=== PATIENT | female | born 1980 | race Caucasian/White ===

== ENCOUNTER → 2022-07-12 01:27 | Outpatient (CLI) | payer MEDICAID, SELFPAY ==
--- NOTE | 2022-07-12 11:04 | DI.RAD_ITS ---
Exam(s) XR SHOULDER LT COMPLETE 2+V EXAM: XR SHOULDER LT COMPLETE 2+V CLINICAL HISTORY: [place] AUTH# [id number] LT SHOULDER PAIN. TECHNIQUE: 2D digital imaging was performed of the left shoulder. Five images were obtained. AP, G rashey, Y-view and axillary views were obtained. COMPARISON: No exams were available for comparison FINDINGS: BONES: No acute fracture is present. No bony destructive lesion is seen. JOINTS: No dislocation present. SOFT TISSUE: Normal. IMPRESSION: Unremarkable radiographs of the left shoulder. DATA REPOSITORY: RADIATION DOSE DELIVERED:
--- NOTE | 2022-07-12 11:04 | DI.RAD_ITS ---
Exam(s) XR CERVICAL SPINE COMP 4-5V EXAM: XR CERVICAL SPINE COMP 4-5V CLINICAL HISTORY: [place] AUTH# [id number] LT-SIDED NECK PAIN, M54.2. TECHNIQUE: 2D digital imaging was performed. Six images were obtained. AP, odontoid, lateral and derrick ateral oblique images were obtained. COMPARISON: No exams were available for comparison FINDINGS: The odontoid is intact. The lateral masses are well aligned. There is normal alignment of the cervi josue spine. The vertebral bodies, disc spaces and posterior elements are well maintained. No acute f racture or subluxation is present. No significant neural foraminal stenosis is present. The cervical thoracic junction is well maintained. The prevertebral soft tissues are unremarkable. Lung apices a re clear. IMPRESSION: Unremarkable radiographs of the cervical spine. DATA REPOSITORY: RADIATION DOSE DELIVERED:
== END ==
PROVIDERS: Visit Provider Physician Assistant Medical
DX: M25.512 Pain in left shoulder (principal)
CPT/HCPCS: 72050; 73030

== ENCOUNTER → 2023-10-25 15:02 | Outpatient (CLI) | payer MEDICAID, SELFPAY ==
--- NOTE | 2023-10-25 | DI.US_ITS ---
Exam(s) US LOWER EXTREMITY VENOUS LT EXAM: US LOWER EXTREMITY VENOUS LT CLINICAL HISTORY: PAIN LEFT LEG M79.605 TECHNIQUE: Grayscale, color, and doppler imaging of the deep venous system of the left lower extremi ty was performed. COMPARISON: No exams were available for comparison FINDINGS: There is no evidence of intraluminal thrombus and there is normal compression and augmentation demons trated within the common femoral vein, femoral vein, and popliteal vein. In the ipsilateral calf the interrogated veins also exhibit normal compression/ augmentation properti es. The ipsilateral saphenofemoral junction is patent. IMPRESSION: 1. No evidence of DVT in the left lower extremity. DATA REPOSITORY:
== END ==
PROVIDERS: PCP Nurse Practitioner Family; Visit Provider Nurse Practitioner Family
DX: M25.562 Pain in left knee (principal)
CPT/HCPCS: 93971

== ENCOUNTER 2023-12-27 23:53 | Emergency (ER) | payer MEDICAID, SELFPAY ==
[2023-12-27 23:56] VITALS: BP 106/56; PULSE 82; RESP 18; TEMP 36.8; O2SAT 100
[2023-12-28] VITALS (149 sets, daily range): BP systolic 105–122; BP diastolic 53–71; PULSE 58–72; RESP 7–37; TEMP 36.8; O2SAT 98–100
--- NOTE | 2023-12-28 00:11 | W.ED.GENAD ---
Discharge Plan Disposition Patient Disposition: Home Condition: Improving Discharge Details Chief Complaint: [facility] [employer] [facility]RAF[facility] Clinical Impression: Miscarriage Primary Care Provider: Unknown,Unknown ED Provider: Dain Patel Home Meds and New Rx's Prescriptions: No Action PNV #[id number] acid-dha 35 mg iron-5 mg iron-1 mg capsule 1 cap PO DAILY quetiapine [Seroquel] 25 mg tablet 25 mg PO PRN Patient Comments: takes 1/4 tab Discharge Instructions Instructions: Miscarriage (ED) Additional Instructions: Please follow-up closely with [facility]AIL DRAFTER. Please return to the emergency department for any worsening symptoms HPI General Date/Time Provider Initiated Documentation: 12/27/23 23:59. HPI Narrative: 43-year-old female G2, P1 at approximately 11 weeks gestation per patient, presents with lower abdominal cramping passing of blood clots and tissue this evening, associate with nausea. Patient was seen in clinic within the last couple of days had ultrasound with estimated gestational age of 7 weeks without evidence of heart tone, consistent with demise, with planned expectant management. Related Data Home Medications Medication Instructions Recorded Confirmed vitamin #56-iron 35 mg 1 cap PO DAILY 12/19/23 12/28/23 and 5 mg-folic acid 1 mg-dha capsule quetiapine 25 mg tablet (Seroquel) 25 mg PO PRN 12/19/23 12/28/23 Allergies Allergy/AdvReac Type Severity Reaction Status Date / Time No Known Allergies Allergy Verified 12/28/23 00:02 General Stated Complaint: L[employer] OUT AND [employer]AIL DRAFTER SOBEIDA: 3 Review of Systems Narrative: Review of Systems Constitutional: negative Eyes: negative ENT: negative Cardiovascular: negative Respiratory: negative Gastrointestinal: negative : Pelvic cramping, vaginal bleeding Musculoskeletal: negative Skin: negative Neurologic: negative Psych: negative Exam Narrative Exam Narrative: Physical Examination General: alert, awake, cooperative, appears uncomfortable HEENT: normocephalic, atraumatic; PERRL, EOM intact, conjunctiva normal; no nasal discharge; moist mucous membranes, oral and pharyngeal mucosa normal, tolerating secretions Neck: supple, trachea midline; full ROM Chest: normal to inspection Respiratory: normal respiratory effort, speaking in full sentences, clear to auscultation, no wheezing, rales or rhonchi Cardiac: regular rate, regular rhythm, S1S2 intact, no murmurs rubs or gallops GI: abdomen soft, non-tender, non-distended; no palpable mass or hepatosplenomegaly Skin: no lesions, rashes or trauma appreciated Neuro: AAOx3, normal speech, moving all extremities Psych: Appropriate mood and affect Course Vital Signs Vital signs: Vital Signs Temperature 36.8 C 12/27/23 23:56 Pulse 82 12/27/23 23:56 Respiratory Rate 18 12/27/23 23:56 Blood Pressure 106/56 L 12/27/23 23:56 Pulse Oximetry 100 12/27/23 23:56 Temperature 36.8 C 12/27/23 23:56 Pulse 82 12/27/23 23:56 Respiratory Rate 18 12/27/23 23:56 Respiratory Effort Normal 12/28/23 00:00 Blood Pressure 106/56 L 12/27/23 23:56 Pulse Oximetry 100 12/27/23 23:56 Pain Level 10 12/28/23 00:00 Medical Decision Making 43-year-old female at approximately 1 weeks gestation per patient, presents with pelvic cramping passing of clot and tissue, recent pelvic ultrasound showing estimated age of 7 weeks with no heart tones consistent with demise, likely incomplete , patient medically stable nonperitoneal however appears uncomfortable, nauseous without active vomiting, will administer fluids antiemetics analgesia, will obtain basic labs coag panel type and screen and beta-hCG. Setting up for pelvic exam to assess amount of bleeding. If patient remains hemodynamically stable and with relief from medications and unremarkable labs will consider discharge home with close [employer] [facility]RAF[facility] follow-up 00: 48 patient feeling much better after fluids and medication. Pelvic exam revealing dark blood in vaginal vault with some tissue. Patient remains hemodynamically stable. Will await lab results, reassessment for likely discharge home 4:44 patient resting comfortably bleeding has slowed 4:55 likely complete patient remains hemodynamically stable and comfortable. Patient to follow-up closely with L[employer] [facility] [employer]AIL DRAFTER Quality:SDOH Health Related Social Needs: No Data to Display PFSH All Active Problems (Updated 12/28/23 @ 04:56 by Dain Patel MD) Miscarriage (Acute) SAB (spontaneous ) (Acute) 12/19/23. 9w EGA with 6w0d EGA by CRL. Pt will repeat u/s in one week and have D&C if non-viable on repeat u/s. BPPV (benign paroxysmal positional vertigo) (Acute) Globus sensation (Acute) Medical History (Updated 12/28/23 @ 04:56 by Dain Patel MD) Nasal drainage Social History (Updated 04/26/23 @ 12:37 by Karla Orozco) Smoking/Tobacco Use Status: Never Smoking risk assessment performed?: Yes Alcohol Intake: never Do you feel safe at home: Yes
[2023-12-28 00:25] LABS: Abs Immature Grans 0.06 10^3/uL (0.0-0.06); Absolute Eosinophil Count 0.02 10^3/uL (0.0-0.7); Absolute Monocyte Count 0.82 10^3/uL (0.1-0.8); Absolute Neutrophil Count 14.54 10^3/uL (1.2-6.7); Basophils % 0.2; Eosinophils % 0.1; HCT 34.3 % (36.0-46.0); HGB 12.1 g/dL (11.2-15.7); Immature Grans % 0.4; Lymphocytes % 7.4; MCH 31.4 pg (27.0-33.0); MCHC 35.3 % (32.0-36.0); MCV 89 fL (80-95); MPV 10.6 fL (8.0-11.0); Monocytes % 4.9; Platelet Count 261 10^3/uL (130-400); RBC 3.85 10^6/uL (3.93-5.22); RDW 11.8 % (11.7-14.6); RDW-SD 37.6 fL; WBC 16.71 10^3/uL (4.4-10.8)
[2023-12-28 00:27] LABS: Absolute Basophil Count 0.03 10^3/uL (0.0-0.2); Absolute Lymphocyte Count 1.24 10^3/uL (1.2-3.4)
[2023-12-28] MEDS: ACETAMINOPHEN 1,000 MG/100 ML BTL 400 MG IVPB (00:29)
[2023-12-28] MEDS: Normal Saline 1,000 ML 1000 ML IV (00:29)
[2023-12-28] MEDS: Ondansetron 4 MG/2 ML VIAL IVP (00:29)
[2023-12-28 00:40] LABS: INR 1.1 (0.9-1.1); PTT Activated 25.9 sec (23.6-32.8); Prothrombin Time 10.8 sec (9.1-11.1)
[2023-12-28 01:03] LABS: ALT 20 U/L (14-59); AST 14 U/L (15-37); Alkaline Phosphatase 43 U/L (46-116); Anion Gap 15.4 mmol/L (3-11); BUN 9 mg/dL (7-18); Bilirubin, Total 0.2 mg/dL (0.2-1.0); CO2 21.6 mmol/L (21.0-32.0); CREATININE 0.8 mg/dL (0.55-1.02); Calcium 8.9 mg/dL (8.5-10.1); Chloride 100 mmol/L (98-107); Estimated GFR 93.12 (mL/min/1.73m2); Glucose 160 mg/dL (74-106); HCG Quant, Pregnancy 6864 mIU/mL (1-3); Potassium 3.2 mmol/L (3.5-5.1); Sodium 137 mmol/L (136-145); Total Protein 7.5 g/dL (6.4-8.2)
[2023-12-28] MEDS: Ketorolac 15 MG/ML VIAL IVP (03:18)
== END 2023-12-28 05:17 | disposition home or self-care (01) ==
PROVIDERS: Emergency Provider Emergency Medicine
DX: O03.9 Complete or unspecified spontaneous abortion without complication (principal); Z3A.11 11 weeks gestation of pregnancy
CPT/HCPCS: 80053; 86850; 86900; 86901; 96361; 96374; 96375; 99284; 84702; 85025; 85610; 85730; J0131; J1885; J2405

== ENCOUNTER 2024-01-03 14:36 | Outpatient (CLI) | payer MEDICAID, SELFPAY ==
[2024-01-03 14:23] LABS: Abs Immature Grans 0.02 10^3/uL (0.0-0.06); Absolute Basophil Count 0.04 10^3/uL (0.0-0.2); Absolute Eosinophil Count 0.05 10^3/uL (0.0-0.7); Absolute Lymphocyte Count 1.97 10^3/uL (1.2-3.4); Absolute Monocyte Count 0.63 10^3/uL (0.1-0.8); Absolute Neutrophil Count 5.64 10^3/uL (1.2-6.7); Basophils % 0.5; Eosinophils % 0.6; HCT 33.8 % (36.0-46.0); HGB 11.9 g/dL (11.2-15.7); Immature Grans % 0.2; Lymphocytes % 23.6; MCH 32.4 pg (27.0-33.0); MCHC 35.2 % (32.0-36.0); MCV 92 fL (80-95); MPV 10.7 fL (8.0-11.0); Monocytes % 7.5; Neutrophils % 67.6; Platelet Count 281 10^3/uL (130-400); RBC 3.67 10^6/uL (3.93-5.22); RDW-SD 40.8 fL; WBC 8.35 10^3/uL (4.4-10.8)
[2024-01-03 14:36] LABS: HCG Quant, Pregnancy 312 mIU/mL (1-3)
== END 2024-01-03 14:37 | disposition home or self-care (01) ==
LOC: LBO 14:36
PROVIDERS: Visit Provider Obstetrics & Gynecology
DX: O03.9 Complete or unspecified spontaneous abortion without complication (principal)
CPT/HCPCS: 36415; 84702; 85025

== ENCOUNTER 2024-01-13 02:06 | Outpatient (CLI) | payer MEDICAID, SELFPAY ==
[2024-01-13 16:29] LABS: HCG Quant, Pregnancy 22 mIU/mL (1-3)
== END 2024-01-13 02:07 | disposition home or self-care (01) ==
LOC: LBO 02:06
PROVIDERS: Visit Provider Obstetrics & Gynecology
DX: O03.9 Complete or unspecified spontaneous abortion without complication (principal)
CPT/HCPCS: 36415; 84702

== ENCOUNTER 2024-08-03 13:51 | Outpatient (REF) | payer MEDICAID, SELFPAY ==
--- OUTSIDE RECORDS SUMMARY | 2024-08-03 13:55 | XMS_ITS | Continuity of Care Document ---
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 It does not include entries that were removed or entered in error. Problem Status Onset Date Problem Type Date of Resolution Comments Source Caesarean delivery - delivered Active 11/25/19 22 Condition Jun 17, 2022 Entered By: CAMERON GRIMALDO Comment: healthy male [facility] elective with complications Active Condition [facility] visit for: services physical separation Inactive Condition [facility] Need For Vaccination Hepatitis B Inactive Condition [facility] Test Active Condition [facility] routine gynecological exam with cervical pap smear Active Condition [facility] foot pain (soft tissue) Inactive Condition -LEFT [facility] exposure to herpes simplex Active Condition [facility] skin: rash [as Sx] Active Condition R/O HSV; PT DESIRES TO RECEIVE CULTURE RESULTS PRIOR TO STARTING ACYCLOVIR [facility] Abdominal pain Active Condition Nov 252022 Entered By: UMESH MCDONOUGH Comment: RUQ [facility] 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 [facility] Back pain Active Condition [facility] Bipolar disorder Active Condition [facility] Borderline personality disorder Active Condition [facility] Cannabis Abuse (ICD-9-CM 305.20) Active Condition [facility] Contraception, counseling NEC (ICD-9-CM V25.09) Active Condition [facility] Depression * (ICD-9-CM 311./300.4) Active Condition [facility] Disorder of lumbar disc (SNOMED CT 671975809) Active Condition [facility] Episodic opioid dependence Active Condition [facility] Herpes simplex viral infection (SNOMED CT 24800450) Active Condition [facility] History of alcohol abuse Active Condition [facility] Hypotension Active Condition Nov 14, 2008 Entered By: NERIS MANZANARES Comment: asymptomatic [facility] Insomnia * (ICD-9-CM 780.52) Active Condition [facility] Low Back Pain * (ICD-9-CM 724.2) Active Condition [facility] Major depressive disorder (SNOMED CT 631530160) Active Condition [facility] Opioid abuse (ICD-9-CM 305.50) [facility] Other and unspecified alcohol dependence, unspecified drinking behavior (ICD-9-C Active Condition [facility] Pulsatile tinnitus Active Condition [facility] Sciatica Active Condition [facility] Sprains and strains of sacroiliac region (ICD-9-CM 846.9) Active [facility] Tendinitis * (ICD-9-CM 726.90) Active Condition [facility] Alcohol abuse Inactive Condition 07/14/2020 [place] [facility] Alcohol dependence Inactive Condition 07/14/2020 [facility] Routine Gynecological examination (ICD-9-CM V72.31) Inactive Condition 06/14/2013 [facility] Diagnosis: ICD-10-CM F31.9 Bipolar disorder, unspecified Active Diagnosis [facility] Diagnosis: ICD-10-CM F10.94 Alcohol use, unspecified with alcohol-induced mood disorder Active Diagnosis [facility] Diagnosis: ICD-10-CM R10.11 Right upper quadrant pain [facility] Diagnosis: ICD-10-CM R53.82 Chronic fatigue, unspecified Active Diagnosis [facility] Diagnosis: ICD-10-CM R10.9 Unspecified abdominal pain Active Diagnosis [facility] Diagnosis: ICD-10-CM Z71.89 Other specified counseling Active Diagnosis [facility] Diagnosis: ICD-10-CM N95.1 Menopausal and female climacteric states Active [facility] Diagnosis: ICD-10-CM Z34.91 Encntr for suprvsn of normal preg, unsp, first trimester Active Diagnosis [facility] Diagnosis: ICD-10-CM Z33.1 state, incidental Active [facility] Diagnosis: ICD-10-CM N94.12 Deep dyspareunia [facility] Diagnosis: ICD-10-CM Z11.51 Encounter for screening for human papillomavirus (HPV) Active Diagnosis [facility] Diagnosis: ICD-10-CM M54.2 Cervicalgia Active Diagnosis [facility] Diagnosis: ICD-10-CM H93.19 Tinnitus, unspecified ear Active Diagnosis [facility] Diagnosis: ICD-10-CM H93.A1 Pulsatile tinnitus, right ear Active Diagnosis [facility] Diagnosis: ICD-10-CM R55 Syncope and collapse Active Diagnosis [facility] Medications Combined list of outpatient medications from Department of Defense and Veterans Affairs facilities.Medications provided include 1) outpatient medications from the last 15 months, and 2) patient-reported medications. Medication Details Route Status Patient Instructions Prescription Expires Prescription Number Last Dispense Date Ordering Provider Order Date Order Qty Source ESTRADIOL 0.1MG/DAY (EQV-VIVELL E-DOT) PATCH APPLY 1 PATCH TOPICALL Y TWICE WEEKLY PERIMENO PAUSE TOPICA Maricruz DISCONT INUED BY ASAEL R 09/27/2024 [id number] GERMAN WALDRONA F 2023 24 [facility] FISH OIL 1000MG (500MG DHA/EPA) CAP,ORAL TAKE 1 CAPSULE BY MOUTH EVERY DAY ORAL ACTIVE BECCA WILSON 2016 [facility] FLUTICASONE PROPIONATE 50MCG/SPRAY SOLN,NASAL, 16GM INSTILL 2 SPRAYS INTO EACH NOSTRIL TWICE A DAY FOR NASAL IRRITATI ON/INFLA MMATION - SPRAY FLONASE AFTER SALINE NASAL SPRAY NASAL 06/07/2024 [id number] FERN ELLIOTT 2022 2 [facility] METRONIDAZO LE 0.75% GEL,VAG 1 APPLICAT ORFUL VAGINALL Y AT BEDTIME VAGINA L ACTIVE ANA LAURA KENNEDY F 2014 [facility] MOISTURIZER ,VAGINAL GEL APPLICATOR (EQV-REPLEN S) INSERT ONE APPLICAT ION INTRAVAG INALLY EVERY THREE DAYS FOR DRYNESS MAY USE MORE FREQUENT LY NEEDED, DAILY USE IS SAFE VAGINA L 08/02/2024 [id number] 3 KARL FRANCIS 2022 24 [facility] MULTIVITAMI NS CAP/TAB TAKE ONE CAP/TAB BY MOUTH EVERY DAY ORAL ACTIVE KAYYANTONELLABECCA 2016 [facility] MULTIVITAMI NS W/MINERALS, CAP/TAB TAKE ONE BY MOUTH EVERY DAY ORAL ACTIVE KRISHNA BRISCOE 2019 [facility] NORETHINDRO NE ACETATE 5MG TAB TAKE ONE TABLET BY MOUTH DAILY FOR PERIMENO PAUSE TAKE FOR 3 WEEKS EACH MONTH ORAL DISCONT INUED BY PROVIDE R 09/12/2024 [id number] 3 GERMAN WALDRON KUMAR F 2022 63 [facility] PROBIOTIC CAP,ORAL TAKE BY MOUTH EVERY DAY ORAL ACTIVE KAYYANTONELLABECCA 2016 [facility] TRI-SPRINTE C TAB,28 TAKE ONE TABLET BY MOUTH ORAL ACTIVE HORACIO DALTON 2015 [facility] Allergies, Adverse Reactions, Alerts Combined list of allergies from Department of Defense and Veterans Affairs facilities. It does not include entries that were removed or entered in error. Substance Category Reaction Severity Reaction type Status Date Reported Comments Source PREGABALIN Propensity to adverse reactions to drug (finding) Fatigue active 6 [facility] Immunizations Combined list of available immunizations from the Department of Defense and Veterans Affairs facilities. Immunization Series Date Given Administered By Site Reaction Lot Number CVX Code Drug Chronic Care Nurse Status Comments Source hepatitis A and hepatitis B vaccine 3 2006 Unknown, Provider [id number] 8BB 104 [employer] (SKB) complet ed hepatitis A and hepatitis B vaccine [facility] HEP A-HEP B 1 2006 104 complet ed [facility] TD(ADULT) UNSPECIFIED FORMULATION 2006 139 complet ed [facility] Results Combined list of recent chemistry, hematology and other laboratory results from Department of Defense and Veterans Affairs, ranging from 15 months to all on record, depending upon the facility. Order Name Results Value Reference Range Date Interpretation Specimen Comments Source CBC PROFILE LEUKOCYTES [#/VOLUME] IN BLOOD BY AUTOMATED COUNT 7.2 10*3/uL 4.5 - 11.0 04/10 Specimen Type: BLOOD No comment entered. Ordering Provider: JENIFFER MCDONOUGH Report Released Date/Time: Apr 03, 2024 01:10 PM Reporting Lab: [facility] [address] [facility] [address] Performing Lab: [facility] [address] [facility] [address] [facility] CBC PROFILE ERYTHROCYTE S [#/VOLUME] IN BLOOD BY AUTOMATED COUNT 4.30 10*6/uL 3.93 - 5.16 04/10 Specimen Type: BLOOD No comment entered. Ordering Provider: JENIFFER MCDONOUGH Report Released Date/Time: Apr 03, 2024 01:10 PM Reporting Lab: [facility] [address] [facility] [address] Performing Lab: [facility] [address] [facility] [address] [facility] CBC PROFILE HEMOGLOBIN [MASS/VOLUM E] IN BLOOD 13.7 g/dL 12 - 15.2 04/10 Specimen Type: BLOOD No comment entered. Ordering Provider: JENIFFER MCDONOUGH Report Released Date/Time: Apr 03, 2024 01:10 PM Reporting Lab: [facility] [address] [facility] [address] Performing Lab: [facility] [address] [facility] [address] [facility] CBC PROFILE HEMATOCRIT [VOLUME FRACTION] OF BLOOD BY AUTOMATED COUNT 39.2 36.6 - 45.6 04/10 Specimen Type: BLOOD No comment entered. Ordering Provider: JENIFFER MCDONOUGH Report Released Date/Time: Apr 03, 2024 01:10 PM Reporting Lab: [facility] [address] [facility] [address] Performing Lab: [facility] [address] [facility] [address] [facility] CBC PROFILE MCV [ENTITIC VOLUME] BY AUTOMATED COUNT 91.2 fL 82 - 99 04/10 Specimen Type: BLOOD No comment entered. Ordering Provider: JENIFFER MCDONOUGH Report Released Date/Time: Apr 03, 2024 01:10 PM Reporting Lab: [facility] [address] [facility] [address] Performing Lab: [facility] [address] [facility] [address] [facility] CBC PROFILE MCH [ENTITIC MASS] BY AUTOMATED COUNT 31.9 pg 26.2 - 32.6 04/10 Specimen Type: BLOOD No comment entered. Ordering Provider: JENIFFER MCDONOUGH Report Released Date/Time: Apr 03, 2024 01:10 PM Reporting Lab: [facility] [address] [facility] [address] Performing Lab: [facility] [address] [facility] [address] [facility] CBC PROFILE MCHC [MASS/VOLUM E] BY AUTOMATED COUNT 34.9 g/dL 30.8 - 35.1 04/10 Specimen Type: BLOOD No comment entered. Ordering Provider: JENIFFER MCDONOUGH Report Released Date/Time: Apr 03, 2024 01:10 PM Reporting Lab: [facility] [address] [facility] [address] Performing Lab: [facility] [address] [facility] [address] [facility] CBC PROFILE PLATELETS [#/VOLUME] IN BLOOD BY AUTOMATED COUNT 257 10*3/uL 140 - 360 04/10 Specimen Type: BLOOD No comment entered. Ordering Provider: JENIFFER MCDONOUGH Report Released Date/Time: Apr 03, 2024 01:10 PM Reporting Lab: [facility] [address] [facility] [address] Performing Lab: [facility] [address] [facility] [address] [facility] CBC PROFILE PLATELET MEAN VOLUME [ENTITIC VOLUME] IN BLOOD BY AUTOMATED COUNT 10.5 fL 9.2 - 12.4 04/10 Specimen Type: BLOOD No comment entered. Ordering Provider: JENIFFER MCDONOUGH Report Released Date/Time: Apr 03, 2024 01:10 PM Reporting Lab: [facility] [address] [facility] [address] Performing Lab: [facility] [address] [facility] [address] [facility] CBC PROFILE ERYTHROCYTE DISTRIBUTIO N WIDTH [RATIO] BY AUTOMATED COUNT 12.0 12.0 - 16.0 04/10 Specimen Type: BLOOD No comment entered. Ordering Provider: JENIFFER MCDONOUGH Report Released Date/Time: Apr 03, 2024 01:10 PM Reporting Lab: [facility] [address] [facility] [address] Performing Lab: [facility] [address] [facility] [address] [facility] CBC PROFILE LYMPHOCYTES /100 LEUKOCYTES IN BLOOD BY AUTOMATED COUNT 24.3 14.0 - 42.3 04/10 Specimen Type: BLOOD No comment entered. Ordering Provider: JENIFFER MCDONOUGH Report Released Date/Time: Apr 03, 2024 01:10 PM Reporting Lab: [facility] [address] [facility] [address] Performing Lab: [facility] [address] [facility] [address] [facility] CBC PROFILE MONOCYTES/1 00 LEUKOCYTES IN BLOOD BY AUTOMATED COUNT 8.3 5.1 - 13.7 04/10 Specimen Type: BLOOD No comment entered. Ordering Provider: JENIFFER MCDONOUGH Report Released Date/Time: Apr 03, 2024 01:10 PM Reporting Lab: [facility] [address] [facility] [address] Performing Lab: [facility] [address] [facility] [address] [facility] CBC PROFILE GRANULOCYTE S/100 LEUKOCYTES IN BLOOD BY AUTOMATED COUNT 65.8 43.7 - 75.8 04/10 Specimen Type: BLOOD No comment entered. Ordering Provider: JENIFFER MCDONOUGH Report Released Date/Time: Apr 03, 2024 01:10 PM Reporting Lab: [facility] [address] [facility] [address] Performing Lab: [facility] [address] [facility] [address] [facility] CBC PROFILE EOSINOPHILS /100 LEUKOCYTES IN BLOOD BY AUTOMATED COUNT 0.7 0.4 - 6.8 04/10 Specimen Type: BLOOD No comment entered. Ordering Provider: JENIFFER MCDONOUGH Report Released Date/Time: Apr 03, 2024 01:10 PM Reporting Lab: [facility] [address] [facility] [address] Performing Lab: [facility] [address] [facility] [address] [facility] CBC PROFILE BASOPHILS/1 00 LEUKOCYTES IN BLOOD BY AUTOMATED COUNT 0.6 0.1 - 2.0 04/10 Specimen Type: BLOOD No comment entered. Ordering Provider: JENIFFER MCDONOUGH Report Released Date/Time: Apr 03, 2024 01:10 PM Reporting Lab: [facility] [address] [facility] [address] Performing Lab: [facility] [address] [facility] [address] [facility] CBC PROFILE IMMATURE GRANULOCYTE S/100 LEUKOCYTES IN BLOOD BY AUTOMATED COUNT 0.3 0.0 - 0.7 04/10 Specimen Type: BLOOD No comment entered. Ordering Provider: JENIFFER MCDONOUGH Report Released Date/Time: Apr 03, 2024 01:10 PM Reporting Lab: [facility] [address] [facility] [address] Performing Lab: [facility] [address] [facility] [address] [facility] CBC PROFILE NUCLEATED ERYTHROCYTE S/100 LEUKOCYTES [RATIO] IN BLOOD BY AUTOMATED COUNT 0.0 /100{WBC s} 0.0 - 0.0 04/10 Specimen Type: BLOOD No comment entered. Ordering Provider: JENIFFER MCDONOUGH Report Released Date/Time: Apr 03, 2024 01:10 PM Reporting Lab: [facility] [address] [facility] [address] Performing Lab: [facility] [address] [facility] [address] [facility] CBC PROFILE IMMATURE GRANULOCYTE S [#/VOLUME] IN BLOOD 0.0 10*3/uL 0 - 0.06 04/10 Specimen Type: BLOOD No comment entered. Ordering Provider: JENIFFER MCDONOUGH Report Released Date/Time: Apr 03, 2024 01:10 PM Reporting Lab: [facility] [address] [place] [facility] [place] [place] [address] Performing Lab: [facility] [address] [place] [facility] [place] [address] [facility] CBC PROFILE BASOPHILS [#/VOLUME] IN BLOOD BY AUTOMATED COUNT 0.0 10*3/uL 0.01 - 0.13 04/10 L Specimen Type: BLOOD No comment entered. Ordering Provider: JENIFFER MCDONOUGH Report Released Date/Time: Apr 03, 2024 01:10 PM Reporting Lab: [facility] [address] [facility] [address] Performing Lab: [facility] [address] [facility] [address] [facility] CBC PROFILE EOSINOPHILS [#/VOLUME] IN BLOOD BY AUTOMATED COUNT 0.1 10*3/uL 0.03 - 0.44 04/10 Specimen Type: BLOOD No comment entered. Ordering Provider: JENIFFER MCDONOUGH Report Released Date/Time: Apr 03, 2024 01:10 PM Reporting Lab: [facility] [address] [place] [facility] [place] [address] Performing Lab: [facility] [address] [facility] [address] [facility] CBC PROFILE LYMPHOCYTES [#/VOLUME] IN BLOOD BY AUTOMATED COUNT 1.7 10*3/uL 1.0 - 3.2 04/10 Specimen Type: BLOOD No comment entered. Ordering Provider: JENIFFER MCDONOUGH Report Released Date/Time: Apr 03, 2024 01:10 PM Reporting Lab: [facility] [address] [facility] [address] Performing Lab: [facility] [address] [place] [facility] [place] [address] [facility] CBC PROFILE MONOCYTES [#/VOLUME] IN BLOOD BY AUTOMATED COUNT 0.6 10*3/uL 0.3 - 1.1 04/10 Specimen Type: BLOOD No comment entered. Ordering Provider: JENIFFER MCDONOUGH Report Released Date/Time: Apr 03, 2024 01:10 PM Reporting Lab: [facility] [address] [facility] [address] Performing Lab: [facility] [address] [facility] [address] [facility] CBC PROFILE NEUTROPHILS [#/VOLUME] IN BLOOD BY AUTOMATED COUNT 4.7 10*3/uL 2.2 - 7.6 04/10 Specimen Type: BLOOD No comment entered. Ordering Provider: JENIFFER MCDONOUGH Report Released Date/Time: Apr 03, 2024 01:10 PM Reporting Lab: [facility] [address] [facility] [address] Performing Lab: [facility] [address] [facility] [address] [facility] CBC PROFILE NUCLEATED ERYTHROCYTE S [#/VOLUME] IN BLOOD BY AUTOMATED COUNT 0.00 10*3/uL 0 - 0 04/10 Specimen Type: BLOOD No comment entered. Ordering Provider: JENIFFER MCDONOUGH Report Released Date/Time: Apr 03, 2024 01:10 PM Reporting Lab: [facility] [address] [facility] [address] Performing Lab: [facility] [address] [facility] [address] [facility] CRP(INFLA MMATORY) C REACTIVE PROTEIN [MASS/VOLUM E] IN SERUM OR PLASMA 0.5 mg/L 0.0 - 5.0 04/10 Specimen Type: PLASMA Comment: Added by [id number] on Apr 10, 2024@11:40, Tests performed on [employer] SN:[id number] (405) Ordering Provider: JENIFFER MCDONOUGH Report Released Date/Time: Apr 03, 2024 01:10 PM Reporting Lab: [facility] [address] [facility] [address] Performing Lab: [facility] [address] [facility] [address] [facility] GLYCOHEMO GLOBIN (A1C ONLY) HEMOGLOBIN A1C/HEMOGLO BIN.TOTAL IN BLOOD BY HPLC 5.3 4.0 - 5.6 04/10 Specimen Type: BLOOD Comment: , Tests performed on [employer] SN:[id number] (405) Values obtained from A1C measurement s can vary. For typical A1C assays, a reported value of 7.0 could actually be between 6.72 and 7.28 if measured by a reference method. A reported value of 9.0 could actually be between 8.73 and 9.27. Ref: http://www. ngsp.org/[place] Pdata.asp Ordering Provider: JENIFFER MCDONOUGH Report Released Date/Time: Apr 03, 2024 01:10 PM Reporting Lab: [facility] [address] [place] [facility] [place] [address] Performing Lab: [facility] [address] [place] [facility] [place] [address] [facility] IRON+TIBC (P) IRON [MASS/VOLUM E] IN SERUM OR PLASMA 139 ug/dL 40 - 160 04/10 Specimen Type: PLASMA Comment: Added by [id number] on Apr 10, 2024@11:40, Tests performed on [employer] SN:[id number] (405) Ordering Provider: JENIFFER MCDONOUGH Report Released Date/Time: Apr 03, 2024 01:10 PM Reporting Lab: [facility] [address] [place] [facility] [place] [place] [address] Performing Lab: [facility] [address] [place] [facility] [place] [place] [address] [facility] IRON+TIBC (P) IRON BINDING CAPACITY [MASS/VOLUM E] IN SERUM OR PLASMA 320 ug/dL 04/10 Specimen Type: PLASMA Comment: Added by [id number] on Apr 10, 2024@11:40, Tests performed on [employer] Mckenna SN:[id number] (405) Ordering Provider: JENIFFER MCDONOUGH Report Released Date/Time: Apr 03, 2024 01:10 PM Reporting Lab: [facility] [address] [place] [facility] [place] [address] Performing Lab: [facility] [address] [facility] [address] [facility] IRON+TIBC (P) IRON SATURATION [MASS FRACTION] IN SERUM OR PLASMA 43 15 04/10 Specimen Type: PLASMA Comment: Added by [id number] on Apr 10, 2024@11:40, Tests performed on [employer] SN:[id number] (405) Ordering Provider: JENIFFER MCDONOUGH Report Released Date/Time: Apr 03, 2024 01:10 PM Reporting Lab: [facility] [address] [facility] [address] Performing Lab: [facility] [address] [facility] [address] [facility] IRON+TIBC (P) IRON BINDING CAPACITY.UN SATURATED [MASS/VOLUM E] IN SERUM OR PLASMA 181 ug/dL 126 - 382 04/10 Specimen Type: PLASMA Comment: Added by [id number] on Apr 10, 2024@11:40, Tests performed on [employer] SN:[id number] (405) Ordering Provider: JENIFFER MCDONOUGH Report Released Date/Time: Apr 03, 2024 01:10 PM Reporting Lab: [facility] [address] [facility] [address] Performing Lab: [facility] [address] [facility] [address] [facility] LIPOPROTE IN CHOLESTER OL FRACT. PANEL CHOLESTEROL [MASS/VOLUM E] IN SERUM OR PLASMA 250 mg/dL 0 - 200 04/10 H Specimen Type: PLASMA Comment: Added by [id number] on Apr 10, 2024@11:40, Tests performed on [employer] SN:[id number] (405) Ordering Provider: JENIFFER MCDONOUGH Report Released Date/Time: Apr 03, 2024 01:10 PM Reporting Lab: [facility] [address] [facility] [address] Performing Lab: [facility] [address] [facility] [address] [facility] LIPOPROTE IN CHOLESTER OL FRACT. PANEL TRIGLYCERID E [MASS/VOLUM E] IN SERUM OR PLASMA 108 mg/dL 0 - 150 04/10 Specimen Type: PLASMA Comment: Added by [id number] on Apr 10, 2024@11:40, Tests performed on [employer] SN:[id number] (405) Ordering Provider: JENIFFER MCDONOUGH Report Released Date/Time: Apr 03, 2024 01:10 PM Reporting Lab: [facility] [address] [facility] [address] Performing Lab: [facility] [address] [facility] [address] [facility] LIPOPROTE IN CHOLESTER OL FRACT. PANEL CHOLESTEROL IN HDL [MASS/VOLUM E] IN SERUM OR PLASMA 66 mg/dL 40 04/10 Specimen Type: PLASMA Comment: Added by [id number] on Apr 10, 2024@11:40, Tests performed on [employer] SN:[id number] (405) Ordering Provider: JENIFFER MCDONOUGH Report Released Date/Time: Apr 03, 2024 01:10 PM Reporting Lab: [facility] [address] [facility] [address] Performing Lab: [facility] [address] [facility] [address] [facility] LIPOPROTE IN CHOLESTER OL FRACT. PANEL CHOLESTEROL IN LDL [MASS/VOLUM E] IN SERUM OR PLASMA BY CALCULATION 162 mg/dL 04/10 Specimen Type: PLASMA Comment: Added by [id number] on Apr 10, 2024@11:40, Tests performed on [employer] SN:[id number] (405) Ordering Provider: JENIFFER MCDONOUGH Report Released Date/Time: Apr 03, 2024 01:10 PM Reporting Lab: [facility] [address] [facility] [address] Performing Lab: [facility] [address] [facility] [address] [facility] LIVER PROFILE PROTEIN [MASS/VOLUM E] IN SERUM OR PLASMA 7.3 g/dL 6.0 - 8.5 04/10 Specimen Type: PLASMA Comment: Added by [id number] on Apr 10, 2024@11:40, Tests performed on [facility] [employer] [facility] SN:[id number] (405) Ordering Provider: JENIFFER MCDONOUGH Report Released Date/Time: Apr 03, 2024 01:10 PM Reporting Lab: [facility] [address] [facility] [address] Performing Lab: [facility] [address] [facility] [address] [facility] LIVER PROFILE ALBUMIN [MASS/VOLUM E] IN SERUM OR PLASMA 3.9 g/dL 3.2 - 5.0 04/10 Specimen Type: PLASMA Comment: Added by [id number] on Apr 10, 2024@11:40, Tests performed on [facility] SN:[id number] (405) Ordering Provider: JENIFFER MCDONOUGH Report Released Date/Time: Apr 03, 2024 01:10 PM Reporting Lab: [facility] [address] [facility] [address] Performing Lab: [facility] [address] [facility] [address] [facility] LIVER PROFILE BILIRUBIN.T OTAL [MASS/VOLUM E] IN SERUM OR PLASMA 0.4 mg/dL 0.2 - 1.2 04/10 Specimen Type: PLASMA Comment: Added by [id number] on Apr 10, 2024@11:40, Tests performed on [facility] SN:[id number] (405) Ordering Provider: JENIFFER MCDONOUGH Report Released Date/Time: Apr 03, 2024 01:10 PM Reporting Lab: [facility] [address] [facility] [address] Performing Lab: [facility] [address] [facility] [address] [facility] PROFILE ALKALINE PHOSPHATASE [ENZYMATIC ACTIVITY/VO LUME] IN SERUM OR PLASMA 37 U/L 40 - 150 04/10 L Specimen Type: PLASMA Comment: Added by [id number] on Apr 10, 2024@11:40, Tests performed on [employer] [facility] SN:[id number] (405) Ordering Provider: JENIFFER MCDONOUGH Report Released Date/Time: Apr 03, 2024 01:10 PM Reporting Lab: [facility] [address] [place] [facility] [place] [place] [address] Performing Lab: [facility] [address] [facility] [address] [facility] LIVER PROFILE ALANINE AMINOTRANSF ERASE [ENZYMATIC ACTIVITY/VO LUME] IN SERUM OR PLASMA 11 U/L 7 - 52 04/10 Specimen Type: PLASMA Comment: Added by [id number] on Apr 10, 2024@11:40, Tests performed on [facility] SN:[id number] (405) Ordering Provider: JENIFFER MCDONOUGH Report Released Date/Time: Apr 03, 2024 01:10 PM Reporting Lab: [facility] [address] [facility] [address] Performing Lab: [facility] [address] [facility] [address] [facility] LIVER PROFILE ASPARTATE AMINOTRANSF ERASE [ENZYMATIC ACTIVITY/VO LUME] IN SERUM OR PLASMA 14 U/L 5 - 34 04/10 Specimen Type: PLASMA Comment: Added by [id number] on Apr 10, 2024@11:40, Tests performed on [employer] Mckenna SN:[id number] (405) Ordering Provider: JENIFFER MCDONOUGH Report Released Date/Time: Apr 03, 2024 01:10 PM Reporting Lab: [facility] [address] [facility] [address] Performing Lab: [facility] [address] [facility] [address] [facility] LIVER PROFILE FIB-4 SCORE 0.72 <2.67 - 2.67 04/10 Specimen Type: PLASMA Comment: Added by [id number] on Apr 10, 2024@11:40, Tests performed on [employer] [facility] SN:[id number] (405) Ordering Provider: JENIFFER MCDONOUGH Report Released Date/Time: Apr 03, 2024 01:10 PM Reporting Lab: [facility] [address] [facility] [address] Performing Lab: [facility] [address] [facility] [address] [facility] P4 GLU,BUN,C REAT,LYTE S,CA UREA NITROGEN [MASS/VOLUM E] IN SERUM OR PLASMA 12 mg/dL 7 - 25 04/10 Specimen Type: PLASMA Comment: Added by [id number] on Apr 10, 2024@11:40, Tests performed on [facility] SN:[id number] (405) Ordering Provider: JENIFFER MCDONOUGH Report Released Date/Time: Apr 03, 2024 01:10 PM Reporting Lab: [facility] [address] [facility] [address] Performing Lab: [facility] [address] [facility] [address] [facility] P4 GLU,BUN,C REAT,LYTE S,CA SODIUM [MOLES/VOLU ME] IN SERUM OR PLASMA 136 mmol/L 135 - 145 04/10 Specimen Type: PLASMA Comment: Added by [id number] on Apr 10, 2024@11:40, Tests performed on [employer] [facility] SN:[id number] (405) Ordering Provider: JENIFFER MCDONOUGH Report Released Date/Time: Apr 03, 2024 01:10 PM Reporting Lab: [facility] [address] [facility] [address] Performing Lab: [facility] [address] [facility] [address] [facility] P4 GLU,BUN,C REAT,LYTE S,CA POTASSIUM [MOLES/VOLU ME] IN SERUM OR PLASMA 3.7 mmol/L 3.5 - 5.0 04/10 Specimen Type: PLASMA Comment: Added by [id number] on Apr 10, 2024@11:40, Tests performed on [employer] [facility] SN:[id number] (405) Ordering Provider: JENIFFER MCDONOUGH Report Released Date/Time: Apr 03, 2024 01:10 PM Reporting Lab: [facility] [address] [facility] [address] Performing Lab: [facility] [address] [facility] [address] [facility] P4 GLU,BUN,C REAT,LYTE S,CA CHLORIDE [MOLES/VOLU ME] IN SERUM OR PLASMA 104 mmol/L 100 - 110 04/10 Specimen Type: PLASMA Comment: Added by [id number] on Apr 10, 2024@11:40, Tests performed on [facility] SN:[id number] (405) Ordering Provider: JENIFFER MCDONOUGH Report Released Date/Time: Apr 03, 2024 01:10 PM Reporting Lab: [facility] [address] [facility] [address] Performing Lab: [facility] [address] [facility] [address] [facility] P4 GLU,BUN,C REAT,LYTE S,CA CARBON DIOXIDE, TOTAL [MOLES/VOLU ME] IN SERUM OR PLASMA 25 mmol/L 20 - 30 04/10 Specimen Type: PLASMA Comment: Added by [id number] on Apr 10, 2024@11:40, Tests performed on [employer] SN:[id number] (405) Ordering Provider: JENIFFER MCDONOUGH Report Released Date/Time: Apr 03, 2024 01:10 PM Reporting Lab: [facility] [address] [facility] [address] Performing Lab[facility] [address] [facility] [address] [facility] P4 GLU,BUN,C REAT,LYTE S,CA ANION GAP IN SERUM OR PLASMA 7 4 - 16 04/10 Specimen Type: PLASMA Comment: Added by [id number] on Apr 10, 2024@11:40, Tests performed on [employer] SN:[id number] (405) Ordering Provider: JENIFFER MCDONOUGH Report Released Date/Time: Apr 03, 2024 01:10 PM Reporting Lab: [facility] [address] [facility] [address] Performing Lab: [facility] [address] [facility] [address] [facility] P4 GLU,BUN,C REAT,LYTE S,CA GLUCOSE [MASS/VOLUM E] IN SERUM OR PLASMA 63 mg/dL 65 - 100 04/10 L Specimen Type: PLASMA Comment: Added by [id number] on Apr 10, 2024@11:40, Tests performed on [employer] SN:[id number] (405) Ordering Provider: JENIFFER MCDONOUGH Report Released Date/Time: Apr 03, 2024 01:10 PM Reporting Lab: [facility] [address] [facility] [address] Performing Lab: [facility] [address] [facility] [address] [facility] P4 GLU,BUN,C REAT,LYTE S,CA CREATININE [MASS/VOLUM E] IN SERUM OR PLASMA 0.93 mg/dL 0.50 - 1.50 04/10 Specimen Type: PLASMA Comment: Added by [id number] on Apr 10, 2024@11:40, Tests performed on [facility] [facility] SN:[id number] (405) Ordering Provider: JENIFFER MCDONOUGH Report Released Date/Time: Apr 03, 2024 01:10 PM Reporting Lab: [facility] [address] [facility] [address] Performing Lab: [facility] [address] [facility] [address] [facility] P4 GLU,BUN,C REAT,LYTE S,CA CALCIUM [MASS/VOLUM E] IN SERUM OR PLASMA 9.3 mg/dL 8.5 - 10.5 04/10 Specimen Type: PLASMA Comment: Added by [id number] on Apr 10, 2024@11:40, Tests performed on [facility] SN:[id number] (405) Ordering Provider: JENIFFER MCDONOUGH Report Released Date/Time: Apr 03, 2024 01:10 PM Reporting Lab: [facility] [address] [facility] [address] Performing Lab: [facility] [address] [facility] [address] [facility] P4 GLU,BUN,C REAT,LYTE S,CA GLOMERULAR FILTRATION RATE/1.73 SQ M.PREDICTED [VOLUME RATE/AREA] IN SERUM, PLASMA OR BLOOD BY CREATININE- BASED FORMULA (CKD-EPI 2020) 78 04/10 Specimen Type: PLASMA Comment: Added by [id number] on Apr 10, 2024@11:40, Tests performed on [facility] SN:[id number] (405) Ordering Provider: JENIFFER MCDONOUGH Report Released Date/Time: Apr 03, 2024 01:10 PM Reporting Lab: [facility] [address] [facility] [address] Performing Lab: [facility] [address] [facility] [address] [facility] HEP B CORE,TOTA L(W) HEPATITIS B VIRUS CORE AB [PRESENCE] IN SERUM OR PLASMA BY IMMUNOASSAY Non Reactive 04/10 Specimen Type: SERUM Comment: A 'Reactive' result indicates HBsAb results >/= 12.0 mIU/mL and immunity to HBV infection. Hep A IgG: A 'Reactive' result indicates previous exposure to Hepatitis A virus through infection or vaccination . This test detects both IgG and IgM antibodies. A Reactive result (Positive prior to 07/09/13) may indicate either current or previous hepatitis B infection. Antibodies to Hepatitis B Core may be the only marker of recent hepatitis B infection during the window period when Hepatitis B surface antigen has disappeared and Hepatitis B surface antibodies are not yet detectable. Ordering Provider: JENIFFER MCDONOUGH Report Released Date/Time: Apr 10, 2024 11:09 AM Reporting Lab: [facility] [address] [facility] [address] Performing Lab: [facility] [address] [facility] [address] [facility] HEP B SURF AB(W) HEPATITIS B VIRUS SURFACE AB [PRESENCE] IN SERUM BY IMMUNOASSAY REACTIVE 04/10 Specimen Type: SERUM Comment: A 'Reactive' result indicates HBsAb results >/= 12.0 mIU/mL and immunity to HBV infection. Hep A IgG: A 'Reactive' result indicates previous exposure to Hepatitis A virus through infection or vaccination . This test detects both IgG and IgM antibodies. A Reactive result (Positive prior to 07/09/13) may indicate either current or previous hepatitis B infection. Antibodies to Hepatitis B Core may be the only marker of recent hepatitis B infection during the window period when Hepatitis B surface antigen has disappeared and Hepatitis B surface antibodies are not yet detectable. Ordering Provider: JENIFFER MCDONOUGH Report Released Date/Time: Apr 10, 2024 11:09 AM Reporting Lab: [facility] [address] [facility] [address] Performing Lab: [facility] [address] [facility] [address] [facility] HEPATITIS A IgG(W) HEPATITIS A VIRUS IGG AB [PRESENCE] IN SERUM REACTIVE 04/10 Specimen Type: SERUM Comment: A 'Reactive' result indicates HBsAb results >/= 12.0 mIU/mL and immunity to HBV infection. Hep A IgG: A 'Reactive' result indicates previous exposure to Hepatitis A virus through infection or vaccination . This test detects both IgG and IgM antibodies. A Reactive result (Positive prior to 07/09/13) may indicate either current or previous hepatitis B infection. Antibodies to Hepatitis B Core may be the only marker of recent hepatitis B infection during the window period when Hepatitis B surface antigen has disappeared and Hepatitis B surface antibodies are not yet detectable. Ordering Provider: JENIFFER MCDONOUGH Report Released Date/Time: Apr 10, 2024 11:33 AM Reporting Lab: [facility] [address] [facility] [address] Performing Lab: [facility] [address] [facility] [address] [facility] Vital Signs Combined list of inpatient and outpatient Vital Signs from Department of Defense and Veterans Affairs, ranging from 12 months to all on record, depending upon the facility. Vital Sign Value Date Comments Source SYSTOLIC BLOOD PRESSURE 101 06/25/2024 10:03:09 [facility] DIASTOLIC BLOOD PRESSURE 69 06/25/2024 10:03:09 [facility] PULSE OXIMETRY 100 06/25/2024 10:03:09 [facility] WEIGHT 124.9 06/25/2024 10:03:09 [facility] BMI 21kg/m2 06/25/2024 10:03:09 [facility] PAIN 3 06/25/2024 10:03:09 [facility] TEMPERATURE 98.3 06/25/2024 10:03:09 [facility] PULSE 63 06/25/2024 10:03:09 [facility] RESPIRATION 16 06/25/2024 10:03:09 [facility] SYSTOLIC BLOOD PRESSURE 96 06/19/2024 12:58:37 [facility] DIASTOLIC BLOOD PRESSURE 60 06/19/2024 12:58:37 [facility] PULSE OXIMETRY 98 06/19/2024 12:58:37 [facility] WEIGHT 124.8 06/19/2024 12:58:37 [facility] BMI 21kg/m2 06/19/2024 12:58:37 [facility] PAIN 6 06/19/2024 12:58:37 [facility] TEMPERATURE 98.7 06/19/2024 12:58:37 [facility] PULSE 66 06/19/2024 12:58:37 [facility] RESPIRATION 16 06/19/2024 12:58:37 [facility] SYSTOLIC BLOOD PRESSURE 91 04/10/2024 10:43:36 [facility] DIASTOLIC BLOOD PRESSURE 55 04/10/2024 10:43:36 [facility] PULSE OXIMETRY 98 04/10/2024 10:43:36 [facility] WEIGHT 130.3 04/10/2024 10:43:36 [facility] BMI 22kg/m2 04/10/2024 10:43:36 [facility] PAIN 6 04/10/2024 10:43:36 [facility] TEMPERATURE 98.7 04/10/2024 10:43:36 [facility] PULSE 62 04/10/2024 10:43:36 [facility] RESPIRATION 18 04/10/2024 10:43:36 [facility] SYSTOLIC BLOOD PRESSURE 98 11/11/2023 14:07:52 [facility] DIASTOLIC BLOOD PRESSURE 68 11/11/2023 [facility]:07[facility] PUL[facility]ET[facility] 98 11/11/2023 14:07:52 [facility] WE[facility] 138.2 11/11/2023 14:07:52 [facility] BMI 23kg/m2 11/11/2023 14:07:52 [facility] PAIN 0 11/11/2023 14:07:52 [facility] HEIGHT 65 11/11/2023 14:07:52 [facility] TEMPERATURE 97.3 11/11/2023 14:07:52 [facility] PULSE 62 11/11/2023 14:07:52 [facility] SYSTOLIC BLOOD PRESSURE 108 09/12/2023 09:51:01 [facility] DIASTOLIC BLOOD PRESSURE 57 09/12/2023 09:51:01 [facility] PULSE OXIMETRY 100% 09/12/2023 09:51:01 [facility] PAIN 0 09/12/2023 09:51:01 [facility] TEMPERATURE 98.2 09/12/2023 09:51:01 [facility] PULSE 64 09/12/2023 09:51:01 [facility] RESPIRATION 18 09/12/2023 09:51:01 [facility] Encounters Combined list of: 1) Encounters from Department of Veterans Affairs facilities [facility] 2) Encounters from the Department of Defense facilities going back up to 280 months. Location Location Details Encounter Type Encounter Number Reason For Visit Attending Provider ADM Date DC Date Status Disposition Source [facility]) OUTPATIENT [id number] rash on back MARA MORALES 06/21 Released w/o Limitations [facility]) [facility]) OUTPATIENT [id number] lab results LILY PENG 12/10 Released w/o Limitations [facility]) [facility]) OUTPATIENT [id number] left foot pain GINO GRANADOS 02/25 Released with Work/Duty Limitations [facility]) [facility]([employer]) OUTPATIENT [id number] ANNUAL EXAM LENKA SNEED 07/15 Released w/o Limitations [facility](S [employer]) [facility]) OUTPATIENT [id number] plan b HARRIET BRIGHT 11/10 Released w/o Limitations [facility]) [facility] Immunizat ion) OUTPATIENT [id number] HEPA HEPB LUDIVINA GROVER 11/17 Released w/o Limitations [facility] Immuniz ation) [facility](NI, Phys Exam) OUTPATIENT [id number] SEP BUDDY FRAZIER 11/21 Released w/o Limitations [facility](N I, Phys Exam) [facility] [place] OUTPATIENT [id number] TRUNG Vásquez 12/13 Released w/o Limitations [facility]( [facility] [place] [facility] Outpatient Encounter [id number] 02/15 [facility] 3D RENDER W/INTRP POSTPROCES [id number] 5. Diagnos is: ICD-10- CM R55 Syncope and collaps e
Ally ALY 02/22 [facility] Outpatient Encounter [id number] Diagnos is: ICD-10- CM H93.19 Tinnitu s, unspeci fied ear<br/ > KIMBER MCDONOUGH 02/23 [facility] [place]MPANOMET RY [id number] Diagnos is: ICD-10- CM H93.A1 Pulsati le tinnitu s, right ear<br/ > FREDI CANO D 03/01 [facility] OFFICE O/P NEW MOD 45-59 MIN [id number] Diagnos is: ICD-10- CM H93.19 Tinnitu s, unspeci fied ear<br/ > ALAN ALCARAZ 03/01 [facility] Outpatient Encounter [id number] 03/15 [facility] Outpatient Encounter [id number] 04/04 [facility] Outpatient Encounter [id number] 04/05 [facility] Outpatient Encounter [id number] Diagnos is: ICD-10- CM F31.9 Bipolar disorde r, unspeci fied
CEASAR,KIMBER LUIS L 04/06 [facility] Outpatient Encounter [id number] Diagnos is: ICD-10- CM H93.19 Tinnitu s, unspeci fied ear<br/ > ALAN ALCARAZ A 05/10 [facility] Outpatient Encounter [id number] 05/16 [facility] Outpatient Encounter [id number] 06/01 [facility] Outpatient Encounter [id number] Diagnos is: ICD-10- CM H93.19 Tinnitu s, unspeci fied ear<br/ > CEASAR,KIMBER LUIS L 06/03 [facility] OFFICE O/P EST HI 40-54 MIN [id number] Diagnos is: ICD-10- CM M54.2 Cervica lgia
Ravi ELLIOTTD R 06/07 [facility] Outpatient Encounter [id number] 06/30 [facility] Outpatient Encounter [id number]/[id number] [facility] Outpatient Encounter [id number] Diagnos is: ICD-10- CM R10.9 Unspeci fied abdomin al pain
CEASAR,KIMBER LUIS L 06/30 [facility] Outpatient Encounter [id number] [facility] Outpatient Encounter [id number] 07/06 [facility] [id number] 07/12 [place] [facility] Out[facility] Encounter [id number] 07/12 [facility] Out[facility] Encounter [id number] 07/19 [facility] [place] Out[facility] Encounter [id number] DOMINIK HUMBERTO 08/02 [place] [facility] [place] OFF/OP CNSLTJ NEW/EST MOD 40 [id number] Diagnos is: ICD-10- CM Z11.51 Encount er for screeni ng for human papillo mavirus (HPV)<b r/> TITODAVID GIOVANI A 08/02 [place] [facility] Outpatient Encounter [id number] 08/08 [facility] Outpatient Encounter [id number] KIARRAPATRICIA HEAVENNereida FREITASJOSELIN 08/09 [facility] Outpatient Encounter [id number] KIARRAPATRICIA HEAVEN BRENDA 08/10 [facility] Outpatient Encounter [id number] 09/07 [facility] [place] OFFICE O/P NEW HI 60-74 MIN [id number] Diagnos is: ICD-10- CM N94.12 Deep dyspare unia
BHUMIKA WALDRON F 09/12 [facility] Outpatient Encounter [id number] 09/19 [place] Outpatient Encounter [id number] 10/12 [facility] Outpatient Encounter [id number] 11/09 [facility] OFFICE O/P EST MOD 30 MIN [id number] Diagnos is: ICD-10- CM F31.9 Bipolar disorde r, unspeci fied
CEASAR,KIMBER LUIS L 11/11 [facility] Outpatient Encounter [id number] 11/15 [facility] Outpatient Encounter [id number] FABIANO HORNER 11/21 [facility] Outpatient Encounter [id number] 11/21 [facility] Outpatient Encounter [id number] 11/22 [facility] Outpatient Encounter [id number] 11/22 [facility] Outpatient Encounter [id number] 11/23 [facility] HC PRO PHONE CALL 21-30 MIN [id number] Diagnos is: ICD-10- CM Z33.1 Pregnan t state, inciden mario<br/ > CHANTE ESCAMILLA 11/24 [facility] OFFICE O/P EST LOW 20 MIN [id number] Diagnos is: ICD-10- CM Z34.91 Encntr for suprvsn of normal preg, unsp, first trimest er
SACHS,LYDI A P 12/04 [facility] Outpatient Encounter [id number] 12/11 [facility] Outpatient Encounter [id number] 12/14 [facility] Outpatient Encounter [id number] 12/18 [facility] Outpatient Encounter [id number] 12/26 [facility] Outpatient Encounter [id number] 01/10 [facility] Outpatient Encounter [id number] Diagnos is: ICD-10- CM N95.1 [place] and female climact samaria states< br/> BHUMIKA WALDRON ANALI F 01/15 [facility] Outpatient Encounter [id number] 01/18 [facility] Outpatient Encounter [id number] 02/02 [facility] Outpatient Encounter [id number] 03/16 [facility] Outpatient Encounter [id number] 03/23 [facility] HC PRO PHONE CALL 5-10 MIN [id number] Diagnos is: ICD-10- CM 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
CEASAR,KIMBER LUIS L 04/10 [facility] Outpatient Encounter [id number] 04/13 [facility] Outpatient Encounter [id number] 04/23 [facility] Outpatient Encounter [id number] 04/26 [facility] Outpatient Encounter [id number] 04/30 [facility] Outpatient Encounter [id number] Diagnos is: ICD-10- CM R10.9 Unspeci fied abdomin al pain
CEASAR,KIMBER LUIS L 05/09 [facility] Outpatient Encounter [id number] Diagnos is: ICD-10- CM R53.82 Chronic fatigue , unspeci fied
BHUMIKA WALDRON F 05/14 [facility] Outpatient Encounter [id number] 05/22 [facility] Outpatient Encounter [id number] 05/23 [facility] Outpatient Encounter [id number] 06/01 [facility] Outpatient Encounter [id number] 06/12 [facility] Outpatient Encounter [id number] 06/13 [facility] OFFICE O/P NEW LOW 30 MIN [id number] Diagnos is: ICD-10- CM R10.11 Right upper quadran t pain
FERN CORMIER 06/19 [facility] Outpatient Encounter [id number] 06/25 [facility] [place] [id number] Diagnos is: ICD-10- CM F10.94 Alcohol use, unspeci fied with alcohol -induce d mood disorde r
MICHELLEJODIETARUN Olivier A 06/25 [facility] Outpatient Encounter [id number] 07/06 [facility] Outpatient Encounter [id number] 07/10 [facility] Outpatient Encounter [id number] 07/16 [facility] Outpatient Encounter [id number] 07/17 [facility] Outpatient Encounter [id number] Diagnos is: ICD-10- CM F31.9 Bipolar disorde r, unspeci fied
CEASAR,KIMBER LUIS L 07/18 [facility] Outpatient Encounter [id number] 07/24 [facility] Outpatient Encounter [id number] 07/25 [facility] Outpatient Encounter [id number] 07/30 [facility] Procedures Combined list of: 1) Procedures from Department of Veterans Affairs facilities going back up to thelast 18 months, not all [place] non-surgical procedures are included; 2) All procedures from the Department of Defense facilities. Procedure Procedure Type Code Date Perfomer Comments Rajeev peters HEPATITIS A AND HEPATITIS B VACCINE (HEPA-HEPB), ADULT DOSAGE, FOR INTRAMUSCULAR USE 11/17/2006 [facility] SCREENING PAPANICOLAOU SMEAR; OBTAINING, PREPARING AND CONVEYANCE OF CERVICAL OR VAGINAL SMEAR TO LABORATORY 07/15/2006 [facility] PSYCHIATRIC DIAGNOSTIC INTERVIEW EXAMINATION 02/24/2005 [facility] INFECTIOUS AGENT DETECT BY DNA/RNA; CHLAMYDIA T, AMP PROBE 01/19/2005 [facility] TYPHOID VACCINE, CAPSULAR POLYSACCHARIDE (VICPS), FOR INTRAMUSCULAR USE 01/28/2004 [facility] SCREENING TEST OF VISUAL ACUITY, QUANTITATIVE, BILATERAL 03/07/2003 [facility] INFECTIOUS AGENT DETECT BY DNA/RNA; NEISSERIA G, AMP PROBE 12/07/2002 [facility] AUDIOMETRIC TESTING OF GROUPS 12/05/2002 [facility] ULTRASOUND, TRANSVAGINAL 12/13/2014 [facility] Ultrasound Trans-Vaginal Ultrasound Trans-Vaginal 80650 12/13/2014 TRUNG BAH [facility] Ultrasound Obstetric Limited Evaluation Ultrasound Obstetric Limited Evaluation 07781 12/13/2014 TRUNG BAH [facility] Hepatitis A And Hepatitis B (Intramuscular Use) Adult Dosage Hepatitis A And Hepatitis B (Intramuscular Use) Adult Dosage 08795 11/17/2006 LUDIVINA GROVER [facility] Immunization Administration By Injection, One Vaccine Immunization Administration By Injection, One Vaccine 59360 11/17/2006 LUDIVINA GROVER [facility] Screening papanicolaou smear; obtaining, preparing and conveyance of cervical or vaginal smear to laboratory 07/15/2006 LENKA SNEED [facility] Social History Combined list of available smoking, tobacco, and other social history from Department of Defense and Veterans Affairs facilities. Social History Type Response Date Comment Rajeev peters Tobacco smoking status [facility]IS [facility]-TOBACCO NEVER USED 11/25/2023 [facility] History of tobacco use [facility] TOBACCO SMOKES DOES NOT 11/25/2023 [facility] History of tobacco use [facility]-TOBACCO NEVER USED 08/02/2023 [facility] History of tobacco use [facility]-TOBACCO NEVER USED 06/17/2022 [facility] History of tobacco use [facility]-TOBACCO NEVER USED 07/15/2021 [facility] History of tobacco use [facility]-TOBACCO NEVER USED 08/20/2019 [facility] History of tobacco use [facility]-TOBACCO NEVER USED 10/11/2018 [facility] History of tobacco use LIFETIME NON-TOBACCO USER 05/09/2017 [facility] History of tobacco use LIFETIME NON-TOBACCO USER 12/12/2014 [facility] History of tobacco use LIFETIME NON-TOBACCO USER 02/27/2013 [facility] History of tobacco use TOBACCO USE/SMOKING SCREEN 11/08/2011 [facility] History of tobacco use TOBACCO USE/SMOKING SCREEN 11/25/2009 [facility] History of tobacco use TOBACCO USE/SMOKING SCREEN 10/23/2008 [facility] History of tobacco use LIFETIME NON-TOBACCO USER 02/15/2008 [facility] This section is an empty social history section. [facility] Plan of Care List of future care activities from Department of Veterans Affairs facilities. Additional future care activities may be listed in the Assessment and Plan section. Date/Time Care Activity Care Activity Detail Facili ty 08/13/2024 AMBULATORY - NONE AMBULATORY - NONE [facility]UR[facility] 06/20/2024 Consult Order GENERAL SURGERY OUTPATIENT Cons Search Engine [employer] Strategist's Choice [facility] 07/21/2024 Consult Order COMM[facility]ITY CARE-P HYSICAL THERAPY Cons Search Engine Marketing Strategist's Choice [facility]
--- OUTSIDE RECORDS SUMMARY | 2024-08-03 13:55 | XMS_ITS | Clinical Summary ---
Author Organization [facility] Address [address] [place] [address] Care Team Providers Care Office Automation Technician Name Role Phone Unavailable Primary Care Provider Unavailabl e Social History Tobacco Use Types Packs/Day Years Used Date Smoking Tobacco: Never Assessed Sex and Gender Information Value Date Recorded Sex Assigned at Not on file Gender Identity Not on file Sexual Orientation Not on file Plan of Treatment Health Maintenance Due Date Last Done Comments Hepatitis C Screen 1980 Hepatitis B Vaccine (1 of 3 - 19+ 3-dose series) 12/18 COVID-19 Vaccine ( season) 2024 Lala Wells Personal/Family Self 1980 ([place]) [address] [place] [id number] Lala Wells Personal/Family Self 1980 ([place]) [address] [place] [id number]
--- OUTSIDE RECORDS SUMMARY | 2024-08-03 13:55 | XMS_ITS | Continuity of Care Document ---
Author Organization [facility] Address [address] [place] [address] Encounter [facility] NBR [id number] Date(s): 04/12/24 - 04/12/24 [facility] [address] [place] [address]- [place]
--- OUTSIDE RECORDS SUMMARY | 2024-08-03 13:55 | XMS_ITS | Continuity of Care Document ---
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 Phone OUSMANE AZUL APRN Primary Care Physician [phone] Encounter [facility] NBR [id number] Date(s): 05/23/24 - 05/23/24 [facility] [address] [place], [place] [address] Encounter Diagnosis Lumbar radiculopathy(Discharge Diagnosis) - 05/23/24 Paresthesias(Discharge Diagnosis) - 05/23/24 Low back pain(Discharge Diagnosis) - 05/23/24 Discharge Disposition: Home or Self Care Attending Physician: ROSY Burgos Referring Physician: UMESH MCDONOUGH APRN Allergies, Adverse Reactions, Alerts No Known Allergies Assessment and Plan Extracted from: Title:Office Visit Note Author:LAURENT Burgos Date:05/23/24 1.??Lumbar radiculopathy??M5 4.16 Ordered: MRI Spine Lumbar w/o Contrast, 05/23/24, Routine, Reason: Lumbar radiculopathy left lower extremity, paresthesias, low back pain, No, No, To be completed at [facility] open [facility], Transport Mode: Ambulatory, Lumbar radiculopathy Paresthesias Low back pain ?? 2.??Paresthesias??R20.2 Ordered: MRI Spine Lumbar w/o Contrast, 05/23/24, Routine, Reason: Lumbar radiculopathy left lower extremity, paresthesias, low back pain, No, No, To be completed at [facility] open [facility], Transport Mode: Ambulatory, Lumbar radiculopathy Paresthesias Low back pain ?? 3.??Low back pain??M54.50 Ordered: MRI Spine Lumbar w/o Contrast, 05/23/24, Routine, Reason: Lumbar radiculopathy left lower extremity, paresthesias, low back pain, No, No, To be completed at [facility] open MRI, Transport Mode: Ambulatory, Lumbar radiculopathy Paresthesias Low back pain ?? The patient has been struggling with many years of low back pain primarily in the right low back and hip area but??over the last couple of years since she had an epidural while she was in labor she has been struggling with pain at the location of the epidural needle insertion site??as well as what sounds to be radicular pain and paresthesias affecting the left lower extremity. ??These seem to follow the S1 distribution.?? Fortunately, she is not experiencing a significant weakness on her examination today.?? She has not had any lumbar spine imaging in quite some time. ??Given that she has not improved despite trial of medications and multiple modalities of??of??therapy??I am recommending we obtain MRI of the lumbar spine without contrast. ??The patient states that she has severe claustrophobia but she has done some research and believes that [facility] has an open MRI that??will be a bit easier for her.?? I did explain that we could also set her up for an MRI under sedation but this would have to be at a larger medical institution like [facility] or [facility]. ??We also discussed this may be possible at the [facility]. ??She would like to try an open MRI at [facility] first.?? The patient also states that she will be seeing a specialist at [facility]??very soon regarding abnormal liver function.?? I did explain to the patient that the MRI will show us any potential structural problems causing nerve root impingement or contributing to her pain but if this does not explain her problem she would likely benefit from referral for nerve conduction study/EMG. Plan: MRI lumbar spine without contrast. ?? Future Appointments Future Scheduled Tests Radiology* MRI Spine Lumbar w/o Contrast 05/23/24 * [facility] Mammo Screening Bilateral 05/29/24 Problem List Condition Confirmation Course Effective Dates Status H ealth Status Informant Abdominal pain Confirmed Active Back pain Confirmed Active Bipolar disorder Confirmed Active Episodic opioid dependence Confirmed Active History of alcohol abuse Confirmed Active Low back pain Confirmed Active Lumbar radiculopathy Confirmed Active Paresthesias Confirmed Active Personality disorder Confirmed Active Pulsatile tinnitus Confirmed Active Vital Signs Most recent to oldest [Reference Range]: 1 Temperature Temporal Artery [36-38 Deg C ] 35.6 Deg C *LOW* (05/23/24 9:20 AM) Peripheral Pulse Rate [60-100 bpm] 55 bp m *LOW* (05/23/24 9:20 AM) Blood Pressure [90-140/60-90 mmHg] 98/50 mmHg (05/23/24 9:20 AM) Mean Arterial Pressure, Cuff [65-140 mmH g] 66 mmHg (05/23/24 9:20 AM) Weight 57.42 kg (05/23/24 9:20 AM) Weight Measured (lbs) 126.589 lb (05/23/24 9:20 AM) Weight Dosing 57.420 kg (05/23/24 9:20 AM) Bryant Body Weight Calculated 57 kg (05/23/24 9:20 AM) Height 165.10 cm (05/23/24 9:20 AM) Height/Length Measured (inches) 65 inch (05/23/24 9:20 AM) BSA Measured 1.62 m2 (05/23/24 9:20 AM) Body Mass Index 21.07 kg/m2 (05/23/24 9:20 AM) Social History Social History Type Response Tobacco Never tobacco user T obacco Use:. Sex Sex Representation Female (finding) Physician Outpatient Note * ROSY Burgos: PERFORM Event Display: Office Clinic Note Physician Authored Date: [id number] CORETTA PATEL :1980 Age:43 years Sex:Female Visit Date:05/23/2024 Primary Care Physician: OUSMANE AZUL APRN Chief Complaint pain at old site of epidural that I had for labor back in 12/15 Additional Information pt also reports that the site is painful if she sits on any hard chair. At times feel a burning sensation in left leg with some occasional tingling in left calf History of Present Illness The patient presents accompanied by her young son for evaluation of her low back pain?? The patientexplains that for many years she has been struggling with right low back and hip pain that is thought to??be due to history of herniated disks. ??She does see her chiropractor regularly??for adjustments and this does help though it does not seem to be lasting as??long as in the past.?? This pain isbothersome??today.?? She also explains that she had an epidural when she was in labor with her son in 2021 and that she has struggled with consistent pain at the site of the epidural in the upper lowback region??since then.??She states that initially was quite painful if this area of her back touched anything??and this does still bother??but she is also??since developed worsening left leg pain and paresthesias.?? She states that the pain affects the posterior leg particularly the calf and she also has constant tingling and numbness in the calf. ??She explains that she frequently has crampingof the left lower extremity as well. ??She states at 1 point she actually saw her PCP because she was concerned she may have a blood clot but she had an ultrasound that ruled out a DVT.?? She explains that recently she had about a month where this pain was severe and significantly limiting. ??Whilethe pain is not as extreme at this point it is certainly still present and limiting her.?? In addition to leaning up against??something which does cause increased pain in the back she also finds thatbending will worsen her symptoms.?? She has taken Aleve and ibuprofen though this has not provided much relief. ??She does apply ice and heat as needed with minimal effect.?? As stated above she doessee a chiropractor regularly though the adjustments do not seem to be lasting as long as typical.??She states that she has seen multiple other providers to determine forms of body work as well but again no significant??improvement in her symptoms. ?? Review of Systems Relevant ROS discussed in HPI Physical Exam Vitals & Measurements T:??35.6?C ??(Temporal Artery)?? HR:??55??(Peripheral)?? BP:??98/50?? SpO2:??98%?? HT:??165.10??cm?? WT:??57.42??kg?? BMI:??21.07?? BSA:??1.62?? GENERAL:?General Appearance:?pleasant, age appropriate in no apparent distress.?? MUSCULOSKELETAL:?Musculoskeletal:??No lumbar spine,??lumbar paraspinal muscle,??bilateral SI joint or bilateral greater trochanteric bursa tenderness.?? NEUROLOGICAL:?Neurological:?? Negative straight leg bilaterally??from a seated position. ?Motor:?Strength 5/5 with bilateral hip flexion, knee flexion and extension, ankle dorsiflexion and plantar flexion.?Reflexes:??1+ bilateral knee and ankle jerks. ? Tone: normal? Gait:?normal.? Assessment/Plan 1.??Lumbar radiculopathy??M54.16 Ordered: MRI Spine Lumbar w/o Contrast, 05/23/24, Routine, Reason: Lumbar radiculopathy left lower extremity, paresthesias, low back pain, No, No, To be completed at [facility] open MRI, Transport Mode: Ambulatory, Lumbar radiculopathy Paresthesias Low back pain ?? 2.??Paresthesias??R20.2 Ordered: MRI Spine Lumbar w/o Contrast, 05/23/24, Routine, Reason: Lumbar radiculopathy left lower extremity, paresthesias, low back pain, No, No, To be completed at [facility] open MRI, Transport Mode: Ambulatory, Lumbar radiculopathy Paresthesias Low back pain ?? 3.??Low back pain??M54.50 Ordered: MRI Spine Lumbar w/o Contrast, 05/23/24, Routine, Reason: Lumbar radiculopathy left lower extremity, paresthesias, low back pain, No, No, To be completed at [facility] open MRI, Transport Mode: Ambulatory, Lumbar radiculopathy Paresthesias Low back pain ?? The patient has been struggling with many years of low back pain primarily in the right low back and hip area but??over the last couple of years since she had an epidural while she was in labor she has been struggling with pain at the location of the epidural needle insertion site??as well as what sounds to be radicular pain and paresthesias affecting the left lower extremity. ??These seem to follow the S1 distribution.?? Fortunately, she is not experiencing a significant weakness on her examination today.?? She has not had any lumbar spine imaging in quite some time. ??Given that she has notimproved despite trial of medications and multiple modalities of??of??therapy??I am recommending we obtain MRI of the lumbar spine without contrast. ??The patient states that she has severe claustrophobia but she has done some research and believes that [facility] has an open MRI that??will be a bit easier for her.?? I did explain that we could also set her up for an MRI under sedation but this would have to be at a larger medical institution like [facility] or [facility]. ??We also discussed this may be possible at the [facility] as [facility]. ??She would like to try an open MRI at [facility] first.?? The patient also states that she will be seeing a [facility]very soon regarding abnormal liver function.?? I did explain to the patient that the MRI will show us any potential structural problems causing nerve root impingement or contributing to her pain but if this does not explain her problem she would likely benefit from referral for nerve conductionstudy/EMG. Plan: MRI lumbar spine without contrast. Future Orders MRI Spine Lumbar w/o Contrast, 05/23/24, Routine, Reason: Lumbar radiculopathy left lower extremity, paresthesias, low back pain, No, No, To be completed at [facility] open MRI, Transport Mode: Ambulatory, Lumbar radiculopathy Paresthesias Low back pain Problem List/Past Medical History Ongoing Abdominal pain Back pain Bipolar disorder Episodic opioid dependence History of alcohol abuse Low back pain Lumbar radiculopathy Paresthesias Personality disorder Pulsatile tinnitus Historical No qualifying data Medications No active medications Allergies No Known Allergies Social History Electronic Cigarette/Vaping Electronic Cigarette Use: Never. Tobacco Never tobacco user Tobacco Use:. Electronically Signed on 05/23/2024 11:16 EDT Vijaya Carr APRN-VALENTÍN Patient Care team information Care Team Personnel Name: OUSMANE AZUL APRN Position: No Access Member Role: Primary Care Physician Address: [address] [place] [address] Insurance Providers Guarantor name: CORETTA E [facility] Health Plan Information #: 1 Payer: [place] Member Number: [id number] Policy Number: Health Plan Information #: 2 Payer: [place] [employer] Member Number: NA Policy Number: [employer] Health Plan Information #: 3 Payer: [place] Member Number: [id number] Policy Number: NA
--- OUTSIDE RECORDS SUMMARY | 2024-08-03 13:55 | XMS_ITS | Referral Summary ---
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
--- OUTSIDE RECORDS SUMMARY | 2024-08-03 13:55 | XMS_ITS | Continuity of Care Document ---
Author Organization [facility] Address [address] [place] [id number] Encounter [facility] NBR [id number] Date(s): 08/24/22 - 08/24/[address] [address]- [place] Discharge Disposition: Home or Self Care Attending Physician: Prashanth Livingston MD, FACOG Admitting Physician: Prashanth Livingston MD, FACOG Results Radiology Reports * Exam Date Time Procedure Performing Provider Status 08/24/22 11:42 AM [facility] Mammo Screening Bilateral Shilpa Hall; Auth (Verified) Notes: ([facility] Mammo Screening Bilateral) Reason For Exam: screening [facility] Mammo Screening Bilateral EXAM DESCRIPTION: [facility] Mammo Screening Bilateral 08/24/2022 INDICATION: SCREENING COMPARISON: 11/12/2020 BREAST DENSITY: The breasts are extremely dense which lowers the sensitivity of mammography. FINDINGS: MLO and CC views were performed with digital breast tomosynthesis. Images were reviewed using computer aided detection. No asymmetry, architectural distortion or suspicious grouping of calcifications to suggest malignancy in either breast. ASSESSMENT: No mammographic evidence of malignancy. Negative. BI-RADS category 1. RECOMMENDATION: Screening mammography in 1 year JOB #: [id number] Final Signed by: Santy Jacob MD Signed (Electronic Signature): 08/24/2022 12:00 pm MG Breast - bilateral Screening * Santy Jacob MD: VERIFY, VERIFY Event Display: Report EXAM DESCRIPTION: MG Mammo Screening Bilateral 08/24/2022 INDICATION: SCREENING COMPARISON: 11/12/2020 BREAST DENSITY: The breasts are extremely dense which lowers the sensitivity of mammography. FINDINGS: MLO and CC views were performed with digital breast tomosynthesis. Images were reviewed using computer aided detection. No asymmetry, architectural distortion or suspicious grouping of calcifications to suggest malignancy in either breast. ASSESSMENT: No mammographic evidence of malignancy. Negative. BI-RADS category 1. RECOMMENDATION: Screening mammography in 1 year JOB #: [id number] Final Signed by: Santy Jacob MD Signed (Electronic Signature): 08/24/2022 12:00 pm
--- OUTSIDE RECORDS SUMMARY | 2024-08-03 13:55 | XMS_ITS | Encounter Summary ---
Author Name [facility] [place] [facility] [place] Address [address] [place] [address] Care Team Providers Care Pulp Refiner Operator Name Role Phone UMESH MCDONOUGH Primary Care Provider Unavailabl e Selected Encounter This section includes the information on record at [place] for the Encounter. Date/Time Encounter Type Encounter Description Reason Pro vider Source Aug 08, 2023 08:47 AM Outpatient Encounter ADMIN PAT ACTIVTIES (MASNONCT) IHE Encounter Template Text not used by [place] Plan of Treatment: Future Appointments (+ 6 months) and Future Tests (+/- 45 days) The Plan of Treatment section includes future care activities for the patient from all [place] treatmentfacilities. This section includes future appointments and future orders which are active, pending or scheduled. Future Appointments This section includes appointments that were scheduled to occur 6 months from the date of the Encounter, up to a maximum of 20 appointments. The data comes from all [place] treatment facilities. Appointment Date/Time Appointment Type Appointme nt Facility Name Sep 12, 2023 09:30 AM AMBULATORY - SURGERY HETAL ABURTO [facility] Nov 11, 2023 02:00 PM AMBULATORY - NONE [facility] Nov 25, 2023 11:30 AM AMBULATORY - NONE [facility] Dec 05, 2023 12:30 PM AMBULATORY - NONE HETAL COLLINS ROSANNA [facility] Dec 12, 2023 12:30 PM AMBULATORY - SURGERY HETAL ABURTO [facility] 2023 10:00 AM AMBULATORY - NONE [facility] Jan 16, 2024 11:30 AM AMBULATORY - SURGERY [facility] Active, Pending, and Scheduled Orders This section includes a listing of several types of active, pending, and scheduled orders, including clinic medications orders, diagnostic test orders, procedure orders and consult orders; where the start date of the order is 45 days before the date of the Encounter or 45 days after the date of theEncounter. The data comes from all [place] treatment facilities. Test Date/Time Test Type Test Details Facility Name Jun 30, 2023 04:18 PM Laboratory - Chemistry Order GLYCOHEMOGLOBIN (A1C ONLY) BLOOD(LAV-EDTA) [facility] Aug 02, 2023 03:09 PM Laboratory - Chemistry Order LABEL SURG/CYTO PAP VAG/CER VAGINAL-CERVICAL CYTOLOGIC MATERIAL [facility] Aug 03, 2023 12:00 AM Laboratory - Chemistry Order URINALYSIS W/REFLEX TO CULTURE CLEAN CATCH URINE [facility] Aug 03, 2023 12:00 AM Laboratory - Chemistry Order ESR(NEW) BLOOD(LAV-EDTA) [facility] Aug 03, 2023 12:00 AM Laboratory - Chemistry Order CRP(INFLAMMATORY) LT GREEN(LI HEP) PLASMA [facility] Aug 03, 2023 12:00 AM Laboratory - Chemistry Order FLORINA SCREEN/TITER (B) BLOOD(GOLD) SERUM [facility] Aug 03, 2023 12:00 AM Laboratory - Chemistry Order RHEUMATOID FACTOR (B) BLOOD(GOLD) SERUM [facility] Aug 03, 2023 12:00 AM Laboratory - Chemistry Order SJOGREN'S ANTIBODY(SS-A,SS-B)PANEL(Q ) BLOOD(RED TOP) SERUM [facility] Aug 03, 2023 12:00 AM Laboratory - Chemistry Order VITAMIN B-12 BLOOD(GOLD) SERUM [facility] Lab Results: +/- 30 days of the encounter This section includes the Chemistry and Hematology Lab Results on record with [facility] for the patient. Radiology Reports and Pathology Reports are provided separately, in subsequent sections. Lab Results This section contains the Chemistry/Hematology Results that were resulted 30 days before or 30 daysafter the date of the Encounter. Date/Time Source Result Type Result - Unit Interpretation Reference Range Comment Aug 02, 2023 03:10 PM [facility] CHLAMYDIA/NEISSERIA PANEL BY PCR (W) Specimen Type: GENITAL SYSTEM No comment entered. Ordering Provider: JOY FRANCIS Report Released Date/Time: Aug 02, 2023 03:09 PM Reporting [facility] [address] [address] Performing Lab: [facility] [address] [facility] [address] CHLAMYDIA TRACHOMATIS PCR (w) NEG Neg NEISSERIA GONORRHOEAE BY PCR(w) NEG Neg Aug 02, 2023 03:10 PM [facility] VAGINOSIS PANEL Specimen Type: VAGINA No comment entered. Ordering Provider: JOY FRANCIS Report Released Date/Time: Aug 02, 2023 03:09 PM Reporting Lab: [facility] [address] [address] Performing Lab: [facility] [address] [address] TRICHOMONAS PROBE NEG GARDNERELLA PROBE NEG ELMER PROBE NEG Jul 25, 2023 09:21 AM [facility] LIVER PROFILE Specimen Type: PLASMA Comment: Tests performed on Giggle (405) SN:[id number] Ordering Provider: ZEKE MCDONOUGH Report Released Date/Time: Jun 30, 2023 04:18 PM Reporting [facility] [address] [address] Performing Lab: [facility] [address] [address] PROTEIN, TOTAL 7.2 g/dL 6.0-8.5 ALBUMIN 4.1 g/dL 3.2-5.0 BILIRUBIN, TOTAL 0.6 mg/dL 0.2-1.2 ALKALINE PHOSPHATASE 36 U/L L 40-150 ALT(SGPT) 18 U/L 7-52 AST(SGOT) 16 U/L 5-34 FIB-4 SCORE 0.61 {index} <2.67 Jul 25, 2023 09:21 AM [facility] LIPOPROTEIN CHOLESTEROL FRACT. PANEL Specimen Type: PLASMA Comment: Tests performed on Batista Zervant (405) SN:[id number] Ordering Provider: ZEKE MCDONOUGH Report Released Date/Time: Jun 30, 2023 04:18 PM Reporting Lab: [facility] [address] [address] Performing Lab: [facility] [address] [facility] [address] CHOLESTEROL 238 mg/dL H 0-199 TRIGLYCERIDE 48 mg/dL 0-149 HDL CHOLESTEROL 76 mg/dL >40 LDL CHOLESTEROL (CALC) 152 mg/dL H 0-129 Jul 25, 2023 09:21 AM [facility] P4 GLU,BUN,CREAT,LYTES,CA Specimen Type: PLASMA Comment: Tests performed on Batista Zervant (405) SN:[id number] Ordering Provider: ZEKE MCDONOUGH Report Released Date/Time: Jun 30, 2023 04:18 PM Reporting Lab: [facility] [address] [address] Performing Lab: [facility] [address] [facility] UREA NITROGEN 14 mg/dL 7-25 SODIUM 135 mmol/L 135-145 POTASSIUM 4.1 mmol/L 3.5-5.0 CHLORIDE 103 mmol/L 100-110 CARBON DIOXIDE 25 mmol/L 20-30 ANION GAP 7 mmol/L 4-16 GLUCOSE 103 mg/dL H 65-100 CREATININE 0.82 mg/dL 0.5-1.5 CALCIUM 9.2 mg/dL 8.5-10.5 eGFR(CKD-EPI 2020) >90.0 mL/min >60 Jul 25, 2023 09:21 AM [facility] THYROID TESTING CASCADE Specimen Type: SERUM Comment: Tests performed on Batista Zervant (405) SN:[id number] Ordering Provider: ZEKE MCDONOUGH Report Released Date/Time: Jun 30, 2023 04:18 PM Reporting Lab: [facility] [address] [address] Performing Lab: [facility] [address] [facility] [address] T4,FREE 1.1 ng/dL 0.6-1.6 TSH 0.81 u[IU]/mL 0.35-5.00 Jul 25, 2023 09:21 AM [facility] VIT D 25-OH(WRJ) Specimen Type: SERUM Comment: Tests performed on Giggle (405) SN:[id number] Ordering Provider: ZEKE MCDONOUGH Report Released Date/Time: Jun 30, 2023 04:18 PM Reporting Lab: [facility] [address] [address] Performing Lab: [facility] [address] [address] VIT D 25-OH([facility]) 37.1 ng/mL 20-50 Jul 25, 2023 09:21 AM [facility] CBC PROFILE Specimen Type: BLOOD No comment entered. Ordering Provider: ZEKE MCDONOUGH Report Released Date/Time: Jun 30, 2023 04:18 PM Reporting Lab: [facility] [address] [place] [id number] Performing Lab: [facility] [address] [address] WBC 7.5 10*3/uL 4.5-11.0 RBC 4.23 10*6/uL 3.93-5.16 HGB 13.3 g/dL 12-15.2 HEMATOCRIT 39.6 36.6-45.6 MCV 93.6 fL 82-99 MCH 31.4 pg 26.2-32.6 MCHC 33.6 g/dL 30.8-35.1 PLT 267 10*3/uL 140-360 MPV 11.2 fL 9.2-12.4 RDW 12.4 12.0-16.0 LYMPH % 26.0 14.0-42.3 MONO % 8.2 5.1-13.7 NEUT % 64.1 43.7-75.8 EOS % 0.9 0.4-6.8 BASO % 0.7 0.1-2.0 IG % 0.1 0.0-0.7 NUCLEATED RED CELLS 0.0 /100{WBCs} 0.0-0.0 ABSOLUTE IG 0.0 10*3/uL 0-0.06 ABSOLUTE BASOPHILS 0.1 10*3/uL 0.01-0.13 ABSOLUTE EOS. 0.1 10*3/uL 0.03-0.44 ABSOLUTE LYMPHOCYTES 1.9 10*3/uL 1.0-3.2 ABSOLUTE MONOCYTES 0.6 10*3/uL 0.3-1.1 ABSOLUTE GRANULOCYTES 4.8 10*3/uL 2.2-7.6 ABSOLUTE NRBC 0.00 10*3/uL 0-0 Jul 25, 2023 09:20 AM [facility] N[facility]HEAST ALLERGY PANEL #2(Q) Specimen Type: SERUM Comment: See full report in [facility] Image display viewer/tab#L AB-Reference Ordering Provider: DINORA ELLIOTT Report Released Date/Time: Jul 19, 2023 01:57 PM Reporting Lab: [facility] [address] [facility] [address] Performing Lab: [facility] [address] [address] [place] [facility] ALLERGY PANEL #2(Q) comment Social History: Smoking Status (Most current) and Tobacco Use (All prior to encounter date) This section includes the most current, and the historical, smoking and tobacco- related health factors from the [place] facility where the Encounter took place. Current Smoking Status This section includes the most current smoking, or tobacco-related health factor, from the [place] facility where the Encounter took place. Date/Time Current Smoking Status Comment Wendy beckhamy Aug 02, 2023 02:30 PM [facility] NEVER USED [facility] Tobacco Use History This section includes a history of the smoking, or tobacco-related health factors, that were collected on or before the date of the Encounter. The data comes from the [place] facility where the Encounter took place. Date/Time Smoking Status/Tobacco Use Comment F acility Aug 20, 2019 11:05 AM [facility] NEVER USED [facility] Pathology Reports: +/- 30 days of the encounter Pathology Reports For cases when an order for pathology services may have been completed prior to the date of the Encounter, the report list includes the Pathology Reports that were completed up to 30 days before dateof the Encounter. For cases when an order for pathology services may have been completed after the date of the Encounter, the report list also includes the Pathology Reports that were completed up to30 days after date of the Encounter. The data comes from all [place] treatment facilities. Date/Time Pathology Report Provider Source Aug 10, 2023 12:12 PM LR CYTOPATHOLOGY R EPORT: LOCAL TITLE: LR CYTOPATHOLOGY REPORT STANDARD TITLE: PATHOLOGY REPORT DATE OF NOTE: AUG 10, 2023@12:12:12 ENTRY DATE: AUG 10, 2023@12:12:12 AUTHOR: LARISA PLUNKETT EXP COSIGNER: URGENCY: STATUS: COMPLETED $APHDR Reporting Lab: [facility] [CLIA# [id number]] [address] [facility] [place] [address] - - - - - - - - - - - - - - - - - - - - - - - - - - - - - - - - - - - - - - - - MEDICAL RECORD CYTOPATHOLOGY - - - - - - - - - - - - - - - - - - - - - - - - - - - - - - - - - - - - - - - - PATHOLOGY REPORT Accession No. CY [id number] - - - - - - - - - - - - - - - - - - - - - - - - - - - - - - - - - - - - - - - - $TEXT Submitted by: JHOANA FRANCIS Date obtained: Aug 02, 2023 - - - - - - - - - - - - - - - - - - - - - - - - - - - - - - - - - - - - - - - - Specimen (Received Aug 03, 2023 14:59): PAP SMEAR [id number] *+* SUPPLEMENTARY REPORT HAS BEEN ADDED *+* *+* REFER TO BOTTOM OF REPORT *+* - - - - - - - - - - - - - - - - - - - - - - - - - - - - - - - - - - - - - - - - BRIEF CLINICAL HISTORY: HX HPV POS (OTHER HR) IN 2020, NO HX COLPO - - - - - - - - - - - - - - - - - - - - - - - - - - - - - - - - - - - - - - - - PREOPERATIVE DIAGNOSIS: - - - - - - - - - - - - - - - - - - - - - - - - - - - - - - - - - - - - - - - - OPERATIVE FINDINGS: - - - - - - - - - - - - - - - - - - - - - - - - - - - - - - - - - - - - - - - - POSTOPERATIVE DIAGNOSIS: Surgeon/physician: JHOANA FRANCIS =-=-=-=-=-=-=-=-=-=-=-=-=-= -=-=-=-=-=-=-=-=-=-=-=-=-=- =-=-=-=-=-=-=-=-=-=-=-=-= - - - - - - - - - - - - - - - - - - - - - - - - - - - - - - - - - - - - - - - - PATHOLOGY REPORT Accession No. CY [id number] - - - - - - - - - - - - - - - - - - - - - - - - - - - - - - - - - - - - - - - - Screened by: GÓMEZ ACE Description: [id number] THIN PREP VIAL RECEIVED SENT TO [facility]. Diagnosis: Satisfactory for evaluation Negative for intraepithelial lesion or malignancy Reactive cellular changes NOTE: HPV DNA TEST PENDING Gynecologic cytology is a screening procedure with an inherent false negative rate. It is most reliable when a satisfactory sample is obtained on a regular repetitive basis. Results should be correlated with clinical information. CPT:15308, 89270 SUPPLEMENTARY REPORT(S): Supplementary Report Date: AUG 10, 2023@09:50 *+* SUPPLEMENTARY REPORT HAS BEEN ADDED/MODIFIED *+* (Added/Last released: Aug 10, 2023 12:12 Signed by LARISA PLUNKETT) HPV DNA, HIGH RISK TEST HPV16 NEG Ref: HPV16 NEG HPV18 NEG Ref: HPV18 NEG HPV OTHER HIGH-RISK NEG Ref: OTHER HR HPV NEG Comment: HPV DNA PCR performed by Ronnell randi HPV Test. This test detects the presence of DNA from HPV genotypes 16, 18, 31, 33, 35, 39, 45, 51, 52, 56, 58, 59, 66, and 68. Correlation with separate cytopathology report is required. CPT: 22848 /es/ Larisa Plunkett MD PATHOLOGIST Signed Aug 10, 2023@12:12 Performing Laboratory: Cytology Report Performed By: [facility] [CLIA# [id number]] [address] [place] [phone] Supplementary Report for Aug 10, 2023@09:50 Performed By: [facility] [CLIA# [id number]] [address] [place] [address] $FTR - - - - - - - - - - - - - - - - - - - - - - - - - - - - - - - - - - - - - - - - (End of report) LARISA PLUNKETT MD Date Aug 09, 2023 - - - - - - - - - - - - - - - - - - - - - - - - - - - - - - - - - - - - - - - - CORETTA PATEL NASIR STANDARD FORM 515 ID:[id number] SEX:F :1980 AGE: 42 LOC:[facility] PCP: Umesh Mcdonough /deann/ Larisa Plunkett MD PATHOLOGIST Signed: 08/10/2023 12:[address] [facility] [facility] Aug 09, 2023 03:28 PM LR CYTOPATHOLOGY R EPORT: LOCAL TITLE: LR CYTOPATHOLOGY REPORT STANDARD TITLE: PATHOLOGY REPORT DATE OF NOTE: AUG 09, 2023@15:28:55 ENTRY DATE: AUG 09, 2023@15:28:55 AUTHOR: LARISA PLUNKETT EXP COSIGNER: URGENCY: STATUS: COMPLETED $APHDR Reporting Lab: [facility] [CLIA# [id number]] [address] [place] [address] - - - - - - - - - - - - - - - - - - - - - - - - - - - - - - - - - - - - - - - - MEDICAL RECORD CYTOPATHOLOGY - - - - - - - - - - - - - - - - - - - - - - - - - - - - - - - - - - - - - - - - PATHOLOGY REPORT Accession No. CY [id number] - - - - - - - - - - - - - - - - - - - - - - - - - - - - - - - - - - - - - - - - $TEXT Submitted by: JHOANA FRANCIS Date obtained: Aug 02, 2023 - - - - - - - - - - - - - - - - - - - - - - - - - - - - - - - - - - - - - - - - Specimen (Received Aug 03, 2023 14:59): PAP SMEAR [id number] - - - - - - - - - - - - - - - - - - - - - - - - - - - - - - - - - - - - - - - - BRIEF CLINICAL HISTORY: HX HPV POS (OTHER HR) IN 2020, NO HX COLPO - - - - - - - - - - - - - - - - - - - - - - - - - - - - - - - - - - - - - - - - PREOPERATIVE DIAGNOSIS: - - - - - - - - - - - - - - - - - - - - - - - - - - - - - - - - - - - - - - - - OPERATIVE FINDINGS: - - - - - - - - - - - - - - - - - - - - - - - - - - - - - - - - - - - - - - - - POSTOPERATIVE DIAGNOSIS: Surgeon/physician: JHOANA FRANCIS =-=-=-=-=-=-=-=-=-=-=-=-=-= -=-=-=-=-=-=-=-=-=-=-=-=-=- =-=-=-=-=-=-=-=-=-=-=-=-= - - - - - - - - - - - - - - - - - - - - - - - - - - - - - - - - - - - - - - - - PATHOLOGY REPORT Accession No. CY [id number] - - - - - - - - - - - - - - - - - - - - - - - - - - - - - - - - - - - - - - - - Screened by: GÓMEZ ACE Description: [id number] THIN PREP VIAL RECEIVED SENT TO [facility]. Diagnosis: Satisfactory for evaluation Negative for intraepithelial lesion or malignancy Reactive cellular changes NOTE: HPV DNA TEST PENDING Gynecologic cytology is a screening procedure with an inherent false negative rate. It is most reliable when a satisfactory sample is obtained on a regular repetitive basis. Results should be correlated with clinical information. CPT:70258, 98316 /deann/ Larisa Plunkett MD PATHOLOGIST Signed Aug 09, 2023@15:28 Performing Laboratory: Cytology Report Performed By: [facility] [CLIA# [id number]] [address] [place] [address] $FTR - - - - - - - - - - - - - - - - - - - - - - - - - - - - - - - - - - - - - - - - (End of report) LARISA PLUNKETT MD aw Date Aug 09, 2023 - - - - - - - - - - - - - - - - - - - - - - - - - - - - - - - - - - - - - - - - CORETTA PATEL STANDARD FORM 515 ID:[id number] SEX:F :1980 AGE: 42 LOC:[facility] PCP: Umesh Mcdonough /abril Plunkett MD PATHOLOGIST Signed: 08/09/2023 15:28 LARISA PLUNKETT [facility] Encounter Notes: All associated encounter notes This section contains the clinical notes associated to the Encounter. Date/Time Encounter Note(s) Provider Source Aug 24, 2022 08:47 AM NONVA DIAGNOSTIC Ally ELLIS REPORT: LOCAL TITLE: NonVA Mammogram STANDARD TITLE: NONVA DIAGNOSTIC STUDY REPORT DATE OF NOTE: AUG 24, 2022@08:47 ENTRY DATE: AUG 08, 2023@08:48:25 AUTHOR: MARY ROME COSIGNER: URGENCY: STATUS: COMPLETED Treating Facility: [facility] Mammogram date: Jul To view the scanned image click the Tools Menu in [employer] and choose Image Display Viewer. MG MAMMO SCREENING BILATERAL BI-RADS CATEGORY 1: NEGATIVE /deann/ Mary Rome MRT Signed: 08/08/2023 08:49 Receipt Acknowledged By: 08/08/2023 09:27 /es/ QUINTON ROBISON Women's Health Nurse Navigator 08/08/2023 08:54 /es/ RADHA GARCIA * AWAITING SIGNATURE * UMESH MCDONOUGH TAMMY DENEGE [facility]
--- OUTSIDE RECORDS SUMMARY | 2024-08-03 13:55 | XMS_ITS | Continuity of Care Document ---
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 Sex Sex Representation Female (finding) Patient Care team information Care Team Personnel Name: OUSMANE AZUL APRN Position: No Access Member Role: Primary Care Physician Address: [address] [place] [id number] Insurance Providers Guarantor name: CORETTA PATEL Health Plan Information #: 1 Payer: [place] [facility] [employer] Member Number: NA Policy Number: NA Health Plan Information #: 2 Payer: [id number] Member Number: NA Policy Number: NA
--- OUTSIDE RECORDS SUMMARY | 2024-08-03 13:55 | XMS_ITS | Encounter Summary ---
Author Name [facility] [place] [facility] [place] Address [address] [place] [address] Care Team Providers Care Floral Specialist Name Role Phone UMESH MCDONOUGH Primary Care Provider Unavailabl e Selected Encounter This section includes the information on record at [place] for the Encounter. Date/Time Encounter Type Encounter Description Reason Provider Source Aug 09, 2023 03:28 PM Outpatient Encounter EVENT (HISTORICAL) LARISA PLUNKETT Encounter Template Text not used by [place] Plan of Treatment: Future Appointments (+ 6 months) and Future Tests (+/- 45 days) The Plan of Treatment section includes future care activities for the patient from all [place] treatmentfacilities. This section includes future appointments and future orders which are active, pending or scheduled. Future Appointments This section includes appointments that were scheduled to occur 6 months from the date of the Encounter, up to a maximum of 20 appointments. The data comes from all [place] treatment facilities. Appointment Date/Time Appointment Type Appointme nt Facility Name Sep 12, 2023 09:30 AM AMBULATORY - SURGERY [facility] Nov 11, 2023 02:00 PM AMBULATORY - NONE [facility] Nov 25, 2023 11:30 AM AMBULATORY - NONE [facility] Dec 05, 2023 12:30 PM AMBULATORY - NONE [facility] Dec 12, 2023 12:30 PM AMBULATORY - SURGERY [facility] 2023 10:00 AM AMBULATORY - NONE [facility] Jan 16, 2024 11:30 AM AMBULATORY - SURGERY [facility] Active, Pending, and Scheduled Orders This section includes a listing of several types of active, pending, and scheduled orders, including clinic medications orders, diagnostic test orders, procedure orders and consult orders; where the start date of the order is 45 days before the date of the Encounter or 45 days after the date of theEncounter. The data comes from all [place] treatment facilities. Test Date/Time Test Type Test Details Facility Name Jun 30, 2023 04:18 PM Laboratory - Chemistry Order GLYCOHEMOGLOBIN (A1C ONLY) BLOOD(LAV-EDTA) [facility] Aug 02, 2023 03:09 PM Laboratory - Chemistry Order LABEL SURG/CYTO PAP VAG/CER VAGINAL-CERVICAL CYTOLOGIC MATERIAL [facility] Aug 03, 2023 12:00 AM Laboratory - Chemistry Order ESR(NEW) BLOOD(LAV-EDTA) [facility] Aug 03, 2023 12:00 AM Laboratory - Chemistry Order URINALYSIS W/REFLEX TO CULTURE CLEAN CATCH URINE [facility] Aug 03, 2023 12:00 AM Laboratory - Chemistry Order CRP(INFLAMMATORY) LT GREEN(LI HEP) PLASMA [facility] Aug 03, 2023 12:00 AM Laboratory - Chemistry Order FLORINA SCREEN/TITER (B) BLOOD(GOLD) SERUM [facility] Aug 03, 2023 12:00 AM Laboratory - Chemistry Order RHEUMATOID FACTOR (B) BLOOD(GOLD) SERUM [facility] Aug 03, 2023 12:00 AM Laboratory - Chemistry Order VITAMIN B-12 BLOOD(GOLD) SERUM [facility] Aug 03, 2023 12:00 AM Laboratory - Chemistry Order SJOGREN'S ANTIBODY(SS-A,SS-B)PANEL(Q ) BLOOD(RED TOP) SERUM [facility] Lab Results: +/- 30 days of the [...] Range Comment Aug 02, 2023 03:[address] [facility] CHLAMYDIA/NEISSERIA PANEL BY PCR (W) Specimen Type: GENITAL SYSTEM No comment entered. Ordering Provider: JOY FRANCIS Report Released Date/Time: Aug 02, 2023 03:09 PM Reporting Lab: [facility] [address] [address] Performing Lab: [facility] [address] [facility] [address] CHLAMYDIA TRACHOMATIS PCR (w) NEG Neg NEISSERIA GONORRHOEAE BY PCR(w) NEG Neg Aug 02, 2023 03:10 PM [facility] VAGINOSIS PANEL Specimen Type: VAGINA No comment entered. Ordering Provider: JOY FRANCIS Report Released Date/Time: Aug 02, 2023 03:09 PM Reporting Lab: [facility] [address] [address] Performing Lab: [facility] [address] [address] TRICHOMONAS PROBE NEG GARDNERELLA PROBE NEG ELMER PROBE NEG Jul 25, 2023 09:21 AM [facility] LIPOPROTEIN CHOLESTEROL FRACT. PANEL Specimen Type: PLASMA Comment: Tests performed on [employer] (405) SN:[id number] Ordering Provider: ZEKE MCDONOUGH Report Released Date/Time: Jun 30, 2023 04:18 PM Reporting Lab: [facility] [address] [address] Performing Lab: [facility] [address] [address] CHOLESTEROL 238 mg/dL H 0-199 TRIGLYCERIDE 48 mg/dL 0-149 HDL CHOLESTEROL 76 mg/dL >40 LDL CHOLESTEROL (CALC) 152 mg/dL H 0-129 Jul 25, 2023 09:21 AM [facility] LIVER PROFILE Specimen Type: PLASMA Comment: Tests performed on [employer] (405) SN:[id number] Ordering Provider: ZEKE MCDONOUGH Report Released Date/Time: Jun 30, 2023 04:18 PM Reporting Lab: [facility] [address] [address] Performing Lab: [facility] [address] [address] PROTEIN, TOTAL 7.2 g/dL 6.0-8.5 ALBUMIN 4.1 g/dL 3.2-5.0 BILIRUBIN, TOTAL 0.6 mg/dL 0.2-1.2 ALKALINE PHOSPHATASE 36 U/L L 40-150 ALT(SGPT) 18 U/L 7-52 AST(SGOT) 16 U/L 5-34 FIB-4 SCORE 0.61 {index} <2.67 Jul 25, 2023 09:21 AM [facility] P4 GLU,BUN,CREAT,LYTES,CA Specimen Type: PLASMA Comment: Tests performed on [employer] (405) SN:[id number] Ordering Provider: ZEKE MCDONOUGH Report Released Date/Time: Jun 30, 2023 04:18 PM Reporting Lab: [facility] [address] [phone] Performing Lab: [facility] [address] [phone] UREA NITROGEN 14 mg/dL 7-25 SODIUM 135 mmol/L 135-145 POTASSIUM 4.1 mmol/L 3.5-5.0 CHLORIDE 103 mmol/L 100-110 CARBON DIOXIDE 25 mmol/L 20-30 ANION GAP 7 mmol/L 4-16 GLUCOSE 103 mg/dL H 65-100 CREATININE 0.82 mg/dL 0.5-1.5 CALCIUM 9.2 mg/dL 8.5-10.5 eGFR(CKD-EPI 2020) >90.0 mL/min >60 Jul 25, 2023 09:21 AM [facility] VIT D 25-OH(J) Specimen Type: SERUM Comment: Tests performed on [employer] (405) SN:[id number] Ordering Provider: ZEKE MCDONOUGH Report Released Date/Time: Jun 30, 2023 04:18 PM Reporting Lab: [facility] [address] [phone] Performing Lab: [facility] [address] [phone] VIT D 25-OH(J) 37.1 ng/mL 20-50 Jul 25, 2023 09:21 AM [facility] THYROID TESTING CASCADE Specimen Type: SERUM Comment: Tests performed on [employer] (405) SN:[id number] Ordering Provider: ZEKE MCDONOUGH Report Released Date/Time: Jun 30, 2023 04:18 PM Reporting Lab: [facility] [address] [address] Performing Lab: [facility] [address] [phone] T4,FREE 1.1 ng/dL 0.6-1.6 TSH 0.81 u[IU]/mL 0.35-5.00 Jul 25, 2023 09:21 AM [facility] CBC PROFILE Specimen Type: BLOOD No comment entered. Ordering Provider: ZEKE MCDONOUGH Report Released Date/Time: Jun 30, 2023 04:18 PM Reporting Lab: [facility] [address] [phone] Performing Lab: [facility] [address] [address] WBC 7.5 10*3/uL 4.5-11.0 RBC 4.23 10*6/uL [...] 10*3/uL 0-0 Jul 25, 2023 09:20 AM [facility] NORTHEAST ALLERGY PANEL #2(Q) Specimen Type: SERUM Comment: See full report in [employer] Image display viewer/tab#L AB-Reference Ordering Provider: DINORA ELLIOTT Report Released Date/Time: Jul 19, 2023 01:57 PM Reporting Lab: [facility] [address] [address] Performing Lab: [facility] [address] [place] NORTHEAST ALLERGY PANEL #2(Q) comment Social History: Smoking Status (Most current) and Tobacco Use (All prior to encounter date) This section includes the most current, and the historical, smoking and tobacco- related health factors from the [place] facility where the Encounter took place. Current Smoking Status This section includes the most current smoking, or tobacco-related health factor, from the [place] facility where the Encounter took place. Date/Time Current Smoking Status Comment Wendy ity Aug 02, 2023 02:30 PM [place] NEVER USED [facility] Tobacco Use History This section includes a history of the smoking, or tobacco-related health factors, that were collected on or before the date of the Encounter. The data comes from the [place] facility where the Encounter took place. Date/Time Smoking Status/Tobacco Use Comment F acility Aug 20, 2019 11:05 AM [place] NEVER USED [facility] Pathology Reports: +/- 30 days of [...] the Encounter. The data comes from all [place] treatment facilities. Date/Time Pathology Report Provider Source Aug 10, 2023 12:12 PM LR CYTOPATHOLOGY R EPORT: LOCAL TITLE: LR CYTOPATHOLOGY REPORT STANDARD TITLE: PATHOLOGY REPORT DATE OF NOTE: AUG 10, 2023@12:12:12 ENTRY DATE: AUG 10, 2023@12:12:12 AUTHOR: LARISA PLUNKETT EXP COSIGNER: URGENCY: STATUS: COMPLETED $APHDR Reporting Lab: [facility] [CLIA# [id number]] [address] [facility] [place] [address] - - - - - - - [...] (Received Aug 03, 2023 14:59): PAP SMEAR [id number] *+* SUPPLEMENTARY REPORT HAS BEEN ADDED *+* [...] - - - POSTOPERATIVE DIAGNOSIS: Surgeon/physician: JHOANA A BLACK =-=-=-=-=-=-=-=-=-=-=-=-=-= -=-=-=-=-=-=-=-=-=-=-=-=-=- =-=-=-=-=-=-=-=-=-=-=-=-= - - - - [...] - - Screened by: GÓMEZ ACE Description: [id number] 1 THIN PREP VIAL RECEIVED SENT TO [facility]. Diagnosis: Satisfactory for evaluation Negative for intraepithelial lesion or malignancy Reactive cellular changes NOTE: HPV DNA TEST PENDING Gynecologic cytology is a screening procedure with an inherent false negative rate. It is most reliable when a satisfactory sample is obtained on a regular repetitive basis. Results should be correlated with clinical information. CPT:49076, 22495 SUPPLEMENTARY REPORT(S): Supplementary Report Date: AUG 10, [...] with separate cytopathology report is required. CPT: 03385 /es/ aLrisa Plunkett MD PATHOLOGIST Signed Aug 10, 2023@12:12 Performing Laboratory: Cytology Report Performed By: [facility] [CLIA# [id number]] [address] [place] [phone] Supplementary Report for Aug 10, 2023@09:50 Performed By: [facility] [CLIA# [id number]] [address] [place] [address] $FTR - - - - - - [...] - - CORETTA PATEL STANDARD FORM 515 ID:[id number] SEX:F :1980 AGE: 42 LOC:[facility] PCP: Umesh Mcdonough /deann/ Larisa Plunkett MD PATHOLOGIST Signed: 08/10/2023 12:12 LARISA PLUNKETT [facility] Aug 09, 2023 03:28 PM LR CYTOPATHOLOGY R EPORT: LOCAL TITLE: LR CYTOPATHOLOGY REPORT STANDARD TITLE: PATHOLOGY REPORT DATE OF NOTE: AUG 09, 2023@15:28:55 ENTRY DATE: AUG 09, 2023@15:28:55 AUTHOR: LARISA PLUNKETT EXP COSIGNER: URGENCY: STATUS: COMPLETED $APHDR Reporting Lab: [facility] [CLIA# [id number]] [address] [place] [address] - - - - - - - [...] (Received Aug 03, 2023 14:59): PAP SMEAR [id number] - - - - - - - [...] - - Screened by: GÓMEZ ACE Description: [id number] 1 THIN PREP VIAL RECEIVED SENT TO [facility]. Diagnosis: Satisfactory for evaluation Negative for intraepithelial lesion or malignancy Reactive cellular changes NOTE: HPV DNA TEST PENDING Gynecologic cytology is a screening procedure with an inherent false negative rate. It is most reliable when a satisfactory sample is obtained on a regular repetitive basis. Results should be correlated with clinical information. CPT:87678, 26157 /es/ Larisa Plunkett MD PATHOLOGIST Signed Aug 09, 2023@15:28 Performing Laboratory: Cytology Report Performed By: [facility] [CLIA# [id number]] [address] [place] [address] $FTR - - - - - - [...] - - CORETTA PATEL STANDARD FORM 515 ID:[id number] SEX:F :1980 AGE: 42 LOC:[facility] PCP: Umesh Mcdonough /deann/ Larisa Plunkett MD PATHOLOGIST Signed: 08/09/2023 15:28 LARISA PLUNKETT [facility] Encounter Notes: All associated encounter notes This section contains the clinical notes associated to the Encounter. Date/Time Encounter Note(s) Provider Source Aug 09, 2023 03:28 PM PATHOLOGY REPORT: LOCAL TITLE: LR CYTOPATHOLOGY REPORT STANDARD TITLE: PATHOLOGY REPORT DATE OF NOTE: AUG 09, 2023@15:28:55 ENTRY DATE: AUG 09, 2023@15:28:55 AUTHOR: LARISA PLUNKETT EXP COSIGNER: URGENCY: STATUS: COMPLETED $APHDR Reporting Lab: [facility] [CLIA# [id number]] [address] [place] [address] - - - - - - - [...] (Received Aug 03, 2023 14:59): PAP SMEAR [id number] - - - - - - - [...] - - Screened by: GÓMEZ ACE Description: [id number] 1 THIN PREP VIAL RECEIVED SENT TO [facility]. Diagnosis: Satisfactory for evaluation Negative for intraepithelial lesion or malignancy Reactive cellular changes NOTE: HPV DNA TEST PENDING Gynecologic cytology is a screening procedure with an inherent false negative rate. It is most reliable when a satisfactory sample is obtained on a regular repetitive basis. Results should be correlated with clinical information. CPT:44230, 76396 /deann/ Larisa Plunkett MD PATHOLOGIST Signed Aug 09, 2023@15:28 Performing Laboratory: Cytology Report Performed By: [facility] [CLIA# [id number]] [address] [place] [address] $FTR - - - - - - [...] - - CORETTA PATEL STANDARD FORM 515 ID:[id number] SEX:F :1980 AGE: 42 LOC:[facility] PCP: Umesh Mcdonough /abril Plunkett MD PATHOLOGIST Signed: 08/09/2023 15:28 LARISA PLUNKETT [facility]
--- OUTSIDE RECORDS SUMMARY | 2024-08-03 13:55 | XMS_ITS | Continuity of Care Document ---
Author Organization [facility] Ambulatory Clinics Address [address] [place] [address] Care Team Providers Care Care Team Assistant Name Role Phone OUSMANE AZUL APRN Primary Care Physician [phone] Encounter [facility]BR [id number] Date(s): 06/27/24 - 06/27/24 [facility] Ambulatory [facility] [address] [place] [address]- [place] Discharge Disposition: Home Allergies, Adverse Reactions, Alerts No Known Allergies Assessment and Plan Future Appointments Future Scheduled Tests Radiology* MRI Spine Lumbar w/o Contrast 05/23/24 * MRI Spine Thoracic w/o Contrast 06/25/24 * MG Mammo Screening Bilateral 05/29/24 Problem [...] Access Member Role: Primary Care Physician Address: [address] [place] [id number] Insurance Providers Guarantor name: CORETTA PATEL Health Plan Information #: 1 [place] [employer] Member Number: NA Policy Number: NA Health Plan Information #: 2 Payer: [place] Member Number: NA Policy Number: NA
--- OUTSIDE RECORDS SUMMARY | 2024-08-03 13:56 | XMS_ITS | Encounter Summary ---
Author Name [facility] [place] [facility] [place] [facility] [place] Address [address] [place] [address] Care Team Providers Care Atmospheric Physicist Name Role Phone UMESH MCDONOUGH Primary Care Provider Unavailabl e Selected Encounter This section includes the information on record at [place] for the Encounter. Date/Time Encounter Type Encounter Description Reason Pro vider Source Oct 12, 2023 02:05 PM Outpatient Encounter ADMIN PAT ACTIVTIES (MASNONCT) IHE Encounter Template Text not used by [place] Plan of Treatment: Future Appointments (+ 6 months) and Future Tests (+/- 45 days) The Plan of Treatment section includes future care activities for the patient from all [place] treatmentfacilities. This section includes future appointments and future orders which are active, pending or scheduled. Future Appointments This section includes appointments that were scheduled to occur 6 months from the date of the Encounter, up to a maximum of 20 appointments. The data comes from all [place] treatment facilities. Appointment Date/Time Appointment Type Appointme nt Facility Name Nov 11, 2023 02:00 PM AMBULATORY - NONE [facility] Nov 25, 2023 11:30 AM AMBULATORY - NONE [facility] Dec 05, 2023 12:30 PM AMBULATORY - NONE [place] [facility] [facility] Dec 12, 2023 12:30 PM AMBULATORY - SURGERY [place] [facility] 2023 10:00 AM AMBULATORY - NONE [place] [facility] Jan 16, 2024 11:30 AM AMB[facility]ORY - [facility] [place] [facility] Apr 10, 2024 10:45 AM AMBULATORY - NONE [facility] [facility] Lab Results: +/- 30 days of [...] Result - Unit Interpretation Reference Range Comment Oct 31, 2023 02:25 PM [facility] SJOGREN'S ANTIBODY(SS-A,SS-B)PANEL(Q) Specimen Type: SERUM Comment: Reference Range: < 1.0 NEG AI Test Performed by Agustin Pepper, [facility], [address] [place] [address] Juan A Garcia M.D., Ph.D., Director of Laboratories , [facility] [id number] Ordering Provider: JUDY WALDRON Report Released Date/Time: Oct 24, 2023 02:36 PM Reporting Lab: [facility] [address] [facility] [address] Performing Lab: [address] SJOGREN'S ANTIBODY(SS-A)(q) <1.0 SJOGREN'S ANTIBODY(SS-B)(q) <1.0 Oct 31, 2023 02:25 PM [facility] RHEUMATOID FACTOR (B) Specimen Type: SERUM No comment entered. Ordering Provider: JUDY WALDRON Report Released Date/Time: Oct 24, 2023 02:36 PM Reporting Lab: [facility] [address] [facility] [address] Performing Lab: [facility] [address] [facility] [address] RHEUMATOID FACTO R (B) <15 0-15 Oct 31, 2023 02:25 PM [facility] FLORINA SCREEN/TITER (B) Specimen Type: SERUM No comment entered. Ordering Provider: JUDY WALDRON Report Released Date/Time: Oct 24, 2023 02:36 PM Reporting Lab: [facility] [address] [facility] [address] Performing Lab: [facility] [address] [facility] [address] FLORINA SCREEN (B) NEG Oct 31, 2023 02:25 PM [facility] VITAMIN B-12 Specimen Type: SERUM Comment: , Tests performed on [employer] Mckenna SN:[id number] (405) Ordering Provider: JUDY WALDRON Report Released Date/Time: Oct 24, 2023 02:36 PM Reporting Lab: [facility] [address] [facility] [address] Performing Lab: [facility] [address] [facility] [address] VITAMIN B-12 1071 pg/mL H 200-900 Oct 31, 2023 02:25 PM [facility] ESR(NEW) Specimen Type: BLOOD Comment: Tests performed on [employer] ISED(405) Ordering Provider: JUDY WALDRON Report Released Date/Time: Oct 24, 2023 02:36 PM Reporting Lab: [facility] [address] [facility] [address] Performing Lab: [facility] [address] [facility] [address] ESR(NEW) 4 mm/h 0-20 Oct 31, 2023 02:25 PM [facility] CRP(INFLAMMATORY) Specimen Type: PLASMA Comment: , Tests performed on [employer] Gianni SN:[id number] (405). Ordering Provider: JUDY WALDRON Report Released Date/Time: Oct 24, 2023 02:36 PM Reporting Lab: [facility] [address] [facility] [address] Performing Lab: [facility] [address] [facility] [address] CRP(INFLAMMATORY) 0.6 mg/L 0.0-5.0 Oct 31, 2023 02:25 PM [facility] GLYCOHEMOGLOBIN (A1C ONLY) Specimen Type: BLOOD Comment: , Tests performed on [employer]ckenna SN:[id number] (405) Values obtained from A1C measurements can vary. For typical A1C assays, a reported value of 7.0 could actually be between 6.72 and 7.28 if measured by a reference method. A reported value of 9.0 could actually be between 8.73 and 9.27. Ref: http://www.ng sp.org/CAPdat a.asp Ordering Provider: UMESH MCDONOUGH Report Released Date/Time: Oct 27, 2023 04:22 PM Reporting Lab: [facility] [address] [facility] [address] Performing Lab: [facility] [address] [facility] [address] HEMOGLOBIN A1C 5.1 4.0-5.6 Social History: Smoking Status (Most current) and Tobacco Use (All prior to encounter date) This section includes the most current, and the historical, smoking and tobacco- related health factors from the [place] facility where the Encounter took place. Current Smoking Status This section includes the most current smoking, or tobacco-related health factor, from the [place] facility where the Encounter took place. Date/Time Current Smoking Status Comment Wendy oropeza Aug 02, 2023 02:30 PM VA-TOBACCO NEVER USED [facility] Tobacco Use History This section includes a history of the smoking, or tobacco-related health factors, that were collected on or before the date of the Encounter. The data comes from the [place] facility where the Encounter took place. Date/Time Smoking Status/Tobacco Use Comment Yanick collins Aug 20, 2019 11:05 AM VA-TOBACCO NEVER USED [facility] Encounter Notes: All associated encounter notes This section contains the clinical notes associated to the Encounter. Date/Time Encounter Note(s) Provider Source Nov 07, 2023 12:22 PM ADDENDUM: LOCAL TITLE: Addendum STANDARD TITLE: ADDENDUM DATE OF NOTE: NOV 07, 2023@12:22 ENTRY DATE: NOV 07, 2023@12:22:01 AUTHOR: JUDY WALDRON EXP COSIGNER: URGENCY: STATUS: COMPLETED Blood testing resulted, overall normal, elevated Vit B12. I believe I alerted you to the results but wanted to confirm! /deann/ JUDY WALDRON MD, MPH Signed: 11/07/2023 12:25 Receipt Acknowledged By: 11/16/2023 12:33 /deann/ UMESH L CEASAR ASSOCIATE PASTOR --- Original Document --- 10/12/23 Administrative Note/Primary Care: charlotte went to [facility] to get bloodwork done and they said it has be put in again. Let MSA know when it is done so I can call her. She has an appt on the at the [facility] and needs the bloodwork completed. /es/ GINI FRAIRE Signed: 10/12/2023 14:11 Receipt Acknowledged By: 10/27/2023 16:22 /deann/ UMESH MCDONOUGH ASSOCIATE PASTOR 10/12/2023 ADDENDUM STATUS: COMPLETED the bloodwork was originally put in by Michaela Morelos. /es/ GINI FRAIRE Signed: 10/12/2023 14:12 10/27/2023 ADDENDUM STATUS: COMPLETED Sd Dr Waldron, You have a [facility] follow up in November will be going for Labs in Oct if you would like to add some. /deann/ UMESH MCDONOUGH APRN Signed: 10/27/2023 16:25 Receipt Acknowledged By: 10/31/2023 11:27 /abril WALDRON MD, MPH JUDY WALDRON [facility] Oct 27, 2023 04:23 PM ADDENDUM: LOCAL TITLE: Addendum STANDARD TITLE: ADDENDUM DATE OF NOTE: OCT 27, 2023@16:23:30 ENTRY DATE: OCT 27, 2023@16:23:31 AUTHOR: UMESH MCDONOUGH EXP COSIGNER: URGENCY: STATUS: COMPLETED Sd Dr Waldron, You have a [facility] follow up in November will be going for Labs in Oct if you would like to add some. /deann/ UMESH MCDONOUGH APRN Signed: 10/27/2023 16:25 Receipt Acknowledged By: 10/31/2023 11:27 /es/ JUDY WALDRON MD, MPH --- Original Document --- 10/12/23 Administrative Note/Primary Care: charlotte went to [facility] to get bloodwork done and they said it has be put in again. Let MSA know when it is done so I can call her. She has an appt on the at the [facility] and needs the bloodwork completed. /es/ GINI FRAIRE Signed: 10/12/2023 14:11 Receipt Acknowledged By: 10/27/2023 16:22 /es/ UMESH MCDONOUGH ASSOCIATE PASTOR 10/12/2023 ADDENDUM STATUS: COMPLETED the bloodwork was originally put in by Michaela Morelos. /es/ GINI FRAIRE Signed: 10/12/2023 14:12 UMESH MCDONOUGH [facility] Oct 12, 2023 02:05 PM PRIMARY CARE ADMINISTRATIVE NOTE: LOCAL TITLE: Administrative Note/Primary Care STANDARD TITLE: PRIMARY CARE ADMINISTRATIVE NOTE DATE OF NOTE: OCT 12, 2023@14:05 ENTRY DATE: OCT 12, 2023@14:05:36 AUTHOR: GINI FRAIRE COSIGNER: URGENCY: STATUS: COMPLETED Administrative Note/Primary Care Has ADDENDA charlotte went to [facility] to get bloodwork done and they said it has be put in again. Let MSA know when it is done so I can call her. She has an appt on the at the [facility] and needs the bloodwork completed. /deann/ GINI FRAIRE Signed: 10/12/2023 14:11 Receipt Acknowledged By: 10/27/2023 16:22 /es/ UMESH MCDONOUGH ASSOCIATE PASTOR 10/12/2023 ADDENDUM STATUS: COMPLETED the bloodwork was originally put in by Michaela Morelos. /es/ GINI FRAIRE Signed: 10/12/2023 14:12 10/27/2023 ADDENDUM STATUS: COMPLETED Hi Dr Waldron, You have a [facility] follow up in November will be going for Labs in Oct if you would like to add some. /deann/ UMESH MCDONOUGH APRN Signed: 10/27/2023 16:25 Receipt Acknowledged By: 10/31/2023 11:27 /deann/ JUDY WALDRON MD, MPH 11/07/2023 ADDENDUM STATUS: COMPLETED Blood testing resulted, overall normal, elevated Vit B12. I believe I alerted you to the results but wanted to confirm! /deann/ JUDY WALDRON MD, MPH Signed: 11/07/2023 12:25 Receipt Acknowledged By: * AWAITING SIGNATURE * UMESH MCDONOUGH BARBARA JEAN [place]
--- OUTSIDE RECORDS SUMMARY | 2024-08-03 13:56 | XMS_ITS | Encounter Summary ---
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 Date/Time Encounter Type Encounter Description Reason Pro vider Source Sep 07, 2023 08:12 AM Outpatient Encounter ADMIN PAT ACTIVTIES (MASNONCT) IHE Encounter Template Text not used by [place] Plan of Treatment: Future Appointments (+ 6 months) and Future Tests (+/- 45 days) The Plan of Treatment section includes future care activities for the patient from all [place] treatmentfacilities. This section includes future appointments and future orders which are active, pending or scheduled. Future Appointments This section includes appointments that were scheduled to occur 6 months from the date of the Encounter, up to a maximum of 20 appointments. The data comes from all [place] treatment facilities. Appointment Date/Time Appointment Type Appointme nt Facility Name Sep 12, 2023 09:30 AM AMBULATORY - SURGERY [facility] Nov 11, 2023 02:00 PM AMBULATORY - NONE [facility] Nov 25, 2023 11:30 AM AMBULATORY - NONE [facility] Dec 05, 2023 12:30 PM AMBULATORY - NONE [facility] [place] [facility] Dec 12, 2023 12:30 PM AMBULATORY - SURGERY [facility] 2023 10:00 AM AMBULATORY - NONE [facility] Jan 16, 2024 11:30 AM AMBULATORY - SURGERY [facility] Active, Pending, and Scheduled Orders This section includes a listing of several types of active, pending, and scheduled orders, including clinic medications orders, diagnostic test orders, procedure orders and consult orders; where the start date of the order is 45 days before the date of the Encounter or 45 days after the date of theEncounter. The data comes from all [facility] facilities. Test Date/Time Test Type Test Details Facility Name Aug 02, 2023 03:09 PM Laboratory - Chemi stry Order LABEL SURG/CYTO PAP VAG/CER VAGINAL-CERVICAL CYTOLOGIC MATERIAL SP ONCE [facility] Aug 03, 2023 12:00 AM Laboratory - Chemi stry Order ESR(NEW) BLOOD(LAV-EDTA) [facility] Aug 03, 2023 12:00 AM Laboratory - Chemi stry Order URINALYSIS W/REFLEX TO CULTURE CLEAN CATCH URINE [facility] Aug 03, 2023 12:00 AM Laboratory - Chemi stry Order CRP(INFLAMMATORY) LT GREEN(LI HEP) PLASMA [facility] Aug 03, 2023 12:00 AM Laboratory - Chemi stry Order FLORINA SCREEN/TITER (B) BLOOD(GOLD) SERUM [facility] Aug 03, 2023 12:00 AM Laboratory - Chemi stry Order RHEUMATOID FACTOR (B) BLOOD(GOLD) SERUM [facility] Aug 03, 2023 12:00 AM Laboratory - Chemi stry Order VITAMIN B-12 BLOOD(GOLD) SERUM [facility] Aug 03, 2023 12:00 AM Laboratory - Chemi stry Order SJOGREN'S ANTIBODY(SS-A,SS-B)BOWERS EL(Q) BLOOD(RED TOP) [facility] Social History: Smoking Status (Most current) and Tobacco Use (All prior to encounter date) This section includes the most current, and the historical, smoking and tobacco- related health factors from the [place] facility where the Encounter took place. Current Smoking Status This section includes the most current smoking, or tobacco-related health factor, from the [place] facility where the Encounter took place. Date/Time Current Smoking Status Comment Wendy oropeza Aug 02, 2023 02:30 PM VA-TOBACCO NEVER USED [facility] Tobacco Use History This section includes a history of the smoking, or tobacco-related health factors, that were collected on or before the date of the Encounter. The data comes from the [place] facility where the Encounter took place. Date/Time Smoking Status/Tobacco Use Comment Yanick collins Aug 20, 2019 11:05 AM VA-TOBACCO NEVER USED [facility] Pathology Reports: +/- 30 days [...] the Encounter. The data comes from all [place] treatment facilities. Date/Time Pathology Report Provider Source Aug 10, 2023 12:12 PM LR CYTOPATHOLOGY R EPORT: LOCAL TITLE: LR CYTOPATHOLOGY REPORT STANDARD TITLE: PATHOLOGY REPORT DATE OF NOTE: AUG 10, 2023@12:12:12 ENTRY DATE: AUG 10, 2023@12:12:12 AUTHOR: LARISA PLUNKETT EXP COSIGNER: URGENCY: STATUS: COMPLETED $APHDR Reporting Lab: [facility] [CLIA# [id number]] [address] [place] [address] - - - - - - - [...] (Received Aug 03, 2023 14:59): PAP SMEAR [id number] *+* SUPPLEMENTARY REPORT HAS BEEN ADDED *+* [...] - - Screened by: GÓMEZ ACE Description: [id number] 1 THIN PREP VIAL RECEIVED SENT TO [facility]. Diagnosis: Satisfactory for evaluation Negative for intraepithelial lesion or malignancy Reactive cellular changes NOTE: HPV DNA TEST PENDING Gynecologic cytology is a screening procedure with an inherent false negative rate. It is most reliable when a satisfactory sample is obtained on a regular repetitive basis. Results should be correlated with clinical information. CPT:17889, 20903 SUPPLEMENTARY REPORT(S): Supplementary Report Date: AUG 10, 2023@09:50 *+* SUPPLEMENTARY REPORT HAS BEEN ADDED/MODIFIED *+* (Added/Last released: Aug 10, 2023 12:12 Signed by LARISA PLUNKETT) HPV DNA, HIGH RISK TEST HPV16 NEG Ref: HPV16 NEG HPV18 NEG Ref: HPV18 NEG HPV OTHER HIGH-RISK NEG Ref: OTHER HR HPV NEG Comment: HPV DNA PCR performed by [employer] HPV Test. This test detects the presence of DNA from HPV genotypes 16, 18, 31, 33, 35, 39, 45, 51, 52, 56, 58, 59, 66, and 68. Correlation with separate cytopathology report is required. CPT: 87644 /deann/ Larisa Plunkett MD PATHOLOGIST Signed Aug 10, 2023@12:12 Performing Laboratory: Cytology Report Performed By: [facility] [CLIA# [id number]] [address] [place] [id number] Supplementary Report for Aug 10, 2023@09:50 Performed By: [facility] [CLIA# [id number]] [address] [place] [id number] $FTR - - - - - - [...] - - CORETTA PATEL STANDARD FORM 515 ID:[id number] SEX:F :1980 AGE: 42 LOC:[facility] PCP: Umesh Mcdonough /abril Plunkett MD PATHOLOGIST Signed: 08/10/2023 12:[address] [facility] Aug 09, 2023 03:28 PM LR CYTOPATHOLOGY R EPORT: LOCAL TITLE: LR CYTOPATHOLOGY REPORT STANDARD TITLE: PATHOLOGY REPORT DATE OF NOTE: AUG 09, 2023@15:28:55 ENTRY DATE: AUG 09, 2023@15:28:55 AUTHOR: LARISA PLUNKETT EXP COSIGNER: URGENCY: STATUS: COMPLETED $APHDR Reporting Lab: [facility] [CLIA# [id number]] [address] [facility] [place] [address] - - - - - - - [...] (Received Aug 03, 2023 14:59): PAP SMEAR [id number] - - - - - - - [...] - - Screened by: GÓMEZ ACE Description: [id number] 1 THIN PREP VIAL RECEIVED SENT TO [facility]. Diagnosis: Satisfactory for evaluation Negative for intraepithelial lesion or malignancy Reactive cellular changes NOTE: HPV DNA TEST PENDING Gynecologic cytology is a screening procedure with an inherent false negative rate. It is most reliable when a satisfactory sample is obtained on a regular repetitive basis. Results should be correlated with clinical information. CPT:90129, 67241 /deann/ Larisa Plunkett MD PATHOLOGIST Signed Aug 09, 2023@15:28 Performing Laboratory: Cytology Report Performed By: [facility] [CLIA# [id number]] [address] [place] [id number] $FTR - - - - - - [...] - - CORETTA PATEL STANDARD FORM 515 ID:[id number] SEX:F :1980 AGE: 42 LOC:[facility] PCP: Umesh Mcdonough /abril Plunkett MD PATHOLOGIST Signed: 08/09/2023 15:28 LARISA PLUNKETT [facility] Encounter Notes: All associated encounter notes This section contains the clinical notes associated to the Encounter. Date/Time Encounter Note(s) Provider Source Sep 07, 2023 08:12 AM PRIMARY CARE ADMIN ISTRATIVE NOTE: LOCAL TITLE: Administrative Note/Primary Care STANDARD TITLE: PRIMARY CARE ADMINISTRATIVE NOTE DATE OF NOTE: SEP 07, 2023@08:12 ENTRY DATE: SEP 07, 2023@08:12:22 AUTHOR: VICKEY CANO EXP COSIGNER: URGENCY: STATUS: COMPLETED RTC for LIT PACT T PHONE with PID 07/12/2023 dispositioned as failure to respond. Phone call:07/12/2023; 09/05/2023 Letter sent:07/12/2023 Original comments from RTC included:30 MINUTE APPT f/u labs and liver pain /es/ VICKEY CANO [facility]IM FACILITY PCMM COORDINATOR Signed: 09/07/2023 08:13 VICKEY CANO [facility]
--- OUTSIDE RECORDS SUMMARY | 2024-08-03 13:56 | XMS_ITS | Encounter Summary ---
Author Name [facility] [facility] [place] Organization [facility] [place] [facility] [place] Address [address] [place] [address] Care Team Providers Care Society Editor Name Role Phone UMESH MCDONOUGH Primary Care Provider Unavailabl e Selected Encounter This section includes the information on record at [place] for the Encounter. Date/Time Encounter Type Encounter Description Reason Pro vider Source IHE Encounter Template Text not used by [place]
--- OUTSIDE RECORDS SUMMARY | 2024-08-03 13:56 | XMS_ITS | Encounter Summary ---
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 Date/Time Encounter Type Encounter Description Reason Provider Source Aug 10, 2023 12:12 PM Outpatient Encounter EVENT (HISTORICAL) LARISA PLUNKETT Encounter Template Text not used by [place] Plan of Treatment: Future Appointments (+ 6 months) and Future Tests (+/- 45 days) The Plan of Treatment section includes future care activities for the patient from all [place] treatmentfacilities. This section includes future appointments and future orders which are active, pending or scheduled. Future Appointments This section includes appointments that were scheduled to occur 6 months from the date of the Encounter, up to a maximum of 20 appointments. The data comes from all [place] treatment facilities. Appointment Date/Time Appointment Type Appointme nt Facility Name Sep 12, 2023 09:30 AM AMBULATORY - SURGERY [facility] Nov 11, 2023 02:00 PM AMBULATORY - NONE [facility] Nov 25, 2023 11:30 AM AMBULATORY - NONE [facility] Dec 05, 2023 12:30 PM AMBULATORY - NONE [facility] Dec 12, 2023 12:30 PM AMBULATORY - SURGERY [facility] 2023 10:00 AM AMBULATORY - NONE [facility] Jan 16, 2024 11:30 AM AMBULATORY - SURGERY [facility] Active, Pending, and Scheduled Orders This section includes a listing of several types of active, pending, and scheduled orders, including clinic medications orders, diagnostic test orders, procedure orders and consult orders; where the start date of the order is 45 days before the date of the Encounter or 45 days after the date of theEncounter. The data comes from all [place] treatment facilities. Test Date/Time Test Type Test Details Facility Name Jun 30, 2023 04:18 PM Laboratory - Chemistry Order GLYCOHEMOGLOBIN (A1C ONLY) BLOOD(LAV-EDTA) [facility] Aug 02, 2023 03:09 PM Laboratory - Chemistry Order LABEL SURG/CYTO PAP VAG/CER VAGINAL-CERVICAL CYTOLOGIC MATERIAL [facility] Aug 03, 2023 12:00 AM Laboratory - Chemistry Order URINALYSIS W/REFLEX TO CULTURE CLEAN CATCH URINE [facility] Aug 03, 2023 12:00 AM Laboratory - Chemistry Order ESR(NEW) BLOOD(LAV-EDTA) [facility] Aug 03, 2023 12:00 AM Laboratory - Chemistry Order FLORINA SCREEN/TITER (B) BLOOD(GOLD) SERUM [facility] Aug 03, 2023 12:00 AM Laboratory - Chemistry Order CRP(INFLAMMATORY) LT GREEN(LI HEP) PLASMA [facility] Aug 03, 2023 12:00 AM Laboratory - Chemistry Order RHEUMATOID FACTOR (B) BLOOD(GOLD) SERUM [facility] Aug 03, 2023 12:00 AM Laboratory - Chemistry Order VITAMIN B-12 BLOOD(GOLD) SERUM [facility] Aug 03, 2023 12:00 AM Laboratory - Chemistry Order SJOGREN'S ANTIBODY(SS-A,SS-B)PANEL(Q ) BLOOD(RED TOP) SERUM [facility] Lab Results: +/- 30 days of [...] Range Comment Aug 02, 2023 03:10 PM [facility] CHLAMYDIA/NEISSERIA PANEL BY PCR (W) Specimen Type: GENITAL SYSTEM No comment entered. Ordering Provider: JOY FRANCIS Report Released Date/Time: Aug 02, 2023 03:09 PM Reporting Lab: [facility] [address] [facility] [address] Performing Lab: [facility] [address] [facility] [address] CHLAMYDIA TRACHOMATIS PCR (w) NEG Neg NEISSERIA GONORRHOEAE BY PCR(w) NEG Neg Aug 02, 2023 03:10 PM [facility] VAGINOSIS PANEL Specimen Type: VAGINA No comment entered. Ordering Provider: JOY FRANCIS Report Released Date/Time: Aug 02, 2023 03:09 PM Reporting Lab: [facility] [address] [facility] [address] Performing Lab: [facility] [address] [facility] [address] TRICHOMONAS PROBE NEG GARDNERELLA PROBE NEG ELMER PROBE NEG Jul 25, 2023 09:21 AM [facility] LIPOPROTEIN CHOLESTEROL FRACT. PANEL Specimen Type: PLASMA Comment: Tests performed on Batista Maitre D (405) SN:[id number] Ordering Provider: ZEKE MCDONOUGH Report Released Date/Time: Jun 30, 2023 04:18 PM Reporting Lab: [facility] [address] [facility] [address] Performing Lab: [facility] [address] [address] CHOLESTEROL 238 mg/dL H 0-199 TRIGLYCERIDE 48 mg/dL 0-149 HDL CHOLESTEROL 76 mg/dL >40 LDL CHOLESTEROL (CALC) 152 mg/dL H 0-129 Jul 25, 2023 09:21 AM [facility] LIVER PROFILE Specimen Type: PLASMA Comment: Tests performed on Batista Maitre D (405) SN:[id number] Ordering Provider: ZEKE MCDONOUGH Report Released Date/Time: Jun 30, 2023 04:18 PM Reporting Lab: [facility] [address] [facility] [address] Performing Lab: [facility] [address] [address] PROTEIN, TOTAL 7.2 g/dL 6.0-8.5 ALBUMIN 4.1 g/dL 3.2-5.0 BILIRUBIN, TOTAL 0.6 mg/dL 0.2-1.2 ALKALINE PHOSPHATASE 36 U/L L 40-150 ALT(SGPT) 18 U/L 7-52 AST(SGOT) 16 U/L 5-34 FIB-4 SCORE 0.61 {index} <2.67 Jul 25, 2023 09:21 AM [facility] P4 GLU,BUN,CREAT,LYTES,CA Specimen Type: PLASMA Comment: Tests performed on Batista REES46 (405) SN:[id number] Ordering Provider: ZEKE MCDONOUGH Report Released Date/Time: Jun 30, 2023 04:18 PM Reporting Lab: [facility] [address] [phone] Performing Lab: [facility] [address] [id number] UREA NITROGEN 14 mg/dL 7-25 SODIUM 135 mmol/L 135-145 POTASSIUM 4.1 mmol/L 3.5-5.0 CHLORIDE 103 mmol/L 100-110 CARBON DIOXIDE 25 mmol/L 20-30 ANION GAP 7 mmol/L 4-16 GLUCOSE 103 mg/dL H 65-100 CREATININE 0.82 mg/dL 0.5-1.5 CALCIUM 9.2 mg/dL 8.5-10.5 eGFR(CKD-EPI 2020) >90.0 mL/min >60 Jul 25, 2023 09:21 AM [facility] VIT D 25-OH([facility]) Specimen Type: SERUM Comment: Tests performed on Batista REES46 (405) SN:[id number] Ordering Provider: ZEKE MCDONOUGH Report Released Date/Time: Jun 30, 2023 04:18 PM Reporting Lab: [facility] [address] [phone] Performing Lab: [facility] [address] [phone] VIT D 25-OH([facility]) 37.1 ng/mL 20-50 Jul 25, 2023 09:21 AM [facility] CBC PROFILE Specimen Type: BLOOD No comment entered. Ordering Provider: ZEKE MCDONOUGH Report Released Date/Time: Jun 30, 2023 04:18 PM Reporting Lab: [facility] [address] [address] Performing Lab: [facility] [address] [address] WBC 7.5 10*3/uL 4.5-11.0 RBC 4.23 10*6/uL [...] NRBC 0.00 10*3/uL 0-0 Jul 25, 2023 09:21 AM [facility] THYROID TESTING CASCADE Specimen Type: SERUM Comment: Tests performed on Link Trigger (405 SN:[id number] Ordering Provider: ZEKE MCDONOUGH Report Released Date/Time: Jun 30, 2023 04:18 PM Reporting Lab: [facility] [address] [address] Performing Lab: [facility] [address] [address] T4,FREE 1.1 ng/dL 0.6-1.6 TSH 0.81 u[IU]/mL 0.35-5.00 Jul 25, 2023 09:20 AM [facility] ALL[facility]GY PANEL #2(Q) Specimen Type: SERUM Comment: See full report in [place] Image display viewer/tab#L AB-Reference Ordering Provider: DINORA ELLIOTT Report Released Date/Time: Jul 19, 2023 01:57 PM Reporting Lab: [facility] [address] [facility] [address] Performing Lab: [facility] [address] [address] [address] [place] [facility] PANEL #2(Q) comment Social History: Smoking Status (Most current) and Tobacco Use (All prior to encounter date) This section includes the most current, and the historical, smoking and tobacco- related health factors from the [place] facility where the Encounter took place. Current Smoking Status This section includes the most current smoking, or tobacco-related health factor, from the [place] facility where the Encounter took place. Date/Time Current Smoking Status Comment Wendy beckhamy Aug 02, 2023 02:30 PM [place]-TOBACCO NEVER USED [facility] Tobacco Use History This section includes a history of the smoking, or tobacco-related health factors, that were collected on or before the date of the Encounter. The data comes from the [place] facility where the Encounter took place. Date/Time Smoking Status/Tobacco Use Comment F acility Aug 20, 2019 11:05 AM [place]-TOBACCO NEVER USED [facility] Pathology Reports: +/- 30 days of the [...] the Encounter. The data comes from all [place] treatment facilities. Date/Time Pathology Report Provider Source Aug 10, 2023 12:12 PM LR CYTOPATHOLOGY R EPORT: LOCAL TITLE: LR CYTOPATHOLOGY REPORT STANDARD TITLE: PATHOLOGY REPORT DATE OF NOTE: AUG 10, 2023@12:12:12 ENTRY DATE: AUG 10, 2023@12:12:12 AUTHOR: LARISA PLUNKETT EXP COSIGNER: URGENCY: STATUS: COMPLETED $APHDR Reporting Lab: [facility] [CLIA# [id number]] [address] [place] [address] - - - - - - - [...] (Received Aug 03, 2023 14:59): PAP SMEAR [id number] *+* SUPPLEMENTARY REPORT HAS BEEN ADDED *+* [...] - - Screened by: GÓMEZ ACE Description: [id number] 1 THIN PREP VIAL RECEIVED SENT TO [facility]. Diagnosis: Satisfactory for evaluation Negative for intraepithelial lesion or malignancy Reactive cellular changes NOTE: HPV DNA TEST PENDING Gynecologic cytology is a screening procedure with an inherent false negative rate. It is most reliable when a satisfactory sample is obtained on a regular repetitive basis. Results should be correlated with clinical information. CPT:87583, 55384 SUPPLEMENTARY REPORT(S): Supplementary Report Date: AUG 10, [...] with separate cytopathology report is required. CPT: 08093 /es/ Larisa Plunkett MD PATHOLOGIST Signed Aug 10, 2023@12:12 Performing Laboratory: Cytology Report Performed By: [facility] [CLIA# [id number]] [address] [place] [phone] Supplementary Report for Aug 10, 2023@09:50 Performed By: [facility] [CLIA# [id number]] [address] [place] [phone] $FTR - - - - - - [...] - - CORETTA PATEL STANDARD FORM 515 ID:[id number] SEX:F :1980 AGE: 42 LOC:[facility] PCP: Umesh Mcdonough /deann/ Larisa Plunkett MD PATHOLOGIST Signed: 08/10/2023 12:12 LARISA PLUNKETT [facility] Aug 09, 2023 03:28 PM LR CYTOPATHOLOGY R EPORT: LOCAL TITLE: LR CYTOPATHOLOGY REPORT STANDARD TITLE: PATHOLOGY REPORT DATE OF NOTE: AUG 09, 2023@15:28:55 ENTRY DATE: AUG 09, 2023@15:28:55 AUTHOR: LARISA PLUNKETT EXP COSIGNER: URGENCY: STATUS: COMPLETED $APHDR Reporting Lab: [facility] [CLIA# [id number]] [address] [place] [address] - - - - - - - [...] (Received Aug 03, 2023 14:59): PAP SMEAR [id number] - - - - - - - [...] - - Screened by: GÓMEZ ACE Description: [id number] 1 THIN PREP VIAL RECEIVED SENT TO [facility]. Diagnosis: Satisfactory for evaluation Negative for intraepithelial lesion or malignancy Reactive cellular changes NOTE: HPV DNA TEST PENDING Gynecologic cytology is a screening procedure with an inherent false negative rate. It is most reliable when a satisfactory sample is obtained on a regular repetitive basis. Results should be correlated with clinical information. CPT:06795, 67373 /es/ Larisa Plunkett MD PATHOLOGIST Signed Aug 09, 2023@15:28 Performing Laboratory: Cytology Report Performed By: [facility] [CLIA# [id number]] [address] [place] [address] $FTR - - - - - - [...] - - CORETTA PATEL STANDARD FORM 515 ID:[id number] SEX:F :1980 AGE: 42 LOC:[facility] PCP: Umesh Mcdonough /deann/ Larisa Plunkett MD PATHOLOGIST Signed: 08/09/2023 15:28 LARISA PLUNKETT [facility] Encounter Notes: All associated encounter notes This section contains the clinical notes associated to the Encounter. Date/Time Encounter Note(s) Provider Source Aug 10, 2023 12:12 PM PATHOLOGY REPORT: LOCAL TITLE: LR CYTOPATHOLOGY REPORT STANDARD TITLE: PATHOLOGY REPORT DATE OF NOTE: AUG 10, 2023@12:12:12 ENTRY DATE: AUG 10, 2023@12:12:12 AUTHOR: LARISA PLUNKETT EXP COSIGNER: URGENCY: STATUS: COMPLETED $APHDR Reporting Lab: [facility] [CLIA# [id number]] [address] [place] [address] - - - - - - - [...] (Received Aug 03, 2023 14:59): PAP SMEAR [id number] *+* SUPPLEMENTARY REPORT HAS BEEN ADDED *+* [...] - - Screened by: GÓMEZ ACE Description: [id number] 1 THIN PREP VIAL RECEIVED SENT TO [facility]. Diagnosis: Satisfactory for evaluation Negative for intraepithelial lesion or malignancy Reactive cellular changes NOTE: HPV DNA TEST PENDING Gynecologic cytology is a screening procedure with an inherent false negative rate. It is most reliable when a satisfactory sample is obtained on a regular repetitive basis. Results should be correlated with clinical information. CPT:62144, 57967 SUPPLEMENTARY REPORT(S): Supplementary Report Date: AUG 10, 2023@09:50 *+* SUPPLEMENTARY REPORT HAS BEEN ADDED/MODIFIED *+* (Added/Last released: Aug 10, 2023 12:12 Signed by LARISA PLUNKETT) HPV DNA, HIGH RISK TEST HPV16 NEG Ref: HPV16 NEG HPV18 NEG Ref: HPV18 NEG HPV OTHER HIGH-RISK NEG Ref: OTHER HR HPV NEG Comment: HPV DNA PCR performed by [employer] HPV Test. This test detects the presence of DNA from HPV genotypes 16, 18, 31, 33, 35, 39, 45, 51, 52, 56, 58, 59, 66, and 68. Correlation with separate cytopathology report is required. CPT: 70998 /deann/ Larisa Plunkett MD PATHOLOGIST Signed Aug 10, 2023@12:12 Performing Laboratory: Cytology Report Performed By: [facility] [CLIA# [id number]] [address] [place] [phone] Supplementary Report for Aug 10, 2023@09:50 Performed By: [facility] [CLIA# [id number]] [address] [place] [phone] $FTR - - - - - - [...] - - CORETTA PATEL STANDARD FORM 515 ID:[id number] SEX:F :1980 AGE: 42 LOC:[facility] PCP: Umesh Mcdonough /deann/ Larisa Plunkett MD PATHOLOGIST Signed: 08/10/2023 12:12 LARISA PLUNKETT [facility]
--- OUTSIDE RECORDS SUMMARY | 2024-08-03 13:56 | XMS_ITS | Encounter Summary ---
Author Name [facility] [place] Organization [facility] [place] Address [address] [place] [address] Care Team Providers Care Onion Tier Name Role Phone UMESH MCDONOUGH Primary Care Provider Unavailabl e Selected Encounter This section includes the information on record at [place] for the Encounter. Date/Time Encounter Type Encounter Description Reason Pro vider Source Sep 19, 2023 08:05 AM Outpatient Encounter ADMIN PAT ACTIVTIES (MASNONCT) IHE Encounter Template Text not used by [place] Plan of Treatment: Future Appointments (+ 6 months) and Future Tests (+/- 45 days) The Plan of Treatment section includes future care activities for the patient from all [place] treatmentfacilities. This section includes future appointments and future orders which are active, pending or scheduled. Future Appointments This section includes appointments that were scheduled to occur 6 months from the date of the Encounter, up to a maximum of 20 appointments. The data comes from all [place] treatment facilities. Appointment Date/Time Appointment Type Appointme nt Facility Name Nov 11, 2023 02:00 PM AMBULATORY - NONE [facility] Nov 25, 2023 11:30 AM AMBULATORY - NONE [facility] Dec 05, 2023 12:30 PM AMBULATORY - NONE [place] [facility] Dec 12, 2023 12:30 PM AMBULATORY - [place] [facility] 2023 10:00 AM AMBULATORY - NONE [place] [facility] Jan 16, 2024 11:30 AM AMBULATORY - SURGERY [facility] Social History: Smoking Status (Most current) and Tobacco Use (All prior to encounter date) This section includes the most current, and the historical, smoking and tobacco- related health factors from the [place] facility where the Encounter took place. Current Smoking Status This section includes the most current smoking, or tobacco-related health factor, from the [place] facility where the Encounter took place. Date/Time Current Smoking Status Comment Wendy ity Aug 02, 2023 02:30 PM [place]-TOBACCO NEVER USED [facility] Tobacco Use History This section includes a history of the smoking, or tobacco-related health factors, that were collected on or before the date of the Encounter. The data comes from the [place] facility where the Encounter took place. Date/Time Smoking Status/Tobacco Use Comment F karina Aug 20, 2019 11:05 AM [place]-TOBACCO NEVER USED [facility] Encounter Notes: All associated encounter notes This section contains the clinical notes associated to the Encounter. Date/Time Encounter Note(s) Provider Source Sep 19, 2023 08:05 AM PHARMACY OUTPATIEN T NOTE: LOCAL TITLE: Pharmacy Outpatient Note STANDARD TITLE: PHARMACY OUTPATIENT NOTE DATE OF NOTE: SEP 19, 2023@08:05 ENTRY DATE: SEP 19, 2023@08:05:43 AUTHOR: LARS LOFTON EXP COSIGNER: URGENCY: STATUS: COMPLETED This 's order for ESTRADIOL 0.1MG/DAY ([id number]) was flagged for clarification on 09/12/23. Directions were for 1 patch per week but this is a twice weekly formulation. Attempt was made to contact presriber by phone on 09/16/23 per teams away message. Orders cannot stay in the pharmacy work queue for more than 7 days. As such, the following order has been discontinued and will need to re entered. The order is copied below for reference: *(1) Orderable Item: ESTRADIOL *HZD DRG* PATCH <DIN> (2) CMOP Drug: ESTRADIOL 0.1MG/DAY ([id number]) Drug Message: DISP 24 PATCHES/84 DAYS Verb: APPLY (3) *Dosage: 1 PATCH *Route: TOPICALLY *Schedule: WEEKLY (4) Pat Instruct: Provider Comments: Indications: PERIMENOPAUSE Instructions: APPLY 1 PATCH TOP WEEKLY SIG: APPLY 1 PATCH TOPICALLY WEEKLY (5) Patient Status: SC LESS THAN 50% (6) Issue Date: Aug (7) Fill Date: Aug (8) Days Supply: 90 (9) QTY (PATCH): 12 QTY DSP MS PATCHES/84 DAYS Provider ordered 3 refills (10) # of Refills: 3 (11) Routing: MAIL (12) Clinic: [facility] MD Edwin BROWN (13) Provider: JUDY WALDRON (14) Copies: 1 (15) Remarks: Entry By: JUDY WALDRON Entry Date: 09/12/23 10:37:28 /deann/ LARS LOFTON CLINICAL PHARMACIST Signed: 09/19/2023 08:13 Receipt Acknowledged By: 09/27/2023 12:29 /deann/ JUDY WALDRON MD, MPH KIRSTY,[facility]
--- OUTSIDE RECORDS SUMMARY | 2024-08-03 13:56 | XMS_ITS | Encounter Summary ---
Author Name [facility] [place] Organization [facility] [place] [facility] [place] Address [address] [place] [address] Care Team Providers Care Sketch Maker Name Role Phone UMESH MCDONOUGH Primary Care Provider Unavailabl e Selected Encounter This section includes the information on record at [place] for the Encounter. Date/Time Encounter Type Encounter Description Reason Provider Source Sep 12, 2023 09:30 AM OFFICE O/P NEW [place] 60-74 MIN GYNECOLOGY ICD-10-CM N94.12 Deep dyspareunia JUDY WALDRON Nereida Encounter Template Text not used by [place] Assessments - Encounter Diagnoses This section includes the primary and secondary diagnoses documented for the Encounter. Date/Time Primary/Secondary Diagnosis Diagnosis Name Provider Source Sep 12, 2023 11:00 AM PRIMARY Deep dyspareunia JUDY WALDRON [facility] Sep 12, 2023 11:00 AM SECONDARY Menopausal and female climacteric states JUDY WALDRON [facility] Plan of Treatment: Future Appointments (+ 6 months) and Future Tests (+/- 45 days) The Plan of Treatment section includes future care activities for the patient from all [place] treatmentfacilities. This section includes future appointments and future orders which are active, pending or scheduled. Future Appointments This section includes appointments that were scheduled to occur 6 months from the date of the Encounter, up to a maximum of 20 appointments. The data comes from all [place] treatment facilities. Appointment Date/Time Appointment Type Appointme nt Facility Name Nov 11, 2023 02:00 PM AMBULATORY - NONE [facility] Nov 25, 2023 11:30 AM AMBULATORY - NONE [facility] Dec 05, 2023 12:30 PM AMBULATORY - NONE [facility] Dec 12, 2023 12:30 PM AMBULATORY - SURGERY [facility] 2023 10:00 AM AMBULATORY - NONE [facility] Jan 16, 2024 11:30 AM AMBULATORY - SURGERY [facility] Active, Pending, and Scheduled Orders This section includes a listing of several types of active, pending, and scheduled orders, including clinic medications orders, diagnostic test orders, procedure orders and consult orders; where the start date of the order is 45 days before the date of the Encounter or 45 days after the date of theEncounter. The data comes from all [facility]. Test Date/Time Test Type Test Details Facility Name Aug 02, 2023 03:09 PM Laboratory - Chemi stry Order LABEL SURG/CYTO PAP VAG/CER VAGINAL-CERVICAL CYTOLOGIC MATERIAL SP ONCE [facility] Aug 03, 2023 12:00 AM Laboratory - Chemi stry Order ESR(NEW) BLOOD(LAV-EDTA) [facility] Aug 03, 2023 12:00 AM Laboratory - Chemi stry Order CRP(INFLAMMATORY) LT GREEN(LI HEP) PLASMA [facility] Aug 03, 2023 12:00 AM Laboratory - Chemi stry Order FLORINA SCREEN/TITER (B) BLOOD(GOLD) SERUM [facility] Aug 03, 2023 12:00 AM Laboratory - Chemi stry Order URINALYSIS W/REFLEX TO CULTURE CLEAN CATCH URINE [facility] Aug 03, 2023 12:00 AM Laboratory - Chemi stry Order RHEUMATOID FACTOR (B) BLOOD(GOLD) SERUM [facility] Aug 03, 2023 12:00 AM Laboratory - Chemi stry Order SJOGREN'S ANTIBODY(SS-A,SS-B)BOWERS EL(Q) BLOOD(RED TOP) SERUM [facility] Aug 03, 2023 12:00 AM Laboratory - Chemi stry Order VITAMIN B-12 BLOOD(GOLD) SERUM [facility] Vital Signs: All taken on the encounter date This section contains inpatient and outpatient Vital Signs collected on the date of the Encounter. Date/Time Temperature Pulse Blood Pressure Respiratory Rate SP02 Pain Height Weight Body Mass Index Source Sep 12, 2023 09:51 AM 98.2 F 64 /min 108/57 mm[Hg] 18 /min 100 % 0 [facility] Social History: Smoking Status (Most current) and Tobacco Use (All prior to encounter date) This section includes the most current, and the historical, smoking and tobacco- related health factors from the [place] facility where the Encounter took place. Current Smoking Status This section includes the most current smoking, or tobacco-related health factor, from the [place] facility where the Encounter took place. Date/Time Current Smoking Status Comment Facil ity Aug 02, 2023 02:30 PM VA-TOBACCO NEVER USED [facility] Tobacco Use History This section includes a history of the smoking, or tobacco-related health factors, that were collected on or before the date of the Encounter. The data comes from the [place] facility where the Encounter took place. Date/Time Smoking Status/Tobacco Use Comment F acility Aug 20, 2019 11:05 AM VA-TOBACCO NEVER USED [facility] Encounter Notes: All associated encounter notes This section contains the clinical notes associated to the Encounter. Date/Time Encounter Note(s) Provider Source Sep 12, 2023 11:00 AM ADDENDUM: LOCAL TITLE: Addendum STANDARD TITLE: ADDENDUM DATE OF NOTE: SEP 12, 2023@11:00:43 ENTRY DATE: SEP 12, 2023@11:00:44 AUTHOR: JUDY WALDRON EXP COSIGNER: URGENCY: STATUS: COMPLETED CCC for pelvic floor PT closer to home, providers in [facility]. /deann/ JUDY WALDRON MD, MPH Signed: 09/12/2023 11:01 Receipt Acknowledged By: 09/12/2023 11:13 /deann/ QUINTON ROBISON Women's Health Nurse Navigator --- Original Document --- 09/12/23 CONSULT: Gynecology: Gynecology New Patient Visit CC: Dyspareunia, vaginal dryness, low libido HPI: 42 y.o. 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 Has been so tired, sleeping upwards of 12 hours of day Feels sick as well Low libido More alba No night sweats Not on control currently, would be interested in another Denies history of VTE, migraines with aura, HTN Michaela had ordered some autoimmune workup for the severe fatigue, patient has not yet had drawn Had negative GC/CT, and affirm swab at last visit [employer] History LMP: 08/26/2023 Sexually active: Yes Contraception (premenopause): none ACTIVE PROBLEMS: Bipolar disorder ([facility] [id number]) Pulsatile tinnitus ([facility] 882662438) Abdominal pain ([facility] 03208174) Caesarean delivery - delivered ([facility] [id number]) Borderline personality disorder ([facility] 200Back pain ([facility] 129398949) Episodic opioid dependence ([facility] [id number] of alcohol abuse ([facility] [id number]) ALLERGIES/ADR: Patient has answered NKA Active Outpatient Medications (excluding Supplies): Active Outpatient Medications Status 1) FLUTICASONE PROP 50MCG 120D NASAL INHL INSTILL 2 ACTIVE SPRAYS INTO EACH NOSTRIL TWICE A DAY FOR NASAL IRRITATION/INFLAMMATION - SPRAY FLONASE AFTER SALINE NASAL SPRAY 2) GUAIFENESIN 600MG SA TAB TAKE TWO TABLETS BY MOUTH ACTIVE TWICE DAILY NEEDED FOLLOW DOSE WITH FULL GLASS OF WATER 3) MOISTURIZER VAG GEL APPLIC (EQV-REPLENS) INSERT ONE ACTIVE APPLICATION INTRAVAGINALLY EVERY THREE DAYS FOR DRYNESS MAY USE MORE FREQUENTLY NEEDED, DAILY USE IS SAFE 4) QUETIAPINE FUMARATE 25MG TAB TAKE ONE TABLET BY MOUTH ACTIVE AT BEDTIME FOR BIPOLAR DISORDER Active Non-VA Medications Status 1) Non-VA FISH OIL 1000MG (500MG DHA/EPA) CAP 1000MG BY ACTIVE MOUTH EVERY DAY 2) Non-VA MULTIVIT W/MINERALS, CAP/TAB ONE BY ACTIVE MOUTH EVERY DAY 3) Non-VA MULTIVITAMIN CAP/TAB ONE CAP/TAB BY MOUTH ACTIVE EVERY DAY 4) Non-VA PROBIOTIC CAP,ORAL BY MOUTH EVERY DAY ACTIVE 8 Total Medications LABS: WBC: 7.5 (07/25/23 09:21) HCT: 39.6 (07/25/23 09:21) HGB: 13.3 (07/25/23 09:21) MCV: 93.6 (07/25/23 09:21) PLT: 267 (07/25/23 09:21) RDW: 12.4 (07/25/23 09:21) CHOL: 238 (07/25/23 09:21) HDL: 76 (07/25/23 09:21) LDL: 152 (07/25/23 09:21) TRI (07/25/23 09:21) GLU: 103 (07/25/23 09:21) HGB A1C: 5.4 (03/01/22 14:36) LFT: Collection DT Spec ALB TBIL ALP ALT AST 07/25/2023 09:21 PLASM 4.1 0.6 36 L 18 16 ROS: Review of systems is otherwise negative except as noted in HPI. PHYSICAL EXAMINATION: VS: Ht: 65 in [165.1 cm] (12/17/2022 13:58) Wt: 138.2 lb [62.69 kg] (08/02/2023 14:41) BMI: BODY MASS INDEX - AUG 02, 2023@14:41:31 23.0 T: 98.2 F [36.8 C] (09/12/2023 09:51) HR: 64 (09/12/2023 09:51) BP: 108/57 (09/12/2023 09:51) General appearance: NAD, comfortable Respiratory: no increased work of breathing Neuro/Psychiatric: alert, oriented, normal speech Pelvic: External genitalia/vulva- normal, no lesions Bartholins- normal, no masses or tenderness Urethral meatus- normal size, no prolapse, no lesions Urethra- no masses, tenderness, or scarring Vagina- normal pink vaginal mucosa, physiologic discharge, no blood in vault, tight levator ani but not tender Bladder- no masses or tenderness Cervix- no lesions, well epithelialized, no CMT Uterus- deferred Adnexa- deferred Rectal/perineum- no skin changes Assessment/Plan: 42 y.o. presenting for new [employer] visit with concerns regarding dyspareunia, low libido and vaginal dryness/irritation - Reviewed multifactorial nature to low libido - Reviewed perimenopause symptoms and definition of menopause - Recommend The Menopause Manifesto by Angela Thomas - Discussed different HRT and HT options for symptoms, FDA approved for hotflashes but likely will help other symptoms of perimenopause - Patient accepts transdermal estrogen with cyclical progesterone to maintain regularity of bleeding - Will consider adding vaginal estrogen if no improvement in dryness symptoms - Discussed other vaginal treatment options - Briefly discussed medication options for low libido but that they are not approved for so would avoid all hormone and libido medication when actively trying for and that back up contraception is needed given prescribed HT is not approved for prevention - CCC for PFPT given dyspareunia and muscle tightness RTC in 3 months for telehealth Total time spent day of service on chart review, disease discussion and therapeutic counseling as well as documentation and coordination of care: 60 minutes /es/ JUDY WALDRON MD, MPH Signed: 09/12/2023 11:00 JUDY WALDRON [facility] Sep 12, 2023 09:53 AM LINE RIDER CONSULT: LOCAL TITLE: CONSULT: Gynecology STANDARD TITLE: LINE RIDER CONSULT DATE OF NOTE: SEP 12, 2023@09:53 ENTRY DATE: SEP 12, 2023@09:53:28 AUTHOR: JUDY WALDRON EXP COSIGNER: URGENCY: STATUS: COMPLETED CONSULT: Gynecology Has ADDENDA Gynecology New Patient Visit CC: Dyspareunia, vaginal dryness, low libido HPI: 42 y.o. 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 Has been so tired, sleeping upwards of 12 hours of day Feels sick as well Low libido More alba No night sweats Not on control currently, would be interested in another Denies history of VTE, migraines with aura, HTN Michaela had ordered some autoimmune workup for the severe fatigue, patient has not yet had drawn Had negative GC/CT, and affirm swab at last visit [employer] History LMP: 08/26/2023 Sexually active: Yes Contraception (premenopause): none ACTIVE PROBLEMS: Bipolar disorder ([facility] 28705655) Pulsatile tinnitus ([facility] 118346012) Abdominal pain ([facility] [id number]) Caesarean delivery - delivered ([facility] [id number]) Borderline personality disorder ([facility] 200Back pain ([facility] 821141118) Episodic opioid dependence ([facility]CT 18385203Ousimem of alcohol abuse ([facility] [id number]) ALLERGIES/ADR: Patient has answered NKA Active Outpatient Medications (excluding Supplies): Active Outpatient Medications Status 1) FLUTICASONE PROP 50MCG 120D NASAL INHL INSTILL 2 ACTIVE SPRAYS INTO EACH NOSTRIL TWICE A DAY FOR NASAL IRRITATION/INFLAMMATION - SPRAY FLONASE AFTER SALINE NASAL SPRAY 2) GUAIFENESIN 600MG SA TAB TAKE TWO TABLETS BY MOUTH ACTIVE TWICE DAILY NEEDED FOLLOW DOSE WITH FULL GLASS OF WATER 3) MOISTURIZER VAG GEL APPLIC (EQV-REPLENS) INSERT ONE ACTIVE APPLICATION INTRAVAGINALLY EVERY THREE DAYS FOR DRYNESS MAY USE MORE FREQUENTLY NEEDED, DAILY USE IS SAFE 4) QUETIAPINE FUMARATE 25MG TAB TAKE ONE TABLET BY MOUTH ACTIVE AT BEDTIME FOR BIPOLAR DISORDER Active Non-VA Medications Status 1) Non-VA FISH OIL 1000MG (500MG DHA/EPA) CAP 1000MG BY ACTIVE MOUTH EVERY DAY 2) Non-VA MULTIVIT W/MINERALS, CAP/TAB ONE BY ACTIVE MOUTH EVERY DAY 3) Non-VA MULTIVITAMIN CAP/TAB ONE CAP/TAB BY MOUTH ACTIVE EVERY DAY 4) Non-VA PROBIOTIC CAP,ORAL BY MOUTH EVERY DAY ACTIVE 8 Total Medications LABS: WBC: 7.5 (07/25/23 09:21) HCT: 39.6 (07/25/23 09:21) HGB: 13.3 (07/25/23 09:21) MCV: 93.6 (07/25/23 09:21) PLT: 267 (07/25/23 09:21) RDW: 12.4 (07/25/23 09:21) CHOL: 238 (07/25/23 09:21) HDL: 76 (07/25/23 09:21) LDL: 152 (07/25/23 09:21) TRI (07/25/23 09:21) GLU: 103 (07/25/23 09:21) HGB A1C: 5.4 (03/01/22 14:36) LFT: Collection DT Spec ALB TBIL ALP ALT AST 07/25/2023 09:21 PLASM 4.1 0.6 36 L 18 16 ROS: Review of systems is otherwise negative except as noted in HPI. PHYSICAL EXAMINATION: VS: Ht: 65 in [165.1 cm] (12/17/2022 13:58) Wt: 138.2 lb [62.69 kg] (08/02/2023 14:41) BMI: BODY MASS INDEX - AUG 02, 2023@14:41:31 23.0 T: 98.2 F [36.8 C] (09/12/2023 09:51) HR: 64 (09/12/2023 09:51) BP: 108/57 (09/12/2023 09:51) General appearance: NAD, comfortable Respiratory: no increased work of breathing Neuro/Psychiatric: alert, oriented, normal speech Pelvic: External genitalia/vulva- normal, no lesions Bartholins- normal, no masses or tenderness Urethral meatus- normal size, no prolapse, no lesions Urethra- no masses, tenderness, or scarring Vagina- normal pink vaginal mucosa, physiologic discharge, no blood in vault, tight levator ani but not tender Bladder- no masses or tenderness Cervix- no lesions, well epithelialized, no CMT Uterus- deferred Adnexa- deferred Rectal/perineum- no skin changes Assessment/Plan: 42 y.o. presenting for new [employer] visit with concerns regarding dyspareunia, low libido and vaginal dryness/irritation - Reviewed multifactorial nature to low libido - Reviewed perimenopause symptoms and definition of menopause - Recommend The Menopause Manifesto by Angela Thomas - Discussed different HRT and HT options for symptoms, FDA approved for hotflashes but likely will help other symptoms of perimenopause - Patient accepts transdermal estrogen with cyclical progesterone to maintain regularity of bleeding - Will consider adding vaginal estrogen if no improvement in dryness symptoms - Discussed other vaginal treatment options - Briefly discussed medication options for low libido but that they are not approved for so would avoid all hormone and libido medication when actively trying for and that back up contraception is needed given prescribed HT is not approved for prevention - CCC for PFPT given dyspareunia and muscle tightness RTC in 3 months for telehealth Total time spent day of service on chart review, disease discussion and therapeutic counseling as well as documentation and coordination of care: 60 minutes /deann/ JUDY WALDRON MD, MPH Signed: 09/12/2023 11:00 09/12/2023 ADDENDUM STATUS: COMPLETED CCC for pelvic floor PT closer to home, providers in [facility]. /abril WALDRON MD, MPH Signed: 09/12/2023 11:01 Receipt Acknowledged By: * AWAITING SIGNATURE * QUINTON ROBISON ANGELA F [place] [facility]
--- OUTSIDE RECORDS SUMMARY | 2024-08-03 13:56 | XMS_ITS | Encounter Summary ---
Author Name [facility] [place] [place] Organization [place] Address [address] [place] [address] Care Team Providers Care Kitchen Food Server Name Role Phone UMESH MCDONOUGH Primary Care Provider Unavailabl e Selected Encounter This section includes the information on record at [place] for the Encounter. Date/Time Encounter Type Encounter Description Reason Pro vider Source Nov 09, 2023 01:53 PM Outpatient Encounter TELEPHONE TRIAGE IHE Encounter Template Text not used by [place] Plan of Treatment: Future Appointments (+ 6 months) and Future Tests (+/- 45 days) The Plan of Treatment section includes future care activities for the patient from all [place] treatmentfacilities. This section includes future appointments and future orders which are active, pending or scheduled. Future Appointments This section includes appointments that were scheduled to occur 6 months from the date of the Encounter, up to a maximum of 20 appointments. The data comes from all [place] treatment facilities. Appointment Date/Time Appointment Type Appointme nt Facility Name Nov 11, 2023 02:00 PM AMBULATORY - NONE [facility] Nov 25, 2023 11:30 AM AMBULATORY - NONE [facility] Dec 05, 2023 12:30 PM AMBULATORY - NONE [place] [facility] Dec 12, 2023 12:30 PM [facility] 2023 10:00 AM AMBULATORY - NONE [place] [facility] Jan 16, 2024 11:30 AM AMBULATORY - [place] [facility] Apr 10, 2024 10:45 AM AMBULATORY - NONE [place] [facility] Apr 23, 2024 08:15 AM AMBULATORY - NONE [place] [facility] [facility] May 09, 2024 03:00 PM AMBULATORY - MEDICINE [facility] [facility] Lab Results: +/- 30 days of [...] Result - Unit Interpretation Reference Range Comment Nov 25, 2023 11:51 AM [facility] BHCG QUANT Specimen Type: SERUM Comment: , Tests performed on [employer] Gianni [id number] (405). Ordering Provider: UMESH MCDONOUGH Report Released Date/Time: Nov 21, 2023 03:58 PM Reporting Lab: [facility] [address] [facility] [address] Performing Lab: [facility] [address] [facility] [address] BHCG QUANT 3145.51 m[IU]/mL <5.0 Oct 31, 2023 02:25 PM [facility] SJOGREN'S ANTIBODY(SS-A,SS-B)PANEL(Q) Specimen Type: SERUM Comment: Reference Range: < 1.0 NEG AI Test Performed by Agustin Pepper, [employer] [facility] [facility], [address] [place] [address] Juan A Garcia M.D., Ph.D., Director of Laboratories , [place] [id number] Ordering Provider: JUDY WALDRON Report Released Date/Time: Oct 24, 2023 02:36 PM Reporting Lab: [facility] [address] [facility] [address] Performing Lab: [address] SJOGREN'S ANTIBODY(SS-A)(q) <1.0 SJOGREN'S ANTIBODY(SS-B)(q) <1.0 Oct 31, 2023 02:25 PM [facility] RHEUMATOID FACTOR (B) Specimen Type: SERUM No comment entered. Ordering Provider: JUDY WALDRON Report Released Date/Time: Oct 24, 2023 02:36 PM Reporting Lab: [place] [facility] [address] [facility] [address] Performing Lab: [facility] [address] [address] RHEUMATOID FACTO R (B) <15 0-15 Oct 31, 2023 02:25 PM [place] [facility] FLORINA SCREEN/TITER (B) Specimen Type: SERUM No comment entered. Ordering Provider: JUDY WALDRON Report Released Date/Time: Oct 24, 2023 02:36 PM Reporting Lab: [facility] [facility] [address] [facility] [address] Performing Lab: [facility] [address] [address] FLORINA SCREEN (B) NEG Oct 31, 2023 02:25 PM [facility] VITAMIN B-12 Specimen Type: SERUM Comment: , Tests performed on [employer] [address] [employer] Mckenna [id number] (405) Ordering Provider: JUDY WALDRON Report Released Date/Time: Oct 24, 2023 02:36 PM Reporting Lab: [facility] [address] [facility] [address] Performing Lab: [place] [facility] [facility] [address] [facility] [address] VITAMIN B-12 1071 pg/mL H 200-900 Oct 31, 2023 02:25 PM [facility] CRP(INFLAMMATORY) Specimen Type: PLASMA Comment: , Tests performed on [employer] [address] [employer] Gianni [id number] (405). Ordering Provider: JUDY WALDRON Report Released Date/Time: Oct 24, 2023 02:36 PM Reporting Lab: [place] [facility] [address] [facility] [facility] [address] Performing Lab: [place] [facility] [facility] [address] [facility] [address] CRP(INFLAMMATORY) 0.6 mg/L 0.0-5.0 Oct 31, 2023 02:25 PM [facility] ESR(NEW) Specimen Type: BLOOD Comment: Tests performed on [employer] ISED(405) Ordering Provider: JUDY WALDRON Report Released Date/Time: Oct 24, 2023 02:36 PM Reporting Lab: [facility] [address] [facility] [address] Performing Lab: [facility] [address] [facility] [address] ESR(NEW) 4 mm/h 0-20 Oct 31, 2023 02:25 PM [facility] GLYCOHEMOGLOBIN (A1C ONLY) Specimen Type: BLOOD Comment: , Tests performed on [employer] Mckenna [id number] (405) Values obtained from A1C measurements can vary. For typical A1C assays, a reported value of 7.0 could actually be between 6.72 and 7.28 if measured by a reference method. A reported value of 9.0 could actually be between 8.73 and 9.27. Ref: http://www.ng sp.org/CAPdat a.asp Ordering Provider: UMESH MCDONOUGH Report Released Date/Time: Oct 27, 2023 04:22 PM Reporting Lab: [facility] [address] [facility] [address] Performing Lab: [facility] [address] [facility] [address] HEMOGLOBIN A1C 5.1 4.0-5.6 Social History: Smoking Status (Most current) and Tobacco Use (All prior to encounter date) This section includes the most current, and the historical, smoking and tobacco- related health factors from the [place] facility where the Encounter took place. Current Smoking Status This section includes the most current smoking, or tobacco-related health factor, from the [place] facility where the Encounter took place. Date/Time Current Smoking Status Comment Facil ity Aug 02, 2023 02:30 PM VA-TOBACCO NEVER USED [facility] Tobacco Use History This section includes a history of the smoking, or tobacco-related health factors, that were collected on or before the date of the Encounter. The data comes from the [place] facility where the Encounter took place. Date/Time Smoking Status/Tobacco Use Comment F acility Aug 20, 2019 11:05 AM VA-TOBACCO NEVER USED [facility] Encounter Notes: All associated encounter notes This section contains the clinical notes associated to the Encounter. Date/Time Encounter Note(s) Provider Source Nov 09, 2023 01:53 PM ADMINISTRATIVE NOT E: LOCAL TITLE: Has Admin Note STANDARD TITLE: ADMINISTRATIVE NOTE DATE OF NOTE: NOV 09, 2023@13:53 ENTRY DATE: NOV 09, 2023@13:53:16 AUTHOR: MARK PARIKH EXP COSIGNER: URGENCY: STATUS: COMPLETED Reason for call Clinic Name:[facility] RTC 2nd call, Letter sent Patient has failed to respond to lab appt attemps via both phone and mail. Has appointment with PCP on 11/11/23. Will draw labs then. /deann/ MARK PARIKH MSA Hand Rounder Signed: 11/09/2023 13:54 MARK PARIKH [facility]
--- OUTSIDE RECORDS SUMMARY | 2024-08-03 13:57 | XMS_ITS | Encounter Summary ---
Author Name [facility] [place] Organization [facility] [place] Address [address] [place] [address] Care Team Providers Care Pointer Machine Operator Name Role Phone UMESH MCDONOUGH Primary Care Provider Unavailabl e Selected Encounter This section includes the information on record at [place] for the Encounter. Date/Time Encounter Type Encounter Description Reason Pro vider Source Nov 22, 2023 11:00 AM Outpatient Encounter ADMIN PAT ACTIVTIES (MASNONCT) IHE Encounter Template Text not used by [place] Plan of Treatment: Future Appointments (+ 6 months) and Future Tests (+/- 45 days) The Plan of Treatment section includes future care activities for the patient from all [place] treatmentfacilities. This section includes future appointments and future orders which are active, pending or scheduled. Future Appointments This section includes appointments that were scheduled to occur 6 months from the date of the Encounter, up to a maximum of 20 appointments. The data comes from all [place] treatment facilities. Appointment Date/Time Appointment Type Appointme nt Facility Name Nov 25, 2023 11:30 AM AMBULATORY - NONE [facility] Dec 05, 2023 12:30 PM AM[facility]ULATORY - NONE [place] [facility] Dec 12, 2023 12:30 PM [place] [facility] 2023 10:00 AM AMBULATORY - NONE [place] [facility] [facility] Jan 16, 2024 11:30 AM [facility] [place] [facility] Apr 10, 2024 10:45 AM AMBULATORY - NONE [place] [facility] Apr 23, 2024 08:15 AM AMBULATORY - NONE [place] [facility] May 09, 2024 03:00 PM [facility] [place]IC[place] [facility] May 14, 2024 12:30 PM [facility] [place] [facility] May 22, 2024 10:00 AM AMBULATORY - NONE [place] [facility] Lab Results: +/- 30 days of the [...] Range Comment Nov 25, 2023 11:51 AM [facility] BHCG QUANT Specimen Type: SERUM Comment: , Tests performed on Vend-a-Bar SN:[id number] (405). Ordering Provider: UMESH MCDONOUGH Report Released Date/Time: Nov 21, 2023 03:58 PM Reporting Lab: [facility] [address] [facility] [address] Performing Lab: [facility] [address] [facility] [address] BHCG QUANT 3145.51 m[IU]/mL <5.0 Oct 31, 2023 02:25 PM [facility] SJOGREN'S ANTIBODY(SS-A,SS-B)PANEL(Q) Specimen Type: SERUM Comment: Reference Range: < 1.0 NEG AI Test Performed by Agustin Pepper, [facility], [address] [place] [address] Juan A Garcia M.D., Ph.D., Director of Laboratories , [place] [id number] Ordering Provider: JUDY WALDRON Report Released Date/Time: Oct 24, 2023 02:36 PM Reporting Lab: [facility] [address] [facility] [address] [facility] SJOGREN'S ANTIBODY(SS-A)(q) <1.0 SJOGREN'S ANTIBODY(SS-B)(q) <1.0 Oct 31, 2023 02:25 PM [facility] FLORINA SCREEN/TITER (B) Specimen Type: SERUM No comment entered. Ordering Provider: JUDY WALDRON Report Released Date/Time: Oct 24, 2023 02:36 PM Reporting Lab: [facility] [address] [facility] [address] Performing Lab: [facility] [address] [facility] [address] FLORINA SCREEN (B) NEG Oct 31, 2023 02:25 PM [facility] RHEUMATOID FACTOR (B) Specimen Type: SERUM No comment entered. Ordering Provider: JUDY WALDRON Report Released Date/Time: Oct 24, 2023 02:36 PM Reporting Lab: [facility] [address] [facility] [address] Performing Lab: [facility] [address] [facility] [address] RHEUMATOID FACTO R (B) <15 0-15 Oct 31, 2023 02:25 PM [facility] [place] VITAMIN B-12 Specimen Type: SERUM Comment: , Tests performed on Batista Level Glass Forming Machine Operator Mckenna SN:[id number] (405) Ordering Provider: JUDY WALDRON Report Released Date/Time: Oct 24, 2023 02:36 PM Reporting Lab: [facility] [address] [facility] [address] Performing Lab: [facility] [address] [facility] [address] VITAMIN B-12 1071 pg/mL H 200-900 Oct 31, 2023 02:25 PM [facility] ESR(NEW) Specimen Type: BLOOD Comment: Tests performed on Alcor ISED(405) Ordering Provider: JUDY WALDRON Report Released Date/Time: Oct 24, 2023 02:36 PM Reporting Lab: [facility] [address] [facility] [address] Performing Lab: [facility] [address] [facility] [address] ESR(NEW) 4 mm/h 0-20 Oct 31, 2023 02:25 PM [facility] CRP(INFLAMMATORY) Specimen Type: PLASMA Comment: , Tests performed on Batista Level Glass Forming Machine Operator Gianni SN:[id number] (405). Ordering Provider: JUDY WALDRON Report Released Date/Time: Oct 24, 2023 02:36 PM [facility] [address] [facility] [address] Performing Lab: [facility] [address] [facility] [address] CRP(INFLAMMATORY) 0.6 mg/L 0.0-5.0 Oct 31, 2023 02:25 PM [facility] GLYCOHEMOGLOBIN (A1C ONLY) Specimen Type: BLOOD Comment: , Tests performed on Batista Level Glass Forming Machine Operator Mckenna SN:[id number] (405) Values obtained from A1C measurements can vary. For typical A1C assays, a reported value of 7.0 could actually be between 6.72 and 7.28 if measured by a reference method. A reported value of 9.0 could actually be between 8.73 and 9.27. Ref: http://www.ng sp.org/CAPdat a.asp Ordering Provider: UMESH MCDONOUGH Report Released Date/Time: Oct 27, 2023 04:22 PM Reporting Lab: [facility] [address] [facility] [address] Performing Lab: [facility] [address] [facility] [address] HEMOGLOBIN A1C 5.1 4.0-5.6 Social History: Smoking Status (Most current) and Tobacco Use (All prior to encounter date) This section includes the most current, and the historical, smoking and tobacco- related health factors from the [place] facility where the Encounter took place. Current Smoking Status This section includes the most current smoking, or tobacco-related health factor, from the [place] facility where the Encounter took place. Date/Time Current Smoking Status Comment Facil ity Aug 02, 2023 02:30 PM VA-TOBACCO NEVER USED [facility] Tobacco Use History This section includes a history of the smoking, or tobacco-related health factors, that were collected on or before the date of the Encounter. The data comes from the [place] facility where the Encounter took place. Date/Time Smoking Status/Tobacco Use Comment F acility Aug 20, 2019 11:05 AM VA-TOBACCO NEVER USED [facility] Encounter Notes: All associated encounter notes This section contains the clinical notes associated to the Encounter. Date/Time Encounter Note(s) Provider Source Nov 22, 2023 11:00 AM PRIMARY CARE ADMINISTRATIVE NOTE: LOCAL TITLE: Administrative Note/Primary Care STANDARD TITLE: PRIMARY CARE ADMINISTRATIVE NOTE DATE OF NOTE: NOV 22, 2023@11:00 ENTRY DATE: NOV 22, 2023@11:00:34 AUTHOR: GINI FRAIRE COSIGNER: URGENCY: STATUS: COMPLETED Reached out to Pt and Left V/M and sent letter. RE: Scheduling RTC [facility] [address] [place] [address] Dear , The [place] Primary Care department in [place] is trying to reach you to schedule an appointment with Linda Morrissey. If you have already been in contact with the clinic and scheduled an appointment, please disregard this letter. Please call one of the numbers provided below: Direct: [phone] Toll Free: [phone] ([address]) [place] [address] Again, thank you for letting us serve you. [facility]. [facility] [address] [address] TOLL FREE: [phone] ( ) /deann/ GINI FRAIRE Signed: 11/22/2023 11:01 GINI FRAIRE [facility]
--- OUTSIDE RECORDS SUMMARY | 2024-08-03 13:57 | XMS_ITS | Encounter Summary ---
Author Name [facility] ([place]) Organization [facility] [place] [place] Address [address] [place] [address] Care Team Providers Care Billet Straightener Name Role Phone UMESH MCDONOUGH Primary Care Provider Unavailabl e Selected Encounter This section includes the information on record at [place] for the Encounter. Date/Time Encounter Type Encounter Description Reason Pro vider Source Nov 22, 2023 03:15 PM Outpatient Encounter TELEPHONE/MEDICINE IHE Encounter Template Text not used by [place] Plan of Treatment: Future Appointments (+ 6 months) and Future Tests (+/- 45 days) The Plan of Treatment section includes future care activities for the patient from all [place] treatmentfacilities. This section includes future appointments and future orders which are active, pending or scheduled. Future Appointments This section includes appointments that were scheduled to occur 6 months from the date of the Encounter, up to a maximum of 20 appointments. The data comes from all [place] treatment facilities. Appointment Date/Time Appointment Type Appointme nt Facility Name Nov 25, 2023 11:30 AM AMBULATORY - NONE [facility] Dec 05, 2023 12:30 PM [facility]ORY - NONE [place] [facility] Dec 12, 2023 12:30 PM [facility] [place] [facility] 2023 10:00 AM AMBULATORY - NONE [place] [facility] Jan 16, 2024 11:30 AM [facility] [place] [facility] Apr 10, 2024 10:45 AM AMBULATORY - NONE [place] [facility] Apr 23, 2024 08:15 AM AMBULATORY - NONE [place] [facility] May 09, 2024 03:00 PM [facility] [place]IC[place] [facility] May 14, 2024 12:30 PM [facility] [place] [facility] May 22, 2024 10:00 AM [facility]BULATORY - NONE [place] [facility] Lab Results: +/- 30 days of the [...] Type: SERUM Comment: , Tests performed on SpePharm Gianni SN:[id number] (405). Ordering Provider: UMESH MCDONOUGH Report Released Date/Time: Nov 21, 2023 03:58 PM Reporting Lab: [facility] [address] [facility] [address] Performing Lab: [facility] [address] [facility] [address] BHCG QUANT 3145.51 m[IU]/mL <5.0 Oct 31, 2023 02:[address] [facility] SJOGREN'S ANTIBODY(SS-A,SS-B)PANEL(Q) Specimen Type: SERUM Comment: Reference Range: < 1.0 NEG AI Test Performed by Agustin Pepper, [facility], [address] [place] [address] Juan A Garcia M.D., Ph.D., Director of Laboratories , [place] [id number] Ordering Provider: JUDY WALDRON Report Released Date/Time: Oct 24, 2023 02:36 PM Reporting Lab: [facility] [address] [facility] [address] Performing Lab: [address] SJOGREN'S ANTIBODY(SS-A)(q) <1.0 SJOGREN'S ANTIBODY(SS-B)(q) <1.0 Oct 31, 2023 02:25 PM [facility] RHEUMATOID FACTOR (B) Specimen Type: SERUM No comment entered. Ordering Provider: JUDY WALDRON Report Released Date/Time: Oct 24, 2023 02:36 PM Reporting Lab: [facility] [address] [facility] [address] Performing Lab: [facility] [address] [facility] [address] RHEUMATOID FACTO R (B) <15 0-15 Oct 31, 2023 02:25 PM [facility] FLORINA SCREEN/TITER (B) Specimen Type: SERUM No comment entered. Ordering Provider: JUDY WALDRON Report Released Date/Time: Oct 24, 2023 02:36 PM Reporting Lab: [facility] [address] [facility] [address] Performing Lab: [facility] [address] [facility] [address] FLORINA SCREEN (B) NEG Oct 31, 2023 02:25 PM [facility] VITAMIN B-12 Specimen Type: SERUM Comment: , Tests performed on Batista Heat Treating Furnace Tender Mckenna SN:[id number] (405) Ordering Provider: JUDY WALDRNO Report Released Date/Time: Oct 24, 2023 02:36 PM Reporting Lab: [facility] [address] [facility] [address] Performing Lab: [facility] [address] [facility] [address] VITAMIN B-12 1071 pg/mL H 200-900 Oct 31, 2023 02:25 PM [facility] ESR(NEW) Specimen Type: BLOOD Comment: Tests performed on Alcor ISED(405) Ordering Provider: JUDY WALDRON Report Released Date/Time: Oct 24, 2023 02:36 PM Reporting Lab: [facility] [address] [facility] [address] Performing Lab: [facility] [address] [facility] [address] ESR(NEW) 4 mm/h 0-20 Oct 31, 2023 02:25 PM [facility] CRP(INFLAMMATORY) Specimen Type: PLASMA Comment: , Tests performed on Batista Heat Treating Furnace Tender Gianni SN:[id number] (405). Ordering Provider: JUDY WALDRON Report Released Date/Time: Oct 24, 2023 02:36 PM [facility] [address] [facility] [address] Performing Lab: [facility] [address] [facility] [address] CRP(INFLAMMATORY) 0.6 mg/L 0.0-5.0 Oct 31, 2023 02:25 PM [facility] GLYCOHEMOGLOBIN (A1C ONLY) Specimen Type: BLOOD Comment: , Tests performed on Batista Heat Treating Furnace Tender Mckenna SN:[id number] (405) Values obtained from A1C measurements can vary. For typical A1C assays, a reported value of 7.0 could actually be between 6.72 and 7.28 if measured by a reference method. A reported value of 9.0 could actually be between 8.73 and 9.27. Ref: http://www.ng sp.org/CAPdat a.asp Ordering Provider: UMESH MCDONOUGH Report Released Date/Time: Oct 27, 2023 04:22 PM [facility] [address] [facility] [address] Performing Lab: [facility] [address] [facility] [address] HEMOGLOBIN A1C 5.1 4.0-5.6 Social History: Smoking Status (Most current) and Tobacco Use (All prior to encounter date) This section includes the most current, and the historical, smoking and tobacco- related health factors from the [place] facility where the Encounter took place. Current Smoking Status This section includes the most current smoking, or tobacco-related health factor, from the [place] facility where the Encounter took place. Date/Time Current Smoking Status Comment Wendy ity Aug 02, 2023 02:30 PM VA-TOBACCO NEVER USED [facility] Tobacco Use History This section includes a history of the smoking, or tobacco-related health factors, that were collected on or before the date of the Encounter. The data comes from the [place] facility where the Encounter took place. Date/Time Smoking Status/Tobacco Use Comment F acility Aug 20, 2019 11:05 AM VA-TOBACCO NEVER USED [facility] Encounter Notes: All associated encounter notes This section contains the clinical notes associated to the Encounter. Date/Time Encounter Note(s) Provider Source Nov 22, 2023 03:17 PM [facility] : [facility] STAND[facility] TITLE: [facility] NOTE DATE OF NOTE: NOV 22, 2023@15:17 ENTRY DATE: NOV 22, 2023@15:17:45 AUTHOR: CHANTE ESCAMILLA EXP COSIGNER: URGENCY: STATUS: COMPLETED DE-MATERNITY CARE COORDINATION Has ADDENDA MATERNITY CARE COORDINATION NOTE Purpose of the Call: Maternity Care Coordination Needs Attempted to reach for enrollment purposes in the maternity care coordination program. No answer. Discrete VM left indicating I'm a nurse with women's health at the [place] contacting her based on recent consult placed by her PCP. I gave my available hours and indicated if I did not hear back from her, I would next attempt to reach her on Thus, @ 12pm. (Note: does not use Intelligize messaging.) Unable to contact patient Asked for a callback via: voicemail /abril Escamilla, RN, MSN Maternity Neck Skewer RNLEN 1 Signed: 11/22/2023 15:21 Receipt Acknowledged By: 11/23/2023 17:03 /deann/ HERNAN HARRINGTON 1 Tin Whiz Machine Operator Maternity Care Coordination 11/24/2023 ADDENDUM STATUS: COMPLETED contacted this program writer this morning for enrollment purposes in the maternity care coordination program. When I advised her the enrollment call would take approximately 30 minutes, stated it would be better to do this tomorrow when her toddler was with grandparents. [facility] enrollment scheduled for tomorrow at 1pm with this program writer. /abril Escamilla, RN, MSN Maternity Neck Skewer RNLEN 1 Signed: 11/24/2023 08:48 [facility] ESCAMILLA [facility]
--- OUTSIDE RECORDS SUMMARY | 2024-08-03 13:57 | XMS_ITS | Encounter Summary ---
Author Name [facility] [place] Organization [facility] [place] Address [address] [place] [address] Care Team Providers Care Salvage Grinder Name Role Phone UMESH MCDONOUGH Primary Care Provider Unavailabl e Selected Encounter This section includes the information on record at [place] for the Encounter. Date/Time Encounter Type Encounter Description Reason Pro vider Source IHE Encounter Template Text not used by [place]
--- OUTSIDE RECORDS SUMMARY | 2024-08-03 13:57 | XMS_ITS | Encounter Summary ---
Author Name [facility] [place] Organization [facility] [place] Address [address] [place] [address] Care Team Providers Care Fire Equipment Operator Name Role Phone UMESH MCDONOUGH Primary Care Provider Unavailabl e Selected Encounter This section includes the information on record at [place] for the Encounter. Date/Time Encounter Type Encounter Description Reason Pro vider Source Dec 15, 2023 01:34 PM Outpatient Encounter ADMIN PAT ACTIVTIES (MASNONCT) IHE Encounter Template Text not used by [place] Plan of Treatment: Future Appointments (+ 6 months) and Future Tests (+/- 45 days) The Plan of Treatment section includes future care activities for the patient from all [place] treatmentfacilities. This section includes future appointments and future orders which are active, pending or scheduled. Future Appointments This section includes appointments that were scheduled to occur 6 months from the date of the Encounter, up to a maximum of 20 appointments. The data comes from all [place] treatment facilities. Appointment Date/Time Appointment Type Appointme nt Facility Name 2023 10:00 AM AMBULATORY - NONE [place] [facility] Jan 16, 2024 11:30 AM [place] [facility] Apr 10, 2024 10:45 AM AM[place]ULATORY - NONE [place] [facility] Apr 23, 2024 08:15 AM AMBULATORY - NONE [place] [facility] May 09, 2024 03:00 PM [place]IC[place] [facility] May 14, 2024 12:30 PM [place] [facility] May 22, 2024 10:00 AM AMBULATORY - NONE [place] [facility] May 23, 2024 09:00 AM AMBULATORY - NONE [place] [facility] Lab Results: +/- 30 days of [...] Range Comment Nov 25, 2023 11:51 AM [facility] BHCG QUANT Specimen Type: SERUM Comment: , Tests performed on Marginize SN:[id number] (405). Ordering Provider: UMESH MCDONOUGH Report Released Date/Time: Nov 21, 2023 03:58 PM Reporting Lab: [place] [facility] [address] [facility] [address] Performing Lab: [place] [facility] [address] [facility] [address] BHCG QUANT 3145.51 m[IU]/mL <5.0 Social History: Smoking Status (Most current) and Tobacco Use (All prior to encounter date) This section includes the most current, and the historical, smoking and tobacco- related health factors from the [place] facility where the Encounter took place. Current Smoking Status This section includes the most current smoking, or tobacco-related health factor, from the [place] facility where the Encounter took place. Date/Time Current Smoking Status Comment Wendy ity Nov 25, 2023 01:00 PM VA-TOBACCO NEVER USED [place] [facility] Tobacco Use History This section includes a history of the smoking, or tobacco-related health factors, that were collected on or before the date of the Encounter. The data comes from the [place] facility where the Encounter took place. Date/Time Smoking Status/Tobacco Use Comment F acleticia Nov 25, 2023 01:00 PM [place]-TOBACCO NEVER USED [place] [facility] Aug 02, 2023 02:30 PM VA-TOBACCO NEVER USED [place] [facility] Aug 20, 2019 11:05 AM VA-TOBACCO NEVER USED [place] [facility] Encounter Notes: All associated encounter notes This section contains the clinical notes associated to the Encounter. Date/Time Encounter Note(s) Provider Source Dec 15, 2023 01:34 PM PRIMARY CARE ADMINISTRATIVE NOTE: LOCAL TITLE: Administrative Note/Primary Care STANDARD TITLE: PRIMARY CARE ADMINISTRATIVE NOTE DATE OF NOTE: DEC 15, 2023@13:34 ENTRY DATE: DEC 15, 2023@13:34:43 AUTHOR: GINI FRAIRE COSIGNER: URGENCY: STATUS: COMPLETED Reached out to Pt and Left V/M and sent letter. RE: Scheduling RTC [facility] [address] [place] [id number] Dear [place], The [place] Primary Care department in [place] is trying to reach you to schedule an appointment with the Dr. Mary Luna. If you have already been in contact with the clinic and scheduled an appointment, please disregard this letter. Please call one of the numbers provided below: Direct: [phone] Toll Free: [phone] ([address]) [place] [address] Again, thank you for letting us serve you. [facility]. [facility] [address] [address] TOLL FREE: [phone] ( ) /deann/ GINI FRAIRE Signed: 12/15/2023 13:[address] [facility]
--- OUTSIDE RECORDS SUMMARY | 2024-08-03 13:57 | XMS_ITS | Encounter Summary ---
Author Name [facility] [place] Organization [place] Address [address] [place] [address] Care Team Providers Care Religious Ritual Slaughterer Name Role Phone UMESH MCDONOUGH Primary Care Provider Unavailabl e Selected Encounter This section includes the information on record at [place] for the Encounter. Date/Time Encounter Type Encounter Description Reason Pro vider Source Jan 11, 2024 12:05 PM Outpatient Encounter TELEPHONE/MEDICINE IHE Encounter Template Text not used by [place] Plan of Treatment: Future Appointments (+ 6 months) and Future Tests (+/- 45 days) The Plan of Treatment section includes future care activities for the patient from all [place] treatmentfacilities. This section includes future appointments and future orders which are active, pending or scheduled. Future Appointments This section includes appointments that were scheduled to occur 6 months from the date of the Encounter, up to a maximum of 20 appointments. The data comes from all [place] treatment facilities. Appointment Date/Time Appointment Type Appointme nt Facility Name Jan 16, 2024 11:30 AM [place] [facility] Apr 10, 2024 10:45 AM [place]ORY - NONE [place] [facility] Apr 23, 2024 08:15 AM [place]ORY - NONE [place] [facility] May 09, 2024 03:00 PM [place] [facility] May 14, 2024 12:30 PM [place] [facility] May 22, 2024 10:00 AM [place]ORY [place]ONE [place] [facility] May 23, 2024 09:00 AM [facility] [place] [facility] Jun 19, 2024 01:15 PM [place] [facility] Jun 25, 2024 10:30 AM [place] [facility] Social History: Smoking Status (Most current) and Tobacco Use (All prior to encounter date) This section includes the most current, and the historical, smoking and tobacco- related health factors from the [place] facility where the Encounter took place. Current Smoking Status This section includes the most current smoking, or tobacco-related health factor, from the [place] facility where the Encounter took place. Date/Time Current Smoking Status Comment Wendy ity Nov 25, 2023 01:00 PM [place]-TOBACCO NEVER USED [place] [facility] Tobacco Use History This section includes a history of the smoking, or tobacco-related health factors, that were collected on or before the date of the Encounter. The data comes from the [place] facility where the Encounter took place. Date/Time Smoking Status/Tobacco Use Comment F acility Nov 25, 2023 01:00 PM [place]-TOBACCO NEVER USED [place] [facility] Aug 02, 2023 02:30 PM VA-TOBACCO NEVER USED [place] [facility] Aug 20, 2019 11:05 AM [place]-TOBACCO NEVER USED [place] [facility] Encounter Notes: All associated encounter notes This section contains the clinical notes associated to the Encounter. Date/Time Encounter Note(s) Provider Source Jan 11, 2024 12:09 PM [facility] NOTE : LOCAL TITLE: CO-MATERNITY CARE COORDINATION STANDARD TITLE: WOMEN HEALTH NOTE DATE OF NOTE: JAN 11, 2024@12:09 ENTRY DATE: JAN 11, 2024@12:09:10 AUTHOR: HERNAN BRYANT EXP COSIGNER: URGENCY: STATUS: COMPLETED MATERNITY CARE COORDINATION NOTE Purpose of the Call: Maternity Care Coordination Needs Unable to contact patient Will plan a return call. Asked for a callback via: voicemail letter Additional comments: Physiology Teacher attempted to reach [place] for [facility] 1a/#1. Physiology Teacher left HIPPA compliant v/m at , requesting a call back at their earliest convenience. Physiology Teacher informed [place] she will reach out during next [facility] (2nd trimester 16-24 weeks) check-in call, if she does not hear back from her. Physiology Teacher will also mail letter with [facility] resource guide and whole health maternity wellness booklet. Resource guide includes info on: 7 days coverage, insurance (Medicaid), and WIC and how to access. [facility] whole health booklet and resource guide contains information about [facility] health and wellness support available. Physiology Teacher will review in formation with during next [facility] check-in. /es/ HERNAN HARRINGTON 1 Chip Mixer Maternity Care Coordination Signed: 01/11/2024 12:17 Receipt Acknowledged By: 01/11/2024 14:37 /es/ Charity Llanes, RN, MSN Maternity Acquisitions Logistics Analyst RN, VISN 1 HERNAN BRYANT [facility]
--- OUTSIDE RECORDS SUMMARY | 2024-08-03 13:57 | XMS_ITS | Encounter Summary ---
Author Name [facility] [place] Address [address] [place] [address] Care Team Providers Care Postdoctoral Scientist Name Role Phone UMESH MCDONOUGH Primary Care Provider Unavailabl e Selected Encounter This section includes the information on record at [place] for the Encounter. Date/Time Encounter Type Encounter Description Reason Pro vider Source IHE Encounter Template Text not used by [place]
--- OUTSIDE RECORDS SUMMARY | 2024-08-03 13:57 | XMS_ITS ---
Author Name [facility] [place] [facility] [place] Address [address] [place] [address] Care Team Providers Care Hide And Skin Colerer Name Role Phone UMESH MCDONOUGH Primary Care Provider Unavailabl e Selected Encounter This section includes the information on record at [place] for the Encounter. Date/Time Encounter Type Encounter Description Reason Pro vider Source Nov 23, 2023 01:39 PM Outpatient Encounter ADMIN PAT ACTIVTIES (MASNONCT) IHE Encounter Template Text not used by [place] Plan of Treatment: Future Appointments (+ 6 months) and Future Tests (+/- 45 days) The Plan of Treatment section includes future care activities for the patient from all [place] treatmentfacilities. This section includes future appointments and future orders which are active, pending or scheduled. Future Appointments This section includes appointments that were scheduled to occur 6 months from the date of the Encounter, up to a maximum of 20 appointments. The data comes from all [place] treatment facilities. Appointment Date/Time Appointment Type Appointme nt Facility Name Nov 25, 2023 11:30 AM AMBULATORY - NONE [facility] Dec 05, 2023 12:30 PM [place]ORY - [place] [facility] Dec 12, 2023 12:30 PM [place] [facility] 2023 10:00 AM AM[place]ATORY [place] NONE [place] [facility] Jan 16, 2024 11:30 AM [place] [facility] Apr 10, 2024 10:45 AM AM[place]ATORY - NONE [place] [facility] Apr 23, 2024 08:15 AM AM[place]ATORY - NONE [place] [facility] May 09, 2024 03:00 PM [place] [facility] May 14, 2024 12:30 PM [place] [facility] May 22, 2024 10:00 AM [place]ATORY - [place]ONE [place] [facility] May 23, 2024 09:00 AM AM[place]ULATORY - NONE [place] [facility] Lab Results: +/- 30 days of the [...] Range Comment Nov 25, 2023 11:51 AM [facility] BHCG QUANT Specimen Type: SERUM Comment: , Tests performed on Embanet SN:[id number] (405). Ordering Provider: UMESH MCDONOUGH Report Released Date/Time: Nov 21, 2023 03:58 PM Reporting Lab: [facility] [address] [address] Performing Lab: [facility] [address] [address] BHCG QUANT 3145.51 m[IU]/mL <5.0 Oct 31, 2023 02:25 PM [facility] SJOGREN'S ANTIBODY(SS-A,SS-B)PANEL(Q) Specimen Type: SERUM Comment: Reference Range: < 1.0 NEG AI Test Performed by [facility], [address] [place] [address] Juan A Garcia M.D., Ph.D., Director of Laboratories , [place] [id number] Ordering Provider: JUDY WALDRON Report Released Date/Time: Oct 24, 2023 02:36 PM Reporting Lab: [facility] [address] [address] Performing Lab: [place] [facility] [address] [place] [address] SJOGREN'S ANTIBODY(SS-A)(q) <1.0 SJOGREN'S ANTIBODY(SS-B)(q) <1.0 Oct 31, 2023 02:25 PM [place] [facility] FLORINA SCREEN/TITER (B) Specimen Type: SERUM No comment entered. Ordering Provider: JUDY WALDRON Report Released Date/Time: Oct 24, 2023 02:36 PM Reporting Lab: [place] [facility] [address] [facility] [address] Performing Lab: [place] [facility] [address] [address] FLORINA SCREEN (B) NEG Oct 31, 2023 02:25 PM [place] [facility] RHEUMATOID FACTOR (B) Specimen Type: SERUM No comment entered. Ordering Provider: JUDY WALDRON Report Released Date/Time: Oct 24, 2023 02:36 PM Reporting Lab: [place] [facility] [address] [facility] [address] Performing Lab: [place] [facility] [address] [address] RHEUMATOID FACTO R (B) <15 0-15 Oct 31, 2023 02:25 PM [facility] VITAMIN B-12 Specimen Type: SERUM Comment: , Tests performed on Batista Gas Attendant Mckenna SN:[id number] (405) Ordering Provider: JUDY WALDRON Report Released Date/Time: Oct 24, 2023 02:36 PM Reporting Lab: [place] [facility] [address] [facility] [address] Performing Lab: [place] [facility] [address] [facility] [address] VITAMIN B-12 1071 pg/mL H 200-900 Oct 31, 2023 02:25 PM [place] [facility] ESR(NEW) Specimen Type: BLOOD Comment: Tests performed on Alcor ISED(405) Ordering Provider: JUDY WALDRON Report Released Date/Time: Oct 24, 2023 02:36 PM Reporting Lab: [place] [facility] [address] [facility] [address] Performing Lab: [place] [facility] [address] [facility] [address] ESR(NEW) 4 mm/h 0-20 Oct 31, 2023 02:25 PM [facility] CRP(INFLAMMATORY) Specimen Type: PLASMA Comment: , Tests performed on [employer]ista Gas Attendant Gianni SN:[id number] (405). Ordering Provider: JUDY WALDRON Report Released Date/Time: Oct 24, 2023 02:36 PM Reporting Lab: [facility] [address] [facility] [address] Performing Lab: [facility] [address] [facility] [address] CRP(INFLAMMATORY) 0.6 mg/L 0.0-5.0 Oct 31, 2023 02:25 PM [facility] GLYCOHEMOGLOBIN (A1C ONLY) Specimen Type: BLOOD Comment: , Tests performed on Batista Gas Attendant Mckenna SN:[id number] (405) Values obtained from A1C measurements can [...] [facility] [address] [address] Performing Lab: [facility] [address] [address] HEMOGLOBIN A1C 5.1 4.0-5.6 Social History: Smoking Status (Most current) and Tobacco Use (All prior to encounter date) This section includes the most current, and the historical, smoking and tobacco- related health factors from the [place] facility where the Encounter took place. Current Smoking Status This section includes the most current smoking, or tobacco-related health factor, from the [place] facility where the Encounter took place. Date/Time Current Smoking Status Comment Facil [facility] Aug 02, 2023 02:30 PM VA-TOBACCO NEVER USED [facility] Tobacco Use History This section includes a history of the smoking, or tobacco-related health factors, that were collected on or before the date of the Encounter. The data comes from the [place] facility where the Encounter took place. Date/Time Smoking Status/Tobacco Use Comment F karina Aug 20, 2019 11:05 AM VA-TOBACCO NEVER USED [place] [facility] Encounter Notes: All associated encounter notes This section contains the clinical notes associated to the Encounter. Date/Time Encounter Note(s) Provider Source Nov 23, 2023 01:39 PM ADMINISTRATIVE NOT E: LOCAL TITLE: CCC: SCHEDULING ADMINISTRATION STANDARD TITLE: ADMINISTRATIVE NOTE DATE OF NOTE: NOV 23, 2023@13:39:48 ENTRY DATE: NOV 23, 2023@13:39:48 AUTHOR: CHRISTIANO HOU EXP COSIGNER: URGENCY: STATUS: COMPLETED Patient Demographics Patient Name: CORETTA PATEL Patient Primary Phone: [phone] Patient Primary [address]: [address] [place] [address] Patient : 1980 Patient Age: 42 Caller/Recipient Relation to Patient: Self Scheduling Cannot Complete Scheduling Action Reason: Restricted / Unavailable Clinic Requested Service(s): Primary Care Patient Expects Callback: Yes Scheduling Note Reason: Cannot Complete Appointment Request Open Request: RTC (Return to Clinic Order) Scheduling Note Comments: Patient would like a call back to sched. lab apt. T/w cannot sched. in clinic. Please call patient at [phone]. /deann/ CHRISTIANO HOU Barking Machine Feeder Signed: 11/23/2023 13:39 Receipt Acknowledged By: 11/23/2023 13:47 /es/ JAYLA STONER LPN 11/23/2023 13:55 /deann/ CHRISTIANO GUTIERREZ [facility]
--- OUTSIDE RECORDS SUMMARY | 2024-08-03 13:57 | XMS_ITS | Encounter Summary ---
Author Name Department [place] Organization [place] Address [address] [place] [address] Care Team Providers Care Newspaper Publisher Name Role Phone UMESH MCDONOUGH Primary Care Provider Unavailabl e Selected Encounter This section includes the information on record at [place] for the Encounter. Date/Time Encounter Type Encounter Description Reason Pro vider Source Dec 27, 2023 03:31 PM Outpatient Encounter ADMIN PAT ACTIVTIES (MASNONCT) IHE Encounter Template Text not used by [place] Plan of Treatment: Future Appointments (+ 6 months) and Future Tests (+/- 45 days) The Plan of Treatment section includes future care activities for the patient from all [place] treatmentfacilities. This section includes future appointments and future orders which are active, pending or scheduled. Future Appointments This section includes appointments that were scheduled to occur 6 months from the date of the Encounter, up to a maximum of 20 appointments. The data comes from all [place] treatment facilities. Appointment Date/Time Appointment Type Appointme nt Facility Name Jan 16, 2024 11:30 AM [place] [facility] Apr 10, 2024 10:45 AM AM[place] - NONE [place] [facility] Apr 23, 2024 08:15 AM [place] N[place] [facility] May 09, 2024 03:00 PM [place] [facility] May 14, 2024 12:30 PM [place] [facility] May 22, 2024 10:00 AM [place] [facility] May 23, 2024 09:00 AM [place] [facility] Jun 19, 2024 01:15 PM [place] [facility] Jun 25, 2024 10:30 AM [place] [facility] Social History: Smoking Status (Most current) and Tobacco Use (All prior to encounter date) This section includes the most current, and the historical, smoking and tobacco- related health factors from the [place] facility where the Encounter took place. Current Smoking Status This section includes the most current smoking, or tobacco-related health factor, from the [place] facility where the Encounter took place. Date/Time Current Smoking Status Comment Wendy ity Nov 25, 2023 01:00 PM [place]-TOBACCO NEVER USED [place] [facility] Tobacco Use History This section includes a history of the smoking, or tobacco-related health factors, that were collected on or before the date of the Encounter. The data comes from the [place] facility where the Encounter took place. Date/Time Smoking Status/Tobacco Use Comment F acility Nov 25, 2023 01:00 PM [place]-TOBACCO NEVER USED [place] [facility] Aug 02, 2023 02:30 PM VA-TOBACCO NEVER USED [place] [facility] Aug 20, 2019 11:05 AM VA-TOBACCO NEVER USED [place] [facility] Encounter Notes: All associated encounter notes This section contains the clinical notes associated to the Encounter. Date/Time Encounter Note(s) Provider Source Dec 27, 2023 03:31 PM ADMINISTRATIVE NOT E: LOCAL TITLE: CCC: SCHEDULING ADMINISTRATION STANDARD TITLE: ADMINISTRATIVE NOTE DATE OF NOTE: DEC 27, 2023@15:31:11 ENTRY DATE: DEC 27, 2023@15:31:11 AUTHOR: CHANTE TYSON COSIGNER: URGENCY: STATUS: COMPLETED CCC: SCHEDULING ADMINISTRATION Has ADDENDA Patient Demographics Patient Name: CORETTA PATEL Patient Primary Phone: [phone] Patient Primary Address: [address] [place] [id number] Patient : 1980 Patient Age: 43 Caller/Recipient Relation to Patient: Self Administrative Administrative Note Reason: Community Care / [place] Act Administrative Note Comments: Vet is requesting an earlier appt than contract technical writer could provide d/t persistent sore throat on right side. She is requesting referral of ENT to address issue. Computer Recycling Worker offered triage with vet declining. Please call vet back at number on file. /es/ CHANTE HARRINGTON 1 [facility] AMSA Signed: 12/27/2023 15:31 Receipt Acknowledged By: 01/04/2024 12:32 /es/ JAYLA STONER CREDIT SUPPORT COUNSELOR 01/04/2024 12:07 /es/ CALVIN FISCHER Registered Nurse 01/08/2024 15:21 /es/ UMESH MCDONOUGH LEGISLATIVE DIRECTOR 12/30/2023 ADDENDUM STATUS: COMPLETED Message is left requesting call back to clinic. /deann/ CALVIN FISCHER Registered Nurse Signed: 12/30/2023 14:57 01/04/2024 ADDENDUM STATUS: COMPLETED Pt. is contacted. Advised her that she has been seen at ENT in the past 2 years and she can call and schedule an appointment directly. Direct number to ENT scheduling given to pt. Requested she contact clinic if consult needed. Appreciated call. /es/ CALVIN FISCHER Registered Nurse Signed: 01/04/2024 12:05 CHANTE TYSON [facility]
--- OUTSIDE RECORDS SUMMARY | 2024-08-03 13:57 | XMS_ITS ---
Author Name [facility] of [place] [place] Organization [place] Address [address] [place] [address] Care Team Providers Care Staff Rn Name Role Phone UMESH MCDONOUGH Primary Care Provider Unavailabl e Selected Encounter This section includes the information on record at [place] for the Encounter. Date/Time Encounter Type Encounter Description Reason Provider Source Nov 21, 2023 03:11 PM Outpatient Encounter TELEPHONE TRIAGE RM HORNER Encounter Template Text not used by [place] Plan of Treatment: Future Appointments (+ 6 months) and Future Tests (+/- 45 days) The Plan of Treatment section includes future care activities for the patient from all [place] treatmentfacilities. This section includes future appointments and future orders which are active, pending or scheduled. Future Appointments This section includes appointments that were scheduled to occur 6 months from the date of the Encounter, up to a maximum of 20 appointments. The data comes from all [place] treatment facilities. Appointment Date/Time Appointment Type Appointme nt Facility Name Nov 25, 2023 11:30 AM AMBULATORY - NONE [facility] Dec 05, 2023 12:30 PM AMBULATORY - NONE [place] [facility]3] Dec 12, 2023 12:30 PM [place]ORY [place] [facility]3] 2023 10:00 AM AMBULATORY - NONE [place] [facility]3] Jan 16, 2024 11:30 AM [place] [facility]3] Apr 10, 2024 10:45 AM AMBULATORY - NONE [place] [facility] Apr 23, 2024 08:15 AM AMBULATORY - NONE [place] [facility]3] May 09, 2024 03:00 PM [facility] May 14, 2024 12:30 PM [facility]ULATORY - SURGERY [place] [facility] Lab Results: +/- 30 days [...] Range Comment Nov 25, 2023 11:51 AM [facility] BHCG QUANT Specimen Type: SERUM Comment: , Tests performed on Sefaira Gianni SN:[id number] (405). Ordering Provider: UMESH MCDONOUGH Report Released Date/Time: Nov 21, 2023 03:58 PM Reporting Lab: [facility] [address] [address] Performing Lab: [facility] [address] [address] BHCG QUANT 3145.51 m[IU]/mL <5.0 Oct 31, 2023 02:25 PM [facility] SJOGREN'S ANTIBODY(SS-A,SS-B)PANEL(Q) Specimen Type: SERUM Comment: Reference Range: < 1.0 NEG AI Test Performed by Agustin Pepper, [employer] [facility], [address] [place] [address] Juan A Garcia M.D., Ph.D., Director of Laboratories , [place] [id number] Ordering Provider: JUDY WALDRON Report Released Date/Time: Oct 24, 2023 02:36 PM Reporting Lab: [facility] [address] [address] Performing Lab: [address] SJOGREN'S ANTIBODY(SS-A)(q) <1.0 SJOGREN'S ANTIBODY(SS-B)(q) <1.0 Oct 31, 2023 02:25 PM [place] [facility] FLORINA SCREEN/TITER (B) Specimen Type: SERUM No comment entered. Ordering Provider: JUDY WALDRON Report Released Date/Time: Oct 24, 2023 02:36 PM Reporting Lab: [place] [facility] [address] [address] Performing Lab: [place] [facility] [address] [address] FLORINA SCREEN (B) NEG Oct 31, 2023 02:25 PM [place] [facility] RHEUMATOID FACTOR (B) Specimen Type: SERUM No comment entered. Ordering Provider: JUDY WALDRON Report Released Date/Time: Oct 24, 2023 02:36 PM Reporting Lab: [place] [facility] [address] [address] Performing Lab: [place] [facility] [address] [facility] [address] RHEUMATOID FACTO R (B) <15 0-15 Oct 31, 2023 02:25 PM [facility] VITAMIN B-12 Specimen Type: SERUM Comment: , Tests performed on Batista Ifbyphone Mckenna SN:[id number] (405) Ordering Provider: JUDY WALDRON Report Released Date/Time: Oct 24, 2023 02:36 PM Reporting Lab: [place] [facility] [address] [address] Performing Lab: [place] [facility] [address] [address] VITAMIN B-12 1071 pg/mL H 200-900 Oct 31, 2023 02:25 PM [place] [facility] ESR(NEW) Specimen Type: BLOOD Comment: Tests performed on Alcor ISED(405) Ordering Provider: JUDY WALDRON Report Released Date/Time: Oct 24, 2023 02:36 PM Reporting Lab: [place] [facility] [address] [address] Performing Lab: [place] [facility] [address] [address] ESR(NEW) 4 mm/h 0-20 Oct 31, 2023 02:25 PM [place] [facility] CRP(INFLAMMATORY) Specimen Type: PLASMA Comment: , Tests performed on Batista Programmer Operator Numerical Control Gianni SN:[id number] (405). Ordering Provider: JUDY WALDRON Report Released Date/Time: Oct 24, 2023 02:36 PM Reporting Lab: [facility] [address] [address] Performing Lab: [place] [facility] [address] [address] CRP(INFLAMMATORY) 0.6 mg/L 0.0-5.0 Oct 31, 2023 02:[address] [facility] GLYCOHEMOGLOBIN (A1C ONLY) Specimen Type: BLOOD Comment: , Tests performed on Batista Programmer Operator Numerical Control Mckenna SN:[id number] (405) Values obtained from A1C measurements can vary. For typical A1C assays, a reported value of 7.0 could actually be between 6.72 and 7.28 if measured by a reference method. A reported value of 9.0 could actually be between 8.73 and 9.27. Ref: http://www.ng sp.org/CAPdat a.asp Ordering Provider: UMESH MCDONOUGH Report Released Date/Time: Oct 27, 2023 04:22 PM Reporting Lab: [place] [facility] [address] [address] Performing Lab: [facility] [address] [address] HEMOGLOBIN A1C 5.1 4.0-5.6 Social History: Smoking Status (Most current) and Tobacco Use (All prior to encounter date) This section includes the most current, and the historical, smoking and tobacco- related health factors from the [place] facility where the Encounter took place. Current Smoking Status This section includes the most current smoking, or tobacco-related health factor, from the [place] facility where the Encounter took place. Date/Time Current Smoking Status Comment Facil ity Aug 02, 2023 02:30 PM VA-TOBACCO NEVER USED [facility] Tobacco Use History This section includes a history of the smoking, or tobacco-related health factors, that were collected on or before the date of the Encounter. The data comes from the [place] facility where the Encounter took place. Date/Time Smoking Status/Tobacco Use Comment F acility Aug 20, 2019 11:05 AM VA-TOBACCO NEVER USED [facility] Encounter Notes: All associated encounter notes This section contains the clinical notes associated to the Encounter. Date/Time Encounter Note(s) Provider Source Nov 21, 2023 03:11 PM RN PROGRESS NOTE: LOCAL TITLE: CCC: CLINICAL TRIAGE STANDARD TITLE: RN PROGRESS NOTE DATE OF NOTE: NOV 21, 2023@15:11:18 ENTRY DATE: NOV 21, 2023@15:11:18 AUTHOR: RM HORNER COSIGNER: URGENCY: STATUS: COMPLETED CCC: CLINICAL TRIAGE Has ADDENDA Patient Demographics Patient Name: CORETTA PATEL Patient Primary Address: [address] [place] [id number] Patient Primary Phone: [phone] Patient : 1980 Patient Age: 42 Current Location: [place] Caller/Recipient Relation to Patient: Self Emergency Contact: KEATON DAVILA Nursing Plan and Disposition Other course(s) of action Generated msg to PACT/Provider Provided guidance for worsening symptoms: *Caller/Patient* advised to call [facility] Clinical Contact Center or seek immediate medical attention for new or worsening symptoms Nurse Summary Nurse Summary: Pt. reports that her last menstrual period was 10/10/23. She did take 2 home tests which came back positive for . Overall, pt. is feeling well. She has slight nausea and breast tenderness. She is concerned about her symptoms of chronic fatigue and ''liver pain'' in the past. She would also like to have her obgyn care set up for [facility] if possible (did her previous at [place], but would like [facility] this time.) Pt. advised of 24/hr media intern line for any symptoms or concerns. Will alert Clinical Contact Center Codes Clinic/Location: V1 [facility] PHONE [facility] RN /deann/ RM [place] 1 CC RN Signed: 11/21/2023 15:11 11/21/2023 ADDENDUM STATUS: COMPLETED Spoke with Coretta, she never started estradiol patches or norethidrone, she will not star now that she is pregant OCC consult for OB placed Lab ordered to confirm pregancy iwht blood test Re[facility] they will contact her for options counseling /deann/ UMESH MCDONOUGH APRN Signed: 11/21/2023 16:47 RM HORNER [facility]
--- OUTSIDE RECORDS SUMMARY | 2024-08-03 13:57 | XMS_ITS | Encounter Summary ---
Author Name [facility] [place] Organization [place] Address [address] [place] [address] Care Team Providers Care Audograph Operator Name Role Phone UMESH MCDONOUGH Primary Care Provider Unavailabl e Selected Encounter This section includes the information on record at [place] for the Encounter. Date/Time Encounter Type Encounter Description Reason Pro vider Source Nov 15, 2023 08:06 AM Outpatient Encounter [facility] IHE Encounter Template Text not used by [place] Plan of Treatment: Future Appointments (+ 6 months) and Future Tests (+/- 45 days) The Plan of Treatment section includes future care activities for the patient from all [place] treatmentfacilities. This section includes future appointments and future orders which are active, pending or scheduled. Future Appointments This section includes appointments that were scheduled to occur 6 months from the date of the Encounter, up to a maximum of 20 appointments. The data comes from all [place] treatment facilities. Appointment Date/Time Appointment Type Appointme nt Facility Name Nov 25, 2023 11:30 AM AMBULATORY - NONE [facility] Dec 05, 2023 12:30 PM AMBULATORY - NONE [place] [facility] Dec 12, 2023 12:30 PM [place] [facility] 2023 10:00 AM AMBULATORY - [place]ONE [place] [facility] Jan 16, 2024 11:30 AM [place] [facility] Apr 10, 2024 10:45 AM AMBULATORY - NONE [place] [facility] Apr 23, 2024 08:15 AM AMBULATORY - NONE [place] [facility] May 09, 2024 03:00 PM [place]ORY - [place]IC[place] [facility] May 14, 2024 12:30 PM AMBULATORY - SURGERY [place] [facility] [facility] Lab Results: +/- 30 days [...] Range Comment Nov 25, 2023 11:51 AM [facility] BHCG QUANT Specimen Type: SERUM Comment: , Tests performed on Get.com Gianni SN:[id number] (405). Ordering Provider: UMESH MCDONOUGH Report Released Date/Time: Nov 21, 2023 03:58 PM Reporting Lab: [facility] [address] [address] Performing Lab: [facility] [address] [address] BHCG QUANT 3145.51 m[IU]/mL <5.0 Oct 31, 2023 02:25 PM [facility] SJOGREN'S ANTIBODY(SS-A,SS-B)PANEL(Q) Specimen Type: SERUM Comment: Reference Range: < 1.0 NEG AI Test Performed by Agustin Pepper, [employer] [facility], [address] [place] [address] Juan A Garcia M.D., Ph.D., Director of Laboratories , [place] [id number] Ordering Provider: JUDY WALDRON Report Released Date/Time: Oct 24, 2023 02:36 PM Reporting Lab: [facility] [address] [address] Performing Lab: [address] SJOGREN'S ANTIBODY(SS-A)(q) <1.0 SJOGREN'S ANTIBODY(SS-B)(q) <1.0 Oct 31, 2023 02:25 PM [facility] RHEUMATOID FACTOR (B) Specimen Type: SERUM No comment entered. Ordering Provider: JUDY WALDRON Report Released Date/Time: Oct 24, 2023 02:36 PM Reporting Lab: [place] [facility] [address] [address] Performing Lab: [facility] [address] [facility] [address] RHEUMATOID FACTO R (B) <15 0-15 Oct 31, 2023 02:25 PM [place] [facility] FOLRINA SCREEN/TITER (B) Specimen Type: SERUM No comment entered. Ordering Provider: JUDY WALDRON Report Released Date/Time: Oct 24, 2023 02:36 PM Reporting Lab: [place] [facility] [address] [address] Performing Lab: [facility] [address] [facility] [address] FLORINA SCREEN (B) NEG Oct 31, 2023 02:25 PM [facility] VIT[facility]IN B-12 Specimen Type: SERUM Comment: , Tests performed on Batista Local Driver Mckenna SN:[id number] (405) Ordering Provider: JUDY WALDRON Report Released Date/Time: Oct 24, 2023 02:36 PM Reporting Lab: [place] [facility] [address] [address] Performing Lab: [facility] [address] [address] VITAMIN B-12 1071 pg/mL H 200-900 Oct 31, 2023 02:25 PM [facility] ESR(NEW) Specimen Type: BLOOD Comment: Tests performed on Alcor ISED(405) Ordering Provider: JUDY WALDRON Report Released Date/Time: Oct 24, 2023 02:36 PM Reporting Lab: [place] [facility] [address] [address] Performing Lab: [place] [facility] [address] [address] ESR(NEW) 4 mm/h 0-20 Oct 31, 2023 02:25 PM [facility] CRP(INFLAMMATORY) Specimen Type: PLASMA Comment: , Tests performed on Batista Local Driver Gianni SN:[id number] (405). Ordering Provider: JUDY WALDRON Report Released Date/Time: Oct 24, 2023 02:36 PM Reporting Lab: [facility] [address] [address] [facility] [address] [address] CRP(INFLAMMATORY) 0.6 mg/L 0.0-5.0 Oct 31, 2023 02:25 PM [facility] GLYCOHEMOGLOBIN (A1C ONLY) Specimen Type: BLOOD Comment: , Tests performed on Batista Local Driver Mckenna SN:[id number] (405) Values obtained from A1C measurements can vary. For typical A1C assays, a reported value of 7.0 could actually be between 6.72 and 7.28 if measured by a reference method. A reported value of 9.0 could actually be between 8.73 and 9.27. Ref: http://www.ng sp.org/CAPdat a.asp Ordering Provider: UMESH MCDONOUGH Report Released Date/Time: Oct 27, 2023 04:22 PM Reporting Lab: [facility] [address] [address] Performing Lab: [facility] [address] [address] HEMOGLOBIN A1C 5.1 4.0-5.6 Social History: Smoking Status (Most current) and Tobacco Use (All prior to encounter date) This section includes the most current, and the historical, smoking and tobacco- related health factors from the [place] facility where the Encounter took place. Current Smoking Status This section includes the most current smoking, or tobacco-related health factor, from the [place] facility where the Encounter took place. Date/Time Current Smoking Status Comment Facil ity Jun 17, 2022 03:00 PM [place]-TOBACCO NEVER USED [facility] Tobacco Use History This section includes a history of the smoking, or tobacco-related health factors, that were collected on or before the date of the Encounter. The data comes from the [place] facility where the Encounter took place. Date/Time Smoking Status/Tobacco Use Comment F acility Jul 15, 2021 11:00 AM [place]-TOBACCO NEVER USED [facility] Oct 11, 2018 09:03 AM VA-TOBACCO NEVER USED [facility] Encounter Notes: All associated encounter notes This section contains the clinical notes associated to the Encounter. Date/Time Encounter Note(s) Provider Source Nov 15, 2023 08:06 AM LETTERS: LOCAL TITLE: Letter to Patient - [facility] TITLE: LETTERS DATE OF NOTE: NOV 15, 2023@08:06 ENTRY DATE: NOV 15, 2023@08:06:44 AUTHOR: GABRIELE QUINONES EXP COSIGNER: URGENCY: STATUS: COMPLETED NOV 15, 2023 CORET[place] PATEL [address] [place], [place] [address] Dear CORETTA PATEL: I hope this letter finds you well. Your primary care provider referred you for a mental health consultation. I am reaching out to introduce myself and also off to meet by video (VVC). If you would like to schedule an appointment please call [phone]. I look forward to hearing from you. Sincerely, GABRIELE QUINONES Attending Psychiatrist MD Shirley [facility] [address] [place] [address] GABRIELE QUINONES [facility]
--- OUTSIDE RECORDS SUMMARY | 2024-08-03 13:57 | XMS_ITS | Encounter Summary ---
Author Name [place] Address [address] [place] [address] Care Team Providers Care [employer] Spanish Teacher Name Role Phone UMESH MCDONOUGH Primary Care Provider Unavailabl e Selected Encounter This section includes the information on record at [place] for the Encounter. Date/Time Encounter Type Encounter Description Reason Pro vider Source IHE Encounter Template Text not used by [place]
--- OUTSIDE RECORDS SUMMARY | 2024-08-03 13:57 | XMS_ITS ---
Author Name Department of [place] Address [address] [place] [address] Care Team Providers Care Transmitter Supervisor Name Role Phone UMESH MCDONOUGH Primary Care Provider Unavailabl e Selected Encounter This section includes the information on record at [place] for the Encounter. Date/Time Encounter Type Encounter Description Reason Pro vider Source Nov 21, 2023 03:58 PM Outpatient Encounter [facility] IHE Encounter Template Text not used by [place] Plan of Treatment: Future Appointments (+ 6 months) and Future Tests (+/- 45 days) The Plan of Treatment section includes future care activities for the patient from all [place] treatmentfacilities. This section includes future appointments and [...] 25, 2023 11:30 AM AMBULATORY - NONE [facility] Dec 05, 2023 12:30 PM [place]ORY - [place]ONE [place] [facility] Dec 12, 2023 12:30 PM [place] [facility] 2023 10:00 AM AMBULATORY - NONE [place] [facility] Jan 16, 2024 11:30 AM AMBUL[place]ORY - [place] [facility] Apr 10, 2024 10:45 AM AMBULATORY - NONE [place] [facility] Apr 23, 2024 08:15 AM AMBULATORY - NONE [place] [facility] May 09, 2024 03:00 PM AM[place]ORY - [place]IC[place] [facility] May 14, 2024 12:30 PM AMBULATORY - [place]GERY [place] [facility] Lab Results: +/- 30 days [...] Range Comment Nov 25, 2023 11:51 AM [facility] BHCG QUANT Specimen Type: SERUM Comment: , Tests performed on Teburu Gianni SN:[id number] (405). Ordering Provider: UMESH MCDONOUGH Report Released Date/Time: Nov 21, 2023 03:58 PM Reporting Lab: [facility] [address] [address] Performing Lab: [facility] [address] [facility] [address] BHCG QUANT 3145.51 m[IU]/mL <5.0 Oct 31, 2023 02:25 PM [facility] SJOGREN'S ANTIBODY(SS-A,SS-B)PANEL(Q) Specimen Type: SERUM Comment: Reference Range: < 1.0 NEG AI Test Performed by Agustin Pepper, [employer] [facility], [address] [place] [address] Juan A Garcia M.D., Ph.D., Director of Laboratories , CLIA [id number] Ordering Provider: JUDY WALDRON Report Released Date/Time: Oct 24, 2023 02:36 PM Reporting Lab: [facility] [address] [address] Performing Lab: [address] [facility] [place] SJOGREN'S ANTIBODY(SS-A)(q) <1.0 SJOGREN'S ANTIBODY(SS-B)(q) <1.0 Oct 31, 2023 02:25 PM [place] [facility] FLORINA SCREEN/TITER (B) Specimen Type: SERUM No comment entered. Ordering Provider: JUDY WALDRON Report Released Date/Time: Oct 24, 2023 02:36 PM Reporting Lab: [place] [facility] [address] [address] Performing Lab: [place] [facility] [address] [facility] [address] FLORINA SCREEN (B) NEG Oct 31, 2023 02:25 PM [place] [facility] RHEUMATOID FACTOR (B) Specimen Type: SERUM No comment entered. Ordering Provider: JUDY WALDRON Report Released Date/Time: Oct 24, 2023 02:36 PM Reporting Lab: [place] [facility] [address] [facility] [address] Performing Lab: [facility] [address] [facility] [address] RHEUMATOID FACTO R (B) <15 0-15 Oct 31, 2023 02:25 PM [facility] VITAMIN B-12 Specimen Type: SERUM Comment: , Tests performed on Batista Chevia Mckenna SN:[id number] (405) Ordering Provider: JUDY WALDRON Report Released Date/Time: Oct 24, 2023 02:36 PM Reporting Lab: [place] [facility] [address] [facility] [address] Performing Lab: [place] [facility] [address] [facility] [address] VITAMIN B-12 1071 pg/mL H 200-900 Oct 31, 2023 02:25 PM [facility] ESR(NEW) Specimen Type: BLOOD Comment: Tests performed on Alcor ISED(405) Ordering Provider: JUDY WALDRON Report Released Date/Time: Oct 24, 2023 02:36 PM Reporting Lab: [place] [facility] [address] [facility] [address] Performing Lab: [place] [facility] [address] [facility] [address] ESR(NEW) 4 mm/h 0-20 Oct 31, 2023 02:25 PM [place] [facility] CRP(INFLAMMATORY) Specimen Type: PLASMA Comment: , Tests performed on Batista Candy Forming Machine Operator Gianni SN:[id number] (405). Ordering Provider: JUDY WALDRON Report Released Date/Time: Oct 24, 2023 02:36 PM Reporting [facility] [address] [facility] [address] Performing Lab: [facility] [address] [facility] [address] CRP(INFLAMMATORY) 0.6 mg/L 0.0-5.0 Oct 31, 2023 02:25 PM [facility] GLYCOHEMOGLOBIN (A1C ONLY) Specimen Type: BLOOD Comment: , Tests performed on Batista Candy Forming Machine Operator Mceknna SN:[id number] (405) Values obtained from A1C measurements can vary. For typical A1C assays, a reported value of 7.0 could actually be between 6.72 and 7.28 if measured by a reference method. A reported value of 9.0 could actually be between 8.73 and 9.27. Ref: http://www.ng sp.org/CAPdat a.asp Ordering Provider: UMESH MCDONOUGH Report Released Date/Time: Oct 27, 2023 04:22 PM Reporting [facility] [address] [facility] [address] Performing Lab: [facility] [address] [facility] [address] HEMOGLOBIN A1C 5.1 4.0-5.6 Social History: Smoking [...] 02, 2023 02:30 PM VA-TOBACCO NEVER USED [facility] Tobacco Use History This section includes a history of the smoking, or tobacco-related health factors, that were collected on or before the date of the Encounter. The data comes from the [place] facility where the Encounter took place. Date/Time Smoking Status/Tobacco Use Comment F acility Aug 20, 2019 11:05 AM VA-TOBACCO NEVER USED [facility] Encounter Notes: All associated encounter notes This section contains the clinical notes associated to the Encounter. Date/Time Encounter Note(s) Provider Source Nov 21, 2023 04:05 PM ADMINISTRATIVE NOT E: LOCAL TITLE: Has Admin Note STANDARD TITLE: ADMINISTRATIVE NOTE DATE OF NOTE: NOV 21, 2023@16:05 ENTRY DATE: NOV 21, 2023@16:05:15 AUTHOR: ISAIAH AMARO EXP COSIGNER: URGENCY: STATUS: COMPLETED Reason for call Clinic Name: RTC pls reach out to patient and offer her appt for options counseling, as she just reported positive test. can be VVC if she has no physical concerns. RTC entered. TY! /es/ ISAIAH AMARO Signed: 11/21/2023 16:06 Receipt Acknowledged By: 11/22/2023 11:01 /es/ ISAIAH HERNANDEZ [facility]
--- OUTSIDE RECORDS SUMMARY | 2024-08-03 13:57 | XMS_ITS | Encounter Summary ---
Author Name Department of Vetera Affairs ([place]) Organization [facility] of Veter[facility] [place]) Address [address] [place] [address] Care Team Providers Care Cloth Tester Quality Name Role Phone UMESH MCDONOUGH Primary Care Provider Unavailabl e Selected Encounter This section includes the information on record at [place] for the Encounter. Date/Time Encounter Type Encounter Description Reason Provider Source Nov 11, 2023 02:00 PM OFFICE O/P EST MOD 30 MIN PRIMARY CARE/MEDICINE ICD-10-CM F31.9 Bipolar disorder, unspecified CEASAR,UMESH L IHE Encounter Template Text not used by [place] Assessments - Encounter Diagnoses This section includes the primary and secondary diagnoses documented for the Encounter. Date/Time Primary/Secondary Diagnosis Diagnosis Name Provider Source Nov 11, 2023 03:22 PM PRIMARY Bipolar disorder, unspecified CEASAR,UMESH L [facility] Nov 11, 2023 03:22 PM SECONDARY Alcohol use, unspecified with alcohol-induced mood disorder CEASAR,UMESH L [facility] Nov 11, 2023 03:22 PM SECONDARY Tinnitus, unspecified ear CEASAR,UMESH L [facility] Nov 11, 2023 03:22 PM SECONDARY Unspecified abdominal pain CEASARZEKEN L [facility] Plan of Treatment: Future Appointments (+ 6 months) and Future Tests (+/- 45 days) The Plan of Treatment section includes future care activities for the patient from all [place] [facility]. This section includes future appointments and future [...] 25, 2023 11:30 AM AMBULATORY - NONE [facility] Dec 05, 2023 12:30 PM AMBULATORY - NONE [place] [facility] Dec 12, 2023 12:30 PM [place] [place] [facility] 2023 10:00 AM AMBULATORY - NONE [place] [facility] Jan 16, 2024 11:30 AM [place] [facility] Apr 10, 2024 10:45 AM AMBULATORY - NONE [place] [facility] Apr 23, 2024 08:15 AM AMBULATORY - NONE [place] [facility] May 09, 2024 03:00 PM AMBULATORY - MEDICINE [facility] Lab Results: +/- 30 days of the encounter This section includes the Chemistry and Hematology Lab Results on record with [place] for the patient. Radiology Reports and Pathology Reports are provided separately, in subsequent sections. Lab Results This section contains the Chemistry/Hematology Results that were resulted 30 days before or 30 daysafter the date of the Encounter. Date/Time Source Result Type Result - Unit Interpretation Reference Range Comment Nov 25, 2023 11:51 AM [facility] BHCG QUANT Specimen Type: SERUM Comment: , Tests performed on [employer] SN:[id number] (405). Ordering Provider: UMESH MCDONOUGH Report Released Date/Time: Nov 21, 2023 03:58 PM Reporting Lab: [facility] [address] [place] [place] [address] Performing Lab: [facility] [address] [facility] [address] BHCG QUANT 3145.51 m[IU]/mL <5.0 Oct 31, 2023 02:25 PM [facility] SJOGREN'S ANTIBODY(SS-A,SS-B)PANEL(Q) Specimen Type: SERUM Comment: Reference Range: < 1.0 NEG AI Test Performed by Agustin Pepper [employer] [facility], [address] [place], [place] Juan A Garcia M.D., Ph.D., Director of Laboratories , [place] [id number] Ordering Provider: JUDY WALDRON Report Released Date/Time: Oct 24, 2023 02:36 PM Reporting Lab: [facility] [address] [facility] [address] Performing Lab: [place] [facility] [address] [facility] SJOGREN'S ANTIBODY(SS-A)(q) <1.0 SJOGREN'S ANTIBODY(SS-B)(q) <1.0 Oct 31, 2023 02:25 PM [place] [facility] RHEUMATOID FACTOR (B) Specimen Type: SERUM No comment entered. Ordering Provider: JUDY WALDRON Report Released Date/Time: Oct 24, 2023 02:36 PM Reporting Lab: [place] [facility] [address] [facility] [address] Performing Lab: [place] [facility] [address] [facility] [address] RHEUMATOID FACTO R (B) <15 0-15 Oct 31, 2023 02:25 PM [place] [facility] FLORINA SCREEN/TITER (B) Specimen Type: SERUM No comment entered. Ordering Provider: JUDY WALDRON Report Released Date/Time: Oct 24, 2023 02:36 PM Reporting Lab: [place] [facility] [address] [facility] [address] Performing Lab: [place] [facility] [address] [facility] [address] FLORINA SCREEN (B) NEG Oct 31, 2023 02:25 PM [facility] VITAMIN B-12 Specimen Type: SERUM Comment: , Tests performed on [employer] Mckenna SN:[id number] (405) Ordering Provider: JUDY WALDRON Report Released Date/Time: Oct 24, 2023 02:36 PM Reporting Lab: [place] [facility] [address] [facility] [address] Performing Lab: [place] [facility] [address] [facility] [address] VITAMIN B-12 1071 pg/mL H 200-900 Oct 31, 2023 02:25 PM [facility] ESR(NEW) Specimen Type: BLOOD Comment: Tests performed on [employer] ISED(405) Ordering Provider: JUDY WALDRON Report Released Date/Time: Oct 24, 2023 02:36 PM Reporting Lab: [facility] [address] [facility] [address] Performing Lab: [facility] [address] [facility] [address] ESR(NEW) 4 mm/h 0-20 Oct 31, 2023 02:25 PM [facility] CRP(INFLAMMATORY) Specimen Type: PLASMA Comment: , Tests performed on [employer] SN:[id number] (405). Ordering Provider: JUDY WALDRON Report Released Date/Time: Oct 24, 2023 02:36 PM Reporting Lab: [facility] [address] [facility] [address] Performing Lab: [facility] [address] [facility] [address] CRP(INFLAMMATORY) 0.6 mg/L 0.0-5.0 Oct 31, 2023 02:[address] [facility] GLYCOHEMOGLOBIN (A1C ONLY) Specimen Type: BLOOD Comment: , Tests performed on [employer] Mckenna SN:[id number] (405) Values obtained from A1C measurements can vary. For typical A1C assays, a reported value of 7.0 could actually be between 6.72 and 7.28 if measured by a reference method. A reported value of 9.0 could actually be between 8.73 and 9.27. Ref: http://www.ng sp.org/CAPdat a.asp Ordering Provider: UMESH MCDONOUGH Report Released Date/Time: Oct 27, 2023 04:22 PM Reporting Lab: [facility] [address] [facility] [address] Performing Lab: [facility] [address] [facility] [address] HEMOGLOBIN A1C 5.1 4.0-5.6 Vital Signs: All taken on the encounter date This section contains inpatient and outpatient Vital Signs collected on the date of the Encounter. Date/Time Temperature Pulse Blood Pressure Respiratory Rate SP02 Pain Height Weight Body Mass Index Source Nov 11, 2023 02:07 PM 97.3 62 98/68 [address] [facility] [facility] Social History: Smoking Status (Most current) and [...] Facil ity Jun 17, 2022 03:00 PM [place]-TO[facility]ACCO NEVER USED [facility] Tobacco Use History This section includes a history of the smoking, or tobacco-related health factors, that were collected on or before the date of the Encounter. The data comes from the [place] facility where the Encounter took place. Date/Time Smoking Status/Tobacco Use Comment F acility Jul 15, 2021 11:00 AM VA-TOBACCO NEVER USED [facility] Oct 11, 2018 09:03 AM VA-TOBACCO NEVER USED . [facility] Encounter Notes: All associated encounter notes This section contains the clinical notes associated to the Encounter. Date/Time Encounter Note(s) Provider Source Nov 16, 2023 01:19 PM ADDENDUM: LOCAL TITLE: Addendum STANDARD TITLE: ADDENDUM DATE OF NOTE: NOV 16, 2023@13:19:20 ENTRY DATE: NOV 16, 2023@13:19:22 AUTHOR: UMESH MCDONOUGH EXP COSIGNER: URGENCY: STATUS: COMPLETED Please mail to Thanks. /deann/ UMESH MCDONOUGH BUS ASSISTANT Signed: 11/16/2023 13:19 Receipt Acknowledged By: 11/16/2023 13:58 /deann/ LIDA CLARK Life Science Teacher --- Original Document --- 02/21/24 Letter to Patient [facility]: NOV 16, 2023 CORETTA PATEL [address] [place] [id number] Dear CORETTA PATEL: I have reviewed your labs. Your Hgb A1C was good, no diabetes! Your Vitamin B12 was high, this is a water soluble vitamin often does not have toxic effects at high doses, you may want to review your supplements and decrease if they have high content of Vitamin B 12. Overall it is not concerning. The rheumatolgy providers cal review the other labs, I did hear from them that the labs looked good. Please don't hesitate to call if you have any questions or concerns, . Sincerely, UMESH MCDONOUGH BUS ASSISTANT [address] [address] UMESH MCDONOUGH [facility] Nov 16, 2023 12:37 PM LETTERS: LOCAL TITLE: Letter to [facility] STANDARD TITLE: LETTERS DATE OF NOTE: NOV 16, 2023@12:37 ENTRY DATE: NOV 16, 2023@12:37:24 AUTHOR: UMESH MCDONOUGH EXP COSIGNER: URGENCY: STATUS: COMPLETED Letter to Jose [facility] Has ADDENDA NOV 16, 2023 CORETTA PATEL [address] [place] [id number] Dear CORETTA PATEL: I have reviewed your labs. Your Hgb A1C was good, no diabetes! Your Vitamin B12 was high, this is a water soluble vitamin often does not have toxic effects at high doses, you may want to review your supplements and decrease if they have high content of Vitamin B 12. Overall it is not concerning. The rheumatolgy providers cal review the other labs, I did hear from them that the labs looked good. Please don't hesitate to call if you have any questions or concerns, . Sincerely, UMESH MCDONOUGH APRN [facility] [address] [place] [address] 11/16/2023 ADDENDUM STATUS: COMPLETED Please mail to [facility]. /deann/ UMESH MCDONOUGH APRN Signed: 11/16/2023 13:19 Receipt Acknowledged By: * AWAITING SIGNATURE * LIDA CLARK EVELYN L [facility] Nov 11, 2023 02:16 PM PRIMARY CARE NOTE: LOCAL TITLE: Primary Care Clinic Note STANDARD TITLE: PRIMARY CARE NOTE DATE OF NOTE: NOV 11, 2023@14:16 ENTRY DATE: NOV 11, 2023@14:16:38 AUTHOR: UMESH MCDONOUGH EXP COSIGNER: URGENCY: STATUS: COMPLETED ASSES/PLAN - # mild fatty liver- dull ache persists, abd US, 1. Mild hepatic steatosis. No focal liver lesions. LFTs normal discussed avoid alcohol , healthy diet, regular exercise # etoh abuse- consult to pshychotherpy # bipolar disease- self stopped meds, consult to psychopharm to discuss adn if indicated resume meds # Intermittent asymptomatic right pulsatile tinnitus consistent with imaging study of right high jugular bulb and partial dehiscence right internal auditory canal near the eustachian tube. Trial of Flonase nasal spray twice daily- saline nasal spray and juan pot # marital stress- cnosult to for assist with resources should she divorce her , also recommend local [facility] resources like [facility] #Meds: reviewed, reconciled #health Maint: vaccines reviewed: RTC - 4-5 months [x] Counseling of patient/family dominates over 50% of face to face encounter HPI: Fatigue is getting worse and her liver aches. US in Sept showed Mild hepatic steatosis. No focal liver lesions. She has been trying to abstain from alcohol, has been drinking on and off. She is trying to divorce her - he is refusing. She is asking about any transitional housing or assistance with this. I reached out to [facility] for our [place] [facility] there are no spcific resources for this will consult our her at [facility] Self stopped quetamine, thoght it was contributing to her fatigue. not taking any meds History: [place] 2002 -- 2006 never deployed Social : stay at home with son , lives with HABITS: recreational drugs: none- over 20 years ago marijuanna , ketamine Tobacco: none ETOH: had heavy use started when she was a teenager, started heavy drinking late 20s and ahs had on and off periods of heavy drinking since then Last drink was about a month ago- Immunizations: Bowel screening: Diet/Exercise: diet is not as good as it used to be try to help healthy, no regular exercise SURGICAL HISTORY: Family History: Mother alive age 65 healthy Father alive 67 healthy 2 brothers, one in [facility] until February health issues unclear PMH: Active problems - Computerized Problem List is the source for the followin. Bipolar disorder 2. Pulsatile tinnitus 3. Abdominal pain 4. Caesarean delivery - delivered 5. Borderline personality disorder 6. Back pain 7. Episodic opioid dependence 8. History of alcohol abuse MEDS: Active Outpatient Medications (excluding Supplies): Active Outpatient Medications Status 1) ESTRADIOL 0.1MG/DAY (ITS-[id number]) APPLY 1 PATCH ACTIVE TOPICALLY TWICE WEEKLY PERIMENOPAUSE 2) FLUTICASONE PROP 50MCG 120D NASAL INHL INSTILL 2 ACTIVE SPRAYS INTO EACH NOSTRIL TWICE A DAY FOR NASAL IRRITATION/INFLAMMATION - SPRAY FLONASE AFTER SALINE NASAL SPRAY 3) GUAIFENESIN 600MG SA TAB TAKE TWO TABLETS BY MOUTH ACTIVE TWICE DAILY NEEDED FOLLOW DOSE WITH FULL GLASS OF WATER 4) MOISTURIZER VAG GEL APPLIC (EQV-REPLENS) INSERT ONE ACTIVE APPLICATION INTRAVAGINALLY EVERY THREE DAYS FOR DRYNESS MAY USE MORE FREQUENTLY NEEDED, DAILY USE IS SAFE 5) NORETHINDRONE ACETATE 5MG TAB TAKE ONE TABLET BY ACTIVE MOUTH DAILY FOR PERIMENOPAUSE TAKE FOR 3 WEEKS EACH MONTH 6) QUETIAPINE FUMARATE 25MG TAB TAKE ONE TABLET [...] PROBIOTIC CAP,ORAL BY MOUTH EVERY DAY ACTIVE 10 Total Medications Outside [facility] meds: ALLERGIES: Patient has answered NKA ROS: Gen: sleeps ok,poor energy, appetite good CV: denies chest pain, sob, headaches, visual distubances GI: denies diarrhea, constipation, blood in stool + ache RUQ : no urinary frequency, urgency Extrem: no edema, pain OBJ: BP:98/68 (11/11/2023 14:07) HR:62 (11/11/2023 14:07) WT:138.2 lb [62.69 kg] (11/11/2023 14:07) HT: 65 in [165.1 cm] (11/11/2023 14:07) BODY MASS INDEX - NOV 11, 2023@14:07:52 23.0 General- Well-appearing, no apparent distress. Cardiovascular:RRR, S1,S2, no m/g/r, PMI non-displaced Respiratory: non-labored breathing, clear A & P Abdomen: abdomen soft, nontender Skin:Warm and dry. No petechiae, purpura, ecchymoses, rash. Extremities/feet: (-) edema Musculoskeletal: normal gait Psych: Normal affect and demeanor. normal speech pattern Neurological:Alert, oriented X3 Motor - 5/5 Sensory intact to touch /es/ UMESH MCDONOUGH APRN Signed: 11/11/2023 15:22 UMESH MCDONOUGH [facility] Nov 11, 2023 02:10 PM PRIMARY CARE JENNY [place] EVALUATION NOTE: LOCAL TITLE: Preventive Health Annual Review STANDARD TITLE: PRIMARY CARE ANNUAL EVALUATION NOTE DATE OF NOTE: NOV 11, 2023@14:10 ENTRY DATE: NOV 11, 2023@14:10:21 AUTHOR: DAMIEN GONZÁLESIGNER: URGENCY: STATUS: COMPLETED Homelessness/Food Insecurity Screen: In the past 2 months, have you been living in stable housing that you own, rent, or stay in as part of a household? Yes - Living in stable housing. Are you worried or concerned that in the next 2 months you may NOT have stable housing that you own, rent, or stay in as part of a household? No - Not worried about housing near future The reports the following: Within the past 12 months, you worried whether your food would run out before you got money to buy more. Never true Within the past 12 months, the food you bought just didn't last and you didn't have money to get more. Never true /deann/ DAMIEN GONZÁLES Health Senior Backup Administrator Signed: 11/11/2023 14:11 DAMIEN GONZÁLES [facility]
--- OUTSIDE RECORDS SUMMARY | 2024-08-03 13:57 | XMS_ITS | Encounter Summary ---
Author Name Department of Vetera ns Affairs [place]) Organization [facility] [place] Address [address] [place] [address] Care Team Providers Care Riveter Helper Name Role Phone UMESH MCDONOUGH Primary Care Provider Unavailabl e Selected Encounter This section includes the information on record at [place] for the Encounter. Date/Time Encounter Type Encounter Description Reason Pro vider Source Dec 12, 2023 01:04 PM Outpatient Encounter ADMIN PAT ACTIVTIES (MASNONCT) IHE Encounter Template Text not used by [place] Plan of Treatment: Future Appointments (+ 6 months) and Future Tests (+/- 45 days) The Plan of Treatment section includes future care activities for the patient from all [place] treatmentfacilities. This section includes future appointments and future orders which are active, pending or scheduled. Future Appointments This section includes appointments that were scheduled to occur 6 months from the date of the Encounter, up to a maximum of 20 appointments. The data comes from all [place] treatment facilities. Appointment Date/Time Appointment Type Appointme nt Facility Name 2023 10:00 AM AMBULATORY - NONE [place] [facility] Jan 16, 2024 11:30 AM AMBUL[place]ORY - [place] [facility] Apr 10, 2024 10:45 AM AMBULATORY - [place]ONE [place] [facility] Apr 23, 2024 08:15 AM AMBULATORY - NONE [place] [facility] May 09, 2024 03:00 PM [place]UL[place]ORY - [place]IC[place] [facility] May 14, 2024 12:30 PM AMB[place] [facility] May 22, 2024 10:00 AM AMBULATORY - NONE [place] [facility] May 23, 2024 09:00 AM AMBULATORY - NONE [place] [facility] Lab Results: +/- 30 days of [...] Range Comment Nov 25, 2023 11:51 AM [facility] BHCG QUANT Specimen Type: SERUM Comment: , Tests performed on [employer] SN:[id number] (405). Ordering Provider: UMESH MCDONOUGH Report Released Date/Time: Nov 21, 2023 03:58 PM Reporting Lab: [place] [facility] [address] [facility] [address] Performing Lab: [place] [facility] [address] [facility] [address] BHCG QUANT 3145.51 m[IU]/mL <5.0 Social History: Smoking Status (Most current) and Tobacco Use (All prior to encounter date) This section includes the most current, and the historical, smoking and tobacco- related health factors from the [place] facility where the Encounter took place. Current Smoking Status This section includes the most current smoking, or tobacco-related health factor, from the [place] facility where the Encounter took place. Date/Time Current Smoking Status Comment Wendy ity Nov 25, 2023 01:00 PM [place]-TO[place]ACCO NEVER USED [place] [facility] [place] Tobacco Use History This section includes a history of the smoking, or tobacco-related health factors, that were collected on or before the date of the Encounter. The data comes from the [place] facility where the Encounter took place. Date/Time Smoking Status/Tobacco Use Comment F acleticia Nov 25, 2023 01:00 PM [place]TO[place]CO NEVER USED [place] [facility] Aug 02, 2023 02:30 PM [place]-TOBACCO NEVER USED [place] [facility] Aug 20, 2019 11:05 AM [place]-TOBACCO NEVER USED [place] [facility] Encounter Notes: All associated encounter notes This section contains the clinical notes associated to the Encounter. Date/Time Encounter Note(s) Provider Source Dec 12, 2023 01:04 PM PRIMARY CARE ADMINISTRATIVE NOTE: LOCAL TITLE: Administrative Note/Primary Care STANDARD TITLE: PRIMARY CARE ADMINISTRATIVE NOTE DATE OF NOTE: DEC 12, 2023@13:04 ENTRY DATE: DEC 12, 2023@13:04:33 AUTHOR: GINI FRAIRE COSIGNER: URGENCY: STATUS: COMPLETED Reached out to Pt and Left V/M and sent letter. CORETTA PATEL [address] [place] [id number] Dear [place], A review of our records indicates that you did not keep the following clinic appointment(s): YOU HAVE A VIDEO APPOINTMENT ON: Date/Time: Tuesday 12:30 PM OLEMA [facility] HOTEL NIGHT AUDITOR MD Pineda Location: VIDEO APPOINTMENT Telephone Ext.: [phone] Provider: JUDY WALDRON We would be glad to make you a future appointment at a time that is convenient for you. Please call us at the number above during normal business hours to reschedule. Thank you for letting us serve you. [facility] [address] [place] [address] PHONE: TOLL FREE: [phone] VETS ( ) /deann/ GINI FRAIRE Signed: 12/12/2023 13:05 GINI FRAIRE Hos[place] [facility]
--- OUTSIDE RECORDS SUMMARY | 2024-08-03 13:57 | XMS_ITS | Encounter Summary ---
Author Name [facility] Organization [facility] Address [address] [place] [address] Care Team Providers Care Internal Revenue Service Agent Name Role Phone UMESH MCDONOUGH Primary Care Provider Unavailabl e Selected Encounter This section includes the information on record at [place] for the Encounter. Date/Time Encounter Type Encounter Description Reason Provider Source Jan 16, 2024 11:30 AM Outpatient Encounter TELEPHONE/SURGERY ICD-10-CM N95.1 Menopausal and female climacteric states JUDY WALDRON Nereida Encounter Template Text not used by [place] Assessments - Encounter Diagnoses This section includes the primary and secondary diagnoses documented for the Encounter. Date/Time Primary/Secondary Diagnosis Diagnosis Name Provider Source Jan 16, 2024 11:30 AM PRIMARY Menopausal and female climacteric states JUDY WALDRON [facility] Jan 16, 2024 11:30 AM SECONDARY Complete or unsp spontaneous without complication JUDY WALDRON [facility] Plan of Treatment: Future Appointments (+ 6 months) and Future Tests (+/- 45 days) The Plan of Treatment section includes future care activities for the patient from all [place] treatmentfacilities. This section includes future appointments and future orders which are active, pending or scheduled. Future Appointments This section includes appointments that were scheduled to occur 6 months from the date of the Encounter, up to a maximum of 20 appointments. The data comes from all [place] treatment facilities. Appointment Date/Time Appointment Type Appointme nt Facility Name Apr 10, 2024 10:45 AM AMBULATORY - NONE [facility] Apr 23, 2024 08:15 AM AMBULATORY - NONE [facility] May 09, 2024 03:00 PM [facility] - MEDICINE [facility] [facility] May 14, 2024 12:30 PM AMBULATORY - SURGERY [facility] May 22, 2024 10:00 AM AMBULATORY - NONE [facility] May 23, 2024 09:00 AM AMBULATORY - NONE [facility] Jun 19, 2024 01:15 PM [facility] - [place]ICINE [facility] [facility] Jun 25, 2024 10:30 AM [facility] - [facility]ICINE [facility] [place] [facility] [facility] Social History: Smoking Status (Most current) and Tobacco Use (All prior to encounter date) This section includes the most current, and the historical, smoking and tobacco- related health factors from the [place] facility where the Encounter took place. Current Smoking Status This section includes the most current smoking, or tobacco-related health factor, from the [place] facility where the Encounter took place. Date/Time Current Smoking Status Comment Wendy oropeza Nov 25, 2023 01:00 PM [facility]-TO[facility]ACCO NEVER USED [facility] Tobacco Use History This section includes a history of the smoking, or tobacco-related health factors, that were collected on or before the date of the Encounter. The data comes from the [place] facility where the Encounter took place. Date/Time Smoking Status/Tobacco Use Comment F acility Nov 25, 2023 01:00 PM VA-TOBACCO NEVER USED [facility] Aug 02, 2023 02:30 PM VA-TOBACCO NEVER USED [facility] Aug 20, 2019 11:05 AM VA-TOBACCO NEVER USED [facility] Encounter Notes: All associated encounter notes This section contains the clinical notes associated to the Encounter. Date/Time Encounter Note(s) Provider Source Jan 16, 2024 12:44 PM ADDENDUM: LOCAL TITLE: Addendum STANDARD TITLE: ADDENDUM DATE OF NOTE: JAN 16, 2024@12:44:45 ENTRY DATE: JAN 16, 2024@12:44:47 AUTHOR: CHANTE ESCAMILLA COSIGNER: URGENCY: STATUS: COMPLETED Thank you for alerting the [facility]. She will be archived from the [facility] program at this time, but mode has our contact information in the event of future questions. The following letter will be mailed to mode later this week: Lala Patel [address] [place] [id number] Dear Lala: We are very sorry for your loss. Losing a can be a very stressful and overwhelming time. Your body and mind are going through many changes right now. Each person grieves a loss in their own way and there is no one way to experience grief and loss. You've got so much on your mind and in your heart right now. We hope it will be one less worry for you to know that your [facility] healthcare team is available for outreach and support during this difficult time. If you have any concerns regarding physical symptoms, please follow up with your occupational medicine officer. It's also recommended that you schedule a follow up with your primary care provider who can assess any other healthcare needs you might have. Loss can also impact you in other ways (mental, emotional, spiritual). In addition to mental health services, [facility] Director Of Email Marketing services are also available to provide spiritual and emotional support in the context of loss and grief. A consult can be placed by your primary care or mental health provider. You can request a female Director Of Email Marketing if you prefer. If you have no mental health services in place you can ask your primary care provider who can review options available at your local facility and place a consult. You can also contact your local hospital to request loss support group information. [employer] offers online information and support for Loss & Grief in & : https://www..net/g et-help/ddcv-yxxmi-se- -/ Finally, here is a frequently asked questions guide from the [employer]: https://www.acog.org/patient - resources/faqs//ear qn-opsujubvg-vrjt Please don't hesitate to reach out to a member of your healthcare team if you have questions or to schedule an appointment. Our sincere condolences, Chante Escamilla, RN, MSN tel. Aria Bryant [facility], [facility] tel. Ellen Elliott, [facility] tel. Additional Contacts: Women Veterans Atmospheric Technician: Griselda Gannon, MSN, RN tel. [phone] / [phone] x [phone] or Toll Free: [phone]) [place] Women's national call center: If you're experiencing a mental health crisis please contact the Veterans Crisis Line (available 18/04): Dial 988 or call then press 1; or text ([phone]); or chat ([email or web address]/Chat ) /Intentions/Contrac eption: Current Status: DATE STATE DETAILS NOV 25, 2023@13:40:27 MEDICALLY UNABLE TO CONCEIVE: NO LAST MENSTRUAL PERIOD DATE: OCT 17, 2023 EXPECTED DUE DATE: JUL 23, 2024 New Status: The patient is currently documented as . DATE STATE DETAILS NOV 25, 2023@13:40:27 LAST MENSTRUAL PERIOD DATE: OCT 17, 2023 EXPECTED DUE DATE: JUL 23, 2024 ended [facility] of the [facility]. End Date: January 02, 2024 Reason Ended: Miscarriage The patient is not currently lactating. The patient is medically able to conceive. The patient states that they are not . An automated review of this patient's chart indicates there are no potentially harmful orders to review. The patient is unsure about wanting to become within the next year. The patient is doing nothing to prevent . /es/ Chante Escamilla, RN, MSN Maternity Insole Presser LEN VAZQUEZ 1 Signed: 01/16/2024 12:47 Receipt Acknowledged By: 01/16/2024 16:32 /es/ ARIA HARRINGTON 1 Relay Telegrapher Maternity Care Coordination 01/16/2024 14:09 /es/ QUINTON ROBISON Women's Health Nurse Navigator 01/16/2024 14:23 /es/ UMESH MCDONOUGH MEAT PRODUCTS DEMONSTRATOR --- Original Document --- 01/16/24 Gynecology/Follow Up Note: GYNECOLOGY PROGRESS NOTE- Telephone Visit [place] [facility] appointment: Provider confirmed that [facility] is currently located at the following address listed in their CPRS chart. e-912: Call [phone] to speak with an agent who can put you in touch with a local operator at the Patient's location. You must have the physical location (address) where the Patient is currently located. Verbal informed consent has been obtained. HPI: 43 y.o. currently presenting for follow up of low libido, dyspareunia. When we last saw eachother in 08/2023, was a possibility and while she was taking prescribed HRT for symptoms, she was to use back up contraception. She didn't end up starting the HRT, had intercourse one time and found she was She was 11 weeks along and unfortunately had a miscarriage 2 weeks ago, passed spontaneously Following with blood work and HCG is downtrending Hasn't had bleeding in a week Has been a bit weak and dizzy but she has also prior to been feeling very fatigued and low energy Liver hurts, hasn't figured out why this is happening Didn't start the HRT Still struggling with fatigue Does have the patches and prometrium at home Wondering if and when she can start this ACTIVE PROBLEMS: Bipolar disorder ([facility] [id number]) Pulsatile tinnitus ([facility] [id number]) Abdominal pain ([facility] [id number]) Caesarean delivery - delivered ([facility] [id number]) Borderline personality disorder (SCT 200Back pain ([facility] [id number]) Episodic opioid dependence ([facility] [id number] of alcohol abuse ([facility] [id number]) ALLERGIES/ADR: Patient has answered NKA Active Outpatient [...] 09:21) GLU: 103 (07/25/23 09:21) HGB A1C: 5.1 (10/31/23 14:25) LFT: AST/ALT wnl ROS: Review of systems is otherwise negative except as noted in HPI. PHYSICAL EXAMINATION: VS: Ht: 65 in [165.1 cm] (11/11/2023 14:07) Wt: 138.2 lb [62.69 kg] (11/11/2023 14:07) General: NAD, comfortable Assessment/Plan: 43 y.o. currently presenting for follow up of low libido, dyspareunia. - Patient had a recent miscarriage, feels well supported by family and her health care teams - Is unsure about future , was really happy about this and does not want to miscarry again - We reviewed increased likelihood of miscarriage with increasing age and I reiterated there is nothing that she did or didn't do to cause this to happen - Will plan to start HRT after next cycle, biweekly patch and 3 weeks of aygestin each month - Can consider adding testosterone for additional benefit RTC in 3 months Total time spent day of service on chart review, disease discussion and therapeutic counseling as well as documentation and coordination of care: 30 minutes /es/ JUDY WALDRON MD, MPH Signed: 01/16/2024 11:58 01/16/2024 ADDENDUM STATUS: COMPLETED Patient gave me permission to alert her [facility] team that she had a miscarriage 2 weeks ago and knows she has had some missed calls/messages from the team. She feels very supported by her health care teams and her family currently. /deann/ JUDY WALDRON MD, MPH Signed: 01/16/2024 12:00 Receipt Acknowledged By: 01/16/2024 16:31 /abril Robin Relay Telegrapher Maternity Care Coordination 01/16/2024 12:31 /abril Escamilla, RN, MSN Maternity Insole Presser LEN VAZQUEZ SARAH E [place] [facility] Jan 16, 2024 11:59 AM ADDENDUM: LOCAL TITLE: Addendum STANDARD TITLE: ADDENDUM DATE OF NOTE: JAN 16, 2024@11:59:23 ENTRY DATE: JAN 16, 2024@11:59:24 AUTHOR: JUDY WALDRON EXP COSIGNER: URGENCY: STATUS: COMPLETED Patient gave me permission to alert her [facility] team that she had a miscarriage 2 weeks ago and knows she has had some missed calls/messages from the team. She feels very supported by her health care teams and her family currently. /abril WALDRON MD, MPH Signed: 01/16/2024 12:00 Receipt Acknowledged By: 01/16/2024 16:31 /abril Robin Relay Telegrapher Maternity Care Coordination 01/16/2024 12:31 /deann/ Chante Escamilla, RN, MSN Maternity Insole Presser LEN VAZQUEZ 1 --- Original Document --- 01/16/24 Gynecology/Follow Up Note: GYNECOLOGY PROGRESS NOTE- [facility] Visit [facility] appointment: Provider confirmed that [facility] is currently located at the following address listed in their CPRS chart. e-911: Call [phone] to speak with an agent who can put you in touch with a local operator at the Patient's location. You must have the physical location (address) where the Patient is currently located. Verbal informed consent has been obtained. HPI: 43 y.o. currently presenting for follow up of low libido, dyspareunia. When we last saw eachother in 08/2023, was a possibility and while she was taking prescribed HRT for symptoms, she was to use back up contraception. She didn't end up starting the HRT, had intercourse one time and found she was She was 11 weeks along and unfortunately had a miscarriage 2 weeks ago, passed spontaneously Following with blood work and HCG is downtrending Hasn't had bleeding in a week Has been a bit weak and dizzy but she has also prior to been feeling very fatigued and low energy Liver hurts, hasn't figured out why this is happening Didn't start the HRT Still struggling with fatigue Does have the patches and prometrium at home Wondering if and when she can start this ACTIVE PROBLEMS: Bipolar disorder ([facility] [id number]) Pulsatile tinnitus ([facility] [id number]) Abdominal pain ([facility] 86360819) Caesarean delivery - delivered ([facility] [id number]) Borderline personality disorder (SCT 200Back pain ([facility] 423710952) Episodic opioid dependence ([facility] 25716062Pkjxogg of alcohol abuse ([facility] 607926321) ALLERGIES/ADR: Patient has answered NKA Active Outpatient [...] 09:21) MCV: 93.6 (07/25/23 09:21) PLT: 267 (07/25/23:) RDW: 12.4 (07/25/23 09:21) CHOL: 238 (07/25/23 09:21) HDL: 76 (07/25/23 09:21) LDL: 152 (07/25/23 09:21) TRI (07/25/23 09:21) GLU: 103 (07/25/23 09:21) HGB A1C: 5.1 (10/31/23 14:25) LFT: AST/ALT wnl ROS: Review of systems is otherwise negative except as noted in HPI. PHYSICAL EXAMINATION: VS: Ht: 65 in [165.1 cm] (11/11/2023 14:07) Wt: 138.2 lb [62.69 kg] (11/11/2023 14:07) General: NAD, comfortable Assessment/Plan: 43 y.o. currently presenting for follow up of low libido, dyspareunia. - Patient had a recent miscarriage, feels well supported by family and her health care teams - Is unsure about future , was really happy about this and does not want to miscarry again - We reviewed increased likelihood of miscarriage with increasing age and I reiterated there is nothing that she did or didn't do to cause this to happen - Will plan to start HRT after next cycle, biweekly patch and 3 weeks of aygestin each month - Can consider adding testosterone for additional benefit RTC in 3 months Total time spent day of service on chart review, disease discussion and therapeutic counseling as well as documentation and coordination of care: 30 minutes /es/ JUDY WALDRON MD, MPH Signed: 01/16/2024 11:58 01/16/2024 ADDENDUM STATUS: COMPLETED Thank you for alerting the [facility]. She will be archived from the [facility] program at this time, but mode has our contact information in the event of future questions. The following letter will be mailed to later this week: Lala Patel [address] [place] [id number] Dear Lala: We are very sorry for your loss. Losing a can be a very stressful and overwhelming time. Your body and mind are going through many changes right now. Each person grieves a loss in their own way and there is no one way to experience grief and loss. You've got so much on your mind and in your heart right now. We hope it will be one less worry for you to know that your [facility] healthcare team is available for outreach and support during this difficult time. If you have any concerns regarding physical symptoms, please follow up with your occupational medicine officer. It's also recommended that you schedule a follow up with your primary care provider who can assess any other healthcare needs you might have. Loss can also impact you in other ways (mental, emotional, spiritual). In addition to mental health services, VA Director Of Email Marketing services are also available to provide spiritual and emotional support in the context of loss and grief. A consult can be placed by your primary care or mental health provider. You can request a female Director Of Email Marketing if you prefer. If you have no mental health services in place you can ask your primary care provider who can review options available at your local facility and place a consult. You can also contact your local hospital to request loss support group information. [employer] offers online information and support for Loss & Grief in & : https://www..net/g et-help/cxqi-ixmfj-el- -/ Finally, here is a frequently asked questions guide from the [employer]: https://www.acog.org/patient - resources/faqs//ear cl-keyjheuyo-jctn Please don't hesitate to reach out to a member of your healthcare team if you have questions or to schedule an appointment. Our sincere condolences, Chante Escamilla, RN, MSN tel. Aria Bryant, [facility], [facility] tel. Ellen Elliott [facility] tel. Additional Contacts: Women Veterans Atmospheric Technician: Griselda Gannon, MSN, RN tel. [phone] / [phone] x [phone] or Toll Free: [phone] ([phone]) [place] Women's national call center: If you're experiencing a mental health crisis please contact the Veterans Crisis Line (available 18/04): Dial 988 or call then press 1; or text ([phone]); or chat ([email or web address].[email or web address]/Chat ) /Intentions/Contrac eption: Current Status: DATE STATE DETAILS NOV 25, 2023@13:40:27 MEDICALLY UNABLE TO CONCEIVE: NO LAST MENSTRUAL PERIOD DATE: OCT 17, 2023 EXPECTED DUE DATE: JUL 23, 2024 New Status: The patient is currently documented as . DATE STATE DETAILS NOV 25, 2023@13:40:27 LAST MENSTRUAL PERIOD DATE: OCT 17, 2023 EXPECTED DUE DATE: JUL 23, 2024 ended outside of the [place]. End Date: January 02, 2024 Reason Ended: Miscarriage The patient is not currently lactating. The patient is medically able to conceive. The patient states that they are not . An automated review of this patient's chart indicates there are no potentially harmful orders to review. The patient is unsure about wanting to become within the next year. The patient is doing nothing to prevent . /es/ Chante Escamilla, RN, MSN Maternity Insole Presser RN, KAEN 1 Signed: 01/16/2024 12:47 Receipt Acknowledged By: * AWAITING SIGNATURE * ARIA BRYANT JOSE 01/16/2024 14:09 /es/ QUINTON ROBISON Women's Health Nurse Navigator 01/16/2024 14:23 /es/ JUDY JOY APRN [facility] Jan 16, 2024 09:51 AM MILKING MACHINE TECHNICIAN NOTE: LOCAL TITLE: Gynecology/Follow Up Note STANDARD TITLE: MILKING MACHINE TECHNICIAN NOTE DATE OF NOTE: JAN 16, 2024@09:51 ENTRY DATE: JAN 16, 2024@09:51:19 AUTHOR: JUDY WALDRON EXP COSIGNER: URGENCY: STATUS: COMPLETED Gynecology/Follow Up Note Has ADDENDA GYNECOLOGY PROGRESS NOTE- [facility] Visit [facility]: Provider confirmed that [facility] is currently located at the following address listed in their [facility] chart. e-911: Call [phone] to speak with an agent who can put you in touch with a local operator at the Patient's location. You must have the physical location (address) where the Patient is currently located. Verbal informed consent has been obtained. HPI: 43 y.o. currently presenting for follow up of low libido, dyspareunia. When we last saw eachother in 08/2023, was a possibility and while she was taking prescribed HRT for symptoms, she was to use back up contraception. She didn't end up starting the HRT, had intercourse one time and found she was She was 11 weeks along and unfortunately had a miscarriage 2 weeks ago, passed spontaneously Following with blood work and HCG is downtrending Hasn't had bleeding in a week Has been a bit weak and dizzy but she has also prior to been feeling very fatigued and low energy Liver hurts, hasn't figured out why this is happening Didn't start the HRT Still struggling with fatigue Does have the patches and prometrium at home Wondering if and when she can start this ACTIVE PROBLEMS: Bipolar disorder ([facility] [id number]) Pulsatile tinnitus ([facility] 913730613) Abdominal pain ([facility] 28526778) Caesarean delivery - delivered ([facility] 390217618) Borderline personality disorder (SCT 200Back pain ([facility] 393118391) Episodic opioid dependence ([facility] 80857371Zdqtope of alcohol abuse ([facility] 806632820) ALLERGIES/ADR: Patient has answered NKA Active Outpatient [...] 09:21) GLU: 103 (07/25/23 09:21) HGB A1C: 5.1 (10/31/23 14:25) LFT: AST/ALT wnl ROS: Review of systems is otherwise negative except as noted in HPI. PHYSICAL EXAMINATION: VS: Ht: 65 in [165.1 cm] (11/11/2023 14:07) Wt: 138.2 lb [62.69 kg] (11/11/2023 14:07) General: NAD, comfortable Assessment/Plan: 43 y.o. currently presenting for follow up of low libido, dyspareunia. - Patient had a recent miscarriage, feels well supported by family and her health care teams - Is unsure about future , was really happy about this and does not want to miscarry again - We reviewed increased likelihood of miscarriage with increasing age and I reiterated there is nothing that she did or didn't do to cause this to happen - Will plan to start HRT after next cycle, biweekly patch and 3 weeks of aygestin each month - Can consider adding testosterone for additional benefit RTC in 3 months Total time spent day of service on chart review, disease discussion and therapeutic counseling as well as documentation and coordination of care: 30 minutes /deann/ JUDY WALDRON MD, MPH Signed: 01/16/2024 11:58 01/16/2024 ADDENDUM STATUS: COMPLETED Patient gave me permission to alert her [facility] team that she had a miscarriage 2 weeks ago and knows she has had some missed calls/messages from the team. She feels very supported by her health care teams and her family currently. /deann/ JUDY WALDRON MD, MPH Signed: 01/16/2024 12:00 Receipt Acknowledged By: * AWAITING SIGNATURE * ARIA BRYANT 01/16/2024 12:31 /es/ Chante Escamilla, RN, MSN Maternity Insole Presser RN, LEN 1 01/16/2024 ADDENDUM STATUS: COMPLETED Thank you for alerting the [facility]. She will be archived from the [facility] program at this time, but has our contact information in the event of future questions. The following letter will be mailed to later this week: Lala [address] [address] Dear Lala: We are very sorry for your loss. Losing a can be a very stressful and overwhelming time. Your body and mind are going through many changes right now. Each person grieves a loss in their own way and there is no one way to experience grief and loss. You've got so much on your mind and in your heart right now. We hope it will be one less worry for you to know that your [facility] healthcare team is available for outreach and support during this difficult time. If you have any concerns regarding physical symptoms, please follow up with your occupational medicine officer. It's also recommended that you schedule a follow up with your primary care provider who can assess any other healthcare needs you might have. Loss can also impact you in other ways (mental, emotional, spiritual). In addition to mental health services, [facility] Director Of Email Marketing services are also available to provide spiritual and emotional support in the context of loss and grief. A consult can be placed by your primary care or mental health provider. You can request a female Director Of Email Marketing if you prefer. If you have no mental health services in place you can ask your primary care provider who can review options available at your local facility and place a consult. You can also contact your local hospital to request loss support group information. [employer] offers online information and support for Loss & Grief in & : https://www..net/g et-help/gsuv-tcoka-pv- -/ Finally, here is a frequently asked questions guide from the [employer]: https://www.acog.org/patient - resources/faqs//ear pp-kutqddgqj-rlbo Please don't hesitate to reach out to a member of your healthcare team if you have questions or to schedule an appointment. Our sincere condolences, Chante Escamilla, RN, MSN tel. Aria Bryant [facility], [facility] tel. Ellen Elliott, [facility] tel. Additional Contacts: [facility] Atmospheric Technician: Griselda Gannon, MSN, RN tel. [phone] / [phone] x [phone] or Toll Free: [phone] ([phone]) [place] [facility] call center: If you're experiencing a mental health crisis please contact the Veterans Crisis Line (available 18/04): Dial [phone] or call then press 1; or text ([phone]); or chat ([email or web address] ) /Intentions/Contrac eption: Current Status: DATE STATE DETAILS NOV 25, 2023@13:40:27 MEDICALLY UNABLE TO CONCEIVE: NO LAST MENSTRUAL PERIOD DATE: OCT 17, 2023 EXPECTED DUE DATE: JUL 23, 2024 New Status: The patient is currently documented as . DATE STATE DETAILS NOV 25, 2023@13:40:27 LAST MENSTRUAL PERIOD DATE: OCT 17, 2023 EXPECTED DUE DATE: JUL 23, 2024 [facility] End Date: January 02, 2024 Reason Ended: Miscarriage The patient is not currently lactating. The patient is medically able to conceive. The patient states that they are not . An automated review of this patient's chart indicates there are no potentially harmful orders to review. The patient is unsure about wanting to become within the next year. The patient is doing nothing to prevent . /deann/ Chante Escamilla, RN, MSN Maternity Insole Presser RN, LEN 1 Signed: 01/16/2024 12:47 Receipt Acknowledged By: * AWAITING SIGNATURE * ARIA BRYANT * AWAITING SIGNATURE * QUINTON ROBISON * AWAITING SIGNATURE * UMESH MCDONOUGH ANGELA F [place] [facility]
--- OUTSIDE RECORDS SUMMARY | 2024-08-03 13:57 | XMS_ITS | Encounter Summary ---
Author Name [facility] [place] [facility] [place] [facility] [place] Address [address] [place] [address] Care Team Providers Care Core Shaper Name Role Phone UMESH MCODNOUGH Primary Care Provider Victor Hugo e Selected Encounter This section includes the information on record at [place] for the Encounter. Date/Time Encounter Type Encounter Description Reason Provider Source Nov 25, 2023 01:00 PM HC PRO PHONE CALL 21-30 MIN TELEPHONE/MEDICIN E ICD-10-CM Z33.1 state, incidental CHANTE ESCAMILLA Encounter Template Text not used by [place] Assessments - Encounter Diagnoses This section includes the primary and secondary diagnoses documented for the Encounter. Date/Time Primary/Secondary Diagnosis Diagnosis Name Provider Source Nov 25, 2023 01:00 PM PRIMARY state, CHANTE Goodman [facility] Plan of Treatment: Future Appointments (+ 6 months) and Future Tests (+/- 45 days) The Plan of Treatment section includes future care activities for the patient from all [place] treatmentfacilities. This section includes future appointments and future orders which are active, pending or scheduled. Future Appointments This section includes appointments that were scheduled to occur 6 months from the date of the Encounter, up to a maximum of 20 appointments. The data comes from all [place] treatment facilities. Appointment Date/Time Appointment Type Appointme nt Facility Name Dec 05, 2023 12:30 PM AMBULATORY - NONE [facility] Dec 12, 2023 12:30 PM [place] [facility] 2023 10:00 AM AMBULATORY - NONE [place] [facility] Jan 16, 2024 11:30 AM AMBULATORY - SURGERY [place] [facility] Apr 10, 2024 10:45 AM AMBULATORY - NONE [place] [facility] Apr 23, 2024 08:15 AM AMBULATORY - NONE [place] [facility] May 09, 2024 03:00 PM [place]IC[place] [facility] May 14, 2024 12:30 PM AMBULATORY - [place]GERY [place] [facility] May 22, 2024 10:00 AM AMBULATORY - NONE [place] [facility] May 23, 2024 09:00 AM AMBULATORY - NONE [place] [facility] Lab Results: +/- 30 days [...] Type: SERUM Comment: , Tests performed on Provade SN:[id number] (405). Ordering Provider: UMESH MCDONOUGH Report Released Date/Time: Nov 21, 2023 03:58 PM Reporting [facility] [address] [facility] [address] Performing Lab: [facility] [address] [facility] [address] BHCG QUANT 3145.51 m[IU]/mL <5.0 Oct 31, 2023 02:25 PM [facility] SJOGREN'S ANTIBODY(SS-A,SS-B)PANEL(Q) Specimen Type: SERUM Comment: Reference Range: < 1.0 NEG AI Test Performed by [place], [employer] [facility], [address] [place] [address] Juan A Garcia M.D., Ph.D., Director of Laboratories , [facility] [id number] Ordering Provider: JUDY WALDRON Report Released Date/Time: Oct 24, 2023 02:36 PM Reporting Lab: [place] [facility] [address] [facility] [address] Performing Lab: [facility] [place] [facility] [address] [place] [address] SJOGREN'S ANTIBODY(SS-A)(q) <1.0 SJOGREN'S ANTIBODY(SS-B)(q) <1.0 Oct 31, 2023 02:25 PM [place] [facility] RHEUMATOID FACTOR (B) Specimen Type: SERUM No comment entered. Ordering Provider: JUDY WALDRON Report Released Date/Time: Oct 24, 2023 02:36 PM Reporting Lab: [place] [facility] [address] [facility] [address] Performing Lab: [facility] [address] [address] RHEUMATOID FACTO R (B) <15 0-15 Oct 31, 2023 02:25 PM [facility] FLORINA SCREEN/TITER (B) Specimen Type: SERUM No comment entered. Ordering Provider: JUDY WALDRON Report Released Date/Time: Oct 24, 2023 02:36 PM Reporting Lab: [place] [facility] [address] [facility] [address] Performing Lab: [facility] [address] [address] FLORINA SCREEN (B) NEG Oct 31, 2023 02:25 PM [facility] VITAMIN B-12 Specimen Type: SERUM Comment: , Tests performed on [place] Program Technician Mckenna SN:[id number] (405) Ordering Provider: JUDY WALDRON Report Released Date/Time: Oct 24, 2023 02:36 PM Reporting Lab: [place] [facility] [address] [facility] [address] Performing Lab: [place] [facility] [address] [facility] [address] VITAMIN B-12 1071 pg/mL H 200-900 Oct 31, 2023 02:25 PM [facility] ESR(NEW) Specimen Type: BLOOD Comment: Tests performed on Alcor ISED(405) Ordering Provider: JUDY WALDRON Report Released Date/Time: Oct 24, 2023 02:36 PM Reporting Lab: [facility] [address] [facility] [address] Performing Lab: [facility] [address] [facility] [address] ESR(NEW) 4 mm/h 0-20 Oct 31, 2023 02:25 PM [facility] CRP(INFLAMMATORY) Specimen Type: PLASMA Comment: , Tests performed on [place] Alluring Logic Gianni SN:[id number] (405). Ordering Provider: JUDY WALDRON Report Released Date/Time: Oct 24, 2023 02:36 PM Reporting Lab: [facility] [address] [facility] [address] Performing Lab: [facility] [address] [facility] [address] CRP(INFLAMMATORY) 0.6 mg/L 0.0-5.0 Oct 31, 2023 02:25 PM [facility] GLYCOHEMOGLOBIN (A1C ONLY) Specimen Type: BLOOD Comment: , Tests performed on [place] [employer] Logic Mckenna SN:[id number] (405) Values obtained from A1C measurements can vary. For typical A1C assays, a reported value of 7.0 could actually be between 6.72 and 7.28 if measured by a reference method. A reported value of 9.0 could actually be between 8.73 and 9.27. Ref: http://www.ng sp.org/CAPdat a.asp Ordering Provider: UMESH MCDONOUGH Report Released Date/Time: Oct 27, 2023 04:22 PM Reporting Lab: [facility] [address] [facility] [address] Performing Lab: [facility] [address] [facility] [address] HEMOGLOBIN A1C 5.1 4.0-5.6 Social History: Smoking Status (Most current) and Tobacco Use (All prior to encounter date) This section includes the most current, and the historical, smoking and tobacco- related health factors from the [place] facility where the Encounter took place. Current Smoking Status This section includes the most current smoking, or tobacco-related health factor, from the [place] facility where the Encounter took place. Date/Time Current Smoking Status Comment Facil sandip Nov 25, 2023 01:00 PM VA-TOBACCO NEVER USED [place] [facility] Tobacco Use History This section includes a history of the smoking, or tobacco-related health factors, that were collected on or before the date of the Encounter. The data comes from the [place] facility where the Encounter took place. Date/Time Smoking Status/Tobacco Use Comment F acility Nov 25, 2023 01:00 PM VA-TOBACCO NEVER USED [place] [facility] Aug 02, 2023 02:30 PM VA-TOBACCO NEVER USED [place] [facility] Aug 20, 2019 11:05 AM VA-TOBACCO NEVER USED [place] [facility] Encounter Notes: All associated encounter notes This section contains the clinical notes associated to the Encounter. Date/Time Encounter Note(s) Provider Source Nov 25, 2023 01:01 PM [facility] NOTE : LOCAL TITLE: [place]-MATERNITY CARE COORDINATION STANDARD TITLE: [facility] DATE OF NOTE: NOV 25, 2023@13:01 ENTRY DATE: NOV 25, 2023@13:01:48 AUTHOR: CHANTE ESCAMILLA COSIGNER: URGENCY: STATUS: COMPLETED VA-MATERNITY CARE COORDINATION Has ADDENDA MATERNITY CARE COORDINATION NOTE Purpose of the Call: Maternity Care Coordination Needs The patient is medically able to conceive. The patient states that they are . An automated review of this patient's chart indicates there are no potentially harmful orders to review. Last Menstrual Period: October 17, 2023 Expected Due Date: July 23, 2024 First Trimester Information Patient's estimated Due Date: July 23, 2024 Weeks gestation at time of call: weeks 5 days 4 (son, turns 2 this month, miscarriage 2018) Spoke with mode for enrollment purposes in the maternity care coordination program. This is the 's 3rd . G1 is a miscarriage in 2019. G2- 's son born via at approximately 41 weeks for failure to dilate in labor and heart decels. She started with [facility] program in 2020, but did not f/u and was only followed early in that . She reports her with her son was otherwise uncomplicated. Mode is aware is she experiences symptoms of ectopic (sharp, persistent, unilateral pelvic pain) prior to the confirmation of an intrauterine via US, to contact OB or go to the ED. She reports early symptoms of mild nausea and breast tenderness. She also reports increased fatigue which started pre- and liver pain. She does have a hx of ETOH abuse and reported concerns with regarding this pain. I advised her to notify OB provider at first visit and this credit underwriter alerted PACT team as well. [place] screened negative for depression (EPDS of 3). She declined to complete PTSD screen. Primary RHSS was positive. Secondary RHSS was negative. reports issues in relationship have significantly improved and declines need for additional support within the [place]. She has not seen a MH provider recently, but stated, There's a psychiatrist at the [place] I can call if I need to. (Quentiapine rx from PCP.) No other issues r/t social determinents of health at this time. is aware if future needs, to reach out to [facility], their mental health provider, primary care provider, or maternity provider; Veterans' Crisis Line number provided (Dial 988 then Press 1). is aware that [facility] SW will be reaching out in the next 2-5 weeks [address] [facility] check-in (prefers Mondays or Tuesdays in the morning). This credit underwriter will next contact on 02/14/24 @ 9am, but is aware that [facility] team remains available between scheduled check-ins as questions come up. Ectopic screening- Is [place] experiencing vaginal bleeding: no Is experiencing pelvic pain: no Does [place] have history of: -Endometriosis: no -PID: no -Prior or current STDs: no -Prior IUD use: no -Prior pelvic surgery: -Ruptured appendix: no -Prior ectopic : no -Infertility: no -Several induced abortions: no -Smoking: no High Risk Factors: -bipolar -BPD -hx ETOH and opioid abuse -MST -back pain - x 1 -miscarriage x 1 Welcome letter and DOD care guide sent to Vet via [employer]. Vet informed that regular telephone contact (i.e., based on the [place]'s needs) will be made each trimester and will be followed by [facility] team until she is 12 months post- . Per [facility] Directive [phone] the nature and frequency of calls are based on the [place]'s needs. [facility] name and number given for Vet to call as needed. Community OB provider: Pending ( wishes to deliver at [facility]; OCC aware and will f/u) VA coverage of maternity/ care was discussed VA care coverage and obtaining non-VA health insurance coverage. VA coverage policies for -related education and support. VA coverage of nursing bras, breast pumps and supplies. VA coverage of hospitalizations, Emergency Care and the Emergency Treatment Notification process. VA coverage and process for obtaining medications prescribed by an approved Community Care provider. Guidance for addressing billing inquiries from an approved Community Care provider. WIC (Nutrition Program for Women, Infants, and Children) Patient informed about WIC benefits. Health Problems reviewed and updated. Active Problems: Code Description F31.9 Bipolar disorder ([facility] [id number]) H93.19 Pulsatile tinnitus ([facility] [id number]) R10.9 Abdominal pain ([facility] [id number]) R69. Caesarean delivery - delivered ([facility] [id number]) F60.3 Borderline personality disorder ([facility] [id number]) M54.59 Back pain ([facility] [id number]) F11.21 Episodic opioid dependence ([facility] [id number]) F10.94 History of alcohol abuse ([facility] [id number]) The patient reported no health problems. Medication Review The following medications are listed as Active in the patient's [facility] Health Record: RXOP - Outpatient Pharmacy Drug......................... ........... Last Rx # Stat Qty Issued Filled Rem MOISTURIZER VAG GEL APPLIC (EQV-REPLENS) [id number] ACTIVE 24 08/02/2023 08/02/2023 (3) SIG: INSERT ONE APPLICATION INTRAVAGINALLY EVERY THREE DAYS FOR DRYNESS MAY USE MORE FREQUENTLY NEEDED, DAILY USE IS SAFE Indication: FOR DRYNESS Provider: JHOANA FRANCIS Cost/Fill: $ 34.38 FLUTICASONE PROP 50MCG 120D NASAL INHL [id number] ACTIVE 2 06/07/2023 06/07/2023 (2) SIG: INSTILL 2 SPRAYS INTO EACH NOSTRIL TWICE A DAY FOR NASAL IRRITATION/INFLAMMATION - SPRAY FLONASE AFTER SALINE NASAL SPRAY Indication: FOR NASAL IRRITATION/INFLAMMATION Provider: FERN ELLIOTT Cost/Fill: $ 5.32 GUAIFENESIN 600MG SA TAB [id number] ACTIVE 360 04/06/2023 04/06/2023 (3) SIG: TAKE TWO TABLETS BY MOUTH TWICE DAILY NEEDED FOLLOW DOSE WITH FULL GLASS OF WATER Indication: TO CLEAR MUCUS Provider: UMESH MCDONOUGH Cost/Fill: $ 44.50 QUETIAPINE FUMARATE 25MG TAB [id number] ACTIVE 90 04/06/2023 04/06/2023 (3) SIG: TAKE ONE TABLET BY MOUTH AT BEDTIME FOR BIPOLAR DISORDER Indication: FOR BIPOLAR DISORDER Provider: UMESH MCDONOUGH Cost/Fill: $ 7.19 RXNV - Non VA Meds Non-VA Med: FISH OIL CAP,ORAL Status: Active CPRS Order #: [id number] Documented By: BECCA WILSON MD Documented Date: AUG 30, 2017@21:41:39 Clinic: [facility] Hern[facility]dez MD Start Date: Dispense Drug: FISH OIL 1000MG (500MG DHA/EPA) CAPDosage: 1000MG Med Route: BY MOUTH Schedule: EVERY DAY Statement/Explanation/Comment : Non-VA Med: PROBIOTIC CAP,ORAL Status: Active CPRS Order #: [id number] Documented By: BECCA WILSON MD Documented Date: AUG 30, 2017@21:41:39 Clinic: [facility] Hern[facility]dez MD Start Date: Dispense Drug: Dosage: Med Route: BY MOUTH Schedule: EVERY DAY Statement/Explanation/Comment : Non-VA Med: MULTIVITAMINS CAP/TAB Status: Active CPRS Order #: [id number] Documented By: BECCA WILSON MD Documented Date: AUG 30, 2017@21:41:39 Clinic: [facility] Hern[facility]dez MD Start Date: Dispense Drug: MULTIVITAMIN CAP/TAB Dosage: ONE CAP/TAB Med Route: BY MOUTH Schedule: EVERY DAY Statement/Explanation/Comment : Non-VA Med: VALACYCLOVIR TAB Status: Discontinued (JUL 14, 2020) CPRS Order #: [id number] Documented By: BECCA WILSON MD Documented Date: AUG 31, 2017@07:48 Clinic: BA Hernández MD Start Date: Dispense Drug: VALACYCLOVIR HCL 500MG TAB Dosage: 500MG Med Route: BY MOUTH Schedule: TWICE DAILY NEEDED Statement/Explanation/Comment : BID for 3 days, at first sign of outbreak Non-VA Med: MULTIVITAMIN W/MINERALS CAP/TAB Status: Active CPRS Order #: [id number] Documented By: CAMERON BRISCOE DNP Documented Date: NOV 28, 2019@14:41:17 Clinic: [id number] Start Date: Dispense Drug: MULTIVIT W/MINERALS, CAP/TABDosage: ONE Med Route: BY MOUTH Schedule: EVERY DAY Statement/Explanation/Comment : Patient wants to buy from Non[place] pharmacy. Medications (including supplements and herbals) reviewed. Patient reported: Patient reports the following medication changes: [place] reports current medications are fish oil, probiotic, and vitamins. She states she takes Quentiapine 25mg PRN only for insomnia, but is not taking daily. Patient's provider notified of changes in medication as appropriate. Name of provider: Umesh Mcdonough Tobacco Products The patient has never used tobacco. Patient does not use tobacco products. Assessed/educated on second and third-hand smoke. Alcohol Use Alcohol Screen: SCREEN FOR ALCOHOL (AUDIT-C) An alcohol screening test (AUDIT-C) was positive (score=5). 1. How often did you have a drink containing alcohol in the past year? Consider a drink to be a 12 ounce can or bottle of regular beer, 8 ounces of malt liquor, a 5 ounce glass of table wine, or a 1.5 ounce shot of liquor (like scotch, gin, or vodka). Two to three times per week 2. How many drinks containing alcohol did you have on a typical day when you were drinking in the past year? One or two drinks 3. How often did you have 4 or more drinks on one occasion in the past year? Monthly Patient is not consuming alcohol. Educated on danger of alcohol to development and that no amount of alcohol is safe. Additional comments: reports she is not drinking alcohol and declines need for additional support at this time. Homelessness and Food Insecurity In the past 2 months, have you [...] Not worried about housing near future The [place] reports the following: Within the past 12 months, you worried whether your food would run out before you got money to buy more. Never true Within the past 12 months, the food you bought just didn't last and you didn't have money to get more. Never true Depression and Suicide Screening Total scores range from a minimum of 0 to a maximum of 30. Mothers who score above 13 are likely to be suffering from a depressive illness of varying severity. A careful clinical assessment should be carried out to confirm the diagnosis. The scale indicates how the mother has felt during the previous week. The [place] Depression (EPDS) scale was performed and score was 3. 1. I have been able to laugh and see the funny side of things As much as I always could 2. I have looked forward with enjoyment to things As much as I ever did 3. I have blamed myself unnecessarily when things went wrong Not very often 4. I have been anxious or worried for no good reason Hardly ever 5. I have felt scared or panicky for no very good reason No, not at all 6. Things have been getting on top of me No, most of the time I have coped quite well 7. I have been so unhappy that I have had difficulty sleeping No, not at all 8. I have felt sad or miserable No, not at all 9. I have been so unhappy that I have been crying No, never 10. The thought of harming myself has occurred to me Never If mood worsens, patient encouraged to reach out to [facility], their mental health provider, primary care provider, or maternity provider; Veterans' Crisis Line number provided (Dial 988 then Press 1). PTSD Screening The patient declined to complete the PTSD screening questions. Relational health and well-being Discussion and Education Completed Additional comments: reports issues in relationship have significantly improved and declines need for additional support within the [facility]. RHS Screen: RHS Screen Session Format: Telephone Modality of Care: Telephone Patient's identity verified using two identifiers. Patient Contact Details: Best contact number for backup/emergency communication with patient: Patient Location/Surroundings During Visit: Patient location during visit: Home [address] [place] [id number] Patient confirms location is safe and private for visit. Environmental Check Upon inquiry, the individual reports that the environment is safe to proceed. Informed Consent to Screen and Document The individual consents to proceed with screening. The individual consents to documentation of responses. PRIMARY SCREEN: In the past 12 months, how often did a current or former intimate partner (e.g., boyfriend, girlfriend, , , sexual partner): 1. Scream or curse at you Never 2. Insult or talk down to you Rarely 3. Threaten you with harm Never 4. Physically hurt you Never 5. Force or pressure you to have sexual contact against your will, or when you were unable to say no Never ? The HITS tool (items 1-4 above) is US copyright protected by Erlin Otero MD, and the user has full rights to use it throughout the [place] system. PRIMARY SCREEN RESULT: The Primary Screen is POSITIVE. The individual reported a response besides never to at least 1 of the 5 items SECONDARY SCREEN: Has the IPV behavior increased in frequency/severity in the past 6 months? No Has your partner ever choked or strangled you? No Do you believe your partner may kill you? No SECONDARY SCREEN RESULTS: The Secondary Risk Screen is NEGATIVE (i.e., answered no to all 3 items above) RESOLUTION: Individual declines consult or referral The individual accepts education and/or resources: Yes - Offered verbal universal education about IPV - Offered information such as IPV National flyer with general IPV education, National DV hotline number 2-953-626-SAFE(6086), and web address www.[employer] EDUCATION: The individual indicated readiness to learn. Education offered during this session as noted above. The individual indicated understanding by asking relevant questions and making appropriate comments. No barriers to learning were observed or identified. Contact Information and End Call Provided [facility] and [facility] Primary Care provider contact information. Questions answered, call summarized. Additional comments: [place] is aware that [facility] SW will be reaching out in the next 2-[address] [facility] check-in. This credit underwriter will next contact on 02/14/24 @ 9am (prefers Mondays or Tuesdays in the morning). PACT ALERTS reports current medications are fish oil, probiotic, and vitamins. She states she takes Quentiapine 25mg PRN only for insomnia, but is not taking daily. reports she is not drinking alcohol and declines need for additional support at this time r/t stopping use, but she does have a hx of ETOH abuse and reported concerns with liver pain. I advised her to notify OB provider at first visit and that I would notify PCP as well for possible additional assessment. Primary RHSS positive. Secondary RHSS negative. [place] reports issues in relationship have significantly improved and declines need for additional support within the [facility]. /deann/ Chante Escamilla, RN, MSN Maternity Gaming Investigator RN, LEN 1 Signed: 11/25/2023 14:08 Receipt Acknowledged By: 11/30/2023 12:07 /es/ HERNAN HARRINGTON 1 Talent Acquisition Consultant Maternity Care Coordination 11/25/2023 14:21 /es/ CALVIN FISCHER Registered Nurse 11/28/2023 13:31 /es/ UMESH MCDONOUGH APRN 11/25/2023 ADDENDUM STATUS: COMPLETED additional risk factor: -Advanced maternal age /deann/ Chante Escamilla, RN, MSN Maternity Gaming Investigator RN, KAEN 1 Signed: 11/25/2023 14:11 CHANTE ESCAMILLA [facility]
--- OUTSIDE RECORDS SUMMARY | 2024-08-03 13:57 | XMS_ITS | Encounter Summary ---
Author Name [facility] Address [address] [place] [address] Care Team Providers Care Production Troubleshooter Name Role Phone UMESH MCDONOUGH Primary Care Provider Unavailabl e Selected Encounter This section includes the information on record at [place] for the Encounter. Date/Time Encounter Type Encounter Description Reason Provider Source Dec 05, 2023 12:30 PM OFFICE O/P EST LOW 20 MIN COMP WMS HLTH GNDR DIVERSE PC ICD-10-CM Z34.91 Encntr for suprvsn of normal preg, unsp, first trimester SACHS,ISAIAH P IHE Encounter Template Text not used by [place] Assessments - Encounter Diagnoses This section includes the primary and secondary diagnoses documented for the Encounter. Date/Time Primary/Secondary Diagnosis Diagnosis Name Provider Source Dec 05, 2023 03:33 PM PRIMARY Encntr for suprvsn of normal preg, unsp, first trimester SACHS,ISAIAH P [facility] Plan of Treatment: Future Appointments (+ 6 months) and Future Tests (+/- 45 days) The Plan of Treatment section includes future care activities for the patient from all [place] treatmentfacilities. This section includes future appointments and future orders which are active, pending or scheduled. Future Appointments This section includes appointments that were scheduled to occur 6 months from the date of the Encounter, up to a maximum of 20 appointments. The data comes from all [place] treatment facilities. Appointment Date/Time Appointment Type Appointme nt Facility Name Dec 12, 2023 12:30 PM [place] [facility] 2023 10:00 AM AM[place]ULATORY - [place]ONE [place] [facility] Jan 16, 2024 11:30 AM [place] [facility] Apr 10, 2024 10:45 AM AM[place]ATORY - NONE [place] [facility] Apr 23, 2024 08:15 AM [place]ORY - NONE [place] [facility] May 09, 2024 03:00 PM [place] [facility] May 14, 2024 12:30 PM [place] [facility] May 22, 2024 10:00 AM [place]ORY - [place]ONE [place] [facility] May 23, 2024 09:00 AM [place]ORY - NONE [place] [facility] Lab Results: +/- 30 days of the encounter This section includes the Chemistry and Hematology Lab Results on record with [place] for the patient. Radiology Reports and Pathology Reports are provided separately, in subsequent sections. Lab Results This section contains the Chemistry/Hematology Results that were resulted 30 days before or 30 daysafter the date of the Encounter. Date/Time Source Result Type Result - Unit Interpretation Reference Range Comment Nov 25, 2023 11:51 AM [facility] QUANT Specimen Type: SERUM Comment: , Tests performed on [employer] [id number] ([id number]). Ordering Provider: UMESH MCDONOUGH Report Released Date/Time: Nov 21, 2023 03:58 PM Reporting Lab: [facility] [address] [facility] [id number] Performing Lab: [facility] [address] [facility] [id number] [facility] QUANT 3145.51 m[IU]/mL <5.0 Social History: Smoking Status (Most current) and Tobacco Use (All prior to encounter date) This section includes the most current, and the historical, smoking and tobacco- related health factors from the [place] facility where the Encounter took place. Current Smoking Status This section includes the most current smoking, or tobacco-related health factor, from the [place] facility where the Encounter took place. Date/Time Current Smoking Status Comment Wendy oropeza Nov 25, 2023 01:00 PM [facility] TOBACCO SMOKES DOES NOT [place] [facility] Tobacco Use History This section includes a history of the smoking, or tobacco-related health factors, that were collected on or before the date of the Encounter. The data comes from the [place] facility where the Encounter took place. Date/Time Smoking Status/Tobacco Use Comment F acility Nov 25, 2023 01:00 PM [facility]-TO[facility]ACCO NEVER USED [place] [facility] Aug 02, 2023 02:30 PM VA-TOBACCO NEVER USED [place] [facility] Aug 20, 2019 11:05 AM VA-TOBACCO NEVER USED [place] [facility] Encounter Notes: All associated encounter notes This section contains the clinical notes associated to the Encounter. Date/Time Encounter Note(s) Provider Source Dec 05, 2023 03:28 PM TELEHEALTH NOTE: LOCAL TITLE: VIDEO-CONNECT NOTE STANDARD TITLE: TELEHEALTH NOTE DATE OF NOTE: DEC 05, 2023@15:28 ENTRY DATE: DEC 05, 2023@15:28:15 AUTHOR: ISAIAH AMARO COSIGNER: URGENCY: STATUS: COMPLETED [facility] Connect appointment: Provider confirmed that is currently located at the following address listed in their CPRS chart. [address] [place] [id number] [id number]: Call [phone] to speak with an agent who can put you in touch with a data processing operator at the Patient's location. You must have the physical location (address) where the Patient is currently located. Verbal informed consent has been obtained. HPI: 42 year old WHITE FEMALE Active problems - Computerized Problem List is the source for the followin. Bipolar disorder 2. Pulsatile tinnitus 3. Abdominal pain 4. Caesarean delivery - delivered 5. Borderline personality disorder 6. Back pain 7. Episodic opioid dependence 8. History of alcohol abuse Concerns today: ASSESSMENT/PLAN: #: Pt has positive , options counseling completed. [place] planning to keep at this time and has appt with HISTORIOGRAPHY TEACHER at [facility]. #Bleeding during : pt reports small amount of blood in her discharge yesterday, whicih resolved quickly. Advised this can be normal during early , but Hcg would be appropriate, offered to order, she prefers to obtain this through her maternity provider. Advised if she has any concerns to contact us, and to present for immediate care if bleeding restarts or increases. Pt agrees to this plan of care. HPI: [facility]VC scheduled with [facility] by request of PCP, as pt has reported positive test. PCP requests that pt recieve options counseling. Pt confirms reason for visit, had confirmatory Hcg test at [facility]. was unexpected, but she is happy and excited. Counseled that the VA is supportive of 's and acknowledges that some individuals are quite excited about and others feel overwhelmed, and the VA is here to support all veterans in all responses to . She is feeling well, despite mild URI that her whole family has right now. Denies any morning sickness. First OB appointment coming up December 18, she will be gonig to [facility]. She has had contact with maternity adult daycare coordinator. Meds reconciled, pt taking no medications at this time regularly, she has used quetiapine for sleep on occasion. Reports very watery vaginal discharge and some blood mixed in, lasted for 20 minutes, and then resolved, has not returned. She is advised that contacting her maternity provider would be appropriate, also getting hcg would be prudent, and this PCP offers to order to the [facility], but pt prefers to have this done through her maternity provider for ease. She does request we review inflammatory markers labs that were ordered by gynecology last month. These were all WNL. Pt reported no more questions. Pt counseled if she has any questions about care or coverage, or if she needs to speak with anyone about her and how she is feeling, to reach out to her PCP or the [facility]. Pt verbalizes understanding. ROS: General: no fever, malaise Eye: no discharge, no vision loss, No visual changes ENT: rhinitis, congestion, no cough, no sore throat Cardio: no chest pain or pressure Pulm: no sortness of breath, wheezing, or difficulty breathing GI: no nvd, no pain : no dysuria, polyuria, frequency, or hematuria MS: no back pain, no new or unexplained joint aches Skin: no rash or concerning lesions Neuro: no bettencourt, no dizziness Psych: denies depression or anxiety at this time Endo: no polyuria, no polydipsia Heme: no bruising or bleeding PE: Appearance: NAD, well-groomed, appropriate responses and affect Eyes: PERRL, no conjunctival injection. VITALS: video visit #Continuous Health Monitoring/Prevention Breast ca screening: reports early 2022, sending request to [facility] records. Pap/HPV: done today BMI: 23 Counseling reviewed: [x]Diet [x]Exercise []Alcohol []Smoking cessation []Safe sex []Seat belts/safety Immunizations: Up to date [], PPV20 [], PCV15 [], Shingrix [], tetanus [], flu [], Covid [] declines covid, flu, tdap today- would get for future HISTORIOGRAPHY TEACHER P: 1 delivered health baby boy 11/2021 by emergency She is not , stopped after about 6 months TABx1 09/2018 LMP: 07/29/23 lasts a day or two with some light spotting after. Typically q26 days, most recently 24 days No interest in within the next 12 months. Not sure about longer She is sexually active with one male partner, no contraception. Declines hormonal and non-hormonal STI hx? chlamydia early 2019, s/p tx Pap hx: 08/02/23: pending 07/2020: nilm, hpv pos (other HR) 2014: nilm, hpv neg 2011: nilm, hpv not done 2009: nilm, hpv not done Breast health: Denies new or changing lumps/skin changes/nipple discharge ROS: as per HPI. Denies fever, chills, unintentional weight loss SOCIAL HISTORY Smoking/Vaping: never smoker ETOH: denies. sober. 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 11/2021) HISTORY [place] 2002 No deployments SURGICAL HISTORY FAMILY HISTORY Mother: depression, anxiety Father: alcohol abuse Brother: bipolar, substance abuse Denies fam hx colon, breast, uterine, ovarian, cervical ca PROBLEM LIST Code Description F31.9 Bipolar disorder ([facility] [id number]) H93.19 Pulsatile tinnitus ([facility] [id number]) R10.9 Abdominal pain ([facility] [id number]) R69. Caesarean delivery - delivered ([facility] [id number]) F60.3 Borderline personality disorder ([facility] [id number]) M54.59 Back pain ([facility] [id number]) F11.21 Episodic opioid dependence ([facility] [id number]) F10.94 History of alcohol abuse ([facility] [id number]) Active Outpatient Medications (excluding Supplies): Active Outpatient [...] MOUTH EVERY DAY ACTIVE 8 Total Medications ALLERGIES: Patient has answered NKA Recent Labs: GLU,BUN,CREAT,LYTES GLUCOSE BUN CREAT SODIUM K CHLOR CO2 07/25/23 09:21 103 H 14 0.82 135 4.1 103 25 GLU,BUN,CREAT,LYTES ANION eGFR 07/25/23 09:21 7 HGB A1C: 5.1 (10/31/23 14:25) HCT: 39.6 (07/25/23 09:21) HGB: 13.3 (07/25/23 09:21) Collection DT Specimen Test Name Result Units Ref Range 07/25/2023 09:21 PLASMA!! ALBUMIN 4.1 g/dL 3.2 - 5.0 07/25/2023 09:21 PLASMA!! BILIRUBIN, TOTAL 0.6 mg/dL 0.2 - 1.2 07/25/2023 09:21 PLASMA!! ALKALINE PHOSPHAT 36 L U/L 40 - 150 07/25/2023 09:21 PLASMA!! ALT(SGPT) 18 U/L 7 - 52 07/25/2023 09:21 PLASMA!! AST(SGOT) 16 U/L 5 - 34 !! Indicates COMMENTS AVAILABLE...Refer to Interim Lab Report. CHOL: 238 (07/25/23 09:21) HDL: 76 (07/25/23 09:21) LDL: 152 (07/25/23 09:21) TRI (07/25/23 09:21) B12 10/31/23 14:25 1071 H TSH: 0.81 (07/25/23 09:21) PSA (CREDENTIALS SPECIALIST) - NONE FOUND HIV: Collection DT Spec HIV SCR 10/11/2018 09:39 SERUM Non-Reactive Occult Blood Fit: No data available /deann/ ISAIAH AMARO Signed: 12/05/2023 15:33 SONDRA,ISAIAH [facility]
--- OUTSIDE RECORDS SUMMARY | 2024-08-03 13:58 | XMS_ITS | Encounter Summary ---
Author Name [facility] [place] [facility] [place] Address [address] [place] [address] Care Team Providers Care Store Promoter Name Role Phone UMESH MCDONOUGH Primary Care Provider Unavailabl e Selected Encounter This section includes the information on record at [place] for the Encounter. Date/Time Encounter Type Encounter Description Reason Provider Source Apr 09, 2024 02:10 PM HC PRO PHONE CALL 5-10 MIN TELEPHONE PRIMARY CARE ICD-10-CM Z71.89 Other specified counseling ALYCIA MCKINNEY Nereida Encounter Template Text not used by [place] Assessments - Encounter Diagnoses This section includes the primary and secondary diagnoses documented for the Encounter. Date/Time Primary/Secondary Diagnosis Diagnosis Name Provider Source Apr 09, 2024 02:10 PM PRIMARY Other specified counseling GÓMEZ MCKINNEY [facility] Plan of Treatment: Future Appointments (+ [...] 10, 2024 10:45 AM AMBULATORY - NONE HETAL MARTE [facility] Apr 23, 2024 08:15 AM AMBULATORY - NONE WHITE RI ROSANNA HAMPTONT [facility] May 09, 2024 03:00 PM AMBULATORY - MEDICINE CORNELIO ABURTO T [facility] May 14, 2024 12:30 PM AMBULATORY - SURGERY HETAL ABURTO [facility] May 22, 2024 10:00 AM AMBULATORY - NONE WHITE RI ROSANNA HAMPTONT [facility] May 23, 2024 09:00 AM AMBULATORY - NONE WHITE RI ROSANNA HAMPTONT [facility] Jun 19, 2024 01:15 PM AMBULATORY - MEDICINE CORNELIO ABURTO T [facility] Jun 25, 2024 10:30 AM AMBULATORY - MEDICINE CORNELIO ABURTO T [facility] Jul 18, 2024 01:30 PM AMBULATORY - MEDICINE CORNELIO ABURTO T [facility] Aug 13, 2024 10:30 AM AMBULATORY - NONE WHITE KARINA MARTE Hossein [facility] Active, Pending, and Scheduled Orders This section includes a listing of several types of active, pending, and scheduled orders, including clinic medications orders, diagnostic test orders, procedure orders and consult orders; where the start date of the order is 45 days before the date of the Encounter or 45 days after the date of theEncounter. The data comes from all [place] treatment facilities. Test Date/Time Test Type Test Details Facility Name Apr 10, 2024 12:00 AM Laboratory - Chemi stry Order AMYLASE LT GREEN(LI HEP) PLASMA SP [facility] Apr 10, 2024 12:00 AM Laboratory - Chemi stry Order LIPASE LT GREEN(LI HEP) PLASMA SP MEDINAH LAMONTE [facility] Apr 10, 2024 11:26 AM Consult Order COMMUNITY [facility]ARE-MAMMOGRAPHY SCREENING [facility] Apr 10, 2024 11:27 AM Consult Order COMM[facility]ITY [facility]-OPTOMETRY ROUTINE EYE EXAM Cons [facility] Lab Results: +/- 30 days of the [...] Result - Unit Interpretation Reference Range Comment Apr 10, 2024 11:35 AM [facility] GLYCOHEMOGLOBIN (A1C ONLY) Specimen Type: BLOOD Comment: , Tests performed on [employer] SN:[id number] (405) Values obtained from A1C measurements can vary. For typical A1C assays, a reported value of 7.0 could actually be between 6.72 and 7.28 if measured by a reference method. A reported value of 9.0 could actually be between 8.73 and 9.27. Ref: http://www.ngs p.org/CAPdata. asp Ordering Provider: UMESH MCDONOUGH Report Released Date/Time: Apr 03, 2024 01:10 PM Reporting Lab: [facility] [address] [facility] [address] Performing Lab: [facility] [address] [facility] [address] HEMOGLOBIN A1C 5.3 4.0-5.6 Apr 10, 2024 11:35 AM [facility] LIPOPROTEIN CHOLESTEROL FRACT. PANEL Specimen Type: PLASMA Comment: Added by [id number] on Apr 10, 2024@11:40, Tests performed on [employer] SN:[id number] (405) Ordering Provider: UMESH MCDONOUGH Report Released Date/Time: Apr 03, 2024 01:10 PM Reporting Lab: [facility] [address] [facility] [address] Performing Lab: [facility] [address] [facility] [address] CHOLESTEROL 250 mg/dL H 0-200 TRIGLYCERIDE 108 mg/dL 0-150 HDL CHOLESTEROL 66 mg/dL >40 LDL CHOLESTEROL (CALC) 162 mg/dL Apr 10, 2024 11:35 AM [facility] LIVER PROFILE Specimen Type: PLASMA Comment: Added by [id number] on Apr 10, 2024@11:40, Tests performed on [employer] SN:[id number] (405) Ordering Provider: UMESH MCDONOUGH Report Released Date/Time: Apr 03, 2024 01:10 PM Reporting Lab: [facility] [address] [facility] [address] Performing Lab: [facility] [address] [facility] [address] PROTEIN, TOTAL 7.3 g/dL 6.0-8.5 ALBUMIN 3.9 g/dL 3.2-5.0 BILIRUBIN, TOTAL 0.4 mg/dL 0.2-1.2 ALKALINE PHOSPHATASE 37 U/L L 40-150 ALT(SGPT) 11 U/L 7-52 AST(SGOT) 14 U/L 5-34 FIB-4 SCORE 0.72 <2.67 Apr 10, 2024 11:35 AM [facility] P4 GLU,BUN,CREAT,LYTES,CA Specimen Type: PLASMA Comment: Added by [id number] on Apr 10, 2024@11:40, Tests performed on [employer] SN:[id number] (405) Ordering Provider: UMESH MCDONOUGH Report Released Date/Time: Apr 03, 2024 01:10 PM Reporting Lab: [facility] [address] [phone] Performing Lab: [facility] [address] [phone] UREA NITROGEN 12 mg/dL 7-25 SODIUM 136 mmol/L 135-145 POTASSIUM 3.7 mmol/L 3.5-5.0 CHLORIDE 104 mmol/L 100-110 CARBON DIOXIDE 25 mmol/L 20-30 ANION GAP 7 4-16 GLUCOSE 63 mg/dL L 65-100 CREATININE 0.93 mg/dL 0.50-1.50 CALCIUM 9.3 mg/dL 8.5-10.5 eGFR(CKD-EPI 2020) 78 Apr 10, 2024 11:35 AM [facility] CBC PROFILE Specimen Type: BLOOD No comment entered. Ordering Provider: UMESH MCDONOUGH Report Released Date/Time: Apr 03, 2024 01:10 PM Reporting Lab: [facility] [address] [facility] [address] Performing Lab: [facility] [address] [facility] [address] WBC 7.2 10*3/uL 4.5-11.0 RBC 4.30 10*6/uL 3.93-5.16 HGB 13.7 g/dL 12-15.2 HEMATOCRIT 39.2 36.6-45.6 MCV 91.2 fL 82-99 MCH 31.9 pg 26.2-32.6 MCHC 34.9 g/dL 30.8-35.1 PLT 257 10*3/uL 140-360 MPV 10.5 fL 9.2-12.4 RDW 12.0 12.0-16.0 LYMPH % 24.3 14.0-42.3 MONO % 8.3 5.1-13.7 NEUT % 65.8 43.7-75.8 EOS % 0.7 0.4-6.8 BASO % 0.6 0.1-2.0 IG % 0.3 0.0-0.7 NUCLEATED RED CELLS 0.0 /100{WBCs} 0.0-0.0 ABSOLUTE IG 0.0 10*3/uL 0-0.06 ABSOLUTE BASOPHILS 0.0 10*3/uL L 0.01-0.13 ABSOLUTE EOS. 0.1 10*3/uL 0.03-0.44 ABSOLUTE LYMPHOCYTES 1.7 10*3/uL 1.0-3.2 ABSOLUTE MONOCYTES 0.6 10*3/uL 0.3-1.1 ABSOLUTE GRANULOCYTES 4.7 10*3/uL 2.2-7.6 ABSOLUTE NRBC 0.00 10*3/uL 0-0 Apr 10, 2024 11:35 AM [facility] CRP(INFLAMMATORY) Specimen Type: PLASMA Comment: Added by [id number] on Apr 10, 2024@11:40, Tests performed on [employer] SN:[id number] (405) Ordering Provider: UMESH MCDONOUGH Report Released Date/Time: Apr 03, 2024 01:10 PM Reporting Lab: [facility] [address] [facility] [address] Performing Lab: [facility] [address] [facility] [address] CRP(INFLAMMATORY) 0.5 mg/L 0.0-5.0 Apr 10, 2024 11:35 AM [facility] IRON+TIBC(P) Specimen Type: PLASMA Comment: Added by [id number] on Apr 10, 2024@11:40, Tests performed on [employer] SN:[id number] (405) Ordering Provider: UMESH MCDONOUGH Report Released Date/Time: Apr 03, 2024 01:10 PM Reporting Lab: [facility] [address] [facility] [address] Performing [facility]: [facility] [address] [facility] [address] IRON 139 ug/dL 40-160 TIBC 320 ug/dL IRON SATURATION(P) 43 >15 UIBC(P) 181 ug/dL 126-382 Apr 10, 2024 11:34 AM [facility] HEP B SURF AB(W) Specimen Type: SERUM Comment: A 'Reactive' result indicates HBsAb results >/= 12.0 mIU/mL and immunity to HBV infection. Hep A IgG: A 'Reactive' result indicates previous exposure to Hepatitis A virus through infection or vaccination. This test detects both IgG and IgM antibodies. A Reactive result (Positive prior to 07/09/13) may indicate either current or previous hepatitis B infection. Antibodies to Hepatitis B Core may be the only marker of recent hepatitis B infection during the window period when Hepatitis B surface antigen has disappeared and Hepatitis B surface antibodies are not yet detectable. Ordering Provider: UMESH MCDONOUGH Report Released Date/Time: Apr 10, 2024 11:09 AM Reporting Lab: [facility] [address] [facility] [address] Performing Lab: [address] [address] HEP B SURF AB(W) REACTIVE Non Reactive Apr 10, 2024 11:34 AM [facility] HEP B CORE,TOTAL(W) Specimen Type: SERUM Comment: A 'Reactive' result indicates HBsAb results >/= 12.0 mIU/mL and immunity to HBV infection. Hep A IgG: A 'Reactive' result indicates previous exposure to Hepatitis A virus through infection or vaccination. This test detects both IgG and IgM antibodies. A Reactive result (Positive prior to 07/09/13) may indicate either current or previous hepatitis B infection. Antibodies to Hepatitis B Core may be the only marker of recent hepatitis B infection during the window period when Hepatitis B surface antigen has disappeared and Hepatitis B surface antibodies are not yet detectable. Ordering Provider: UMESH MCDONOUGH Report Released Date/Time: Apr 10, 2024 11:09 AM Reporting Lab: [facility] [address] [facility] [address] Performing Lab: [facility] [address] [facility] [address] HEP B CORE,TOTAL(W) Non Reactive Non Reactive Apr 10, 2024 11:34 AM [facility] HEPATITIS A IgG(W) Specimen Type: SERUM Comment: A 'Reactive' result indicates HBsAb results >/= 12.0 mIU/mL and immunity to HBV infection. Hep A IgG: A 'Reactive' result indicates previous exposure to Hepatitis A virus through infection or vaccination. This test detects both IgG and IgM antibodies. A Reactive result (Positive prior to 07/09/13) may indicate either current or previous hepatitis B infection. Antibodies to Hepatitis B Core may be the only marker of recent hepatitis B infection during the window period when Hepatitis B surface antigen has disappeared and Hepatitis B surface antibodies are not yet detectable. Ordering Provider: UMESH MCDONOUGH Report Released Date/Time: Apr 10, 2024 11:33 AM Reporting Lab: [facility] [address] [facility] [address] Performing Lab: [address] [address] HEPATITIS A IgG(W) REACTIVE Non Reactive Apr 10, 2024 11:34 AM [facility] HEPATITIS C AB(WRJ)w/Reflex Specimen Type: SERUM Comment: , Tests performed on [employer] [facility] SN:[id number] (405) No HCV antibody detected. If recent infection is suspected or other evidence suggests HCV infection, consider HCV RNA testing Ordering Provider: UMESH MCDONOUGH Report Released Date/Time: Apr 10, 2024 11:09 AM Reporting Lab: [facility] [address] [facility] [address] Performing [facility]: [facility] [address] [facility] [address] HEPATITIS C AB(WRJ)w/Reflex Non-Reactive Non-Reactiv e Apr 10, 2024 11:34 AM [facility] HIV Ag/Ab SCREEN Specimen Type: SERUM Comment: Added by [id number] on Apr 10, 2024@11:40, Tests performed on [employer] [facility] SN:[id number] (405) TSH within normal limits. Reflex testing not required. Ordering Provider: UMESH MCDONOUGH Report Released Date/Time: Apr 10, 2024 11:09 AM Reporting Lab: [facility] [address] [facility] [address] Performing Lab: [facility] [address] [facility] [address] HIV Ag/Ab SCREEN Non-Reactive Non-Reactiv e Apr 10, 2024 11:34 AM [facility] FERRITIN Specimen Type: SERUM Comment: Added by [id number] on Apr 10, 2024@11:40, Tests performed on [employer] SN:[id number] (405) TSH within normal limits. Reflex testing not required. Ordering Provider: UMESH MCDONOUGH Report Released Date/Time: Apr 10, 2024 11:09 AM Reporting Lab: [facility] [address] [facility] [address] Performing Lab: [facility] [address] [facility] [address] FERRITIN 31 ng/mL 5-204 Apr 10, 2024 11:34 AM [facility] VITAMIN B-12 Specimen Type: SERUM Comment: Added by [id number] on Apr 10, 2024@11:40, Tests performed on [employer] SN:[id number] (405) TSH within normal limits. Reflex testing not required. Ordering Provider: UMESH MCDONOUGH Report Released Date/Time: Apr 10, 2024 11:09 AM Reporting Lab: [facility] [address] [place] [facility] [place] [address] Performing Lab: [facility] [address] [place] [facility] [place] [address] VITAMIN B-12 745 pg/mL 200-900 Apr 10, 2024 11:34 AM [facility] ESR(NEW) Specimen Type: BLOOD Comment: Tests performed on [employer] ISED(405) Ordering Provider: UMESH MCDONOUGH Report Released Date/Time: Apr 10, 2024 11:31 AM Reporting Lab: [facility] [address] [facility] [address] Performing Lab: [facility] [address] [place] [facility] [place] [address] ESR(NEW) 1 mm/h 0-20 Apr 10, 2024 11:34 AM [facility] THYROID TESTING CASCADE Specimen Type: SERUM Comment: Added by [id number] on Apr 10, 2024@11:40, Tests performed on [employer] SN:[id number] (405) TSH within normal limits. Reflex testing not required. Ordering Provider: UMESH MCDONOUGH Report Released Date/Time: Apr 10, 2024 11:09 AM Reporting Lab: [facility] [address] [facility] [address] Performing Lab: [facility] [address] [address] TSH 0.61 u[IU]/mL 0.35-5.00 Apr 10, 2024 11:34 AM [facility] VIT D 25-OH(J) Specimen Type: SERUM Comment: Added by [id number] on Apr 10, 2024@11:40, Tests performed on [employer] SN:[id number] (405) TSH within normal limits. Reflex testing not required. Ordering Provider: UMESH MCDONOUGH Report Released Date/Time: Apr 10, 2024 11:09 AM Reporting Lab: [facility] [address] [facility] [address] Performing Lab: [facility] [address] [phone] VIT D 25-OH([facility]) 42.9 ng/mL 20.0-50.0 Apr 10, 2024 11:34 AM [facility] HBSAG PANEL WITH REFLEX CONFIRMATION() Specimen Typ e: SERUM Comment: A Reactive result (Positive prior to 07/09/13) is diagnostic of acute or chronic hepatitis B infection. The presence of Hepatitis B surface antigen is frequently associated with infectivity. Ordering Provider: UMESH MCDONOUGH Report Released Date/Time: Apr 10, 2024 11:09 AM Reporting Lab: [facility] [address] [phone] Performing Lab: [facility] [address] [facility] [address] HEP B SURFACE AG(wh) Non Reactive Non Reactive Social History: Smoking Status (Most current) and [...] VA-TOBACCO NEVER USED [facility] Tobacco Use History This section includes a history of the smoking, or tobacco-related health factors, that were collected on or before the date of the Encounter. The data comes from the [place] facility where the Encounter took place. Date/Time Smoking Status/Tobacco Use Comment Yanick collins Nov 25, 2023 01:00 PM [facility]ACCO NEVER USED [place] [facility] Aug 02, 2023 02:30 PM [place]-TOBACCO NEVER USED [place] [facility] Aug 20, 2019 11:05 AM VA-TOBACCO NEVER USED [place] [facility] Radiology Reports: +/- 30 days of the encounter Radiology Reports For cases when an order for radiology services may have been completed prior to the date of the Encounter, the report list includes the Radiology Reports that were completed up to 30 days before dateof the Encounter. For cases when an order for radiology services may have been completed after the date of the Encounter, the report list also includes the Radiology Reports that were completed up to30 days after date of the Encounter. The data comes from all [place] treatment facilities. Date/Time Radiology Report Provider Source Apr 23, 2024 08:15 AM ULTRASOUND RUQ (GB,LIVER,BILIARY): CORETTA PATEL NASIR [id number] -[id number] F Exm Date: APR 23, 2024@08:15 Req Phys: UMESH MCDONOUGH Pat Loc: [facility] PACT A 6 M1RB (Req'g Loc) Img Loc: ULTRASOUND (OOS) Service: Unknown Screen: Patient answered no [place] [facility] [address] (Case 39 COMPLETE) ULTRASOUND RUQ (GB,LIVER,BILIARY)([place] Detailed) CPT:04473 Proc Modifiers : RIGHT Reason for Study: RUQ pain Clinical History: compare to study Report Status: Verified Date Reported: APR 23, 2024 Date Verified: APR 23, 2024 Middleware Engineer E-Sig:/ES/PATRICIA ESPINOZA Report: ECHO EXAM OF ABDOMEN (RUQ) and LIVER ELASTOGRAPHY INDICATION: RUQ pain COMPARISON: 04/12/2023 RIGHT upper quadrant ultrasound FINDINGS: Liver: The liver measures 17.4 cm in length. The liver has smooth contour. Hepatic parenchyma is diffusely hyperechoic, compatible with hepatocellular disease, most commonly diffuse fatty infiltration of the liver. No definite focal hepatic mass. Liver Elastography: The median liver soft tissue stiffness is 6.0 kPa, suggestive of stage II liver fibrosis, though there is limited imaging window for liver elastography. The IQR/Median is 0.04. Portal Veins: The main portal vein measures 1.2 cm in diameter. Antegrade flow is seen within the main portal vein. Gallbladder: There is a mobile 2-3 mm echogenic gallstone without posterior shadowing within the gallbladder lumen. There is a 2 mm echogenic focus adherent to or arising from the nondependent luminal surface of the gallbladder wall. No gallbladder wall thickening, pericholecystic fluid, or sonographic Ball's sign. Biliary Ductal System: The common bile duct diameter measures 2.6 mm. No biliary ductal dilatation.. Pancreas: Limited visualization of the pancreas demonstrates no significant abnormality. Right Kidney: The right kidney measures 10.5 cm in length and is normal. Miscellaneous: No ascites in the right upper quadrant. Impression: 1. Cholelithiasis without cholecystitis. 2. A 2 mm echogenic focus adherent to or arising from the nondependent luminal surface of the gallbladder wall, which may represent an adherent gallstone, sludge ball, or tiny polyp. 3. Diffuse fatty infiltration of the liver. No focal hepatic mass. 4. Stage II liver fibrosis per elastography, though there is limited imaging window, so this finding may not be accurate. Primary Diagnostic Code: NO IMMEDIATE ATTENTION REQUIRED Primary Interpreting Staff: Staff CARLEE GANDHI (Middleware Engineer) /PATRICIA BARTLETT [facility] Apr 23, 2024 07:56 AM ELASTOGRAPHY PAREN CHYMA (E.G., ORGAN): CORETTA PATEL [id number] -[id number] F Exm Date: APR 23, 2024@07:56 Req Phys: UMESH MCDONOUGH Pat Loc: [facility] PACT A 6 M1RB (Req'g Loc) Img Loc: ULTRASOUND (OOS) Service: Unknown Screen: Patient answered [place] [facility] [address] (Case 40 COMPLETE) ELASTOGRAPHY PARENCHYMA (E.G., OR(US Detailed) CPT:64869 Reason for Study: RUQ pain Clinical History: Report Status: Verified Date Reported: APR 23, 2024 Date Verified: APR 23, 2024 Middleware Engineer E-Sig:/ES/PATRICIA ESPINOZA Report: ECHO EXAM OF ABDOMEN (RUQ) and LIVER ELASTOGRAPHY INDICATION: RUQ pain COMPARISON: 04/12/2023 RIGHT upper quadrant ultrasound FINDINGS: Liver: The liver measures 17.4 cm in length. The liver has smooth contour. Hepatic parenchyma is diffusely hyperechoic, compatible with hepatocellular disease, most commonly diffuse fatty infiltration of the liver. No definite focal hepatic mass. Liver Elastography: The median liver soft tissue stiffness is 6.0 kPa, suggestive of stage II liver fibrosis, though there is limited imaging window for liver elastography. The IQR/Median is 0.04. Portal Veins: The main portal vein measures 1.2 cm in diameter. Antegrade flow is seen within the main portal vein. Gallbladder: There is a mobile 2-3 mm echogenic gallstone without posterior shadowing within the gallbladder lumen. There is a 2 mm echogenic focus adherent to or arising from the nondependent luminal surface of the gallbladder wall. No gallbladder wall thickening, pericholecystic fluid, or sonographic Ball's sign. Biliary Ductal System: The common bile duct diameter measures 2.6 mm. No biliary ductal dilatation.. Pancreas: Limited visualization of the pancreas demonstrates no significant abnormality. Right Kidney: The right kidney measures 10.5 cm in length and is normal. Miscellaneous: No ascites in the right upper quadrant. Impression: 1. Cholelithiasis without cholecystitis. 2. A 2 mm echogenic focus adherent to or arising from the nondependent luminal surface of the gallbladder wall, which may represent an adherent gallstone, sludge ball, or tiny polyp. 3. Diffuse fatty infiltration of the liver. No focal hepatic mass. 4. Stage II liver fibrosis per elastography, though there is limited imaging window, so this finding may not be accurate. Primary Diagnostic Code: NO IMMEDIATE ATTENTION REQUIRED Primary Interpreting Staff: Staff CARLEE GANDHI (Middleware Engineer) /PATRICIA BARTLETT [facility] Encounter Notes: All associated encounter notes This section contains the clinical notes associated to the Encounter. 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 No answer. Left HIPPA complaint voicemail with reminder of PCP appt on 04/10/24 at 1045. Work Phone: Cell phone: /es/ GÓMEZ MCKINNEY RN Signed: 04/09/2024 14:11 GÓMEZ MCKINNEY [facility]
--- OUTSIDE RECORDS SUMMARY | 2024-08-03 13:58 | XMS_ITS | Encounter Summary ---
Author Name [facility] [place] [facility] [place] Organization [facility] [place] Address [address] [place] [address] Care Team Providers Care Closing Coordinator Name Role Phone UMESH MCDONOUGH Primary Care Provider Unavailabl e Selected Encounter This section includes the information on record at [place] for the Encounter. Date/Time Encounter Type Encounter Description Reason Pro vider Source Apr 13, 2024 03:07 PM Outpatient Encounter ADMIN PAT ACTIVTIES (MASNONCT) IHE Encounter Template Text not used by [place] Plan of Treatment: Future Appointments (+ 6 months) and Future Tests (+/- 45 days) The Plan of Treatment section includes future care activities for the patient from all [place] treatmentfacilities. This section includes future appointments and future orders which are active, pending or scheduled. Future Appointments This section includes appointments that were scheduled to occur 6 months from the date of the Encounter, up to a maximum of 20 appointments. The data comes from all [place] treatment facilities. Appointment Date/Time Appointment Type Appointme nt Facility Name Apr 23, 2024 08:15 AM AMBULATORY - NONE [place] [facility] May 09, 2024 03:00 PM [place]ORY - MEDICINE [place] [facility] May 14, 2024 12:30 PM AMBULATORY - SURGERY [place] [facility] May 22, 2024 10:00 AM AMBULATORY - NONE [place] [facility] May 23, 2024 09:00 AM AMBULATORY - NONE [place] [facility] Jun 19, 2024 01:15 PM AMBULATORY - MEDICINE [place] [facility] Jun 25, 2024 10:30 AM AMBULATORY - MEDICINE [place] [facility] Jul 18, 2024 01:30 PM AMBULATORY - MEDICINE [place] [facility] Aug 13, 2024 10:30 AM AMBULATORY - NONE [place] [facility] Active, Pending, and Scheduled Orders This section includes a listing of several types of active, pending, and scheduled orders, including clinic medications orders, diagnostic test orders, procedure orders and consult orders; where the start date of the order is 45 days before the date of the Encounter or 45 days after the date of theEncounter. The data comes from all [place] treatment facilities. Test Date/Time Test Type Test Details Facility Name Apr 10, 2024 12:00 AM Laboratory - Chemi stry Order AMYLASE LT GREEN(LI HEP) PLASMA SP [facility] Apr 10, 2024 12:00 AM Laboratory - Chemi stry Order LIPASE LT GREEN(LI HEP) PLASMA SP [facility] Apr 10, 2024 11:26 AM Consult Order COMMUNITY CARE-MAMMOGRAPHY SCREENING Cons [facility] Apr 10, 2024 11:27 AM Consult Order COMMUNITY [facility]-OPTOMETRY ROUTINE EYE EXAM Cons [facility]sole [facility] Lab Results: +/- 30 days [...] Range Comment Apr 10, 2024 11:35 AM [facility] GLYCOHEMOGLOBIN (A1C ONLY) Specimen Type: BLOOD Comment: , Tests performed on [employer] Mckenna SN:[id number] (405) Values obtained from A1C measurements can vary. For typical A1C assays, a reported value of 7.0 could actually be between 6.72 and 7.28 if measured by a reference method. A reported value of 9.0 could actually be between 8.73 and 9.27. Ref: http://www.ngs p.org/CAPdata. asp Ordering Provider: UMESH MCDONOUGH Report Released Date/Time: Apr 03, 2024 01:10 PM Reporting [facility] [address] [facility] [address] Performing Lab: [facility] [address] [facility] [address] HEMOGLOBIN A1C 5.3 4.0-5.6 Apr 10, 2024 11:35 AM [facility] LIPOPROTEIN CHOLESTEROL FRACT. PANEL Specimen Type: PLASMA Comment: Added by [id number] on Apr 10, 2024@11:40, Tests performed on [employer]ck[employer] SN:[id number] (405) Ordering Provider: UMESH MCDONOUGH Report Released Date/Time: Apr 03, 2024 01:10 PM Reporting Lab: [facility] [address] [facility] [address] Performing Lab: [facility] [address] [facility] [address] CHOLESTEROL 250 mg/dL H 0-200 TRIGLYCERIDE 108 mg/dL 0-150 HDL CHOLESTEROL 66 mg/dL >40 LDL CHOLESTEROL (CALC) 162 mg/dL Apr 10, 2024 11:35 AM [facility] LIVER PROFILE Specimen Type: PLASMA Comment: Added by [id number] on Apr 10, 2024@11:40, Tests performed on [employer] SN:[id number] (405) Ordering Provider: UMESH MCDONOUGH Report Released Date/Time: Apr 03, 2024 01:10 PM Reporting Lab: [facility] [address] [facility] [address] Performing Lab: [facility] [address] [facility] [address] PROTEIN, TOTAL 7.3 g/dL 6.0-8.5 ALBUMIN 3.9 g/dL 3.2-5.0 BILIRUBIN, TOTAL 0.4 mg/dL 0.2-1.2 ALKALINE PHOSPHATASE 37 U/L L 40-150 ALT(SGPT) 11 U/L 7-52 AST(SGOT) 14 U/L 5-34 FIB-4 SCORE 0.72 <2.67 Apr 10, 2024 11:35 AM [facility] P4 GLU,BUN,CREAT,LYTES,CA Specimen Type: PLASMA Comment: Added by [id number] on Apr 10, 2024@11:40, Tests performed on [employer] Mckenna SN:[id number] (540) Ordering Provider: UMESH MCDONOUGH Report Released Date/Time: Apr 03, 2024 01:10 PM Reporting Lab: [facility] [address] [facility] [address] Performing Lab: [facility] [address] [facility] [address] UREA NITROGEN 12 mg/dL 7-25 SODIUM 136 mmol/L 135-145 POTASSIUM 3.7 mmol/L 3.5-5.0 CHLORIDE 104 mmol/L 100-110 CARBON DIOXIDE 25 mmol/L 20-30 ANION GAP 7 4-16 GLUCOSE 63 mg/dL L 65-100 CREATININE 0.93 mg/dL 0.50-1.50 CALCIUM 9.3 mg/dL 8.5-10.5 eGFR(CKD-EPI 2020) 78 Apr 10, 2024 11:35 AM [facility] CBC PROFILE Specimen Type: BLOOD No comment entered. Ordering Provider: UMESH MCDONOUGH Report Released Date/Time: Apr 03, 2024 01:10 PM Reporting Lab: [facility] [address] [facility] [address] Performing Lab: [facility] [address] [facility] [address] WBC 7.2 10*3/uL 4.5-11.0 RBC 4.30 10*6/uL [...] 10*3/uL 0-0 Apr 10, 2024 11:35 AM [facility] IRON+TIBC(P) Specimen Type: PLASMA Comment: Added by [id number] on Apr 10, 2024@11:40, Tests performed on [employer] SN:[id number] (405) Ordering Provider: UMESH MCDONOUGH Report Released Date/Time: Apr 03, 2024 01:10 PM Reporting Lab: [facility] [address] [facility] [address] Performing Lab: [facility] [address] [facility] [address] IRON 139 ug/dL 40-160 TIBC 320 ug/dL IRON SATURATION(P) 43 >15 UIBC(P) 181 ug/dL 126-382 Apr 10, 2024 11:35 AM [facility] CRP(INFLAMMATORY) Specimen Type: PLASMA Comment: Added by [id number] on Apr 10, 2024@11:40, Tests performed on [employer] Mckenna SN:[id number] (405) Ordering Provider: UMESH MCDONOUGH Report Released Date/Time: Apr 03, 2024 01:10 PM Reporting Lab: [facility] [address] [facility] [address] Performing Lab: [facility] [address] [facility] [address] CRP(INFLAMMATORY) 0.5 mg/L 0.0-5.0 Apr 10, 2024 11:34 AM [facility] HEP B SURF AB(W) Specimen Type: SERUM [...] 2024 11:09 AM Reporting Lab: [facility] [address] [facility] [address] Performing Lab: [address] [address] HEP B SURF AB(W) REACTIVE Non Reactive Apr 10, 2024 11:34 AM [facility] HEP B CORE,TOTAL(W) Specimen Type: SERUM Comment: [...] 2024 11:09 AM Reporting Lab: [facility] [address] [facility] [address] Performing Lab: [address] [address] HEP B CORE,TOTAL(W) Non Reactive Non Reactive Apr 10, 2024 11:34 AM [facility] HEPATITIS A IgG(W) Specimen Type: SERUM Comment: [...] Apr 10, 2024 11:33 AM Reporting Lab: [facility] [address] [facility] [address] Performing Lab: [facility] [address] [facility] [address] HEPATITIS A IgG(W) REACTIVE Non Reactive Apr 10, 2024 11:34 AM [facility] HEPATITIS C AB(WRJ)w/Reflex Specimen Type: SERUM Comment: , Tests performed on [employer] Repairer Operator Mckenna SN:[id number] (405) No HCV antibody detected. If recent infection is suspected or other evidence suggests HCV infection, consider HCV RNA testing Ordering Provider: UMESH MCDONOUGH Report Released Date/Time: Apr 10, 2024 11:09 AM Reporting Lab: [facility] [address] [facility] [address] Performing Lab: [facility] [address] [facility] [address] HEPATITIS C AB(WRJ)w/Reflex Non-Reactive Non-Reactiv e Apr 10, 2024 11:34 AM [facility] HIV Ag/Ab SCREEN Specimen Type: SERUM Comment: Added by [id number] on Apr 10, 2024@11:40, Tests performed on [employer] Repairer Operator Mckenna SN:[id number] (405) TSH within normal limits. Reflex testing not required. Ordering Provider: UMESH MCDONOUGH Report Released Date/Time: Apr 10, 2024 11:09 AM Reporting Lab: [facility] [address] [facility] [address] Performing Lab: [facility] [address] [facility] [address] HIV Ag/Ab SCREEN Non-Reactive Non-Reactiv e Apr 10, 2024 11:34 AM [facility] FERRITIN Specimen Type: SERUM Comment: Added by [id number] on Apr 10, 2024@11:40, Tests performed on [employer] Repairer Operator Mckenna SN:[id number] (405) TSH within normal limits. Reflex testing not required. Ordering Provider: UMESH MCDONOUGH Report Released Date/Time: Apr 10, 2024 11:09 AM Reporting Lab: [place] [facility] [address] [facility] [address] Performing Lab: [place] [facility] [address] [facility] [address] FERRITIN 31 ng/mL 5-204 Apr 10, 2024 11:34 AM [facility] VITAMIN B-12 Specimen Type: SERUM Comment: Added by [id number] on Apr 10, 2024@11:40, Tests performed on [employer] Repairer Operator Mckenna SN:[id number] (405) TSH within normal limits. Reflex testing not required. Ordering Provider: UMESH MCDONOUGH Report Released Date/Time: Apr 10, 2024 11:09 AM Reporting Lab: [place] [facility] [address] [facility] [address] Performing Lab: [place] [facility] [address] [facility] [address] VITAMIN B-12 745 pg/mL 200-900 Apr 10, 2024 11:34 AM [facility] ESR(NEW) Specimen Type: BLOOD Comment: Tests performed on [employer] ISED(405) Ordering Provider: UMESH MCDONOUGH Report Released Date/Time: Apr 10, 2024 11:31 AM Reporting Lab: [place] [facility] [address] [facility] [address] Performing Lab: [place] [facility] [address] [facility] [address] ESR(NEW) 1 mm/h 0-20 Apr 10, 2024 11:34 AM [facility] VIT D 25-OH([facility]) Specimen Type: SERUM Comment: Added by [id number] on Apr 10, 2024@11:40, Tests performed on [employer] Repairer Operator Mckenna SN:[id number] (405) TSH within normal limits. Reflex testing not required. Ordering Provider: UMESH MCDONOUGH Report Released Date/Time: Apr 10, 2024 11:09 AM Reporting Lab: [place] [facility] [address] [facility] [address] Performing Lab: [place] [facility] [address] [facility] [address] VIT D 25-OH([facility]) 42.9 ng/mL 20.0-50.0 Apr 10, 2024 11:34 AM [facility] THYROID TESTING CASCADE Specimen Type: SERUM Comment: Added by [id number] on Apr 10, 2024@11:40, Tests performed on [employer] Repairer Operator Mckenna SN:[id number] (405) TSH within normal limits. Reflex testing not required. Ordering Provider: UMESH MCDONOUGH Report Released Date/Time: Apr 10, 2024 11:09 AM Reporting Lab: [facility] [address] [facility] [address] Performing Lab: [facility] [address] [facility] [address] TSH 0.61 u[IU]/mL 0.35-5.00 Apr 10, 2024 11:34 AM [facility] HBSAG PANEL WITH REFLEX CONFIRMATION() Specimen Typ e: SERUM Comment: A Reactive result (Positive prior to 07/09/13) is diagnostic of acute or chronic hepatitis B infection. The presence of Hepatitis B surface antigen is frequently associated with infectivity. Ordering Provider: UMESH MCDONOUGH Report Released Date/Time: Apr 10, 2024 11:09 AM Reporting Lab: [facility] [address] [facility] [address] Performing Lab: [facility] [address] [facility] [address] HEP B SURFACE AG(wh) Non Reactive Non Reactive Social History: Smoking Status (Most current) and Tobacco Use (All prior to encounter date) This section includes the most current, and the historical, smoking and tobacco- related health factors from the [place] facility where the Encounter took place. Current Smoking Status This section includes the most current smoking, or tobacco-related health factor, from the [place] facility where the Encounter took place. Date/Time Current Smoking Status Comment Wendy ity Nov 25, 2023 01:00 PM [facility] TOBACCO SMOKES DOES NOT [facility] Tobacco Use History This section includes a history of the smoking, or tobacco-related health factors, that were collected on or before the date of the Encounter. The data comes from the [place] facility where the Encounter took place. Date/Time Smoking Status/Tobacco Use Comment F acility Nov 25, 2023 01:00 PM VA-TOBACCO NEVER USED [facility] Aug 02, 2023 02:30 PM VA-TOBACCO NEVER USED [place] [facility] Aug 20, 2019 11:05 AM VA-TOBACCO NEVER USED [place] [facility] Radiology Reports: +/- 30 days of the [...] the Encounter. The data comes from all [place] treatment facilities. Date/Time Radiology Report Provider Source Apr 23, 2024 08:15 AM ULTRASOUND RUQ (GB,LIVER,BILIARY): CORETTA PATEL [id number] -1980 F Exm Date: APR 23, 2024@08:15 Req Phys: UMESH MCDONOUGH Pat Loc: WRJ PACT A 6 M1RB (Req'g Loc) Img Loc: ULTRASOUND (OOS) Service: Unknown Screen: Patient answered no [place] [facility] [place] [address] (Case 39 COMPLETE) ULTRASOUND RUQ (GB,LIVER,BILIARY)(US Detailed) CPT:32039 Proc Modifiers : RIGHT Reason for Study: RUQ pain Clinical History: compare to study Report Status: Verified Date Reported: APR 23, 2024 Date Verified: APR 23, 2024 Hall Monitor E-Sig:/ES/PATRICIA ESPINOZA Report: ECHO EXAM OF ABDOMEN [...] REQUIRED Primary Interpreting Staff: Staff CARLEE GANDHI (Hall Monitor) /PATRICIA BARTLETT Hossein [facility] Apr 23, 2024 07:56 AM ELASTOGRAPHY PAREN CHYMA (E.G., ORGAN): CORETTA PATEL [id number] -1980 F Exm Date: APR 23, 2024@07:56 Req Phys: UMESH MCDONOUGH Pat Loc: WRJ PACT A 6 M1RB (Req'g Loc) Img Loc: ULTRASOUND (OOS) Service: Unknown Screen: Patient answered no [facility] [address] (Case 40 COMPLETE) ELASTOGRAPHY PARENCHYMA (E.G., OR(US Detailed) CPT:58588 Reason for Study: RUQ pain Clinical History: Report Status: Verified Date Reported: APR 23, 2024 Date Verified: APR 23, 2024 Hall Monitor E-Sig:/ANTONELLA/PATRICIA ESPINOZA Report: ECHO EXAM OF ABDOMEN (RUQ) [...] REQUIRED Primary Interpreting Staff: Staff CARLEE GANDHI (Hall Monitor) /PATRICIA BARTLETT [facility] Encounter Notes: All associated encounter notes This section contains the clinical notes associated to the Encounter. Date/Time Encounter Note(s) Provider Source Apr 16, 2024 10:11 AM ADDENDUM: LOCAL TITLE: Addendum STANDARD TITLE: ADDENDUM DATE OF NOTE: APR 16, 2024@10:11:36 ENTRY DATE: APR 16, 2024@10:11:37 AUTHOR: UMESH MCDONOUGH EXP COSIGNER: URGENCY: STATUS: COMPLETED please let know I have placed a consult for neurosurgery /antonella/ UMESH MCDONOUGH ELECTRIC SHIPYARD OPERATOR Signed: 04/16/2024 10:12 Receipt Acknowledged By: 04/17/2024 09:17 /es/ JAYLA STONER LPN 04/17/2024 09:16 /es/ CALVIN FISCHER Registered Nurse --- Original Document --- 04/13/24 CCC: SCHEDULING ADMINISTRATION: Patient Demographics Patient Name: CORETTA PATEL Patient Primary Phone: [phone] Patient Primary Address: [address] [place] [address] Patient : 1980 Patient Age: 43 Call Back Number: [phone] Caller/Recipient Relation to Patient: Self Administrative Administrative Note Reason: Outside Care Performed Administrative Note Comments: Patient discussed the pain from the epidural with her PCP earlier this week. 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 [facility] has a neurosurgeon that would be able to assist with this issue as well. Please return the patient's call to further discuss this. thank you for the assistance. /es/ MARIA ANTONIA HARRINGTON 1 [facility] Signed: 04/13/2024 15:07 Receipt Acknowledged By: 04/16/2024 10:11 /antonella/ UMESH MCDONOUGH APRN 04/16/2024 ADDENDUM STATUS: COMPLETED Message is left requesting contact clinic. /es/ CALVIN FISCHER Registered Nurse Signed: 04/16/2024 14:15 UMESH MCDONOUGH [facility] Apr 13, 2024 03:07 PM ADMINISTRATIVE NOT E: LOCAL TITLE: CCC: SCHEDULING ADMINISTRATION STANDARD TITLE: ADMINISTRATIVE NOTE DATE OF NOTE: APR 13, 2024@15:07:27 ENTRY DATE: APR 13, 2024@15:07:28 AUTHOR: MARIA ANTONIA PIPER COSIGNER: URGENCY: STATUS: COMPLETED CCC: SCHEDULING ADMINISTRATION Has ADDENDA Patient Demographics Patient Name: CORETTA PATEL Patient Primary Phone: [phone] Patient Primary Address: [address] [place] [address] Patient : 1980 Patient Age: 43 Call Back Number: [phone] Caller/Recipient Relation to Patient: Self Administrative Administrative Note Reason: Outside Care Performed Administrative Note Comments: Patient discussed the pain from the epidural with her PCP earlier this week. 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 [facility] has a neurosurgeon that would be able to assist with this issue as well. Please return the patient's call to further discuss this. thank you for the assistance. /antonella/ MARIA ANTONIA HARRINGTON 1 [facility] Signed: 04/13/2024 15:07 Receipt Acknowledged By: 04/16/2024 10:11 /antonella/ UMESH MCDONOUGH APRN 04/16/2024 ADDENDUM STATUS: COMPLETED please let know I have placed a consult for neurosurgery /antonella/ UMESH MCDONOUGH APRN Signed: 04/16/2024 10:12 Receipt Acknowledged By: * AWAITING SIGNATURE * JAYLA STONER * AWAITING SIGNATURE * CALVIN FISCHER 04/16/2024 ADDENDUM STATUS: COMPLETED Message is left requesting contact clinic. /antonella/ CALVIN FISCHER Registered Nurse Signed: 04/16/2024 14:15 MARIA ANTONIA PIPER [facility]
--- OUTSIDE RECORDS SUMMARY | 2024-08-03 13:58 | XMS_ITS | Encounter Summary ---
Author Name [facility] [place] Address [address] [place] [address] Care Team Providers Care Windows Vmware Administrator Name Role Phone UMESH MCDONOUGH Primary Care Provider Unavailabl e Selected Encounter This section includes the information on record at [place] for the Encounter. Date/Time Encounter Type Encounter Description Reason Pro vider Source 2023 12:00 PM Outpatient Encounter ADMIN PAT ACTIVTIES (MASNONCT) [...] AM AMBULATORY - SURGERY [place] [facility] Apr 10, 2024 10:45 AM AMBULATORY - NONE [place] [facility] Apr 23, 2024 08:15 AM AMBULATORY - NONE [place] [facility] May 09, 2024 03:00 PM AMBULATORY - MEDICINE [place] [facility] May 14, 2024 12:30 PM AMBULATORY - SURGERY [place] [facility] May 22, 2024 10:00 AM AMBULATORY - NONE [place] [facility] May 23, 2024 09:00 AM AMBULATORY - NONE [place] [facility] Jun 19, 2024 01:15 PM AMBULATORY - MEDICINE [place] [facility] Lab Results: +/- 30 days of [...] Range Comment Nov 25, 2023 11:51 AM [facility] BHCG QUANT Specimen Type: SERUM Comment: , Tests performed on [employer] SN:[id number] (405). Ordering Provider: UMESH MCDONOUGH Report Released Date/Time: Nov 21, 2023 03:58 PM Reporting Lab: [place] [facility] [address] [facility] [address] Performing Lab: [place] [facility] [address] [facility] [address] BHCG QUANT 3145.51 m[IU]/mL <5.0 Social History: [...] Wendy ity Nov 25, 2023 01:00 PM [facility] TOBACCO SMOKES DOES NOT [place] [facility] Tobacco Use History This section includes a history of the smoking, or tobacco-related health factors, that were collected on or before the date of the Encounter. The data comes from the [place] facility where the Encounter took place. Date/Time Smoking Status/Tobacco Use Comment F acility Nov 25, 2023 01:00 PM VA-TOBACCO NEVER USED [place] [facility] Aug 02, 2023 02:30 PM VA-TOBACCO NEVER USED [facility] Aug 20, 2019 11:05 AM VA-TOBACCO NEVER USED [facility] Encounter Notes: All associated encounter notes This section contains the clinical notes associated to the Encounter. Date/Time Encounter Note(s) Provider Source 2023 12:00 PM NONVA CONSULT: LOCAL TITLE: COMMUNITY CARE CONSULT RESULT NOTE STANDARD TITLE: NONVA CONSULT DATE OF NOTE: 2023@12:00 ENTRY DATE: JAN 18, 2024@12:59:10 AUTHOR: HAYDEN EID EXP COSIGNER: URGENCY: STATUS: COMPLETED VistA Imaging - Scanned Document Date of Service (Procedure/Event): 2023 Note Title: COMMUNITY CARE CONSULT RESULT NOTE Type: PROGRESS NOTE Specialty: OBSTETRICS & GYNECOLOGY Procedure: OFFICE VISIT-[facility] SCANNED DOCUMENT SIGNATURE NOT REQUIRED Electronically Filed: 01/18/2024 by: HAYDEN BONILLA [facility]
--- OUTSIDE RECORDS SUMMARY | 2024-08-03 13:58 | XMS_ITS | Encounter Summary ---
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 Date/Time Encounter Type Encounter Description Reason Pro vider Source Mar 16, 2024 02:07 PM Outpatient Encounter ADMIN PAT ACTIVTIES (MASNONCT) IHE Encounter Template Text not used by [place] Plan of Treatment: Future Appointments (+ 6 months) and Future Tests (+/- 45 days) The Plan of Treatment section includes future care activities for the patient from all [place] treatmentfacilities. This section includes future appointments and future orders which are active, pending or scheduled. Future Appointments This section includes appointments that were scheduled to occur 6 months from the date of the Encounter, up to a maximum of 20 appointments. The data comes from all [place] treatment facilities. Appointment Date/Time Appointment Type Appointme nt Facility Name Apr 10, 2024 10:45 AM AMBULATORY - NONE [place] [facility] Apr 23, 2024 08:15 AM AMBULATORY - NONE [place] [facility] May 09, 2024 03:00 PM [place] - [place]ICINE [place] [facility] May 14, 2024 12:30 PM [place] [facility] May 22, 2024 10:00 AM AMBULATORY - NONE [place] [facility] May 23, 2024 09:00 AM AMBULATORY - NONE [facility] [place] [facility] Jun 19, 2024 01:15 PM [facility]BULATORY - [facility]ICINE [facility] Jun 25, 2024 10:30 AM AMBULATORY - MEDICINE [facility] Jul 18, 2024 01:30 PM AMBULATORY - MEDICINE [facility] Aug 13, 2024 10:30 AM AMBULATORY - NONE [facility] Active, Pending, and Scheduled Orders This section includes a listing of several types of active, pending, and scheduled orders, including clinic medications orders, diagnostic test orders, procedure orders and consult orders; where the start date of the order is 45 days before the date of the Encounter or 45 days after the date of theEncounter. The data comes from all [place] treatment facilities. Test Date/Time Test Type Test Details Facility Name Apr 10, 2024 12:00 AM Laboratory - Chemi stry Order AMYLASE LT GREEN(LI HEP) PLASMA SP [facility] Apr 10, 2024 12:00 AM Laboratory - Chemi stry Order LIPASE LT GREEN(LI HEP) PLASMA SP [facility] Apr 10, 2024 11:26 AM Consult Order [facility]-MAMMOGRAPHY SCREENING Cons [facility] Apr 10, 2024 11:27 AM Consult Order [facility]-OPTOMETRY ROUTINE EYE EXAM Cons [facility] Lab Results: +/- 30 days of [...] Range Comment Apr 10, 2024 11:35 AM [facility] GLYCOHEMOGLOBIN (A1C ONLY) Specimen Type: BLOOD Comment: , Tests performed on mention Mckenna SN:[id number] (405) Values obtained from A1C measurements can vary. For typical A1C assays, a reported value of 7.0 could actually be between 6.72 and 7.28 if measured by a reference method. A reported value of 9.0 could actually be between 8.73 and 9.27. Ref: http://www.ngs p.org/CAPdata. asp Ordering Provider: UMESH MCDONOUGH Report Released Date/Time: Apr 03, 2024 01:10 PM Reporting Lab: [facility] [address] [address] Performing Lab: [facility] [address] [address] HEMOGLOBIN A1C 5.3 4.0-5.6 Apr 10, 2024 11:35 AM [facility] LIPOPROTEIN CHOLESTEROL FRACT. PANEL Specimen Type: PLASMA Comment: Added by [id number] on Apr 10, 2024@11:40, Tests performed on [employer] Coord[facility] Mckenna SN:[id number] (405) Ordering Provider: UMESH MCDONOUGH Report Released Date/Time: Apr 03, 2024 01:10 PM Reporting Lab: [facility] [address] [address] Performing Lab: [facility] [address] [address] CHOLESTEROL 250 mg/dL H 0-200 TRIGLYCERIDE 108 mg/dL 0-150 HDL CHOLESTEROL 66 mg/dL >40 LDL CHOLESTEROL (CALC) 162 mg/dL Apr 10, 2024 11:35 AM [facility] LIVER PROFILE Specimen Type: PLASMA Comment: Added by [id number] on Apr 10, 2024@11:40, Tests performed on [facility] Mckenna SN:[id number] (405) Ordering Provider: UMESH MCDONOUGH Report Released Date/Time: Apr 03, 2024 01:10 PM Reporting Lab: [facility] [address] [address] Performing Lab: [facility] [address] [address] PROTEIN, TOTAL 7.3 g/dL 6.0-8.5 ALBUMIN 3.9 g/dL 3.2-5.0 BILIRUBIN, TOTAL 0.4 mg/dL 0.2-1.2 ALKALINE PHOSPHATASE 37 U/L L 40-150 ALT(SGPT) 11 U/L 7-52 AST(SGOT) 14 U/L 5-34 FIB-4 SCORE 0.72 <2.67 Apr 10, 2024 11:35 AM [facility] P4 GLU,BUN,CREAT,LYTES,CA Specimen Type: PLASMA Comment: Added by [id number] on Apr 10, 2024@11:40, Tests performed on mention Mckenna SN:[id number] (699) Ordering Provider: UMESH MCDONOUGH Report Released Date/Time: Apr 03, 2024 01:10 PM Reporting Lab: [facility] [address] [address] Performing Lab: [facility] [address] [address] UREA NITROGEN 12 mg/dL 7-25 SODIUM 136 mmol/L 135-145 POTASSIUM 3.7 mmol/L 3.5-5.0 CHLORIDE 104 mmol/L 100-110 CARBON DIOXIDE 25 mmol/L 20-30 ANION GAP 7 4-16 GLUCOSE 63 mg/dL L 65-100 CREATININE 0.93 mg/dL 0.50-1.50 CALCIUM 9.3 mg/dL 8.5-10.5 eGFR(CKD-EPI 2020) 78 Apr 10, 2024 11:35 AM [facility] CBC PROFILE Specimen Type: BLOOD No comment entered. Ordering Provider: UMESH MCDONOUGH Report Released Date/Time: Apr 03, 2024 01:10 PM Reporting Lab: [facility] [address] [address] Performing Lab: [facility] [address] [place] [address] WBC 7.2 10*3/uL 4.5-11.0 RBC 4.30 10*6/uL [...] 10*3/uL 0-0 Apr 10, 2024 11:35 AM [email or web address] CRP(INFLAMMATORY) Specimen Type: PLASMA Comment: Added by [id number] on Apr 10, 2024@11:40, Tests performed on Haptic[employer] SN:[id number] (405) Ordering Provider: UMESH MCDONOUGH Report Released Date/Time: Apr 03, 2024 01:10 PM Reporting Lab: [place] [facility] [address] [address] Performing Lab: [facility] [address] [address] CRP(INFLAMMATORY) 0.5 mg/L 0.0-5.0 Apr 10, 2024 11:35 AM [facility] IRON+TIBC(P) Specimen Type: PLASMA Comment: Added by [id number] on Apr 10, 2024@11:40, Tests performed on Haptic[employer] SN:[id number] (405) Ordering Provider: UMESH MCDONOUGH Report Released Date/Time: Apr 03, 2024 01:10 PM Reporting Lab: [facility] [address] [address] Performing Lab: [facility] [address] [address] IRON 139 ug/dL 40-160 TIBC 320 ug/dL IRON SATURATION(P) 43 >15 UIBC(P) 181 ug/dL 126-382 Apr 10, 2024 11:34 AM [facility] HEP B SURF AB(W) Specimen Type: SERUM [...] 2024 11:09 AM Reporting Lab: [facility] [address] [address] Performing Lab: [facility] [address] [facility] [address] HEP B SURF AB(W) REACTIVE Non Reactive Apr 10, 2024 11:34 AM [facility] HEP B CORE,TOTAL(W) Specimen Type: [...] 2024 11:09 AM Reporting Lab: [facility] [address] [address] Performing Lab: [facility] [address] [facility] [address] HEP B CORE,TOTAL(W) Non Reactive Non Reactive Apr 10, 2024 11:34 AM [facility] HEPATITIS A IgG(W) Specimen Type: [...] Apr 10, 2024 11:33 AM [facility] [address] [address] [facility] [address] [facility] [address] HEPATITIS A IgG(W) REACTIVE Non Reactive Apr 10, 2024 11:34 AM [facility] HEPATITIS C AB(WRJ)w/Reflex Specimen Type: SERUM Comment: , Tests performed on [employer] Coord[facility] Mckenna SN:[id number] (405) No HCV antibody detected. If recent infection is suspected or other evidence suggests HCV infection, consider HCV RNA testing Ordering Provider: UMESH MCDONOUGH Report Released Date/Time: Apr 10, 2024 11:09 AM [facility] [address] [address] [facility] [address] [address] HEPATITIS C AB(WRJ)w/Reflex Non-Reactive Non-Reactiv e Apr 10, 2024 11:34 AM [facility] HIV Ag/Ab SCREEN Specimen Type: SERUM Comment: Added by [id number] on Apr 10, 2024@11:40, Tests performed on [employer] Coord[facility] Mckenna SN:[id number] (405) TSH within normal limits. Reflex testing not required. Ordering Provider: UMESH MCDONOUGH Report Released Date/Time: Apr 10, 2024 11:09 AM Reporting Lab: [facility] [address] [address] [facility] [address] [address] HIV Ag/Ab SCREEN Non-Reactive Non-Reactiv e Apr 10, 2024 11:34 AM [facility] FERRITIN Specimen Type: SERUM Comment: Added by [id number] on Apr 10, 2024@11:40, Tests performed on [employer] Coord[facility] Mckenna SN:[id number] (405) TSH within normal limits. Reflex testing not required. Ordering Provider: UMESH MCDONOUGH Report Released Date/Time: Apr 10, 2024 11:09 AM Reporting Lab: [place] [facility] [address] [address] Performing Lab: [place] [facility] [address] [address] FERRITIN 31 ng/mL 5-204 Apr 10, 2024 11:34 AM [facility] VITAMIN B-12 Specimen Type: SERUM Comment: Added by [id number] on Apr 10, 2024@11:40, Tests performed on [employer] Mckenna SN:[id number] (405) TSH within normal limits. Reflex testing not required. Ordering Provider: UMESH MCDONOUGH Report Released Date/Time: Apr 10, 2024 11:09 AM Reporting Lab: [place] [facility] [address] [address] Performing Lab: [place] [facility] [address] [address] VITAMIN B-12 745 pg/mL 200-900 Apr 10, 2024 11:34 AM [facility] ESR(NEW) Specimen Type: BLOOD Comment: Tests performed on Alcor ISED(405) Ordering Provider: UMESH MCDONOUGH Report Released Date/Time: Apr 10, 2024 11:31 AM Reporting Lab: [place] [facility] [address] [address] Performing Lab: [place] [facility] [address] [address] ESR(NEW) 1 mm/h 0-20 Apr 10, 2024 11:34 AM [facility] THYROID TESTING CASCADE Specimen Type: SERUM Comment: Added by [id number] on Apr 10, 2024@11:40, Tests performed on [facility] Mckenna SN:[id number] (405) TSH within normal limits. Reflex testing not required. Ordering Provider: UMESH MCDONOUGH Report Released Date/Time: Apr 10, 2024 11:09 AM Reporting Lab: [place] [facility] [address] [address] Performing Lab: [place] [facility] [address] [address] TSH 0.61 u[IU]/mL 0.35-5.00 Apr 10, 2024 11:34 AM [facility] VIT D 25-OH(WRJ) Specimen Type: SERUM Comment: Added by [id number] on Apr 10, 2024@11:40, Tests performed on [facility] Mckenna SN:[id number] (405) TSH within normal limits. Reflex testing not required. Ordering Provider: UMESH MCDONOUGH Report Released Date/Time: Apr 10, 2024 11:09 AM Reporting Lab: [facility] [address] [address] Performing Lab: [facility] [address] [address] VIT D 25-OH([facility]) 42.9 ng/mL 20.0-50.0 Apr 10, 2024 11:34 AM [facility] HBSAG PANEL WITH REFLEX CONFIRMATION() Specimen Typ e: SERUM Comment: A Reactive result (Positive prior to 07/09/13) is diagnostic of acute or chronic hepatitis B infection. The presence of Hepatitis B surface antigen is frequently associated with infectivity. Ordering Provider: UMESH MCDONOUGH Report Released Date/Time: Apr 10, 2024 11:09 AM Reporting Lab: [facility] [address] [address] Performing Lab: [facility] [address] [facility] [address] HEP B SURFACE AG(wh) Non Reactive Non Reactive Social History: Smoking Status (Most current) and Tobacco Use (All prior to encounter date) This section includes the most current, and the historical, smoking and tobacco- related health factors from the [place] facility where the Encounter took place. Current Smoking Status This section includes the most current smoking, or tobacco-related health factor, from the [place] facility where the Encounter took place. Date/Time Current Smoking Status Comment Facil ity Nov 25, 2023 01:00 PM [facility] NEVER USED [facility] Tobacco Use History This section includes a history of the smoking, or tobacco-related health factors, that were collected on or before the date of the Encounter. The data comes from the [place] facility where the Encounter took place. Date/Time Smoking Status/Tobacco Use Comment F acility Nov 25, 2023 01:00 PM [facility]-TOBACCO NEVER USED [facility] Aug 02, 2023 02:30 PM [place]CO NEVER USED [place] [facility] Aug 20, 2019 11:05 AM [place]-TO[place]ACCO NEVER USED [place] [facility] Encounter Notes: All associated encounter notes This section contains the clinical notes associated to the Encounter. Date/Time Encounter Note(s) Provider Source Mar 16, 2024 02:07 PM ADMINISTRATIVE NOT E: LOCAL TITLE: CCC: SCHEDULING ADMINISTRATION STANDARD TITLE: ADMINISTRATIVE NOTE DATE OF NOTE: MAR 16, 2024@14:07 ENTRY DATE: MAR 16, 2024@14:07:27 AUTHOR: MARK FONG EXP COSIGNER: URGENCY: STATUS: COMPLETED patient called to schedule pcp f/u appt preferably on tuesday or , patient wants to know if she can see pcp in j, patient also wants to know if she can bring her two year old /deann/ MARK FONG Signed: 03/16/2024 14:08 Receipt Acknowledged By: 03/20/2024 09:14 /es/ JAYLA STONER LPN 03/19/2024 11:53 /deann/ [facility]
--- OUTSIDE RECORDS SUMMARY | 2024-08-03 13:58 | XMS_ITS | Encounter Summary ---
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 Date/Time Encounter Type Encounter Description Reason Pro vider Source Mar 23, 2024 02:22 PM Outpatient Encounter ADMIN PAT ACTIVTIES (MASNONCT) IHE Encounter Template Text not used by [place] Plan of Treatment: Future Appointments (+ 6 months) and Future Tests (+/- 45 days) The Plan of Treatment section includes future care activities for the patient from all [place] treatmentfacilities. This section includes future appointments and future orders which are active, pending or scheduled. Future Appointments This section includes appointments that were scheduled to occur 6 months from the date of the Encounter, up to a maximum of 20 appointments. The data comes from all [place] treatment facilities. Appointment Date/Time Appointment Type Appointme nt Facility Name Apr 10, 2024 10:45 AM AMBULATORY - NONE [place] [facility] Apr 23, 2024 08:15 AM AMBULATORY - NONE [place] [facility] May 09, 2024 03:00 PM AM[place]ORY - [place]IC[place] [facility] May 14, 2024 12:30 PM [place]ORY [place] [facility] May 22, 2024 10:00 AM AMBULATORY - NONE [place] [facility] May 23, 2024 09:00 AM AMBULATORY - NONE [place] [facility] Jun 19, 2024 01:15 PM AMBULATORY - MEDICINE [facility] Jun 25, 2024 10:30 AM AMBULATORY - MEDICINE [facility]UR[place] [facility] Jul 18, 2024 01:30 PM AMBULATORY - MEDICINE [facility] ABUR[facility] Aug 13, 2024 10:30 AM AMBULATORY - NONE [place] MAR[place] [facility] Active, Pending, and Scheduled Orders This section includes a listing of several types of active, pending, and scheduled orders, including clinic medications orders, diagnostic test orders, procedure orders and consult orders; where the start date of the order is 45 days before the date of the Encounter or 45 days after the date of theEncounter. The data comes from all [place] treatment facilities. Test Date/Time Test Type Test Details Facility Name Apr 10, 2024 12:00 AM Laboratory - Chemi stry Order AMYLASE LT GREEN(LI HEP) PLASMA SP [facility] Apr 10, 2024 12:00 AM Laboratory - Chemi stry Order LIPASE LT GREEN(LI HEP) PLASMA SP [facility] Apr 10, 2024 11:26 AM Consult Order COMMUNITY CARE-MAMMOGRAPHY SCREENING [facility] Apr 10, 2024 11:27 AM Consult Order COMMUNITY [facility]-OPTOMETRY ROUTINE EYE EXAM Cons [facility] Lab Results: +/- 30 days of [...] Range Comment Apr 10, 2024 11:35 AM [facility] GLYCOHEMOGLOBIN (A1C ONLY) Specimen Type: BLOOD Comment: , Tests performed on [employer] Mckenna SN:[id number] (405) Values obtained from A1C measurements can vary. For typical A1C assays, a reported value of 7.0 could actually be between 6.72 and 7.28 if measured by a reference method. A reported value of 9.0 could actually be between 8.73 and 9.27. Ref: http://www.ngs p.org/CAPdata. asp Ordering Provider: UMESH MCDONOUGH Report Released Date/Time: Apr 03, 2024 01:10 PM Reporting Lab: [facility] [address] [facility] [address] Performing Lab: [facility] [address] [facility] [address] HEMOGLOBIN A1C 5.3 4.0-5.6 Apr 10, 2024 11:35 AM [facility] LIPOPROTEIN CHOLESTEROL FRACT. PANEL Specimen Type: PLASMA Comment: Added by [id number] on Apr 10, 2024@11:40, Tests performed on [employer] Mckenna SN:[id number] (405) Ordering Provider: UMESH MCDONOUGH Report Released Date/Time: Apr 03, 2024 01:10 PM Reporting Lab: [facility] [address] [facility] [address] Performing Lab: [facility] [address] [facility] [address] CHOLESTEROL 250 mg/dL H 0-200 TRIGLYCERIDE 108 mg/dL 0-150 HDL CHOLESTEROL 66 mg/dL >40 LDL CHOLESTEROL (CALC) 162 mg/dL Apr 10, 2024 11:35 AM [facility] LIVER PROFILE Specimen Type: PLASMA Comment: Added by [id number] on Apr 10, 2024@11:40, Tests performed on [employer] Mckenna SN:[id number] (405) Ordering Provider: UMESH MCDONOUGH Report Released Date/Time: Apr 03, 2024 01:10 PM Reporting Lab: [facility] [address] [facility] [address] Performing Lab: [facility] [address] [facility] [address] PROTEIN, TOTAL 7.3 g/dL 6.0-8.5 ALBUMIN 3.9 g/dL 3.2-5.0 BILIRUBIN, TOTAL 0.4 mg/dL 0.2-1.2 ALKALINE PHOSPHATASE 37 U/L L 40-150 ALT(SGPT) 11 U/L 7-52 AST(SGOT) 14 U/L 5-34 FIB-4 SCORE 0.72 <2.67 Apr 10, 2024 11:35 AM [facility] P4 GLU,BUN,CREAT,LYTES,CA Specimen Type: PLASMA Comment: Added by [id number] on Apr 10, 2024@11:40, Tests performed on [employer] Mckenna SN:[id number] (346) Ordering Provider: UMESH MCDONOUGH Report Released Date/Time: Apr 03, 2024 01:10 PM Reporting Lab: [facility] [address] [facility] [address] Performing Lab: [facility] [address] [place] [address] UREA NITROGEN 12 mg/dL 7-25 SODIUM 136 mmol/L 135-145 POTASSIUM 3.7 mmol/L 3.5-5.0 CHLORIDE 104 mmol/L 100-110 CARBON DIOXIDE 25 mmol/L 20-30 ANION GAP 7 4-16 GLUCOSE 63 mg/dL L 65-100 CREATININE 0.93 mg/dL 0.50-1.50 CALCIUM 9.3 mg/dL 8.5-10.5 eGFR(CKD-EPI 2020) 78 Apr 10, 2024 11:35 AM [facility] CBC PROFILE Specimen Type: BLOOD No comment entered. Ordering Provider: UMESH MCDONOUGH Report Released Date/Time: Apr 03, 2024 01:10 PM Reporting Lab: [facility] [address] [facility] [address] Performing Lab: [facility] [address] [place] [address] WBC 7.2 10*3/uL 4.5-11.0 RBC 4.30 10*6/uL [...] 10*3/uL 0-0 Apr 10, 2024 11:35 AM [facility] CRP(INFLAMMATORY) Specimen Type: PLASMA Comment: Added by [id number] on Apr 10, 2024@11:40, Tests performed on [employer] SN:[id number] (405) Ordering Provider: UMESH MCDONOUGH Report Released Date/Time: Apr 03, 2024 01:10 PM Reporting Lab: [place] [facility] [address] [facility] [address] Performing Lab: [facility] [address] [facility] [address] CRP(INFLAMMATORY) 0.5 mg/L 0.0-5.0 Apr 10, 2024 11:35 AM [facility] IRON+TIBC(P) Specimen Type: PLASMA Comment: Added by [id number] on Apr 10, 2024@11:40, Tests performed on [employer] SN:[id number] (405) Ordering Provider: UMESH MCDONOUGH Report Released Date/Time: Apr 03, 2024 01:10 PM Reporting Lab: [place] [facility] [address] [facility] [address] Performing Lab: [place] [facility] [address] [facility] [address] IRON 139 ug/dL 40-160 TIBC 320 ug/dL IRON SATURATION(P) 43 >15 UIBC(P) 181 ug/dL 126-382 Apr 10, 2024 11:34 AM [facility] HEP B SURF AB(W) Specimen Type: SERUM [...] AM Reporting Lab: [facility] [address] [facility] [address] Performing Lab: [facility] [address] [facility] [address] HEP B SURF AB(W) REACTIVE Non Reactive Apr 10, 2024 11:34 AM [facility] HEP B CORE,TOTAL(W) Specimen Type: [...] AM Reporting Lab: [facility] [address] [facility] [address] Performing Lab: [facility] [address] [facility] [address] HEP B CORE,TOTAL(W) Non Reactive Non Reactive Apr 10, 2024 11:34 AM [facility] HEPATITIS A IgG(W) Specimen Type: [...] Apr 10, 2024 11:33 AM Reporting [facility]: [facility] [address] [facility] [address] Performing Lab: [facility] [address] [facility] [address] HEPATITIS A IgG(W) REACTIVE Non Reactive Apr 10, 2024 11:34 AM [facility] HEPATITIS C AB(WRJ)w/Reflex Specimen Type: SERUM Comment: , Tests performed on [employer] Mckenna SN:[id number] (405) No HCV antibody detected. If recent infection is suspected or other evidence suggests HCV infection, consider HCV RNA testing Ordering Provider: UMESH MCDONOUGH Report Released Date/Time: Apr 10, 2024 11:09 AM Reporting Lab: [facility] [address] [facility] [address] Per[facility]: [facility] [address] [facility] [address] HEPATITIS C AB(WRJ)w/Reflex Non-Reactive Non-Reactiv e Apr 10, 2024 11:34 AM [facility] HIV Ag/Ab SCREEN Specimen Type: SERUM Comment: Added by [id number] on Apr 10, 2024@11:40, Tests performed on [employer] Mckenna SN:[id number] (405) TSH within normal limits. Reflex testing not required. Ordering Provider: UMESH MCDONOUGH Report Released Date/Time: Apr 10, 2024 11:09 AM Reporting Lab: [facility] [address] [facility] [address] Performing Lab: [facility] [address] [facility] [address] HIV Ag/Ab SCREEN Non-Reactive Non-Reactiv e Apr 10, 2024 11:34 AM [facility] FERRITIN Specimen Type: SERUM Comment: Added by [id number] on Apr 10, 2024@11:40, Tests performed on [employer] Mckenna SN:[id number] (405) TSH within normal limits. Reflex testing not required. Ordering Provider: UMESH MCDONOUGH Report Released Date/Time: Apr 10, 2024 11:09 AM Reporting Lab: [place] [facility] [address] [facility] [address] Performing Lab: [place] [facility] [address] [facility] [address] FERRITIN 31 ng/mL 5-204 Apr 10, 2024 11:34 AM [facility] VITAMIN B-12 Specimen Type: SERUM Comment: Added by [id number] on Apr 10, 2024@11:40, Tests performed on [employer] Mckenna SN:[id number] (405) TSH within normal limits. Reflex testing not required. Ordering Provider: UMESH MCDONOUGH Report Released Date/Time: Apr 10, 2024 11:09 AM Reporting Lab: [place] [facility] [address] [facility] [address] Performing Lab: [place] [facility] [address] [facility] [address] VITAMIN B-12 745 pg/mL 200-900 Apr 10, 2024 11:34 AM [facility] ESR(NEW) Specimen Type: BLOOD Comment: Tests performed on [employer] ISED(405) Ordering Provider: UMESH MCDONOUGH Report Released Date/Time: Apr 10, 2024 11:31 AM Reporting Lab: [place] [facility] [address] [facility] [address] Performing Lab: [place] [facility] [address] [facility] [address] ESR(NEW) 1 mm/h 0-20 Apr 10, 2024 11:34 AM [facility] THYROID TESTING CASCADE Specimen Type: SERUM Comment: Added by [id number] on Apr 10, 2024@11:40, Tests performed on [employer] Mckenna SN:[id number] (405) TSH within normal limits. Reflex testing not required. Ordering Provider: UMESH MCDONOUGH Report Released Date/Time: Apr 10, 2024 11:09 AM Reporting Lab: [place] [facility] [address] [facility] [address] Performing Lab: [place] [facility] [address] [facility] [address] TSH 0.61 u[IU]/mL 0.35-5.00 Apr 10, 2024 11:34 AM [facility] VIT D 25-OH(WRJ) Specimen Type: SERUM Comment: Added by [id number] on Apr 10, 2024@11:40, Tests performed on [employer] Mckenna SN:[id number] (405) TSH within normal limits. Reflex testing not required. Ordering Provider: UMESH MCDONOUGH Report Released Date/Time: Apr 10, 2024 11:09 AM Reporting Lab: [facility] [address] [facility] [address] Performing Lab: [facility] [address] [facility] [address] VIT D 25-OH([facility]) 42.9 ng/mL 20.0-50.0 Apr 10, 2024 11:34 AM [facility] HBSAG PANEL WITH REFLEX CONFIRMATION() Specimen Typ e: SERUM Comment: A Reactive result (Positive prior to 07/09/13) is diagnostic of acute or chronic hepatitis B infection. The presence of Hepatitis B surface antigen is frequently associated with infectivity. Ordering Provider: UMESH MCDONOUGH Report Released Date/Time: Apr 10, 2024 11:09 AM Reporting Lab: [facility] [address] [facility] [address] Performing Lab: [facility] [address] [facility] [address] HEP B SURFACE AG(wh) Non Reactive Non Reactive Social History: Smoking Status (Most current) and Tobacco Use (All prior to encounter date) This section includes the most current, and the historical, smoking and tobacco- related health factors from the [place] facility where the Encounter took place. Current Smoking Status This section includes the most current smoking, or tobacco-related health factor, from the [place] facility where the Encounter took place. Date/Time Current Smoking Status Comment Facil ity Nov 25, 2023 01:00 PM [facility] NEVER USED [facility] Tobacco Use History This section includes a history of the smoking, or tobacco-related health factors, that were collected on or before the date of the Encounter. The data comes from the [place] facility where the Encounter took place. Date/Time Smoking Status/Tobacco Use Comment F acility Nov 25, 2023 01:00 PM VA-TOBACCO NEVER USED [facility] Aug 02, 2023 02:30 PM [place]CO NEVER USED [place] [facility] Aug 20, 2019 11:05 AM [place]ACCO NEVER USED [place] [facility] Encounter Notes: All associated encounter notes This section contains the clinical notes associated to the Encounter. Date/Time Encounter Note(s) Provider Source Mar 23, 2024 02:22 PM PRIMARY CARE ADMINISTRATIVE NOTE: LOCAL TITLE: Administrative Note/Primary Care STANDARD TITLE: PRIMARY CARE ADMINISTRATIVE NOTE DATE OF NOTE: MAR 23, 2024@14:22 ENTRY DATE: MAR 23, 2024@14:23 AUTHOR: GINI FRAIRE COSIGNER: URGENCY: STATUS: COMPLETED Administrative Note/Primary Care Has ADDENDA Reached out to Pt and Left V/M and sent letter. RE: Scheduling RTC CORETTA PATEL [address] [place] [id number] Dear [place], The [place] [facility] department in [place] is trying to reach you to schedule an appointment with your provider Dr. Mary Luna. If you have already been incontact with the clinic and scheduled an appointment, please disregard this letter. Please call one of the numbers provided below: Direct: [phone] X [phone] Toll Free: [phone]) [place] [address] Again, thank you for letting us serve you. [employer]. Department of [address] [address] TOLL FREE: 1-862-OUR VETS ( ) /deann/ GINI FRAIRE Signed: 03/23/2024 14:23 04/06/2024 ADDENDUM STATUS: COMPLETED left vm and sent RTC again /deann/ GINI FRAIRE Signed: 04/06/2024 10:00 [facility]
--- OUTSIDE RECORDS SUMMARY | 2024-08-03 13:58 | XMS_ITS | Encounter Summary ---
Author Name [facility] Organization [facility] Address [address] [place] [address] Care Team Providers Care Programmer Analyst Health It Name Role Phone UMESH MCDONOUGH Primary Care Provider Unavailabl e Selected Encounter This section includes the information on record at [place] for the Encounter. Date/Time Encounter Type Encounter Description Reason Pro vider Source Apr 23, 2024 09:11 AM Outpatient Encounter COMMUNITY CARE CONSULT IHE Encounter Template Text not used by [place] Plan of Treatment: Future Appointments (+ 6 months) and Future Tests (+/- 45 days) The Plan of Treatment section includes future care activities for the patient from all [facility] treatmentfacilities. This section includes future appointments and future orders which are active, pending or scheduled. Future Appointments This section includes appointments that were scheduled to occur 6 months from the date of the Encounter, up to a maximum of 20 appointments. The data comes from all [place] treatment facilities. Appointment Date/Time Appointment Type Appointme nt Facility Name May 09, 2024 03:00 PM AMBULATORY [place]IC[place] [facility] May 14, 2024 12:30 PM AMBUL[place]ORY [place] [facility] May 22, 2024 10:00 AM AMBULATORY - NONE [place] [facility] May 23, 2024 09:00 AM AMBULATORY - NONE [place] [facility] Jun 19, 2024 01:15 PM [place] [facility] Jun 25, 2024 10:30 AM [place] [facility] Jul 18, 2024 01:30 PM AMBULATORY - MEDICINE [place] ABUR[place] [facility] Aug 13, 2024 10:30 AM AM[facility]ULATORY - [facility] HETAL MARTE [facility] Active, Pending, and Scheduled Orders This section includes a listing of several types of active, pending, and scheduled orders, including clinic medications orders, diagnostic test orders, procedure orders and consult orders; where the start date of the order is 45 days before the date of the Encounter or 45 days after the date of theEncounter. The data comes from all [place] treatment facilities. 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 For typical A1C assays, a reported value of 7.0 could actually be between 6.72 and 7.28 if measured by a reference method. A reported value of 9.0 could actually be between 8.73 and 9.27. Ref: http://www.ngs p.org/CAPdata. asp Ordering Provider: UMESH MCDONOUGH Report Released Date/Time: Apr 03, 2024 01:10 PM Reporting Lab: [facility] [address] [address] Performing Lab: [facility] [address] [address] HEMOGLOBIN A1C 5.3 4.0-5.6 Apr 10, 2024 11:35 AM [facility] LIPOPROTEIN CHOLESTEROL FRACT. PANEL Specimen Type: PLASMA Comment: Added by [id number] on Apr 10, 2024@11:40, Tests performed on [employer] Mckenna SN:[id number] (405) Ordering Provider: UMESH MCDONOUGH Report Released Date/Time: Apr 03, 2024 01:10 PM Reporting Lab: [facility] [address] [facility] [address] Performing Lab: [facility] [address] [address] CHOLESTEROL 250 mg/dL H 0-200 TRIGLYCERIDE 108 mg/dL 0-150 HDL CHOLESTEROL 66 mg/dL >40 LDL CHOLESTEROL (CALC) 162 mg/dL Apr 10, 2024 11:35 AM [facility] LIVER PROFILE Specimen Type: PLASMA Comment: Added by [id number] on Apr 10, 2024@11:40, Tests performed on [employer] Mckenna SN:[id number] (405) Ordering Provider: UMESH MCDONOUGH Report Released Date/Time: Apr 03, 2024 01:10 PM Reporting Lab: [facility] [address] [address] Performing Lab: [facility] [address] [address] PROTEIN, TOTAL 7.3 g/dL 6.0-8.5 ALBUMIN 3.9 g/dL 3.2-5.0 BILIRUBIN, TOTAL 0.4 mg/dL 0.2-1.2 ALKALINE PHOSPHATASE 37 U/L L 40-150 ALT(SGPT) 11 U/L 7-52 AST(SGOT) 14 U/L 5-34 FIB-4 SCORE 0.72 <2.67 Apr 10, 2024 11:35 AM [facility] P4 GLU,BUN,CREAT,LYTES,CA Specimen Type: PLASMA Comment: Added by [id number] on Apr 10, 2024@11:40, Tests performed on [employer] Mckenna SN:[id number] (405) Ordering Provider: UMESH MCDONOUGH Report Released Date/Time: Apr 03, 2024 01:10 PM Reporting Lab: [facility] [address] [id number] Performing Lab: [facility] [address] [id number] UREA NITROGEN 12 mg/dL 7-25 SODIUM 136 mmol/L 135-145 POTASSIUM 3.7 mmol/L 3.5-5.0 CHLORIDE 104 mmol/L 100-110 CARBON DIOXIDE 25 mmol/L 20-30 ANION GAP 7 4-16 GLUCOSE 63 mg/dL L 65-100 CREATININE 0.93 mg/dL 0.50-1.50 CALCIUM 9.3 mg/dL 8.5-10.5 eGFR(CKD-EPI 2020) 78 Apr 10, 2024 11:35 AM [facility] CBC PROFILE Specimen Type: BLOOD No comment entered. Ordering Provider: UMESH MCDONOUGH Report Released Date/Time: Apr 03, 2024 01:10 PM Reporting Lab: [facility] [address] [id number] Performing Lab: [facility] [address] [id number] WBC 7.2 10*3/uL 4.5-11.0 RBC 4.30 10*6/uL [...] 10*3/uL 0-0 Apr 10, 2024 11:35 AM [facility] CRP(INFLAMMATORY) Specimen Type: PLASMA Comment: Added by [id number] on Apr 10, 2024@11:40, Tests performed on [employer] Power Plant Manager Mckenna SN:[id number] (405) Ordering Provider: UMESH MCDONOUGH Report Released Date/Time: Apr 03, 2024 01:10 PM [facility] [address] [address] Performing Lab: [facility] [address] [address] CRP(INFLAMMATORY) 0.5 mg/L 0.0-5.0 Apr 10, 2024 11:35 AM [facility] IRON+TIBC(P) Specimen Type: PLASMA Comment: Added by [id number] on Apr 10, 2024@11:40, Tests performed on [employer] SN:[id number] (405) Ordering Provider: UMESH MCDONOUGH Report Released Date/Time: Apr 03, 2024 01:10 PM [facility] [address] [address] [facility]forming [facility] [address] [address] IRON 139 ug/dL 40-160 TIBC 320 ug/dL IRON SATURATION(P) 43 >15 UIBC(P) 181 ug/dL 126-382 Apr 10, 2024 11:34 AM [facility] HEP B SURF AB(W) Specimen Type: [...] Apr 10, 2024 11:09 AM Reporting Lab: [facility] [address] [facility] [address] Performing Lab: [facility] [address] [facility] [address] HEP B SURF AB(W) REACTIVE Non Reactive Apr 10, 2024 11:34 AM [facility] HEP B CORE,TOTAL(W) Specimen Type: SERUM [...] Apr 10, 2024 11:09 AM Reporting Lab: [facility] [address] [address] Performing Lab: [address] [address] HEP B CORE,TOTAL(W) Non Reactive Non Reactive Apr 10, 2024 11:34 AM [facility] HEPATITIS A IgG(W) Specimen Type: SERUM [...] 2024 11:33 AM Reporting Lab: [place] [facility] [address] [facility] [facility] [address] Performing Lab[facility] [place] [facility] [address] [facility] [facility] [address] HEPATITIS A IgG(W) REACTIVE Non Reactive Apr 10, 2024 11:34 AM [facility] HEPATITIS C AB(WRJ)w/Reflex Specimen Type: SERUM Comment: , Tests performed on [employer] Power Plant Manager Mckenna SN:[id number] (405) No HCV antibody detected. If recent infection is suspected or other evidence suggests HCV infection, consider HCV RNA testing Ordering Provider: UMESH MCDONOUGH Report Released Date/Time: Apr 10, 2024 11:09 AM Reporting Lab: [place] [facility] [address] [facility] [address] Performing Lab: [place] [facility] [address] [facility] [address] HEPATITIS C AB(WRJ)w/Reflex Non-Reactive Non-Reactiv e Apr 10, 2024 11:34 AM [facility] HIV Ag/Ab SCREEN Specimen Type: SERUM Comment: Added by [id number] on Apr 10, 2024@11:40, Tests performed on [employer] Plant Manager Mckenna SN:[id number] (405) TSH within normal limits. Reflex testing not required. Ordering Provider: UMESH MCDONOUGH Report Released Date/Time: Apr 10, 2024 11:09 AM Reporting Lab: [place] [facility] [address] [facility] [address] Performing Lab: [place] [facility] [address] [facility] [facility] [address] HIV Ag/Ab SCREEN Non-Reactive Non-Reactiv e Apr 10, 2024 11:34 AM [facility] FERRITIN Specimen Type: SERUM Comment: Added by [id number] on Apr 10, 2024@11:40, Tests performed on [employer] Power Plant Manager Mckenna SN:[id number] (405) TSH within normal limits. Reflex testing not required. Ordering Provider: UMESH MCDONOUGH Report Released Date/Time: Apr 10, 2024 11:09 AM Reporting Lab: [place] [facility] [address] [facility] [address] Performing Lab: [place] [facility] [address] [facility] [address] FERRITIN 31 ng/mL 5-204 Apr 10, 2024 11:34 AM [facility] VITAMIN B-12 Specimen Type: SERUM Comment: Added by [id number] on Apr 10, 2024@11:40, Tests performed on [employer] Power Plant Manager Mckenna SN:[id number] (405) TSH within normal limits. Reflex testing not required. Ordering Provider: UMESH MCDONOUGH Report Released Date/Time: Apr 10, 2024 11:09 AM Reporting Lab: [place] [facility] [address] [facility] [address] Performing Lab: [place] [facility] [address] [facility] [address] VITAMIN B-12 745 pg/mL 200-900 Apr 10, 2024 11:34 AM [facility] ESR(NEW) Specimen Type: BLOOD Comment: Tests performed on [employer] ISED(405) Ordering Provider: UMESH MCDONOUGH Report Released Date/Time: Apr 10, 2024 11:31 AM Reporting Lab: [place] [facility] [address] [facility] [address] Performing Lab: [place] [facility] [address] [facility] [address] ESR(NEW) 1 mm/h 0-20 Apr 10, 2024 11:34 AM [facility] THYROID TESTING CASCADE Specimen Type: SERUM Comment: Added by [id number] on Apr 10, 2024@11:40, Tests performed on [employer] Mckenna SN:[id number] (405) TSH within normal limits. Reflex testing not required. Ordering Provider: UMESH MCDONOUGH Report Released Date/Time: Apr 10, 2024 11:09 AM Reporting Lab: [place] [facility] [address] [facility] [address] Performing Lab: [place] [facility] [address] [facility] [address] TSH 0.61 u[IU]/mL 0.35-5.00 Apr 10, 2024 11:34 AM [facility] VIT D 25-OH(WRJ) Specimen Type: SERUM Comment: Added by [id number] on Apr 10, 2024@11:40, Tests performed on [employer] Mckenna SN:[id number] (405) TSH within normal limits. Reflex testing not required. Ordering Provider: UMESH MCDONOUGH Report Released Date/Time: Apr 10, 2024 11:09 AM Reporting Lab: [facility] [address] [facility] [address] Performing Lab: [facility] [address] [facility] [address] VIT D 25-OH(J) 42.9 ng/mL 20.0-50.0 Apr 10, 2024 11:34 AM [facility] HBSAG PANEL WITH REFLEX CONFIRMATION() Specimen Typ e: SERUM Comment: A Reactive result (Positive prior to 07/09/13) is diagnostic of acute or chronic hepatitis B infection. The presence of Hepatitis B surface antigen is frequently associated with infectivity. Ordering Provider: UMESH MCDONOUGH Report Released Date/Time: Apr 10, 2024 11:09 AM Reporting Lab: [facility] [address] [facility] [address] Performing Lab: [address] [address] HEP B SURFACE AG(wh) Non Reactive Non Reactive Social History: Smoking Status (Most current) and Tobacco Use (All prior to encounter date) This section includes the most current, and the historical, smoking and tobacco- related health factors from the [facility] facility where the Encounter took place. Current Smoking Status This section includes the most current smoking, or tobacco-related health factor, from the [facility] facility where the Encounter took place. Date/Time Current Smoking Status Comment Wendy [email or web address] Nov 25, 2023 01:00 PM VA-TOBACCO NEVER USED [facility] Tobacco Use History This section includes a history of the smoking, or tobacco-related health factors, that were collected on or before the date of the Encounter. The data comes from the [facility] facility where the Encounter took place. Date/Time Smoking Status/Tobacco Use Comment F karina Nov 25, 2023 01:00 PM VA-TOBACCO NEVER USED [place] [facility] Aug 02, 2023 02:30 PM VA-TOBACCO NEVER USED [place] [facility] Aug 20, 2019 11:05 AM VA-TOBACCO NEVER USED [facility] Radiology Reports: +/- 30 days of the [...] the Encounter. The data comes from all [facility] treatment facilities. Date/Time Radiology Report Provider Source Apr 23, 2024 08:15 AM ULTRASOUND RUQ (GB,LIVER,BILIARY): CORETTA PATEL [id number] -1980 F Exm Date: APR 23, 2024@08:15 Req Phys: UMESH MCDONOUGH Loc: [facility] PACT A 6 M1RB (Req'g Loc) Img Loc: ULTRASOUND (OOS) Service: Unknown Screen: Patient answered no [facility] [address] (Case 39 COMPLETE) ULTRASOUND RUQ (GB,LIVER,BILIARY)(US Detailed) CPT:19155 Proc Modifiers : RIGHT Reason for Study: RUQ pain Clinical History: compare to study Report Status: Verified Date Reported: APR 23, 2024 Date Verified: APR 23, 2024 Plug Maker E-Sig:/ES/PATRICIA ESPINOZA Report: ECHO EXAM OF ABDOMEN [...] REQUIRED Primary Interpreting Staff: Staff CARLEE GANDHI (Plug Maker) /PATRICIA BARTLETT [facility] Apr 23, 2024 07:56 AM ELASTOGRAPHY PAREN CHYMA (E.G., ORGAN): CORETTA PATEL [id number] -1980 F Exm Date: APR 23, 2024@07:56 Req Phys: UMESH MCDONOUGH Pat Loc: [facility] PACT A 6 M1RB (Req'g Loc) Img Loc: ULTRASOUND (OOS) Service: Unknown Screen: Patient answered no [place] [address] (Case 40 COMPLETE) ELASTOGRAPHY PARENCHYMA (E.G., OR(US Detailed) CPT:62146 Reason for Study: RUQ pain Clinical History: Report Status: Verified Date Reported: APR 23, 2024 Date Verified: APR 23, 2024 Plug Maker E-Sig:/ES/PATRICIA ESPINOZA Report: ECHO EXAM OF ABDOMEN [...] REQUIRED Primary Interpreting Staff: Staff CARLEE GANDHI (Plug Maker) /PATRICIA BARTLETT [facility] Encounter Notes: All associated encounter notes This section contains the clinical notes associated to the Encounter. Date/Time Encounter Note(s) Provider Source Apr 23, 2024 09:11 AM NONVA NOTE: LOCAL TITLE: COMMUNITY CARE-CARE COORDINATION PLAN NOTE STANDARD TITLE: NONVA NOTE DATE OF NOTE: APR 23, 2024@09:11 ENTRY DATE: APR 23, 2024@09:11:21 AUTHOR: HAILEY RIOS EXP COSIGNER: URGENCY: STATUS: COMPLETED Community Care Consult: COMMUNITY CARE-NEUROSURGERY Consult No: [id number] [facility] Referral #: [id number] Community Provider or Hospital Information Community Provider Information I [phone] Site Name: [facility] Address: [address] [place] [address], [address] Phone #: [phone] Fax #: [phone] Specialty: NEUROSURGERY Provisional Diagnosis: Other low back pain(ICD-10-CM M54.59) Patient Admitted? Unknown Level of Care Coordination Complex/Chronic Care Coordination was determined from: Chart Review Facility Community Care Office Contact Care Coordination Point of Contact: [facility] Services: Moderate Care Coordination Services Case Management, if appropriate Direct communications with interdisciplinary team Plan: Neurosurgery referral sent to [facility]. Referral is valid for 180 days starting on the first appt date. /es/ HAILEY RIOS RN Signed: 04/23/2024 09:13 HAILEY RIOS [facility]
--- OUTSIDE RECORDS SUMMARY | 2024-08-03 13:58 | XMS_ITS | Encounter Summary ---
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 Date/Time Encounter Type Encounter Description Reason Provider Source Apr 10, 2024 10:45 AM OFFICE O/P EST MOD 30 MIN PRIMARY CARE/MEDICINE ICD-10-CM R10.9 Unspecified abdominal pain CEASAR,UMESH L IHE Encounter Template Text not used by [place] Assessments - Encounter Diagnoses This section includes the primary and secondary diagnoses documented for the Encounter. Date/Time Primary/Secondary Diagnosis Diagnosis Name Provider Source Apr 10, 2024 12:05 PM PRIMARY Unspecified abdominal pain CEASAR,UMESH L [place] [facility] Apr 10, 2024 12:05 PM SECONDARY Alcohol use, unspecified with alcohol-induced mood disorder CEASAR,UMESH L [place] [facility] Apr 10, 2024 12:05 PM SECONDARY Bipolar disorder, unspecified CEASAR,UMESH L [facility] Apr 10, 2024 12:05 PM SECONDARY Other low back pain CEASAR,UMESH L [facility] Plan of Treatment: Future Appointments (+ 6 months) and Future Tests (+/- 45 days) The Plan of Treatment section includes future care activities for the patient from all [facility]. This section includes future appointments and future orders which are active, pending or scheduled. Future Appointments This section includes appointments that were scheduled to occur 6 months from the date of the Encounter, up to a maximum of 20 appointments. The data comes from all [facility]. Appointment Date/Time Appointment Type Appointme nt Facility Name Apr 23, 2024 08:15 AM AMBULATORY - NONE [facility] May 09, 2024 03:00 PM AMBULATORY - MEDICINE [facility] Nereida ABURTO [facility] May 14, 2024 12:30 PM AMBULATORY - SURGERY [facility] May 22, 2024 10:00 AM AMBULATORY - NONE [facility] [place] ROSANNA [facility] May 23, 2024 09:00 AM AMBULATORY - NONE [facility] Jun 19, 2024 01:15 PM AMBULATORY - MEDICINE [facility] Nereida ABURTO [facility] Jun 25, 2024 10:30 AM AMBULATORY - MEDICINE [facility] Nereida ABURTO [facility] Jul 18, 2024 01:30 PM AMBULATORY - MEDICINE [facility] Nereida ABURTO [facility] Aug 13, 2024 10:30 AM AMBULATORY - NONE [facility]INA MAR[facility] Active, Pending, and Scheduled Orders This section includes a listing of several types of active, pending, and scheduled orders, including clinic medications orders, diagnostic test orders, procedure orders and consult orders; where the start date of the order is 45 days before the date of the Encounter or 45 days after the date of theEncounter. The data comes from all [facility]. Test Date/Time Test Type Test Details Facility Name Apr 10, 2024 12:00 AM Laboratory - Chemi stry Order AMYLASE LT GREEN(LI HEP) PLASMA SP [facility] Apr 10, 2024 12:00 AM Laboratory - Chemi stry Order LIPASE LT GREEN(LI HEP) PLASMA SP [facility] Apr 10, 2024 11:26 AM Consult Order COMMUNITY CARE-MAMMOGRAPHY SCREENING Cons Geophysical Prospecting Surveyor's Choice [facility] Apr 10, 2024 11:27 AM Consult Order COMMUNITY CARE-OPTOMETRY ROUTINE EYE EXAM Cons Geophysical Prospecting Surveyor's Choice [facility] Lab Results: +/- 30 days [...] BLOOD Comment: , Tests performed on [employer] Mckenna SN:[id number] (405) Values obtained from A1C measurements can [...] PM Reporting Lab: [facility] [address] [address] Performing Lab: [facility] [address] [address] HEMOGLOBIN A1C 5.3 4.0-5.6 Apr 10, 2024 11:35 AM [facility] LIPOPROTEIN CHOLESTEROL FRACT. PANEL Specimen Type: PLASMA Comment: Added by [id number] on Apr 10, 2024@11:40, Tests performed on Platform [employer] Mckenna SN:[id number] (405) Ordering Provider: UMESH MCDONOUGH Report Released Date/Time: Apr 03, 2024 01:10 PM Reporting Lab: [facility] [address] [address] Performing Lab: [facility] [address] [facility] [address] CHOLESTEROL 250 mg/dL H 0-200 TRIGLYCERIDE 108 mg/dL 0-150 HDL CHOLESTEROL 66 mg/dL >40 LDL CHOLESTEROL (CALC) 162 mg/dL Apr 10, 2024 11:35 AM [facility] LIVER PROFILE Specimen Type: PLASMA Comment: Added by [id number] on Apr 10, 2024@11:40, Tests performed on [employer]ckenna SN:[id number] (405) Ordering Provider: UMESH MCDONOUGH Report Released Date/Time: Apr 03, 2024 01:10 PM Reporting Lab: [facility] [address] [address] Performing Lab: [facility] [address] [address] PROTEIN, TOTAL 7.3 g/dL 6.0-8.5 ALBUMIN 3.9 g/dL 3.2-5.0 BILIRUBIN, TOTAL 0.4 mg/dL 0.2-1.2 ALKALINE PHOSPHATASE 37 U/L L 40-150 ALT(SGPT) 11 U/L 7-52 AST(SGOT) 14 U/L 5-34 FIB-4 SCORE 0.72 <2.67 Apr 10, 2024 11:35 AM [facility] P4 GLU,BUN,CREAT,LYTES,CA Specimen Type: PLASMA Comment: Added by [id number] on Apr 10, 2024@11:40, Tests performed on [employer] SN:[id number] (405) Ordering Provider: UMESH MCDONOUGH Report Released Date/Time: Apr 03, 2024 01:10 PM Reporting Lab: [facility] [address] Performing Lab: [facility] [address] UREA NITROGEN 12 mg/dL 7-25 SODIUM 136 [...] Reporting Lab: [facility] [address] [address] Performing Lab: [facility] [address] [facility] [address] WBC 7.2 10*3/uL 4.5-11.0 RBC 4.30 10*6/uL [...] 10, 2024 11:35 AM [facility] CRP(INFLAMMATORY) Specimen Type: PLASMA Comment: Added by [id number] on Apr 10, 2024@11:40, Tests performed on [employer] SN:[id number] (405) Ordering Provider: UMESH MCDONOUGH Report Released Date/Time: Apr 03, 2024 01:10 PM Reporting Lab: [facility] [address] [address] Performing Lab: [facility] [address] [address] CRP(INFLAMMATORY) 0.5 mg/L 0.0-5.0 Apr 10, 2024 11:35 AM [facility] IRON+TIBC(P) Specimen Type: PLASMA Comment: Added by [id number] on Apr 10, 2024@11:40, Tests performed on [employer] Mckenna SN:[id number] (070) Ordering Provider: UMESH MCDONOUGH Report Released Date/Time: Apr 03, 2024 01:10 PM Reporting Lab: [facility] [address] [address] Performing Lab: [facility] [address] [address] IRON 139 ug/dL 40-160 TIBC 320 ug/dL IRON SATURATION(P) 43 >15 UIBC(P) 181 ug/dL 126-382 Apr 10, 2024 11:34 AM [facility] Reporting Lab: [facility] [address] [address] Performing Lab: [facility] [address] [address] HEP B CORE,TOTAL(W) Non Reactive Non Reactive Apr 10, 2024 11:34 AM [facility] HEP B SURF AB(W) Specimen [...] Reporting Lab: [facility] [address] [address] Performing Lab: [facility] [address] [address] HEP B SURF AB(W) REACTIVE Non Reactive [...] Apr 10, 2024 11:33 AM Reporting Lab: [facility] [address] [address] Performing Lab: [address] [address] HEPATITIS A IgG(W) REACTIVE Non Reactive Apr 10, 2024 11:34 AM [facility] HEPATITIS C AB(WRJ)w/Reflex Specimen Type: SERUM Comment: , Tests performed on [employer] SN:[id number] (405) No HCV antibody detected. If recent infection is suspected or other evidence suggests HCV infection, consider HCV RNA testing Ordering Provider: UMESH MCDONOUGH Report Released Date/Time: Apr 10, 2024 11:09 AM Reporting Lab: [facility] [address] [facility] [address] Performing Lab: [facility] [address] [facility] [address] HEPATITIS C AB(WRJ)w/Reflex Non-Reactive Non-Reactiv e Apr 10, 2024 11:34 AM [facility] HIV Ag/Ab SCREEN Specimen Type: SERUM Comment: Added by [id number] on Apr 10, 2024@11:40, Tests performed on [employer] Mckenna SN:[id number] (405) TSH within normal limits. Reflex testing not required. Ordering Provider: UMESH MCDONOUGH Report Released Date/Time: Apr 10, 2024 11:09 AM Reporting Lab: [facility] [facility] [address] [facility] [address] Performing Lab: [facility] [facility] [address] [facility] [address] HIV Ag/Ab SCREEN Non-Reactive Non-Reactiv e Apr 10, 2024 11:34 AM [facility] FERRITIN Specimen Type: SERUM Comment: Added by [id number] on Apr 10, 2024@11:40, Tests performed on [employer] Database Technician Mckenna SN:[id number] (405) TSH within normal limits. Reflex testing not required. Ordering Provider: UMESH MCDONOUGH Report Released Date/Time: Apr 10, 2024 11:09 AM Reporting Lab: [place] [facility] [address] [facility] [address] Performing Lab: [facility] [facility] [facility] [address] [facility] [address] FERRITIN 31 ng/mL 5-204 Apr 10, 2024 11:34 AM [facility] VITAMIN B-12 Specimen Type: SERUM Comment: Added by [id number] on Apr 10, 2024@11:40, Tests performed on [employer] Database Technician Mckenna SN:[id number] (405) TSH within normal limits. Reflex testing not required. Ordering Provider: UMESH MCDONOUGH Report Released Date/Time: Apr 10, 2024 11:09 AM Reporting Lab: [facility] [place] [facility] [address] [facility] [address] Performing Lab: [facility] [facility] [address] [facility] [address] VITAMIN B-12 745 pg/mL 200-900 Apr 10, 2024 11:34 AM [facility] ESR(NEW) Specimen Type: BLOOD Comment: Tests performed on [employer] ISED(405) Ordering Provider: UMESH MCDONOUGH Report Released Date/Time: Apr 10, 2024 11:31 AM Reporting Lab: [facility] [place] [facility] [address] [facility] [address] Performing Lab: [facility] [place] [facility] [address] [facility] [address] ESR(NEW) 1 mm/h 0-20 Apr 10, 2024 11:34 AM [facility] THYROID TESTING CASCADE Specimen Type: SERUM Comment: Added by [id number] on Apr 10, 2024@11:40, Tests performed on [employer] Database Technician Mckenna SN:[id number] (405) TSH within normal limits. Reflex testing not required. Ordering Provider: UMESH MCDONOUGH Report Released Date/Time: Apr 10, 2024 11:09 AM Reporting Lab: [facility] [address] [address] Performing Lab: [facility] [address] [address] TSH 0.61 u[IU]/mL 0.35-5.00 Apr 10, 2024 11:34 AM [facility] VIT D 25-OH(WRJ) Specimen Type: SERUM Comment: Added by [id number] on Apr 10, 2024@11:40, Tests performed on [employer] Database Technician Mckenna SN:[id number] (405) TSH within normal limits. Reflex testing not required. Ordering Provider: UMESH MCDONOUGH Report Released Date/Time: Apr 10, 2024 11:09 AM Reporting Lab: [facility] [address] [address] Performing Lab: [facility] [address] [address] VIT D 25-OH(J) 42.9 ng/mL 20.0-50.0 Apr 10, 2024 11:34 AM [facility] HBSAG PANEL WITH REFLEX CONFIRMATION(WH) Specimen Typ e: SERUM Comment: A Reactive result (Positive prior to 07/09/13) is diagnostic of acute or chronic hepatitis B infection. The presence of Hepatitis B surface antigen is frequently associated with infectivity. Ordering Provider: UMESH MCDONOUGH Report Released Date/Time: Apr 10, 2024 11:09 AM Reporting Lab: [facility] [address] [address] Performing Lab: [facility] [address] [address] HEP B SURFACE AG(wh) Non Reactive Non Reactive Vital Signs: All taken on the encounter date This section contains inpatient and outpatient Vital Signs collected on the date of the Encounter. Date/Time Temperature Pulse Blood Pressure Respiratory Rate SP02 Pain Height Weight Body Mass Index Source Apr 10, 2024 10:43 AM 85/52 [facility] Apr 10, 2024 10:43 AM 98.7 62 91/55 18 98 6 130.3 22 [place] [facility] Social History: Smoking Status (Most current) and Tobacco Use (All prior to encounter date) This section includes the most current, and the historical, smoking and tobacco- related health factors from the [place] facility where the Encounter took place. Current Smoking Status This section includes the most current smoking, or tobacco-related health factor, from the [place] facility where the Encounter took place. Date/Time Current Smoking Status Comment Facil ity Nov 25, 2023 01:00 PM VA-TOBACCO NEVER USED [facility] Tobacco Use History This section includes a history of the smoking, or tobacco-related health factors, that were collected on or before the date of the Encounter. The data comes from the [place] facility where the Encounter took place. Date/Time Smoking Status/Tobacco Use Comment F acility Nov 25, 2023 01:00 PM VA-TOBACCO NEVER USED [place] [facility] [facility] Aug 02, 2023 02:30 PM VA-TOBACCO NEVER USED [place] [facility] Aug 20, 2019 11:05 AM VA-TOBACCO NEVER USED [facility] Radiology Reports: +/- 30 days of [...] the Encounter. The data comes from all [place] treatment facilities. Date/Time Radiology Report Provider Source Apr 23, 2024 08:15 AM ULTRASOUND RUQ (GB,LIVER,BILIARY): CORETTA PATEL [id number] -[id number] F Exm Date: APR 23, 2024@08:15 Req Phys: UMESH MCDONOUGH Pat Loc: [facility] PACT A 6 M1RB (Req'g Loc) Img Loc: ULTRASOUND (OOS) Service: Unknown Screen: Patient answered no [facility] [facility] [place] [address] (Case 39 COMPLETE) ULTRASOUND RUQ (GB,LIVER,BILIARY)(US Detailed) CPT:12925 Proc Modifiers : RIGHT Reason for Study: RUQ pain Clinical History: compare to study Report Status: Verified Date Reported: APR 23, 2024 Date Verified: APR 23, 2024 Pharmacy Delivery Driver E-Sig:/ES/PATRICIA ESPINOZA Report: ECHO EXAM OF ABDOMEN [...] REQUIRED Primary Interpreting Staff: Staff CARLEE GANDHI (Pharmacy Delivery Driver) /PATRICIA BARTLETT [facility] Apr 23, 2024 07:56 AM ELASTOGRAPHY PAREN CHYMA (E.G., ORGAN): CORETTA PATEL [id number] -1980 F Exm Date: APR 23, 2024@07:56 Req Phys: UMESH MCDONOUGH Pat Loc: [facility] PACT A 6 M1RB (Req'g Loc) Img Loc: ULTRASOUND (OOS) Service: Unknown Screen: Patient answered no [place] [address] (Case 40 COMPLETE) ELASTOGRAPHY PARENCHYMA (E.G., OR(US Detailed) CPT:83917 Reason for Study: RUQ pain Clinical History: Report Status: Verified Date Reported: APR 23, 2024 Date Verified: APR 23, 2024 Pharmacy Delivery Driver E-Sig:/ES/PATRICIA ESPINOZA Report: ECHO EXAM OF ABDOMEN [...] REQUIRED Primary Interpreting Staff: Staff CARLEE GANDHI (Pharmacy Delivery Driver) /PATRICIA BARTLETT [facility] Encounter Notes: All associated encounter notes This section contains the clinical notes associated to the Encounter. Date/Time Encounter Note(s) Provider Source Apr 16, 2024 10:23 AM ADDENDUM: LOCAL TITLE: Addendum STANDARD TITLE: ADDENDUM DATE OF NOTE: APR 16, 2024@10:23:08 ENTRY DATE: APR 16, 2024@10:23:09 AUTHOR: UMESH MCDONOUGH EXP COSIGNER: URGENCY: STATUS: COMPLETED Please mail to /deann/ UMESH MCDONOUGH APRN Signed: 04/16/2024 10:23 Receipt Acknowledged By: 04/23/2024 08:25 /deann/ LIDA CLARK Welder Plasma Arc --- Original Document --- 04/11/24 Letter to Patient - [place]: APR 11, 2024 CORETTA [address]EL [address] [place] [id number] Dear CORETTA PATEL: I have reviewed your lab results. Inflammatory markers are negative Hepatitis C is negative Hepatitis B and A show you have immunuty to these viruses. HIV is negative Iron and ferratin levels are normal Compete blood count, Vit D, Vit B12 and thyroid all look good. HgbA1C is negative for diabetes. Electrolytes, kidney and liver function all normal. Cholesterol Your cholesterol levels are: CHOLESTEROL 250 H mg/dL 0 - 200 TRIGLYCERIDE 108 mg/dL 0 - 150 HDL CHOLESTEROL 66 mg/dL Ref: >=40 LDL CHOLESTEROL (CALC) 162 mg/dL You can work on increasing your HDL, which is the good cholesterol. To improve this number, you can eat more fiber, avoid trans sat, and replace saturated fats with unsaturated fats. A heart-healthy diet includes lots of fruits and vegetables, fiber, and healthy fats (like those found in fish, nuts, and certain oils). It also means limiting sugar and unhealthy fats You can lower your LDL, or bad, cholesterol by avoiding red meat, butter, fried foods, cheese, and other foods that have a lot of saturated fat. You can lower triglycerides by avoiding sugary foods, fried foods, and excess alcohol. If you are overweight, it can help to lose weight. Your doctor or nurse can help you do this in a healthy way. Try to get regular physical activity. Even gentle forms of exercise, like walking, are good for your health. Even if these steps do little to change your cholesterol, they can improve your health in many other ways. I reached out to Dr Luna regarding the ache you reported at the area you had an epidural 2 years ago. She recommended a physical therapy for musculoskeletal evaluation, if the cause remains unidentified we could consult anesthesia. I read your request for neurosurgery consult at [facility] and have placed it. Please don't hesitate to call if you have any questions or concerns, . Sincerely, UMESH MCDONOUGH RELATIONSHIP ASSOCIATE [facility] [address] [place] [address] UMESH MCDONOUGH [facility] Apr 11, 2024 04:12 PM LETTERS: LOCAL TITLE: Letter to [facility] STANDARD TITLE: LETTERS DATE OF NOTE: APR 11, 2024@16:12 ENTRY DATE: APR 11, 2024@16:13 AUTHOR: UMESH MCDONOUGH EXP COSIGNER: URGENCY: STATUS: COMPLETED Letter to Patient Porfirio [place] Has ADDENDA APR 11, 2024 CORETTA PATEL [address], [place] [address] Dear CORETTA PATEL: I have reviewed your lab results. Inflammatory markers are negative Hepatitis C is negative Hepatitis B and A show you have immunuty to these viruses. HIV is negative Iron and ferratin levels are normal Compete blood count, Vit D, Vit B12 and thyroid all look good. HgbA1C is negative for diabetes. Electrolytes, kidney and liver function all normal. Cholesterol Your cholesterol levels are: CHOLESTEROL 250 H mg/dL 0 - 200 TRIGLYCERIDE 108 mg/dL 0 - 150 HDL CHOLESTEROL 66 mg/dL Ref: >=40 LDL CHOLESTEROL (CALC) 162 mg/dL You can work on increasing your HDL, which is the good cholesterol. To improve this number, you can eat more fiber, avoid trans sat, and replace saturated fats with unsaturated fats. A heart-healthy diet includes lots of fruits and vegetables, fiber, and healthy fats (like those found in fish, nuts, and certain oils). It also means limiting sugar and unhealthy fats You can lower your LDL, or bad, cholesterol by avoiding red meat, butter, fried foods, cheese, and other foods that have a lot of saturated fat. You can lower triglycerides by avoiding sugary foods, fried foods, and excess alcohol. If you are overweight, it can help to lose weight. Your doctor or nurse can help you do this in a healthy way. Try to get regular physical activity. Even gentle forms of exercise, like walking, are good for your health. Even if these steps do little to change your cholesterol, they can improve your health in many other ways. I reached out to Dr Luna regarding the ache you reported at the area you had an epidural 2 years ago. She recommended a physical therapy for musculoskeletal evaluation, if the cause remains unidentified we could consult anesthesia. I read your request for neurosurgery consult at [facility] and have placed it. Please don't hesitate to call if you have any questions or concerns, . Sincerely, UMESH MCDONOUGH APRN [facility] [address] [place] [address] 04/16/2024 ADDENDUM STATUS: COMPLETED Please mail to /es/ UMESH MCDONOUGH APRN Signed: 04/16/2024 10:23 Receipt Acknowledged By: * AWAITING SIGNATURE * LIDA CLARK EVELYN L [facility] Apr 10, 2024 10:51 AM PRIMARY CARE NOTE: LOCAL TITLE: Primary Care Clinic Note STANDARD TITLE: PRIMARY CARE NOTE DATE OF NOTE: APR 10, 2024@10:51 ENTRY DATE: APR 10, 2024@10:51:34 AUTHOR: UMESH MCDONOUGH EXP COSIGNER: URGENCY: STATUS: COMPLETED ASSES/PLAN - # RUQ pain- persists unclear etiology -repeat RUQ US compare to 2022 US - Liver U/S with elastography - LFTs, amylase, lipase, P4, CBC, Hepatitis HIV Iron studies, inflammatory markers, # mild fatty liver- dull ache persists, abd US, 1. Mild hepatic steatosis. No focal liver lesions. LFTs normal discussed avoid alcohol , healthy diet, regular exercise # etoh abuse- sober since Oct 2023 # bipolar disease- self stopped meds, consult to psychopharm to discuss and if indicated resume meds # Intermittent asymptomatic right pulsatile tinnitus consistent with imaging study of right high jugular bulb and partial dehiscence right internal auditory canal near the eustachian tube. Trial of Flonase nasal spray twice daily- saline nasal spray and juan pot - did not dicuss today # back pain- no s/s inflammation or infection on exam. Not likely epidural related due to length of time from epidura. #Meds: reviewed, reconciled #health Maint: vaccines reviewed: RTC - VVC 3-4 weeks [x] open access [x] Counseling of patient/family dominates over 50% of face to face encounter HPI: Doing better, from hisband now still sees her son every day. He liver is hurting all the time, no alcohol x 5 mos. Has been using medicinal herbs she grows- mushrooms, chaga - she is sure these are not toxic to the liver , drinking lemon water. Pain is RUQ ,constant ache with intermittent sharp pain. Can not identify triggers- possibly more pain with heavier / fatty meal but this is not the only time it happens. States she is mildly ill all the time, has some periods of nausea and diarrhea. Denies blood in stool, no vomiting, fevers , chills, diaphoresis Constantly fatigued- The spot she had her epidural still aches - has always hurt when she sat against hard surface but now aches all the time. No f/c, focal pain does not radiate. She has not brought it up before now- consider reporting to 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 HABITS: recreational drugs: none- over 20 years ago marijuana , ketamine Tobacco: none ETOH: had heavy use started when she was a teenager, started heavy drinking late 20s and s had on and off periods of heavy drinking since then Last drink was Oct 2023 Immunizations: Bowel screening: Mammogram - OCC ordered Diet/Exercise: diet is not as good as it used to be try to help healthy, no regular exercise SURGICAL HISTORY: 2021 Family History: Mother alive age 65 healthy Father alive 67 healthy 2 brothers, one in [place] home until February health issues unclear PMH: [...] SPRAY FLONASE AFTER SALINE NASAL SPRAY 2) MOISTURIZER VAG GEL APPLIC (EQV-REPLENS) INSERT ONE ACTIVE APPLICATION INTRAVAGINALLY EVERY THREE DAYS FOR DRYNESS MAY USE MORE FREQUENTLY NEEDED, DAILY USE IS SAFE Active Non-VA Medications Status 1) Non-VA FISH OIL 1000MG (500MG DHA/EPA) CAP 1000MG BY ACTIVE MOUTH EVERY DAY 2) Non-VA MULTIVIT W/MINERALS, CAP/TAB ONE BY ACTIVE MOUTH EVERY DAY 3) Non-VA MULTIVITAMIN CAP/TAB ONE CAP/TAB BY MOUTH ACTIVE EVERY DAY 4) Non-VA PROBIOTIC CAP,ORAL BY MOUTH EVERY DAY ACTIVE 6 Total Medications Outside [facility] meds: ALLERGIES: Patient has answered NKA ROS: as above OBJ: BP:85/52 (04/10/2024 10:43) HR:62 (04/10/2024 10:43) WT:130.3 lb [59.10 kg] (04/10/2024 10:43) HT: 65 in [165.1 cm] (11/11/2023 14:07) BODY MASS INDEX - APR 10, 2024@10:43:36 21.7 General- Well-appearing, no apparent distress. Cardiovascular:RRR, S1,S2, no m/g/r, PMI non-displaced Respiratory: non-labored breathing, clear A & P Abdomen: abdomen soft, RUQ tenderness Skin:Warm and dry. No petechiae, purpura, ecchymoses, rash. Extremities/feet: (-) edema Musculoskeletal: normal gait, spine palpated, no redness warmth swelling Psych: Normal affect and demeanor. normal speech pattern Neurological:Alert, oriented X3 Motor - 5/5 Sensory intact to touch Mammogram Screening: A mammogram is currently scheduled. Info Only: [facility] Capable: /deann/ UMESH MCDONOUGH APRN Signed: 04/10/2024 12:06 UMESH MCDONOUGH [facility] Apr 10, 2024 10:45 AM PRIMARY CARE JENNY Alcantara EVALUATION NOTE: LOCAL TITLE: Preventive Health Annual Review STANDARD TITLE: PRIMARY CARE ANNUAL EVALUATION NOTE DATE OF NOTE: APR 10, 2024@10:45 ENTRY DATE: APR 10, 2024@10:45:48 AUTHOR: CYNTHIA EASTON EXP COSIGNER: URGENCY: STATUS: COMPLETED COVID-19 Immunization: Refused Moderna Monovalent COVID-19 vaccine Immunization: COVID-19 (MODERNA), MRNA, LNP-S, PF, 50 MCG/0.5 ML (AGES 12+ YEARS) Refusal Reason: PATIENT DECISION Patient refuses all immunization(s) in the COVID-19 group Date Documented: 04/10/24 10:46 Alcohol Use Screen (AUDIT-C): Alcohol Screen: SCREEN FOR ALCOHOL (AUDIT-C) An alcohol screening test (AUDIT-C) was negative (score=0). 1. How often did you have a drink containing alcohol in the past year? Consider a drink to be a 12 ounce can or bottle of regular beer, 8 ounces of malt liquor, a 5 ounce glass of table wine, or a 1.5 ounce shot of liquor (like scotch, gin, or vodka). Never 2. How many drinks containing alcohol did you have on a typical day when you were drinking in the past year? Response not required due to responses to other questions. 3. How often did you have 4 or more drinks on one occasion in the past year? Response not required due to responses to other questions. Pneumococcal Conjugate Vaccine (PCV15/PCV20): Refuses PCV vaccine Immunization: PNEUMOCOCCAL CONJUGATE, UNSPECIFIED FORMULATION Refusal Reason: PATIENT DECISION Patient refuses all immunization(s) in the PneumoPCV group Date Documented: 04/10/24 10:47 Tdap Immunization: The patient declines to receive the recommended dose of Tdap vaccine. Immunization: TDAP Refusal Reason: PATIENT DECISION Patient refuses all immunization(s) in the TDAP group Date Documented: 04/10/24 10:47 Advance Directive Screen MH AD: The patient has an Advance Directive on file at another [facility] that may require updating with the assistance of Social Work Service. A consult to Social Work Service has been entered. (See Orders) The patient received education about Advance Directives and written notification of his/her rights. Comment: has papers need to complete Patient does not have an Advance Directive completed and is requesting more information. A consult was sent to Social Work Services at this visit so that an appointment can be made with the patient to review the advance directive. The patient received education about Advance Directives and written notification of his/her rights. Sexual Orientation: The patient thinks of their sexual orientation as: Straight or Heterosexual /deann/ CYNTHIA GARCIA Signed: 04/10/2024 10:48 CYNTHIA EASTON [facility]
--- OUTSIDE RECORDS SUMMARY | 2024-08-03 13:58 | XMS_ITS | Encounter Summary ---
Author Name [facility] [place] [facility] [place] Organization [facility] [place] Address [address] [place] [address] Care Team Providers Care Settlement Processor Name Role Phone UMESH MCDONOUGH Primary Care Provider Unavailabl e Selected Encounter This section includes the information on record at [place] for the Encounter. Date/Time Encounter Type Encounter Description Reason Pro vider Source February 03, 2024 12:09 PM Outpatient Encounter ADMIN PAT ACTIVTIES (MASNONCT) [...] [place] [facility] Apr [...] [place] [facility] Jun 19, 2024 01:15 PM [place] [facility] Jun 25, 2024 10:30 AM [place] [facility] Jul 18, 2024 01:30 PM [place] [facility] Social History: Smoking Status (Most current) and [...] Date/Time Current Smoking Status Comment Wendy beckhamy Nov 25, 2023 01:00 PM [place] USED [place] [facility] Tobacco Use History This section includes a history of the smoking, or tobacco-related health factors, that were collected on or before the date of the Encounter. The data comes from the [place] facility where the Encounter took place. Date/Time Smoking Status/Tobacco Use Comment F acleticia Nov 25, 2023 01:00 PM [place] US[place] [facility] Aug 02, 2023 02:30 PM [place] [facility] Aug 20, 2019 11:05 AM [place]-TOBACCO [place] USED [place] [facility] Encounter Notes: All associated encounter notes This section contains the clinical notes associated to the Encounter. Date/Time Encounter Note(s) Provider Source February 03, 2024 12:09 PM ADMINISTRATIVE NOT E: LOCAL TITLE: Has Admin Note STANDARD TITLE: ADMINISTRATIVE NOTE DATE OF NOTE: FEBRUARY 03, 2024@12:09 ENTRY DATE: FEBRUARY 03, 2024@12:09:24 AUTHOR: JERRY CHANDLER EXP COSIGNER: URGENCY: STATUS: COMPLETED Reason for call Clinic Name:[facility] 60 M3[facility] RTC Discontinued [place] has had documented contact attempt in 14 days. RTC dispositioned due to failure to respond per [facility] [place]. New appointment request can be entered if/when calls back to schedule appointment. /deann/ JERRY CHANDLER MSA Signed: 02/03/2024 12:10 JERRY CHANDLER [place] [facility]
--- OUTSIDE RECORDS SUMMARY | 2024-08-03 13:58 | XMS_ITS ---
Author Name [facility] of [facility] [place] Organization [facility] [place] Address [address] [place] [address] Care Team Providers Care Payroll Specialist Name Role Phone UMESH MCDONOUGH Primary Care Provider Unavailabl e Selected Encounter This section includes the information on record at [place] for the Encounter. Date/Time Encounter Type Encounter Description Reason Pro vider Source Apr 09, 2024 03:10 PM Outpatient Encounter ADMIN PAT ACTIVTIES (MASNONCT) IHE Encounter Template Text not used by [place] Plan of Treatment: Future Appointments (+ 6 months) and Future Tests (+/- 45 days) The Plan of Treatment section includes future care activities for the patient from all [place] treatmentfacilities. This section includes future appointments and future orders which are active, pending or scheduled. Future Appointments This section includes appointments that were scheduled to occur 6 months from the date of the Encounter, up to a maximum of 20 appointments. The data comes from all [place] treatment facilities. Appointment Date/Time Appointment Type Appointme nt Facility Name Apr 10, 2024 10:45 AM AMBULATORY - NONE [place] [facility] Apr 23, 2024 08:15 AM AMBULATORY - NONE [place] [facility] May 09, 2024 03:00 PM [place] [facility] May 14, 2024 12:30 PM [place] [facility] May 22, 2024 10:00 AM [place]ATORY - NONE [place] [facility] May 23, 2024 09:00 AM AMBULATORY - NONE [place] Hossein [facility] Jun 19, 2024 01:15 PM AMBULATORY - MEDICINE [place] [facility] Jun 25, 2024 10:30 AM AMBULATORY - MEDICINE [place] [facility] Jul 18, 2024 01:30 PM AMBULATORY - MEDICINE [place] Hossein [facility] Aug 13, 2024 10:30 AM AMBULATORY - NONE [place] [facility] Active, Pending, and Scheduled Orders This section includes a listing of several types of active, pending, and scheduled orders, including clinic medications orders, diagnostic test orders, procedure orders and consult orders; where the start date of the order is 45 days before the date of the Encounter or 45 days after the date of theEncounter. The data comes from all [place] treatment facilities. Test Date/Time Test Type Test Details Facility Name Apr 10, 2024 12:00 AM Laboratory - Chemi stry Order AMYLASE LT GREEN(LI HEP) PLASMA SP [facility] Apr 10, 2024 12:00 AM Laboratory - Chemi stry Order LIPASE LT GREEN(LI HEP) PLASMA SP [facility] Apr 10, 2024 11:26 AM Consult Order COMMUNITY CARE-MAMMOGRAPHY SCREENING Cons Specialist Field Engineer's [facility] Apr 10, 2024 11:27 AM Consult Order COMMUNITY [facility]-OPTOMETRY ROUTINE EYE EXAM Cons Specialist Field Engineer's [facility] Lab Results: +/- 30 [...] Range Comment Apr 10, 2024 11:35 AM [facility] GLYCOHEMOGLOBIN (A1C ONLY) Specimen Type: BLOOD Comment: , Tests performed on [employer] Mckenna SN:[id number] (405) Values obtained from A1C measurements can vary. For typical A1C assays, a reported value of 7.0 could actually be between 6.72 and 7.28 if measured by a reference method. A reported value of 9.0 could actually be between 8.73 and 9.27. Ref: http://www.ngs p.org/CAPdata. asp Ordering Provider: UMESH MCDONOUGH Report Released Date/Time: Apr 03, 2024 01:10 PM Reporting Lab: [facility] [address] [address] Performing Lab: [facility] [address] [facility] [address] HEMOGLOBIN A1C 5.3 4.0-5.6 Apr 10, 2024 11:35 AM [facility] LIPOPROTEIN CHOLESTEROL FRACT. PANEL Specimen Type: PLASMA Comment: Added by [id number] on Apr 10, 2024@11:40, Tests performed on [employer] Mckenna SN:[id number] (405) Ordering Provider: UMESH MCDONOUGH Report Released Date/Time: Apr 03, 2024 01:10 PM Reporting Lab: [facility] [address] [address] Performing Lab: [facility] [address] [address] CHOLESTEROL 250 mg/dL H 0-200 TRIGLYCERIDE 108 mg/dL 0-150 HDL CHOLESTEROL 66 mg/dL >40 LDL CHOLESTEROL (CALC) 162 mg/dL Apr 10, 2024 11:35 AM [facility] LIVER PROFILE Specimen Type: PLASMA Comment: Added by [id number] on Apr 10, 2024@11:40, Tests performed on [employer] Mckenna SN:[id number] (405) Ordering Provider: UMESH MCDONOUGH Report Released Date/Time: Apr 03, 2024 01:10 PM Reporting Lab: [facility] [address] [address] Performing Lab: [facility] [address] [address] PROTEIN, TOTAL 7.3 g/dL 6.0-8.5 ALBUMIN 3.9 g/dL 3.2-5.0 BILIRUBIN, TOTAL 0.4 mg/dL 0.2-1.2 ALKALINE PHOSPHATASE 37 U/L L 40-150 ALT(SGPT) 11 U/L 7-52 AST(SGOT) 14 U/L 5-34 FIB-4 SCORE 0.72 <2.67 Apr 10, 2024 11:35 AM [facility] P4 GLU,BUN,CREAT,LYTES,CA Specimen Type: PLASMA Comment: Added by [id number] on Apr 10, 2024@11:40, Tests performed on [employer] Mckenna SN:[id number] (888) Ordering Provider: UMESH MCDONOUGH Report Released Date/Time: Apr 03, 2024 01:10 PM Reporting Lab: [facility] [address] [address] Performing Lab: [facility] [address] [place] [address] UREA NITROGEN 12 mg/dL 7-25 SODIUM 136 mmol/L 135-145 POTASSIUM 3.7 mmol/L 3.5-5.0 CHLORIDE 104 mmol/L 100-110 CARBON DIOXIDE 25 mmol/L 20-30 ANION GAP 7 4-16 GLUCOSE 63 mg/dL L 65-100 CREATININE 0.93 mg/dL 0.50-1.50 CALCIUM 9.3 mg/dL 8.5-10.5 eGFR(CKD-EPI 2020) 78 Apr 10, 2024 11:35 AM [facility] CBC PROFILE Specimen Type: BLOOD No comment entered. Ordering Provider: UMESH MCDONOUGH Report Released Date/Time: Apr 03, 2024 01:10 PM Reporting Lab: [facility] [address] [address] Performing Lab: [facility] [address] [place] [place] [address] WBC 7.2 10*3/uL 4.5-11.0 RBC 4.30 10*6/uL [...] 10*3/uL 0-0 Apr 10, 2024 11:35 AM [facility] [facility] [place] [facility] IRON+TIBC(P) Specimen Type: PLASMA Comment: Added by [id number] on Apr 10, 2024@11:40, Tests performed on [employer] SN:[id number] (405) Ordering Provider: UMESH MCDONOUGH Report Released Date/Time: Apr 03, 2024 01:10 PM Reporting Lab: [place] [facility] [address] [facility] [facility] [address] Performing Lab: [place] [facility] [address] [address] IRON 139 ug/dL 40-160 TIBC 320 ug/dL IRON SATURATION(P) 43 >15 UIBC(P) 181 ug/dL 126-382 Apr 10, 2024 11:35 AM [place] [facility] CRP(INFLAMMATORY) Specimen Type: PLASMA Comment: Added by [id number] on Apr 10, 2024@11:40, Tests performed on [employer] SN:[id number] (405) Ordering Provider: UMESH MCDONOUGH Report Released Date/Time: Apr 03, 2024 01:10 PM Reporting Lab: [place] [facility] [address] [facility] [address] Performing Lab: [place] [facility] [address] [address] CRP(INFLAMMATORY) 0.5 mg/L 0.0-5.0 Apr 10, 2024 11:34 AM [place] [facility] HEP B CORE,TOTAL(W) Specimen Type: SERUM Comment: [...] Apr 10, 2024 11:09 AM Reporting Lab: [facility] [address] [address] Performing Lab: [facility] [address] [address] HEP B CORE,TOTAL(W) Non Reactive Non Reactive Apr 10, 2024 11:34 AM [facility] HEP B SURF AB(W) Specimen Type: [...] Apr 10, 2024 11:09 AM Reporting Lab: [facility] [address] [facility] [address] Performing Lab: [facility] [address] [facility] [address] HEP B SURF AB(W) REACTIVE Non Reactive Apr 10, 2024 11:34 AM [facility] HEPATITIS A IgG(W) Specimen Type: SERUM [...] Apr 10, 2024 11:33 AM Reporting Lab: [facility] [address] [facility] [facility] [address] Performing Lab: [facility] [address] [facility] [address] HEPATITIS A IgG(W) REACTIVE Non Reactive Apr 10, 2024 11:34 AM [facility] HEPATITIS C AB([facility])w/Reflex Specimen Type: SERUM Comment: , Tests performed on [employer]ckenna SN:[id number] (405) No HCV antibody detected. If recent infection is suspected or other evidence suggests HCV infection, consider HCV RNA testing Ordering Provider: UMESH MCDONOUGH Report Released Date/Time: Apr 10, 2024 11:09 AM Reporting Lab: [facility] [address] [facility] [facility] [address] Performing [facility]: [facility] [address] [facility] [address] HEPATITIS C AB([facility])w/Reflex Non-Reactive Non-Reactiv e Apr 10, 2024 11:34 AM [facility] HIV Ag/Ab SCREEN Specimen Type: SERUM Comment: Added by [id number] on Apr 10, 2024@11:40, Tests performed on [employer] SN:[id number] (405) TSH within normal limits. Reflex testing not required. Ordering Provider: UMESH MCDONOUGH Report Released Date/Time: Apr 10, 2024 11:09 AM Reporting Lab: [facility] [address] [facility] [facility] [address] Performing Lab: [facility] [address] [facility] [address] HIV Ag/Ab SCREEN Non-Reactive Non-Reactiv e Apr 10, 2024 11:34 AM [facility] FERRITIN Specimen Type: SERUM Comment: Added by [id number] on Apr 10, 2024@11:40, Tests performed on [employer] SN:[id number] (405) TSH within normal limits. Reflex testing not required. Ordering Provider: UMESH MCDONOUGH Report Released Date/Time: Apr 10, 2024 11:09 AM Reporting Lab: [place] [facility] [address] [facility] [facility] [address] Performing Lab: [place] [facility] [address] [facility] [facility] [address] FERRITIN 31 ng/mL 5-204 Apr 10, 2024 11:34 AM [facility] VITAMIN B-12 Specimen Type: SERUM Comment: Added by [id number] on Apr 10, 2024@11:40, Tests performed on [employer] SN:[id number] (405) TSH within normal limits. Reflex testing not required. Ordering Provider: UMESH MCDONOUGH Report Released Date/Time: Apr 10, 2024 11:09 AM Reporting Lab: [place] [facility] [address] [facility] [address] Performing Lab: [place] [facility] [address] [facility] [facility] [address] VITAMIN B-12 745 pg/mL 200-900 Apr 10, 2024 11:34 AM [facility] ESR(NEW) Specimen Type: BLOOD Comment: Tests performed on [employer] ISED(405) Ordering Provider: MUESH MCDONOUGH Report Released Date/Time: Apr 10, 2024 11:31 AM Reporting Lab: [place] [facility] [address] [facility] [facility] [address] Performing Lab: [place] [facility] [address] [facility] [facility] [address] ESR(NEW) 1 mm/h 0-20 Apr 10, 2024 11:34 AM [facility] THYROID TESTING CASCADE Specimen Type: SERUM Comment: Added by [id number] on Apr 10, 2024@11:40, Tests performed on [employer] SN:[id number] (405) TSH within normal limits. Reflex testing not required. Ordering Provider: UMESH MCDONOUGH Report Released Date/Time: Apr 10, 2024 11:09 AM Reporting Lab: [place] [facility] [address] [facility] [facility] [address] Performing Lab: [place] [facility] [address] [facility] [facility] [address] TSH 0.61 u[IU]/mL 0.35-5.00 Apr 10, 2024 11:34 AM [facility] VIT D 25-OH([facility]) Specimen Type: SERUM Comment: Added by [id number] on Apr 10, 2024@11:40, Tests performed on [employer] SN:[id number] (405) TSH within normal limits. Reflex testing not required. Ordering Provider: UMESH MCDONOUGH Report Released Date/Time: Apr 10, 2024 11:09 AM Reporting Lab: [facility] [address] [facility] [facility] [address] Performing Lab: [facility] [address] [facility] [facility] [address] VIT D 25-OH([facility]) 42.9 ng/mL 20.0-50.0 Apr 10, 2024 11:34 AM [facility] HBSAG PANEL WITH REFLEX CONFIRMATION() Specimen Typ e: SERUM Comment: A Reactive result (Positive prior to 07/09/13) is diagnostic of acute or chronic hepatitis B infection. The presence of Hepatitis B surface antigen is frequently associated with infectivity. Ordering Provider: UMESH MCDONOUGH Report Released Date/Time: Apr 10, 2024 11:09 AM Reporting Lab: [facility] [address] [facility] [facility] [address] Performing Lab: [facility] [address] [facility] [address] HEP B SURFACE AG(wh) Non Reactive Non Reactive Social History: Smoking Status (Most current) and Tobacco Use (All prior to encounter date) This section includes the most current, and the historical, smoking and tobacco- related health factors from the [place] facility where the Encounter took place. Current Smoking Status This section includes the most current smoking, or tobacco-related health factor, from the [place] facility where the Encounter took place. Date/Time Current Smoking Status Comment Facil ity Nov 25, 2023 01:00 PM [place] TOBACCO SMOKES DOES NOT [facility] Tobacco Use History This section includes a history of the smoking, or tobacco-related health factors, that were collected on or before the date of the Encounter. The data comes from the [place] facility where the Encounter took place. Date/Time Smoking Status/Tobacco Use Comment F acility Nov 25, 2023 01:00 PM [place] NEVER USED [place] [facility] Aug 02, 2023 02:30 PM [place] [facility] Aug 20, 2019 11:05 AM [place]CO [place] USED [place] [facility] Radiology Reports: +/- 30 days of [...] the Encounter. The data comes from all [place] treatment facilities. Date/Time Radiology Report Provider Source Apr 23, 2024 08:15 AM ULTRASOUND RUQ (GB,LIVER,BILIARY): OPAL PATELISA NASIR [id number] -[id number] F Exm Date: APR 23, 2024@08:15 Req Phys: UMESH MCDONOUGH Pat Loc: [facility] PACT A 6 M1RB (Req'g Loc) Img Loc: ULTRASOUND (OOS) Service: Unknown Screen: Patient answered no [place] [facility] [place] [address] (Case 39 COMPLETE) ULTRASOUND RUQ (GB,LIVER,BILIARY)(US Detailed) CPT:08975 Proc Modifiers : RIGHT Reason for Study: RUQ pain Clinical History: compare to study Report Status: Verified Date Reported: APR 23, 2024 Date Verified: APR 23, 2024 Natural Gas Engineer E-Sig:/ES/PATRICIA ESPINOZA Report: ECHO EXAM OF [...] REQUIRED Primary Interpreting Staff: Staff CARLEE GANDHI (Natural Gas Engineer) /PATRICIA BARTLETT [facility] Apr 23, 2024 07:56 AM ELASTOGRAPHY PAREN CHYMA (E.G., ORGAN): CORETTA PATEL [id number] -1980 F Exm Date: APR 23, 2024@07:56 Req Phys: UMESH MCDONOUGH Pat Loc: [facility] PACT A 6 M1RB (Req'g Loc) Img Loc: ULTRASOUND (OOS) Service: Unknown Screen: Patient answered no [facility] [place] [address] (Case 40 COMPLETE) ELASTOGRAPHY PARENCHYMA (E.G., OR(US Detailed) CPT:52902 Reason for Study: RUQ pain Clinical History: Report Status: Verified Date Reported: APR 23, 2024 Date Verified: APR 23, 2024 Natural Gas Engineer E-Sig:/ES/PATRICIA ESPINOZA Report: ECHO EXAM OF [...] REQUIRED Primary Interpreting Staff: Staff CARLEE GANDHI (Natural Gas Engineer) /PATRICIA BARTLETT Hossein [facility] Encounter Notes: All associated encounter notes This section contains the clinical notes associated to the Encounter. Date/Time Encounter Note(s) Provider Source Apr 09, 2024 03:10 PM NONVA NOTE: LOCAL TITLE: NonVA Note STANDARD TITLE: NONVA NOTE DATE OF NOTE: APR 09, 2024@15:10 ENTRY DATE: APR 09, 2024@15:10:47 AUTHOR: CYNTHIA EASTON COSIGNER: URGENCY: STATUS: COMPLETED Tdap Immunization: Td/Tdap given previously - written records available The patient has previously received the Tetanus, Diphtheria vaccine (Td). Documented: TD(ADULT) UNSPECIFIED FORMULATION Historical Date Administered: Sep 26, 2006 Outside Location: [facility] Information Source: FROM OTHER PROVIDER Hepatitis B Serology/Immunization: Hepatitis B vaccine given previously - written records available Combination Hepatitis A / Hepatitis B vaccine (Twinrix): Documented: HEP A-HEP B Historical Date Administered: Oct 17, 2006 Series: Series 1 Outside Location: [facility] Information Source: FROM OTHER PROVIDER /deann/ CYNTHIA GARCIA Signed: 04/09/2024 15:21 CYNTHIA EASTON [facility]
--- OUTSIDE RECORDS SUMMARY | 2024-08-03 13:58 | XMS_ITS | Encounter Summary ---
Author Name [facility] [place] [facility] [place] Address [address] [place] [address] Care Team Providers Care Roll Edge Machine Operator Name Role Phone UMESH MCDONOUGH Primary Care Provider Unavailabl e Selected Encounter This section includes the information on record at [place] for the Encounter. Date/Time Encounter Type Encounter Description Reason Pro vider Source Jan 19, 2024 12:16 PM Outpatient Encounter ADMIN PAT ACTIVTIES (MASNONCT) [...] AMBULATORY - NONE [place] [facility] Apr 23, 2024 08:15 AM AMBULATORY - NONE [place] [facility] May 09, 2024 03:00 PM [facility] [place] [facility] May 14, 2024 12:30 PM [facility] [place] [facility] May 22, 2024 10:00 AM AMBULATORY - NONE [place] [facility] May 23, 2024 09:00 AM AMBULATORY - NONE [place] [facility] Jun 19, 2024 01:15 PM [place] [facility] Jun 25, 2024 10:30 AM [place] [facility] Jul 18, 2024 01:30 PM [place] [facility] Social History: Smoking Status (Most [...] PM VA-TOBACCO NEVER USED [place] [facility] Tobacco Use History This section includes a history of the smoking, or tobacco-related health factors, that were collected on or before the date of the Encounter. The data comes from the [place] facility where the Encounter took place. Date/Time Smoking Status/Tobacco Use Comment F acleticia Nov 25, 2023 01:00 PM [place]-TOBACCO NEVER USED [place] [facility] Aug 02, 2023 02:30 PM VA-TOBACCO NEVER USED [place] [facility] Aug 20, 2019 11:05 AM VA-TOBACCO NEVER USED [place] [facility] Encounter Notes: All associated encounter notes This section contains the clinical notes associated to the Encounter. Date/Time Encounter Note(s) Provider Source Jan 19, 2024 12:16 PM ADMINISTRATIVE NOT E: LOCAL TITLE: Has Admin Note STANDARD TITLE: ADMINISTRATIVE NOTE DATE OF NOTE: JAN 19, 2024@12:16 ENTRY DATE: JAN 19, 2024@12:16:36 AUTHOR: ANKIT CANO EXP COSIGNER: URGENCY: STATUS: COMPLETED Reason for call Clinic Name:[facility], VEText 1st call, Letter sent Pt Cx ENT appt for 01/24 via Vetext. Called left , standard Cx letter sent. /deann/ ANKIT CANO MSA Signed: 01/19/2024 12:23 ANKIT CANO [facility]
--- OUTSIDE RECORDS SUMMARY | 2024-08-03 13:59 | XMS_ITS | Encounter Summary ---
Author Name [facility] [place] Organization [facility] [place] Address [address] [place] [address] Care Team Providers Care Hand Screen Printer Name Role Phone UMESH MCDONOUGH Primary Care Provider Unavailabl e Selected Encounter This section includes the information on record at [place] for the Encounter. Date/Time Encounter Type Encounter Description Reason Pro vider Source Jun 19, 2024 01:15 PM OFFICE O/P NEW LOW 30 MIN GASTROENTEROLOGY ICD-10-CM R10.11 Right upper quadrant pain DINORA CORMIER IHNereida Encounter Template Text not used by [place] Assessments - Encounter Diagnoses This section includes the primary and secondary diagnoses documented for the Encounter. Date/Time Primary/Secondary Diagnosis Diagnosis Name Provider Source Jun 21, 2024 10:18 AM PRIMARY Right upper quadrant pain ROSMERY ERICKSON [facility] Plan of Treatment: Future Appointments (+ 6 months) and Future Tests (+/- 45 days) The Plan of Treatment section includes future care activities for the patient from all [place] treatmentfacilities. This section includes future appointments and future orders which are active, pending or scheduled. Future Appointments This section includes appointments that were scheduled to occur 6 months from the date of the Encounter, up to a maximum of 20 appointments. The data comes from all [place] treatment facilities. Appointment Date/Time Appointment Type Appointme nt Facility Name Jun 25, 2024 10:30 AM AMBULATORY - MEDICINE [facility] Nere[facility] Jul 18, 2024 01:30 PM AMBULATORY - MEDICINE [facility] [facility] Aug 13, 2024 10:30 AM AMBULATORY - NONE [place] [facility] Active, Pending, and Scheduled Orders This section includes a listing of several types of active, pending, and scheduled orders, including clinic medications orders, diagnostic test orders, procedure orders and consult orders; where the start date of the order is 45 days before the date of the Encounter or 45 days after the date of theEncounter. The data comes from all [place] treatment facilities. Test Date/Time Test Type Test Details Facility Name Jun 20, 2024 12:57 PM Consult Order GENERAL VIZCAINO RGERY OUTPATIENT [place] [facility] Jul 21, 2024 03:34 PM Consult Order COMMUNITY CARE-PHYSICAL THERAPY [place] [facility] Vital Signs: All taken on the encounter date This section contains inpatient and outpatient Vital Signs collected on the date of the Encounter. Date/Time Temperature Pulse Blood Pressure Respiratory Rate SP02 Pain Height Weight Body Mass Index Source Jun 19, 2024 12:58 PM 98.7 66 96/60 16 98 6 124.8 21 [facility] Social History: Smoking Status (Most current) and Tobacco Use (All prior to encounter date) This section includes the most current, and the historical, smoking and tobacco- related health factors from the [place] facility where the Encounter took place. Current Smoking Status This section includes the most current smoking, or tobacco-related health factor, from the [place] facility where the Encounter took place. Date/Time Current Smoking Status Comment Wendy ity Nov 25, 2023 01:00 PM VA-TOBACCO NEVER USED [facility] Tobacco Use History This section includes a history of the smoking, or tobacco-related health factors, that were collected on or before the date of the Encounter. The data comes from the [place] facility where the Encounter took place. Date/Time Smoking Status/Tobacco Use Comment F acleticia Nov 25, 2023 01:00 PM VA-TOBACCO NEVER USED [place] [facility] Aug 02, 2023 02:30 PM [place]-TOBACCO [place] USED [place] [facility] Aug 20, 2019 11:05 AM VA-TOBACCO NEVER USED [place] [facility] Encounter Notes: All associated encounter notes This section contains the clinical notes associated to the Encounter. Date/Time Encounter Note(s) Provider Source Jun 21, 2024 08:37 PM ADDENDUM: LOCAL TITLE: Addendum STANDARD TITLE: ADDENDUM DATE OF NOTE: JUN 21, 2024@20:37:11 ENTRY DATE: JUN 21, 2024@20:37:12 AUTHOR: FERN CORMIER COSIGNER: URGENCY: STATUS: COMPLETED Reviewed with Dr. Erickson. As noted Fib-4 reassuringly low but we will arrange Fibroscan because of concerns raised. As noted, RUQ pain not classic for biliary colic, but given some components and cholelithiasis, surgical consult reasonable. Note to primary: GI/Hepatology service has previously recommended that Ultrasound Elastography NOT be ordered as internal QI assessment has determined this to be inaccurate measure of hepatic fibrosis and results in diagnostic confusion and [place] concern. Fibroscan is the recommended modality of choice for non-invasive assessment of hepatic fibrosis when indicated based on primary screening with Fib-4. Thank you /deann/ FERN CORMIER Gastroenterology Signed: 06/21/2024 20:42 Receipt Acknowledged By: 06/25/2024 12:12 /deann/ UMESH MCDONOUGH APRN --- Original Document --- 06/20/24 CONSULT: Gastroenterology: Gastroenterology Consultation Note Reason for consult: RUQ pain, fibrosis on u/s History of Present Illness: Ms. Patel is a 43 yo female with bipolar disorder, borderline personality disorder, alcohol use disorder who presents for evaluation of RUQ pain and stage II fibrosis noted on ultrasound elastography. Patient reports she has had intermittent RUQ pain for the last couple of years. Notes it has on occasion occured with fatty foods, but can't really think of any other triggers. At times it's constant and not associated with eating. Also notes that even when she abstained from alcohol the pain has persisted. LFTs have been WNL since 2019 (low-normal AP). Recent RUQ on 04/23/24 Impression: 1. Cholelithiasis without cholecystitis. 2. A [...] so this finding may not be accurate. She made dietary changes in the last couple of years and no denies overt pain in the RUQ, but 'always can feel like something is there.' Past Medical History: Active problems - Computerized Problem List is the source for the followin. Bipolar disorder 2. Pulsatile tinnitus 3. Abdominal pain 4. Caesarean delivery - delivered 5. Borderline personality disorder 6. Back pain 7. Episodic opioid dependence 8. History of alcohol abuse Medications: Active Outpatient Medications (excluding Supplies): Active Outpatient Medications Status 1) MOISTURIZER VAG GEL APPLIC (EQV-REPLENS) INSERT ONE [...] PROBIOTIC CAP,ORAL BY MOUTH EVERY DAY ACTIVE 5 Total Medications Allergies: Patient has answered NKA Tobacco: Denies ETOH: intermittent relapses of heavy alcohol use Physical Examination: Vitals: B/P PULSE WEIGHT BMI SpO2 PAIN 96/60 66 124.8 20.8 98 6 General: Well appearing in NADAbd: Abd: Soft, NTND Labs: Reviewed Imaging Studies: RUQ on 04/23/24 Impression: 1. Cholelithiasis without cholecystitis. 2. A [...] so this finding may not be accurate. Endoscopic Reports: N/A Assessment: Ms. Patel is a 43 yo female with bipolar disorder, borderline personality disorder, alcohol use disorder who presents for evaluation of RUQ pain and stage II fibrosis noted on ultrasound elastography. In regards to fibrosis noted on ultrasound elastography, this is not a good test to evaluate for fibrosis. Patient's LFTs have been within normal range since 2019 and FIB-4 is < 1.3. Had it not been for the ultrasound there wouldn't have been a clear cut indication in her case to evaluate for fibrosis with non-invasive modalities. I think though, given her degree of anxiety and stress surounding this most recent finding, we will have her come in for a Fibroscan. In regards to the RUQ pain, symptoms are not classic with biliary colic. Though I suspect this is an atypical presentation with her gallbladder the explanation. She had cholelithaisis on her RUQ. That being said, we did discuss with her that taking her GB out, if the cause of her pain is something else, would not guarantee her pain would subside/disappear. Nevertheless, a conversation with a surgeon to consider a CCY is reasonable. Recommendations: - Fibroscan, if reassuring can forgo ongoing surveillance and provide patient with reassurance. Of course, alcohol cessation and treatment for AUD is still important and we encouraged this. - Consult to surgery to discuss possible CCY - Timing of RTC pending these evaluations /deann/ ROSMERY ERICKSON Gastroenterology Fellow Signed: 06/20/2024 12:55 /deann/ FERN CORMIER Gastroenterology Cosigned: 06/21/2024 20:37 FERN CORMIER [facility] Jun 20, 2024 12:41 PM GASTROENTEROLOGY C ONSULT: LOCAL TITLE: CONSULT: Gastroenterology STANDARD TITLE: GASTROENTEROLOGY CONSULT DATE OF NOTE: JUN 20, 2024@12:41 ENTRY DATE: JUN 20, 2024@12:41:45 AUTHOR: ROSMERY ERICKSON COSIGNER: FERN CORMIER URGENCY: STATUS: COMPLETED CONSULT: Gastroenterology Has ADDENDA Gastroenterology Consultation Note Reason for consult: RUQ pain, fibrosis on u/s History of Present Illness: Ms. Patel is a 43 yo female with bipolar disorder, borderline personality disorder, alcohol use disorder who presents for evaluation of RUQ pain and stage II fibrosis noted on ultrasound elastography. Patient reports she has had intermittent RUQ pain for the last couple of years. Notes it has on occasion occured with fatty foods, but can't really think of any other triggers. At times it's constant and not associated with eating. Also notes that even when she abstained from alcohol the pain has persisted. LFTs have been WNL since 2019 (low-normal AP). Recent RUQ on 04/23/24 Impression: 1. Cholelithiasis without cholecystitis. 2. A [...] so this finding may not be accurate. She made dietary changes in the last couple of years and no denies overt pain in the RUQ, but 'always can feel like something is there.' Past Medical History: Active problems - Computerized Problem List is the source for the followin. Bipolar disorder 2. Pulsatile tinnitus 3. Abdominal pain 4. Caesarean delivery - delivered 5. Borderline personality disorder 6. Back pain 7. Episodic opioid dependence 8. History of alcohol abuse Medications: Active Outpatient Medications (excluding Supplies): Active Outpatient Medications Status 1) MOISTURIZER VAG GEL APPLIC (EQV-REPLENS) INSERT ONE [...] PROBIOTIC CAP,ORAL BY MOUTH EVERY DAY ACTIVE 5 Total Medications Allergies: Patient has answered NKA Tobacco: Denies ETOH: intermittent relapses of heavy alcohol use Physical Examination: Vitals: B/P PULSE WEIGHT BMI SpO2 PAIN 96/60 66 124.8 20.8 98 6 General: Well appearing in NADAbd: Abd: Soft, NTND Labs: Reviewed Imaging Studies: RUQ on 04/23/24 Impression: 1. Cholelithiasis without cholecystitis. 2. A [...] so this finding may not be accurate. Endoscopic Reports: N/A Assessment: Ms. Patel is a 43 yo female with bipolar disorder, borderline personality disorder, alcohol use disorder who presents for evaluation of RUQ pain and stage II fibrosis noted on ultrasound elastography. In regards to fibrosis noted on ultrasound elastography, this is not a good test to evaluate for fibrosis. Patient's LFTs have been within normal range since 2019 and FIB-4 is < 1.3. Had it not been for the ultrasound there wouldn't have been a clear cut indication in her case to evaluate for fibrosis with non-invasive modalities. I think though, given her degree of anxiety and stress surounding this most recent finding, we will have her come in for a Fibroscan. In regards to the RUQ pain, symptoms are not classic with biliary colic. Though I suspect this is an atypical presentation with her gallbladder the explanation. She had cholelithaisis on her RUQ. That being said, we did discuss with her that taking her GB out, if the cause of her pain is something else, would not guarantee her pain would subside/disappear. Nevertheless, a conversation with a surgeon to consider a CCY is reasonable. Recommendations: - Fibroscan, if reassuring can forgo ongoing surveillance and provide patient with reassurance. Of course, alcohol cessation and treatment for AUD is still important and we encouraged this. - Consult to surgery to discuss possible CCY - Timing of RTC pending these evaluations /deann/ ROSMERY ERICKSON Gastroenterology Fellow Signed: 06/20/2024 12:55 /deann/ FERN CORMIER Gastroenterology Cosigned: 06/21/2024 20:37 06/21/2024 ADDENDUM STATUS: COMPLETED Reviewed with Dr. Erickson. As noted Fib-4 reassuringly low but we will arrange Fibroscan because of concerns raised. As noted, RUQ pain not classic for biliary colic, but given some components and cholelithiasis, surgical consult reasonable. Note to primary: GI/Hepatology service has previously recommended that Ultrasound Elastography NOT be ordered as internal QI assessment has determined this to be inaccurate measure of hepatic fibrosis and results in diagnostic confusion and concern. Fibroscan is the recommended modality of choice for non-invasive assessment of hepatic fibrosis when indicated based on primary screening with Fib-4. Thank you /deann/ FERN CORMIER Gastroenterology Signed: 06/21/2024 20:42 Receipt Acknowledged By: * AWAITING SIGNATURE * UMESH MCDONOUGH OBAIDA F [facility]
--- OUTSIDE RECORDS SUMMARY | 2024-08-03 13:59 | XMS_ITS | Encounter Summary ---
Author Name [facility] [place] [place] [facility] [place] Organization [place] Address [address] [place] [address] Care Team Providers Care Director Wholesale Name Role Phone UMESH MCDONOUGH Primary Care Provider Unavailabl e Selected Encounter This section includes the information on record at [place] for the Encounter. Date/Time Encounter Type Encounter Description Reason Pro vider Source Jul 24, 2024 12:01 PM Outpatient Encounter ADMIN PAT ACTIVTIES (ROSALBANONCT) IHE Encounter Template Text not used by [place] Plan of Treatment: Future Appointments (+ 6 months) and Future Tests (+/- 45 days) The Plan of Treatment section includes future care activities for the patient from all [place] treatmentfacilities. This section includes future appointments and future orders which are active, pending or scheduled. Future Appointments This section includes appointments that were scheduled to occur 6 months from the date of the Encounter, up to a maximum of 20 appointments. The data comes from all [place] treatment facilities. Appointment Date/Time Appointment Type Appointme nt Facility Name Aug 13, 2024 10:30 AM AMBULATORY - NONE [facility] Active, Pending, and Scheduled Orders This section includes a listing of several types of active, pending, and scheduled orders, including clinic medications orders, diagnostic test orders, procedure orders and consult orders; where the start date of the order is 45 days before the date of the Encounter or 45 days after the date of theEncounter. The data comes from all [place] treatment facilities. Test Date/Time Test Type Test Details Facility Name Jun 20, 2024 12:57 PM Consult Order GENERAL VIZCAINO RGERY OUTPATIENT [facility] Jul 21, 2024 03:34 PM Consult Order COMMUNITY CARE-PHYSICAL THERAPY [facility] Social History: Smoking Status (Most current) and Tobacco Use (All prior to encounter date) This section includes the most current, and the historical, smoking and tobacco- related health factors from the [place] facility where the Encounter took place. Current Smoking Status This section includes the most current smoking, or tobacco-related health factor, from the [place] facility where the Encounter took place. Date/Time Current Smoking Status Comment Facil ity Nov 25, 2023 01:00 PM VA-TOBACCO NEVER USED [facility] Tobacco Use History This section includes a history of the smoking, or tobacco-related health factors, that were collected on or before the date of the Encounter. The data comes from the [place] facility where the Encounter took place. Date/Time Smoking Status/Tobacco Use Comment F acility Nov 25, 2023 01:00 PM VA-TOBACCO NEVER USED [facility] Aug 02, 2023 02:30 PM VA-TOBACCO NEVER USED [facility] Aug 20, 2019 11:05 AM VA-TOBACCO NEVER USED [facility] Encounter Notes: All associated encounter notes This section contains the clinical notes associated to the Encounter. Date/Time Encounter Note(s) Provider Source Jul 24, 2024 12:01 PM LETTERS: LOCAL TITLE: LETTER TO PATIENT ATTEMPT TO CONTACT STANDARD TITLE: LETTERS DATE OF NOTE: JUL 24, 2024@12:01 ENTRY DATE: JUL 24, 2024@12:01:16 AUTHOR: ARLYN COLVIN EXP COSIGNER: URGENCY: STATUS: COMPLETED [facility] [address] [place] [address] JUL 24, 2024 CORETTA PATEL [address] [place] [id number] Dear CORETTA PATEL, [facility] [place] [facility] [place] is trying to reach you to schedule an appointment. If you have already been in contact with the clinic and scheduled an appointment you may disregard this letter. If we do not hear from you within 14 days, we will assume you no longer desire an appointment. Please call one of the numbers provided below so that we may find a suitable date for you: Service: General Surgery Direct: [phone] Ext: [phone] Toll Free: [phone] Ext: [phone] We look forward to hearing from you. Sincerely, Clinical Operations ARLYN COLVIN [facility]
--- OUTSIDE RECORDS SUMMARY | 2024-08-03 13:59 | XMS_ITS | Encounter Summary ---
Author Name [facility] [place] Organization [facility] [place] Address [address] [place] [address] Care Team Providers Care Health Safety Specialist Name Role Phone UMESH MCDONOUGH Primary Care Provider Unavailabl e Selected Encounter This section includes the information on record at [place] for the Encounter. Date/Time Encounter Type Encounter Description Reason Pro vider Source Jul 06, 2024 11:48 AM Outpatient Encounter [facility] E Encounter Template Text not used by [place] Plan of Treatment: Future Appointments (+ 6 months) and Future Tests (+/- 45 days) The Plan of Treatment section includes future care activities for the patient from all [place] treatmentfacilities. This section includes future appointments and future orders which are active, pending or scheduled. Future Appointments This section includes appointments that were scheduled to occur 6 months from the date of the Encounter, up to a maximum of 20 appointments. The data comes from all [place] treatment facilities. Appointment Date/Time Appointment Type Appointme nt Facility Name Jul 18, 2024 01:30 PM AMBULATORY - MEDICINE [facility] Aug 13, 2024 10:30 AM AMBULATORY - NONE [facility] Active, Pending, and Scheduled Orders This section includes a listing of several types of active, pending, and scheduled orders, including clinic medications orders, diagnostic test orders, procedure orders and consult orders; where the start date of the order is 45 days before the date of the Encounter or 45 days after the date of theEncounter. The data comes from all [place] treatment facilities. Test Date/Time Test Type Test Details Facility Name Jun 20, 2024 12:57 PM Consult Order GENERAL VIZCAINO RGERY OUTPATIENT [facility] [place] [facility] Jul 21, 2024 03:34 PM Consult Order COMMUNITY CARE-PHYSICAL THERAPY [facility] Social History: Smoking Status [...] Facil ity Nov 25, 2023 01:00 PM [facility] TOBACCO SMOKES DOES NOT [place] [facility] Tobacco Use History This section includes a history of the smoking, or tobacco-related health factors, that were collected on or before the date of the Encounter. The data comes from the [place] facility where the Encounter took place. Date/Time Smoking Status/Tobacco Use Comment F acility Nov 25, 2023 01:00 PM VA-TOBACCO NEVER USED [place] [facility] Aug 02, 2023 02:30 PM VA-TOBACCO NEVER USED [place] [facility] Aug 20, 2019 11:05 AM VA-TOBACCO NEVER USED [place] [facility] Encounter Notes: All associated encounter notes This section contains the clinical notes associated to the Encounter. Date/Time Encounter Note(s) Provider Source Jul 06, 2024 11:48 AM NO SHOW NOTE: LOCAL TITLE: Mental Health No Show/Clinic Cancel/Conversion Note STANDARD TITLE: NO SHOW NOTE DATE OF NOTE: JUL 06, 2024@11:48 ENTRY DATE: JUL 06, 2024@11:48:42 AUTHOR: JEAN BLACKMAN EXP COSIGNER: URGENCY: STATUS: COMPLETED ====== MENTAL HEALTH NO SHOW/CLINIC CANCELLATION/CLINIC CONVERSION NOTE ====== Appointment Date & Time: Jun@11:00 ACTION: Provider attempted to reach [place] to discuss: No Show Cancellation by clinic (X) Cancellation by Conversion of clinic appointment REASON: for no show or clinic cancel/reschedule: Veteraen called in and cancelled appt. OUTCOME: Left voicemail message: left vm requesting return phone call Any Acute Safety Concerns? No If Yes, Action Taken or Further Follow-up: (X) Co-sign MSAs at location to this note to take action on the clinic appt and add any additional instructions to MSA group. /deann/ ANNE-MARIE WEBSTER Labor Supervisor Signed: 07/06/2024 11:49 [facility]
--- OUTSIDE RECORDS SUMMARY | 2024-08-03 13:59 | XMS_ITS | Encounter Summary ---
Author Name [facility] Organization [facility] Address [address] [place] [address] Care Team Providers Care Director Embalmer Name Role Phone UMESH MCDONOUGH Primary Care Provider Unavailabl e Selected Encounter This section includes the information on record at [place] for the Encounter. Date/Time Encounter Type Encounter Description Reason Provider Source May 09, 2024 03:00 PM Outpatient Encounter TELEPHONE PRIMARY CARE ICD-10-CM R10.9 Unspecified abdominal pain ECASAR,UMESH L IHE Encounter Template Text not used by [place] Assessments - Encounter Diagnoses This section includes the primary and secondary diagnoses documented for the Encounter. Date/Time Primary/Secondary Diagnosis Diagnosis Name Provider Source May 09, 2024 03:00 PM PRIMARY Unspecified abdominal pain CEASAR,UMESH L [facility] May 09, 2024 03:00 PM SECONDARY Bipolar disorder, unspecified CEASAR,UMESH L [facility] May 09, 2024 03:00 PM SECONDARY Other low back pain CEASAR,UMESH L [facility] Plan of Treatment: Future Appointments (+ [...] The data comes from all [place] treatment [facility]. Appointment Date/Time Appointment Type Appointme nt Facility Name May 14, 2024 12:30 PM AMBULATORY - SURGERY HETAL ABURTO [facility] May 22, 2024 10:00 AM AMBULATORY - NONE WHITE RI ROSANNA [facility] May 23, 2024 09:00 AM AMBULATORY - NONE WHITE RI ROSANNA T [facility] Jun 19, 2024 01:15 PM AMBULATORY - MEDICINE CORNELIO ABURTO [facility] Jun 25, 2024 10:30 AM AMBULATORY - MEDICINE WHIT Nereida ABURTO [facility] Jul 18, 2024 01:30 PM AMBULATORY - MEDICINE WHIT E LAMONTE [facility] Aug 13, 2024 10:30 AM AMBULATORY - NONE WHITE RI ROSANNA [facility] Active, Pending, and Scheduled Orders This section includes a listing of several types of active, pending, and scheduled orders, including clinic medications orders, diagnostic test orders, procedure orders and consult orders; where the start date of the order is 45 days before the date of the Encounter or 45 days after the date of theEncounter. The data comes from all [facility]. Test Date/Time Test Type Test Details Facility Name Apr 10, 2024 12:00 AM Laboratory - Chemi stry Order AMYLASE LT GREEN(LI HEP) PLASMA SP [facility] Apr 10, 2024 12:00 AM Laboratory - Chemi stry Order LIPASE LT GREEN(LI HEP) PLASMA SP [facility] Apr 10, 2024 11:26 AM Consult Order COMMUNITY CARE-MAMMOGRAPHY SCREENING Cons Extruding [employer] Apr 10, 2024 11:27 AM Consult Order COMMUNITY [facility]-OPTOMETRY ROUTINE EYE EXAM Cons Extruding Press Operator's Choice [facility] Jun 20, 2024 12:57 PM Consult Order GENERAL VIZCAINO RGERY OUTPATIENT Cons [employer]ruding [employer] [facility] Lab Results: +/- 30 [...] Range Comment Apr 10, 2024 11:35 AM [facility] GLYCOHEMOGLOBIN (A1C ONLY) Specimen Type: BLOOD Comment: , Tests performed on [employer] SN:[id number] (405) Values obtained from A1C measurements can vary. For typical A1C assays, a reported value of 7.0 could actually be between 6.72 and 7.28 if measured by a reference method. A reported value of 9.0 could actually be between 8.73 and 9.27. Ref: http://www.ngs p.org/CAPdata. asp Ordering Provider: UMESH MCDONOUGH Report Released Date/Time: Apr 03, 2024 01:10 PM Reporting Lab: [facility] [address] [facility] [address] Performing Lab: [facility] [address] [facility] [address] HEMOGLOBIN A1C 5.3 4.0-5.6 Apr 10, 2024 11:35 AM [facility] LIPOPROTEIN CHOLESTEROL FRACT. PANEL Specimen Type: PLASMA Comment: Added by [id number] on Apr 10, 2024@11:40, Tests performed on [employer] SN:[id number] (405) Ordering Provider: UMESH MCDONOUGH Report Released Date/Time: Apr 03, 2024 01:10 PM Reporting Lab: [facility] [address] [facility] [address] Performing Lab: [facility] [address] [facility] [address] CHOLESTEROL 250 mg/dL H 0-200 TRIGLYCERIDE 108 mg/dL 0-150 HDL CHOLESTEROL 66 mg/dL >40 LDL CHOLESTEROL (CALC) 162 mg/dL Apr 10, 2024 11:35 AM [facility] LIVER PROFILE Specimen Type: PLASMA Comment: Added by [id number] on Apr 10, 2024@11:40, Tests performed on [employer] SN:[id number] (405) Ordering Provider: UMESH MCDONOUGH Report Released Date/Time: Apr 03, 2024 01:10 PM Reporting Lab: [facility] [address] [facility] [address] Performing Lab: [facility] [address] [facility] [address] PROTEIN, TOTAL 7.3 g/dL 6.0-8.5 ALBUMIN 3.9 g/dL 3.2-5.0 BILIRUBIN, TOTAL 0.4 mg/dL 0.2-1.2 ALKALINE PHOSPHATASE 37 U/L L 40-150 ALT(SGPT) 11 U/L 7-52 AST(SGOT) 14 U/L 5-34 FIB-4 SCORE 0.72 <2.67 Apr 10, 2024 11:35 AM [facility] P4 GLU,BUN,CREAT,LYTES,CA Specimen Type: PLASMA Comment: Added by [id number] on Apr 10, 2024@11:40, Tests performed on [employer] SN:[id number] (405) Ordering Provider: UMESH MCDONOUGH Report Released Date/Time: Apr 03, 2024 01:10 PM Reporting Lab: [facility] [address] [id number] Performing Lab: [facility] [address] [id number] UREA NITROGEN 12 mg/dL 7-25 SODIUM 136 mmol/L 135-145 POTASSIUM 3.7 mmol/L 3.5-5.0 CHLORIDE 104 mmol/L 100-110 CARBON DIOXIDE 25 mmol/L 20-30 ANION GAP 7 4-16 GLUCOSE 63 mg/dL L 65-100 CREATININE 0.93 mg/dL 0.50-1.50 CALCIUM 9.3 mg/dL 8.5-10.5 eGFR(CKD-EPI 2020) 78 Apr 10, 2024 11:35 AM [facility] CBC PROFILE Specimen Type: BLOOD No comment entered. Ordering Provider: UMESH MCDONOUGH Report Released Date/Time: Apr 03, 2024 01:10 PM Reporting Lab: [facility] [address] [facility] [address] Performing Lab: [facility] [address] [facility] [address] WBC 7.2 10*3/uL 4.5-11.0 RBC 4.30 10*6/uL [...] 10*3/uL 0-0 Apr 10, 2024 11:35 AM [facility] CRP(INFLAMMATORY) Specimen Type: PLASMA Comment: Added by [id number] on Apr 10, 2024@11:40, Tests performed on [employer] Mckenna SN:[id number] (405) Ordering Provider: UMESH MCDONOUGH Report Released Date/Time: Apr 03, 2024 01:10 PM Reporting Lab: [facility] [address] [facility] [address] Performing Lab: [facility] [address] [facility] [address] CRP(INFLAMMATORY) 0.5 mg/L 0.0-5.0 Apr 10, 2024 11:35 AM [facility] IRON+TIBC(P) Specimen Type: PLASMA Comment: Added by [id number] on Apr 10, 2024@11:40, Tests performed on [employer] Bala SN:[id number] (405) Ordering Provider: UMESH MCDONOUGH Report Released Date/Time: Apr 03, 2024 01:10 PM Reporting Lab: [facility] [address] [facility] [address] Performing Lab: [facility] [address] [facility] [address] IRON 139 ug/dL 40-160 TIBC 320 ug/dL IRON SATURATION(P) 43 >15 UIBC(P) 181 ug/dL 126-382 Apr 10, 2024 11:34 AM [facility] HEP B SURF AB(W) Specimen Type: [...] Apr 10, 2024 11:09 AM Reporting Lab: [facility] [address] [facility] [address] Performing Lab: [address] [address] HEP B SURF AB(W) REACTIVE Non Reactive Apr 10, 2024 11:34 AM [facility] HEP B CORE,TOTAL(W) Specimen Type: SERUM [...] Apr 10, 2024 11:09 AM Reporting Lab: [facility] [address] [facility] [address] Performing Lab: [facility] [address] [facility] [address] HEP B CORE,TOTAL(W) Non Reactive Non Reactive Apr 10, 2024 11:34 AM [facility] HEPATITIS A IgG(W) Specimen Type: SERUM [...] Apr 10, 2024 11:33 AM Reporting Lab: [facility] [address] [phone] Performing Lab: [address] [address] HEPATITIS A IgG(W) REACTIVE Non Reactive Apr 10, 2024 11:34 AM [facility] HEPATITIS C AB(WRJ)w/Reflex Specimen Type: SERUM Comment: , Tests performed on [employer] SN:[id number] (405) No HCV antibody detected. If recent infection is suspected or other evidence suggests HCV infection, consider HCV RNA testing Ordering Provider: UMESH MCDONOUGH Report Released Date/Time: Apr 10, 2024 11:09 AM Reporting Lab: [facility] [address] [facility] [address] Performing Lab: [facility] [address] [facility] [address] HEPATITIS C AB(WRJ)w/Reflex Non-Reactive Non-Reactiv e Apr 10, 2024 11:34 AM [facility] HIV Ag/Ab SCREEN Specimen Type: SERUM Comment: Added by [id number] on Apr 10, 2024@11:40, Tests performed on [employer] Mckenna SN:[id number] (405) TSH within normal limits. Reflex testing not required. Ordering Provider: UMESH MCDONOUGH Report Released Date/Time: Apr 10, 2024 11:09 AM Reporting Lab: [facility] [address] [facility] [address] Performing Lab: [facility] [address] [facility] [address] HIV Ag/Ab SCREEN Non-Reactive Non-Reactiv e Apr 10, 2024 11:34 AM [facility] FERRITIN Specimen Type: SERUM Comment: Added by [id number] on Apr 10, 2024@11:40, Tests performed on [employer] Mckenna SN:[id number] (405) TSH within normal limits. Reflex testing not required. Ordering Provider: UMESH MCDONOUGH Report Released Date/Time: Apr 10, 2024 11:09 AM Reporting Lab: [facility] [address] [facility] [address] Performing Lab: [facility] [address] [facility] [address] FERRITIN 31 ng/mL 5-204 Apr 10, 2024 11:34 AM [facility] VITAMIN B-12 Specimen Type: SERUM Comment: Added by [id number] on Apr 10, 2024@11:40, Tests performed on [employer] SN:[id number] (405) TSH within normal limits. Reflex testing not required. Ordering Provider: UMESH MCDONOUGH Report Released Date/Time: Apr 10, 2024 11:09 AM Reporting Lab: [facility] [address] [facility] [address] Performing Lab: [facility] [address] [facility] [address] VITAMIN B-12 745 pg/mL 200-900 Apr 10, 2024 11:34 AM [facility] ESR(NEW) Specimen Type: BLOOD Comment: Tests performed on [employer] ISED(405) Ordering Provider: UMESH MCDONOUGH Report Released Date/Time: Apr 10, 2024 11:31 AM Reporting Lab: [facility] [address] [facility] [address] Performing Lab: [facility] [address] [facility] [address] ESR(NEW) 1 mm/h 0-20 Apr 10, 2024 11:34 AM [facility] THYROID TESTING CASCADE Specimen Type: SERUM Comment: Added by [id number] on Apr 10, 2024@11:40, Tests performed on [employer] SN:[id number] (405) TSH within normal limits. Reflex testing not required. Ordering Provider: UMESH MCDONOUGH Report Released Date/Time: Apr 10, 2024 11:09 AM Reporting Lab: [facility] [address] [phone] Performing Lab: [facility] [address] [address] TSH 0.61 u[IU]/mL 0.35-5.00 Apr 10, 2024 11:34 AM [facility] VIT D 25-OH(J) Specimen Type: SERUM Comment: Added by [id number] on Apr 10, 2024@11:40, Tests performed on [employer] Mckenna SN:[id number] (405) TSH within normal limits. Reflex testing not required. Ordering Provider: UMESH MCDONOUGH Report Released Date/Time: Apr 10, 2024 11:09 AM Reporting Lab: [facility] [address] [facility] [address] Performing Lab: [facility] [address] [address] VIT D 25-OH(J) 42.9 ng/mL 20.0-50.0 Apr 10, 2024 11:34 AM [facility] HBSAG PANEL WITH REFLEX CONFIRMATION() Specimen Typ e: SERUM Comment: A Reactive result (Positive prior to 07/09/13) is diagnostic of acute or chronic hepatitis B infection. The presence of Hepatitis B surface antigen is frequently associated with infectivity. Ordering Provider: UMESH MCDONOUGH Report Released Date/Time: Apr 10, 2024 11:09 AM Reporting Lab: [facility] [address] [phone] Performing Lab: [facility] [address] [facility] [address] HEP B SURFACE AG(wh) Non Reactive Non [...] Date/Time Current Smoking Status Comment Facil sandip Jun 17, 2022 03:00 PM VA-TOBACCO NEVER USED [facility] Tobacco Use History This section includes a history of the smoking, or tobacco-related health factors, that were collected on or before the date of the Encounter. The data comes from the [place] facility where the Encounter took place. Date/Time Smoking Status/Tobacco Use Comment F karina Jul 15, 2021 11:00 AM VA-TOBACCO NEVER USED [facility] Oct 11, 2018 09:03 AM VA-TOBACCO NEVER USED [facility] Radiology Reports: +/- 30 days of [...] comes from all [place] treatment facilities. Date/Time Radiology Report Provider Source Apr 23, 2024 08:15 AM ULTRASOUND RUQ (GB,LIVER,BILIARY): CORETTA PATEL [id number] -1980 F Exm Date: APR 23, 2024@08:15 Req Phys: UMESH MCDONOUGH Pat Loc: [facility] PACT A 6 M1RB (Req'g Loc) Img Loc: ULTRASOUND (OOS) Service: Unknown Screen: Patient answered no [place] [address] (Case 39 COMPLETE) ULTRASOUND RUQ (GB,LIVER,BILIARY)(US Detailed) CPT:00770 Proc Modifiers : RIGHT Reason for Study: RUQ pain Clinical History: compare to study Report Status: Verified Date Reported: APR 23, 2024 Date Verified: APR 23, 2024 Gasoline Truck Operator E-Sig:/ES/PATRICIA ESPINOZA Report: ECHO EXAM OF ABDOMEN [...] REQUIRED Primary Interpreting Staff: Staff CARLEE GANDHI (Gasoline Truck Operator) /PATRICIA BARTLETT [facility] Apr 23, 2024 07:56 AM ELASTOGRAPHY PAREN CHYMA (E.G., ORGAN): CORETTA PATEL [id number] [facility]-1980 F Exm Date: APR 23, 2024@07:56 Req Phys: UMESH MCDONOUGH Pat Loc: [facility] PACT A 6 M1RB (Req'g Loc) Img Loc: ULTRASOUND (OOS) Service: Unknown Screen: Patient answered no HETAL ABURTO [facility] [place] [address] (Case 40 COMPLETE) ELASTOGRAPHY PARENCHYMA (E.G., OR(US Detailed) CPT:55732 Reason for Study: RUQ pain Clinical History: Report Status: Verified Date Reported: APR 23, 2024 Date Verified: APR 23, 2024 Gasoline Truck Operator E-Sig:/ES/PATRICIA ESPINOZA Report: ECHO EXAM OF ABDOMEN [...] REQUIRED Primary Interpreting Staff: Staff CARLEE GANDHI (Gasoline Truck Operator) /PATRICIA BARTLETT [facility] Encounter Notes: All associated encounter notes This section contains the clinical notes associated to the Encounter. Date/Time Encounter Note(s) Provider Source May 09, 2024 03:00 PM PRIMARY CARE TELEP [place] ENCOUNTER NOTE: LOCAL TITLE: Telephone Note-Primary Care STANDARD TITLE: PRIMARY CARE TELEPHONE ENCOUNTER NOTE DATE OF NOTE: MAY 09, 2024@15:00 ENTRY DATE: MAY 09, 2024@15:00:22 AUTHOR: CEASAR,UMESH L EXP COSIGNER: URGENCY: STATUS: COMPLETED Work Phone: Cell phone: ASSANTONELLA/PLAN - 43 Y F PMH RUQ pain, chilelithiasis, stage 2 liver fibrosis, pulsatile tinnitus, bipolar diease, fatigue and back pain. Call to discuss : RUQ US Impression: 1. Cholelithiasis without cholecystitis. 2. A [...] NO IMMEDIATE ATTENTION REQUIRED Primary Interpreting Staff: PATRICIA ESPINOZA Staff (Gasoline Truck Operator) / # mild fatty liver- dull ache persists, abd US, 1. Mild hepatic steatosis. No focal liver lesions. LFTs normal discussed avoid alcohol , healthy diet, regular exercise - consult to GI Apr 2024 # etoh abuse- sober since Oct 2023 # bipolar disease- self stopped meds, consult to psychopharm 2022 to discuss and if indicated resume meds - she never scheduled - note placed on 2022 consult requesting apt now # Intermittent asymptomatic right pulsatile tinnitus consistent with imaging study of right high jugular bulb and partial dehiscence right internal auditory canal near the eustachian tube Trial of Flonase nasal spray twice daily- saline nasal spray and juan pot - didn't work - saw ENT CT scan Apr 2023 # back pain- no s/s inflammation or infection on prior exam. Not likely epidural related due to length of time from epidura. -cosult to neurosurgery March 2024 RTC - phone 2 months [x] open access [x] Counseling of patient/family dominates over 50% of this minute telephone encounter HPI: Several calls abck and forth since April 10 to discuss, we were finally able to connect with a phone appointment scheduled. 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 normal speech pattern Neurological:Alert, oriented X3 /es/ UMSEH MCDONOUGH APRN Signed: 05/11/2024 09:53 UMESH MCDONOUGH [facility]
--- OUTSIDE RECORDS SUMMARY | 2024-08-03 13:59 | XMS_ITS | Encounter Summary ---
Author Name [facility] [place] Organization [place] Address [address] [place] [address] Care Team Providers Care Branch Rental Manager Name Role Phone UMESH MCDONOUGH Primary Care Provider Unavailabl e Selected Encounter This section includes the information on record at [place] for the Encounter. Date/Time Encounter Type Encounter Description Reason Provider Source Jul 18, 2024 01:30 PM Outpatient Encounter TELEPHONE PRIMARY CARE ICD-10-CM F31.9 Bipolar disorder, unspecified UMESH MCDONOUGH IHNereida Encounter Template Text not used by [place] Assessments - Encounter Diagnoses This section includes the primary and secondary diagnoses documented for the Encounter. Date/Time Primary/Secondary Diagnosis Diagnosis Name Provider Source Jul 18, 2024 01:30 PM PRIMARY Bipolar disorder, unspecified UMESH MCDONOUGH [facility] Jul 18, 2024 01:30 PM SECONDARY Unspecified abdominal pain UMESH MCDONOUGH [facility] Plan of Treatment: Future Appointments (+ [...] [place] [facility] Active, Pending, and Scheduled Orders This section includes a listing of several types of active, pending, and scheduled orders, including clinic medications orders, diagnostic test orders, procedure orders and consult orders; where the start date of the order is 45 days before the date of the Encounter or 45 days after the date of theEncounter. The data comes from all [place] treatment facilities. Test Date/Time Test Type Test Details Facility Name Jun 20, 2024 12:57 PM Consult Order GENERAL VIZCAINO RGERY OUTPATIENT Cons Rehab Director Occupational Therapist[facility] [place] [facility] Jul 21, 2024 03:34 PM Consult Order COMMUNITY CARE-PHYSICAL THERAPY Cons Rehab Director Occupational Therapist's Choice [facility] Social History: Smoking Status (Most current) and Tobacco Use (All prior to encounter date) This section includes the most current, and the historical, smoking and tobacco- related health factors from the VA facility where the Encounter took place. Current Smoking Status This section includes the most current smoking, or tobacco-related health factor, from the VA facility where the Encounter took place. Date/Time Current Smoking Status Comment Wendy beckhamy Jun 17, 2022 03:00 PM VA-TOBACCO NEVER USED [facility] Tobacco Use History This section includes a history of the smoking, or tobacco-related health factors, that were collected on or before the date of the Encounter. The data comes from the VA facility where the Encounter took place. Date/Time Smoking Status/Tobacco Use Comment F acility Jul 15, 2021 11:00 AM VA-TOBACCO NEVER USED [facility] Oct 11, 2018 09:03 AM VA-TOBACCO NEVER USED [facility] Encounter Notes: All associated encounter notes This section contains the clinical notes associated to the Encounter. Date/Time Encounter Note(s) Provider Source Jul 18, 2024 01:36 PM PRIMARY CARE TELEP PANKAJ ENCOUNTER NOTE: LOCAL TITLE: Telephone Note-Primary Care STANDARD TITLE: PRIMARY CARE TELEPHONE ENCOUNTER NOTE DATE OF NOTE: JUL 18, 2024@13:36 ENTRY DATE: JUL 18, 2024@13:36:35 AUTHOR: UMESH MCDONOUGH EXP COSIGNER: URGENCY: STATUS: COMPLETED Work Phone: Cell phone: ASSES/PLAN -43 Y F PMH RUQ pain, cholelithiasis, stage 2 liver fibrosis, pulsatile tinnitus, bipolar disease, fatigue and back pain. Call to discuss [...] IMMEDIATE ATTENTION REQUIRED Primary Interpreting Staff: PATRICIA ESPINOZA, Staff (Belly Dump Driver) / # mild fatty liver- dull ache persists, abd US, 1. Mild hepatic steatosis. No focal liver lesions. LFTs normal discussed avoid alcohol , healthy diet, regular exercise - consult to GI Apr 2024 - # etoh abuse- sober since Oct 2023 couple times since - RENETTA consult # bipolar disease- self stopped meds, consult to psychopharm 2022 to discuss and if indicated resume meds - she never scheduled - consult placed requesting eval for autism # Intermittent asymptomatic right pulsatile tinnitus consistent [...] from epidura. -cosult to neurosurgery March 2024 #Meds: reviewed, reconciled #health Maint: vaccines reviewed: RTC - 3-4 months [x] open access [x] Counseling of patient/family dominates over 50% of this 20 minute telephone encounter HPI: Had fibroscan of liver everything is looking good, abstain from alcohol to Pain in galbladder will need US in 6 mos to follow polyps and gallstones Getting MRI on spine ordered by [facility] neurosurgery - would like to have open MRI, she will need to discuss with [facility] and/or ordering provider. Not taking medications- she was taking quetipine but stopped taking thinks it makes her feel worse. Does not think she has bipolar disorder. would like to be evaluated for autism. 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 History of alcohol abuse SURGICAL HISTORY: MEDS: Active Outpatient Medications (excluding Supplies): Active [...] MOUTH EVERY DAY ACTIVE 5 Total Medications Outside VA meds: ALLERGIES: Patient has answered NKA ROS: as above OBJ: Exam: Psych: Normal affect and demeanor. normal speech pattern Neurological:Alert, oriented X3 Medication Reconciliation: Perform Medication Reconciliation JLV Link Data on this list may not be complete. Please check JLV. Allergies/ADRs (Tool #5) FACILITY ALLERGY/ADR -------- AMBER LElena [facility] NO KNOWN ALLERGIES [facility] ([phone]) NO KNOWN ALLERGIES [facility] PREGABALIN [facility] No Known Allergies Med [facility] (Tool #1) INCLUDED IN THIS LIST: Alphabetical list of active outpatient prescriptions dispensed from this [place] (local) and dispensed from another [place] or [facility] facility (remote) as well as inpatient orders (local pending and active), local clinic medications, locally documented non-VA medications, and local prescriptions that have or been discontinued in the past 90 days. Non-VA Meds Last Documented On: Nov 28, 2019 NOTE The display of VA prescriptions dispensed from another VA or [facility]D facility (remote) is limited to active outpatient prescription entries matched to National Drug File at the originating site and may not include some items such as investigational drugs, compounds, etc. NOT INCLUDED IN THIS LIST: Medications self-entered by the patient into personal health records (i.e. [employer]) are NOT included in this list. Non-VA medications documented outside this [place], remote inpatient orders (regardless of status) and remote clinic medications are NOT included in this list. The patient and provider must always discuss medications the patient is taking, regardless of where the medication was dispensed or obtained. Non-VA FISH OIL 1000MG (500MG DHA/EPA) CAP TAKE 1 CAPSULE BY MOUTH EVERY DAY OUTPT FLUTICASONE PROP 50MCG 120D NASAL INHL (Status = ) INSTILL 2 SPRAYS INTO EACH NOSTRIL TWICE A DAY FOR NASAL IRRITATION/INFLAMMATION - SPRAY FLONASE AFTER SALINE NASAL SPRAY Rx# [id number] Last Released: 06/10/23 Qty/Days Supply: Rx Expiration Date: 06/07/24 Refills Remainin Indication: FOR NASAL IRRITATION/INFLAMMATION OUTPT MOISTURIZER VAG GEL APPLIC (EQV-REPLENS) (Status = Active) INSERT ONE APPLICATION INTRAVAGINALLY EVERY THREE DAYS FOR DRYNESS MAY USE MORE FREQUENTLY NEEDED, DAILY USE IS SAFE Rx# [id number] Last Released: 08/03/23 Qty/Days Supply: Rx Expiration Date: 08/02/24 Refills Remainin Indication: FOR DRYNESS Non-VA MULTIVIT W/MINERALS, CAP/TAB TAKE ONE BY MOUTH EVERY DAY Patient wants to buy from Non-VA pharmacy. Non-VA MULTIVITAMIN CAP/TAB TAKE ONE CAP/TAB BY MOUTH EVERY DAY Non-VA PROBIOTIC CAP,ORAL TAKE BY MOUTH EVERY DAY SUPPLIES Comments: Teratogenic drug counseling not applicable. Comment: not discussed today no new medications The patient's Essential Medication List for Review was used for reconciliation to address additions, deletions, and changes as reported by the patient/caregiver. The patient/caregiver indicates that medications are being taken as documented as described above. The patient/caregiver maintains their own up to date medication list. Was medication education provided for new medications or changes to medications? (including medication name, dose, route, reason for use, and potential side effects). No new medications or medication changes during this encounter. /deann/ UMESH MCDONOUGH APRN Signed: 07/21/2024 15:35 UMESH MCDONOUGH [facility]
--- OUTSIDE RECORDS SUMMARY | 2024-08-03 13:59 | XMS_ITS | Encounter Summary ---
Author Name Department of [place] [place] Organization [place] Address [address] [place] [address] Care Team Providers Care Rotary Rock Drilling Machine Operator Name Role Phone UMESH MCDONOUGH Primary Care Provider Unavailabl e Selected Encounter This section includes the information on record at [place] for the Encounter. Date/Time Encounter Type Encounter Description Reason Pro vider Source Jun 13, 2024 08:47 AM Outpatient Encounter [facility] E Encounter Template Text not used by [place] [...] Appointment Type Appointme nt Facility Name Jun 19, 2024 01:15 PM [facility]ATORY [facility]IC[facility] [place] [facility] [facility] Jun 25, 2024 10:30 AM AMBULATORY [facility]IC[facility] [place] [facility] [facility] Jul 18, 2024 01:30 PM AMBULATORY - [facility]ICINE [place] [facility] [facility] Aug 13, 2024 10:30 AM AMBULATORY - NONE [place] [facility] Active, Pending, and Scheduled Orders This [...] PM Consult Order GENERAL VIZCAINO RGERY OUTPATIENT [facility] Elementary Assistant Principal's [facility] Jul 21, 2024 03:34 PM Consult Order COMMUNITY CARE-PHYSICAL THERAPY [facility] Elementary Assistant Principal's [facility] Social History: Smoking Status (Most current) and [...] Facil ity Nov 25, 2023 01:00 PM [facility] TOBACCO SMOKES DOES NOT [place] [facility] Tobacco Use History This section includes a history of the smoking, or tobacco-related health factors, that were collected on or before the date of the Encounter. The data comes from the [place] facility where the Encounter took place. Date/Time Smoking Status/Tobacco Use Comment F acility Nov 25, 2023 01:00 PM VA-TOBACCO NEVER USED [place] [facility] Aug 02, 2023 02:30 PM VA-TOBACCO NEVER USED [place] [facility] Aug 20, 2019 11:05 AM VA-TOBACCO NEVER USED [facility] Encounter Notes: All associated encounter notes This section contains the clinical notes associated to the Encounter. Date/Time Encounter Note(s) Provider Source Jun 13, 2024 08:47 AM MENTAL HEALTH ADMI NISTRATIVE NOTE: LOCAL TITLE: Administrative Note/Mental Health STANDARD TITLE: MENTAL HEALTH ADMINISTRATIVE NOTE DATE OF NOTE: JUN 13, 2024@08:47 ENTRY DATE: JUN 13, 2024@08:47:15 AUTHOR: JEAN BLACKMAN EXP COSIGNER: URGENCY: STATUS: COMPLETED Spoke with over the phone. Scheduled initial psychotherapy appt for 07/06/24 at 11am. /deann/ ANNE-MARIE WEBSTER Beam Press Operator Signed: 06/13/2024 08:[address] [facility]
--- OUTSIDE RECORDS SUMMARY | 2024-08-03 13:59 | XMS_ITS | Encounter Summary ---
Author Name [facility] [place] Organization [place] Address [address] [place] [address] Care Team Providers Care Programming Internship Name Role Phone UMESH MCDONOUGH Primary Care Provider Unavailabl e Selected Encounter This section includes the information on record at [place] for the Encounter. Date/Time Encounter Type Encounter Description Reason Provider Source May 14, 2024 12:30 PM Outpatient Encounter TELEPHONE/SURGERY ICD-10-CM R53.82 Chronic fatigue, unspecified JUDY WALDRON Nereida Encounter Template Text not used by [place] Assessments - Encounter Diagnoses This section includes the primary and secondary diagnoses documented for the Encounter. Date/Time Primary/Secondary Diagnosis Diagnosis Name Provider Source May 14, 2024 12:30 PM PRIMARY Chronic fatigue, unspecified JUDY AWLDRON [facility] May 14, 2024 12:30 PM SECONDARY Hormone replacement therapy JUDY WALDRON [facility] Plan of Treatment: Future Appointments [...] Appointment Type Appointme nt Facility Name May 22, 2024 10:00 AM AMBULATORY - NONE [place] [facility] [facility] May 23, 2024 09:00 AM AMBULATORY - NONE [place] [facility] Jun 19, 2024 01:15 PM AMBULATORY - MEDICINE [place] [facility] [facility] Jun 25, 2024 10:30 AM AMBULATORY - MEDICINE [facility] [facility] Jul 18, 2024 01:30 PM AMBULATORY - MEDICINE [facility] AB[facility]TO [facility] Aug 13, 2024 10:30 AM AMBULATORY - NONE [place] [facility] [facility] Active, Pending, and Scheduled Orders This section includes a listing of several types of active, pending, and scheduled orders, including clinic medications orders, diagnostic test orders, procedure orders and consult orders; where the start date of the order is 45 days before the date of the Encounter or 45 days after the date of theEncounter. The data comes from all [place] treatment facilities. Test Date/Time Test Type Test Details Facility Name Apr 10, 2024 12:00 AM Laboratory - Chemi stry Order AMYLASE LT GREEN(LI HEP) PLASMA SP HETAL [facility] Apr 10, 2024 12:00 AM Laboratory - Chemi stry Order LIPASE LT GREEN(LI HEP) PLASMA SP HETAL ABURTO [facility] Apr 10, 2024 11:26 AM Consult Order COMMUNITY CARE-MAMMOGRAPHY SCREENING Cons Elementary Reading Specialist's Choice [facility] Apr 10, 2024 11:27 AM Consult Order COMMUNITY CARE-OPTOMETRY ROUTINE EYE EXAM Cons Elementary Reading Specialist's Choice [facility] Jun 20, 2024 12:57 PM Consult Order GENERAL VIZCAINO RGERY OUTPATIENT Cons Elementary Reading Specialist's [facility] Social History: Smoking Status (Most current) and [...] USED [facility] Tobacco Use History This section includes a history of the smoking, or tobacco-related health factors, that were collected on or before the date of the Encounter. The data comes from the [place] facility where the Encounter took place. Date/Time Smoking Status/Tobacco Use Comment F acility Nov 25, 2023 01:00 PM VA-TOBACCO NEVER USED [place] [facility] Aug 02, 2023 02:30 PM VA-TOBACCO NEVER USED [place] [facility] Aug 20, 2019 11:05 AM VA-TOBACCO NEVER USED [place] [facility] Radiology Reports: +/- 30 days [...] the Encounter. The data comes from all [place] treatment facilities. Date/Time Radiology Report Provider Source Apr 23, 2024 08:15 AM ULTRASOUND RUQ (GB,LIVER,BILIARY): CORETTA PATEL [id number] -[id number] F Exm Date: APR 23, 2024@08:15 Req Phys: UMESH MCDONOUGH Pat Loc: [facility] PACT A 6 M1RB (Req'g Loc) Img Loc: ULTRASOUND (OOS) Service: Unknown Screen: Patient answered no [place] [facility] [place] [address] (Case 39 COMPLETE) ULTRASOUND RUQ (GB,LIVER,BILIARY)(US Detailed) CPT:00670 Proc Modifiers : RIGHT Reason for Study: RUQ pain Clinical History: compare to study Report Status: Verified Date Reported: APR 23, 2024 Date Verified: APR 23, 2024 Toy Department Manager E-Sig:/ES/PATRICIA ESPINOZA Report: ECHO EXAM OF ABDOMEN [...] REQUIRED Primary Interpreting Staff: Staff CARLEE GANDHI (Toy Department Manager) /PATRICIA BARTLETT [facility] Apr 23, 2024 07:56 AM ELASTOGRAPHY PAREN CHYMA (E.G., ORGAN): CORETTA PATEL [id number] -[id number] F Exm Date: APR 23, 2024@07:56 Req Phys: UMESH MCDONOUGH Pat Loc: [facility] PACT A 6 M1RB (Req'g Loc) Img Loc: ULTRASOUND (OOS) Service: Unknown Screen: Patient answered no [place] [address] (Case 40 COMPLETE) ELASTOGRAPHY PARENCHYMA (E.G., OR(US Detailed) CPT:87107 Reason for Study: RUQ pain Clinical History: Report Status: Verified Date Reported: APR 23, 2024 Date Verified: APR 23, 2024 Toy Department Manager E-Sig:/ES/PATRICIA ESPINOZA Report: ECHO EXAM OF ABDOMEN [...] REQUIRED Primary Interpreting Staff: Staff CARLEE GANDHI (Toy Department Manager) /PATRICIA BARTLETT [facility] Encounter Notes: All associated encounter notes This section contains the clinical notes associated to the Encounter. Date/Time Encounter Note(s) Provider Source May 14, 2024 12:33 PM COMMUNICATIONS FIELD TECHNICIAN NOTE: LOCAL TITLE: Gynecology/Follow Up Note STANDARD TITLE: COMMUNICATIONS FIELD TECHNICIAN NOTE DATE OF NOTE: MAY 14, 2024@12:33 ENTRY DATE: MAY 14, 2024@12:33:19 AUTHOR: JUDY WALDRON COSIGNER: URGENCY: STATUS: COMPLETED GYNECOLOGY PROGRESS NOTE HPI: 43 y.o. with a history of fatigue, possible perimenopause presenting for follow up of hormone therapy. 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 Doesn't think she has baseline sleep issues Has more persistent upper abdominal pain Did notice some relation to her foods but now she is having worsening pain unrelated to her improved, lower fat diet Did have a follow up ultrasound after her miscarriage and was told she had fibroids, wondering what she should do about that ACTIVE PROBLEMS: Bipolar disorder ([facility] [id number]) Pulsatile tinnitus ([facility] 263390551) Abdominal pain ([facility] 37848979) Caesarean delivery - delivered ([facility] 895222295) Borderline personality disorder ([facility] 200Back pain ([facility] 580525489) Episodic opioid dependence ([facility] [id number] of alcohol abuse ([facility] [id number]) ALLERGIES/ADR: Patient has answered NKA Active Outpatient [...] MOUTH EVERY DAY ACTIVE 6 Total Medications LABS: WBC: 7.2 (04/10/24 11:35) HCT: 39.2 (04/10/24 11:35) HGB: 13.7 (04/10/24 11:35) MCV: 91.2 (04/10/24 11:35) PLT: 257 (04/10/24 11:35) RDW: 12.0 (04/10/24 11:35) CHOL: 250 (04/10/24 11:35) HDL: 66 (04/10/24 11:35) LDL: 162 (04/10/24 11:35) TRI (04/10/24 11:35) GLU: 63 (04/10/24 11:35) HGB A1C: 5.3 (04/10/24 11:35) LFT: Collection DT Spec ALB TBIL ALP ALT AST 04/10/2024 11:35 PLASM 3.9 0.4 37 L 11 14 ROS: Review of systems is otherwise negative except as noted in HPI. PHYSICAL EXAMINATION: Telehealth VS: Ht: 65 in [165.1 cm] (11/11/2023 14:07) Wt: 130.3 lb [59.10 kg] (04/10/2024 10:43) BMI: BODY MASS INDEX - APR 10, 2024@10:43:36 21.7 T: 98.7 F [37.1 C] (04/10/2024 10:43) HR: 62 (04/10/2024 10:43) BP: 85/52 (04/10/2024 10:43) General: NAD, comfortable Assessment/Plan: 43 y.o. with a history of fatigue, possible perimenopause presenting for follow up of hormone therapy. - Will hold on hormone therapy for now given that it was for a soft indication (fatigue) and caused her side effects - Can reassess in 1 year based on symptoms, periods and improvement in gallbladder and liver issues - Reviewed briefly diagnosis of fibroids, limited discussion without knowing size and location but given light periods and no bulk symptoms, nothing needed for management at this time - Could consider reviewing ultrasound or if she has worsening symptoms, get follow up scan and visit to discuss fibroids RTC in 1 year Total time spent day of service on chart review, disease discussion and therapeutic counseling as well as documentation and coordination of care: 25 minutes /es/ JUDY WALDRON MD, MPH Signed: 05/14/2024 13:03 JUDY WALDRON [facility]
--- OUTSIDE RECORDS SUMMARY | 2024-08-03 13:59 | XMS_ITS | Encounter Summary ---
Author Name [facility] [place] Organization [place] Address [address] [place] [address] Care Team Providers Care Transcribing Operators Supervisor Name Role Phone UMESH MCDONOUGH Primary Care Provider Unavailabl e Selected Encounter This section includes the information on record at [place] for the Encounter. Date/Time Encounter Type Encounter Description Reason Pro vider Source Jun 25, 2024 12:00 AM Outpatient Encounter EVENT (HISTORICAL) IHE Encounter Template Text not used by [...] 01:30 PM AMBULATORY - MEDICINE CORNELIO ABURTO [facility] Aug 13, 2024 10:30 AM AMBULATORY - NONE HETAL MARTE [facility] Active, Pending, and Scheduled Orders [...] Consult Order GENERAL VIZCAINO RGERY OUTPATIENT Cons Certified Welder's Choice [place] [facility] Jul 21, 2024 03:34 PM Consult Order COMMUNITY CARE-PHYSICAL THERAPY Cons Certified Welder's Choice [facility] Vital Signs: All taken on the encounter date This section contains inpatient and outpatient Vital Signs collected on the date of the Encounter. Date/Time Temperature Pulse Blood Pressure Respiratory Rate SP02 Pain Height Weight Body Mass Index Source Jun 25, 2024 10:03 AM 98.3 63 101/69 16 100 3 124.9 21 [place] [facility] Social History: Smoking Status (Most [...] 2023 01:00 PM VA-TOBACCO NEVER USED [place] Tobacco Use History This section includes a history of the smoking, or tobacco-related health factors, that were collected on or before the date of the Encounter. The data comes from the [place] facility where the Encounter took place. Date/Time Smoking Status/Tobacco Use Comment Yanick collins Nov 25, 2023 01:00 PM VA-TOBACCO NEVER USED [place] [facility] Aug 02, 2023 02:30 PM VA-TOBACCO NEVER USED [place] [facility] Aug 20, 2019 11:05 AM VA-TOBACCO NEVER USED [place] [facility]
--- OUTSIDE RECORDS SUMMARY | 2024-08-03 13:59 | XMS_ITS | Encounter Summary ---
Author Name [facility] [place] Organization [facility] [place] Address [address] [place] [address] Care Team Providers Care Financial Coordinator Name Role Phone UMESH MCDONOUGH Primary Care Provider Unavailabl e Selected Encounter This section includes the information on record at [place] for the Encounter. Date/Time Encounter Type Encounter Description Reason Pro vider Source Jul 17, 2024 12:00 PM Outpatient Encounter COMMUNITY CARE CONSULT IHE Encounter [...] 01:30 PM AMBULATORY - MEDICINE CORNELIO ABURTO [facility] Aug 13, 2024 10:30 AM AMBULATORY - NONE HETAL MARTE [facility] Active, Pending, and Scheduled Orders This [...] Consult Order GENERAL VIZCAINO RGERY OUTPATIENT Cons Cashier's Choice [place] [facility] Jul 21, 2024 03:34 PM Consult Order COMMUNITY CARE-PHYSICAL THERAPY Cons Cashier's Choice [facility] Social History: Smoking Status (Most [...] Facil ity Nov 25, 2023 01:00 PM [facility] TOBACCO SMOKES DOES NOT [place] [facility] Tobacco Use History This section includes [...] [place] [facility] Aug 20, 2019 11:05 AM [place]-TOBACCO NEVER USED [place] [facility] Encounter Notes: All associated encounter notes This section contains the clinical notes associated to the Encounter. Date/Time Encounter Note(s) Provider Source Jul 17, 2024 12:00 PM NONVA NOTE: LOCAL TITLE: COMMUNITY CARE-REQUEST FOR SERVICE NOTE STANDARD TITLE: NONVA NOTE DATE OF NOTE: JUL 17, 2024@12:00 ENTRY DATE: JUL 19, 2024@14:37:06 AUTHOR: JL GOODRICH EXP COSIGNER: URGENCY: STATUS: COMPLETED VistA Imaging - Scanned Document Request for additional physical therapy visits [facility] Rehab Karrie Forte ICD 10 code N91.1 Alerting: Umesh Mcdonough and Calvin Mcdonald SCANNED DOCUMENT SIGNATURE NOT REQUIRED Electronically Filed: 07/19/2024 by: JL GOODRICH [facility] OCC Receipt Acknowledged By: 07/19/2024 15:34 /es/ CALVIN MCDONALD Registered Nurse 07/21/2024 15:35 /es/ JL PRATT APRN [facility]
--- OUTSIDE RECORDS SUMMARY | 2024-08-03 13:59 | XMS_ITS | Encounter Summary ---
Author Name [facility] [place] Address [address] [place] [address] Care Team Providers Care Cerner Analyst Name Role Phone UMESH MCDONOUGH Primary Care Provider Unavailabl e Selected Encounter This section includes the information on record at [place] for the Encounter. Date/Time Encounter Type Encounter Description Reason Pro vider Source Jun 12, 2024 02:20 PM Outpatient Encounter [facility] Encounter Template Text not used by [place] [...] AM[place]ORY - [place]IC[place] [facility] Jun 25, 2024 10:30 AM AMBULATORY - [place]IC[place] [facility] Jul 18, 2024 01:30 PM AMBULATORY - MEDICINE [place] [facility] Aug 13, 2024 10:30 AM AMBULATORY - NONE [place] [facility] Active, Pending, and Scheduled Orders This section includes a listing of several types of active, pending, and scheduled orders, including clinic medications orders, diagnostic test orders, procedure orders and consult orders; where the start date of the order is 45 days before the date of the Encounter or 45 days after the date of theEncounter. The data comes from all [place] treatment facilities. Test Date/Time Test Type Test Details Facility Name Jun 20, 2024 12:57 PM Consult Order GENERAL VIZCAINO RGERY OUTPATIENT [facility] Child Nutrition Assistant's [facility] [place] [facility] Jul 21, 2024 03:34 PM Consult Order COMMUNITY CARE-PHYSICAL THERAPY Cons Child Nutrition Assistant's [facility] Social History: Smoking Status (Most current) [...] 01:00 PM VA-TOBACCO NEVER USED [place] [facility] Tobacco Use History This section includes a history of the smoking, or tobacco-related health factors, that were collected on or before the date of the Encounter. The data comes from the [place] facility where the Encounter took place. Date/Time Smoking Status/Tobacco Use Comment F acility Nov 25, 2023 01:00 PM VA-TOBACCO NEVER USED [place] [facility] Aug 02, 2023 02:30 PM VA-TOBACCO NEVER USED [place] [facility] Aug 20, 2019 11:05 AM VA-TOBACCO NEVER USED [place] [facility] Encounter Notes: All associated encounter notes This section contains the clinical notes associated to the Encounter. Date/Time Encounter Note(s) Provider Source Jun 12, 2024 02:20 PM MENTAL HEALTH ADMI NISTRATIVE NOTE: LOCAL TITLE: Administrative Note/Mental Health STANDARD TITLE: MENTAL HEALTH ADMINISTRATIVE NOTE DATE OF NOTE: JUN 12, 2024@14:20 ENTRY DATE: JUN 12, 2024@14:20:26 AUTHOR: JEAN BLACKMAN EXP COSIGNER: URGENCY: STATUS: COMPLETED Left VM inviting return phone call to schedule appt at earliest convenience. /deann/ ANNE-MARIE WEBSTER Automatic Hemmer Signed: 06/12/2024 14:20 JEAN BLACKMAN [facility]
--- OUTSIDE RECORDS SUMMARY | 2024-08-03 13:59 | XMS_ITS | Encounter Summary ---
Author Name Department [facility] [place] Address [address] [place] [address] Care Team Providers Care Commodity Manager Name Role Phone UMESH MCDONOUGH Primary Care Provider Unavailabl e Selected Encounter This section includes the information on record at [place] for the Encounter. Date/Time Encounter Type Encounter Description Reason Pro vider Source Jul 25, 2024 08:54 AM Outpatient Encounter [facility] I[facility] Encounter Template Text not used by [place] Plan of Treatment: Future Appointments (+ 6 months) and Future Tests (+/- 45 days) The Plan of Treatment section includes future care activities for the patient from all [place] treatmentfacilities. This section includes future appointments and future orders which are active, pending or scheduled. Future Appointments This section includes appointments that were scheduled to occur 6 months from the date of the Encounter, up to a maximum of 20 appointments. The data comes from all [place] treatment facilities. Appointment Date/Time Appointment Type Appointme nt Facility Name Aug 13, 2024 10:30 AM AMBULATORY - NONE [place] [facility] Active, Pending, and Scheduled Orders This section includes a listing of several types of active, pending, and scheduled orders, including clinic medications orders, diagnostic test orders, procedure orders and consult orders; where the start date of the order is 45 days before the date of the Encounter or 45 days after the date of theEncounter. The data comes from all [place] treatment facilities. Test Date/Time Test Type Test Details Facility Name Jun 20, 2024 12:57 PM Consult Order GENERAL VIZCAINO RGERY OUTPATIENT Cons Salesperson Floor Coverings's Choice [place] [facility] Jul 21, 2024 03:34 PM Consult Order COMMUNITY CARE-PHYSICAL THERAPY Cons Salesperson Floor Coverings's Choice [facility] Social History: Smoking Status (Most current) and Tobacco Use (All prior to encounter date) This section includes the most current, and the historical, smoking and tobacco- related health factors from the [place] facility where the Encounter took place. Current Smoking Status This section includes the most current smoking, or tobacco-related health factor, from the [place] facility where the Encounter took place. Date/Time Current Smoking Status Comment Facil ity Nov 25, 2023 01:00 PM VA-TOBACCO NEVER USED [place] [facility] Tobacco Use History This section includes a history of the smoking, or tobacco-related health factors, that were collected on or before the date of the Encounter. The data comes from the [place] facility where the Encounter took place. Date/Time Smoking Status/Tobacco Use Comment F acility Nov 25, 2023 01:00 PM [place]-TOBACCO [facility] USED [place] [facility] Aug 02, 2023 02:30 PM [place] [place] [facility] Aug 20, 2019 11:05 AM VA-TOBACCO NEVER USED [place] [facility] Encounter Notes: All associated encounter notes This section contains the clinical notes associated to the Encounter. Date/Time Encounter Note(s) Provider Source Jul 25, 2024 08:54 AM MENTAL HEALTH ADMI NISTRATIVE NOTE: LOCAL TITLE: Administrative Note/Mental Health STANDARD TITLE: MENTAL HEALTH ADMINISTRATIVE NOTE DATE OF NOTE: JUL 25, 2024@08:54 ENTRY DATE: JUL 25, 2024@08:54:14 AUTHOR: JEAN BLACKMAN EXP COSIGNER: URGENCY: STATUS: COMPLETED Left message requesting return phone call at earliest convenience to reschedule psychotherapy appt if interested. /deann/ ANNE-MARIE WEBSTER Global Chief Experience Officer Signed: 07/25/2024 08:54 JEAN BLACKMAN [facility]
--- OUTSIDE RECORDS SUMMARY | 2024-08-03 13:59 | XMS_ITS | Encounter Summary ---
Author Name Department of [place] Organization [facility] [place] Address [address] [place] [address] Care Team Providers Care Pool Hand Name Role Phone UMESH MCDONOUGH Primary Care Provider Unavailabl e Selected Encounter This section includes the information on record at [place] for the Encounter. Date/Time Encounter Type Encounter Description Reason Pro vider Source May 23, 2024 12:00 PM Outpatient Encounter COMMUNITY CARE [...] 01:15 PM AMBULATORY - MEDICINE CORNELIO ABURTO [facility] Jun 25, 2024 10:30 AM AMBULATORY - MEDICINE CORNELIO ABURTO T [facility] Jul 18, 2024 01:30 PM AMBULATORY - MEDICINE WHIT Nereida ABURTO [facility] Aug 13, 2024 10:30 AM [...] of theEncounter. The data comes from all [place] treatment facilities. Test Date/Time Test Type Test Details Facility Name Apr 10, 2024 12:00 AM Laboratory - Chemi stry Order AMYLASE LT GREEN(LI HEP) PLASMA SP [facility] Apr 10, 2024 12:00 AM Laboratory - Chemi stry Order LIPASE LT GREEN(LI HEP) PLASMA SP [facility] Apr 10, 2024 11:26 AM Consult Order [facility]-MAMMO[facility]APHY SCREENING Cons Reception Manager's [facility] Apr 10, 2024 11:27 AM Consult Order [facility]-OPTOMETRY ROUTINE EYE EXAM Cons Reception Manager's [facility] Jun 20, 2024 12:57 PM Consult Order GENERAL VIZCAINO RGERY OUTPATIENT Cons Reception Manager's [facility] Social History: Smoking Status (Most current) [...] ity Nov 25, 2023 01:00 PM [facility] TOBACCO SMOKES DOES NOT [facility] Tobacco Use History This section includes a history of the smoking, or tobacco-related health factors, that were collected on or before the date of the Encounter. The data comes from the [place] facility where the Encounter took place. Date/Time Smoking Status/Tobacco Use Comment F acleticia Nov 25, 2023 01:00 PM VA-TOBACCO NEVER USED [facility] Aug 02, 2023 02:30 PM VATOBACCO NEVER USED [facility] Aug 20, 2019 11:05 AM [place]-TOBACCO NEVER USED [facility] Radiology Reports: +/- 30 days of [...] the Encounter. The data comes from all [place] treatment facilities. Date/Time Radiology Report Provider Source Apr 23, 2024 08:15 AM ULTRASOUND RUQ (GB,LIVER,BILIARY): CORETTA PATEL [id number] -1980 F Exm Date: APR 23, 2024@08:15 Req Phys: UMESH MCDONOUGH Pat Loc: [facility] PACT A 6 M1RB (Req'g Loc) Img Loc: ULTRASOUND (OOS) Service: Unknown Screen: Patient answered [place] [address] (Case 39 COMPLETE) ULTRASOUND RUQ (GB,LIVER,BILIARY)([place] Detailed) CPT:32731 Proc Modifiers : RIGHT Reason for Study: RUQ pain Clinical History: compare to study Report Status: Verified Date Reported: APR 23, 2024 Date Verified: APR 23, 2024 Business Analysis Analyst E-Sig:/ES/PATRICIA ESPINOZA Report: ECHO EXAM OF ABDOMEN [...] REQUIRED Primary Interpreting Staff: Staff CARLEE GANDHI (Business Analysis Analyst) /PATRICIA BARTLETT [facility] Apr 23, 2024 07:56 AM ELASTOGRAPHY PAREN CHYMA (E.G., ORGAN): CORETTA PATEL [id number] -1980 F Exm Date: APR 23, 2024@07:56 Req Phys: UMESH MCDONOUGH Pat Loc: [facility] PACT A 6 M1RB (Req'g Loc) Img Loc: ULTRASOUND (OOS) Service: Unknown Screen: Patient answered no [place] [facility] [place] [address] (Case 40 COMPLETE) ELASTOGRAPHY PARENCHYMA (E.G., OR(US Detailed) CPT:21150 Reason for Study: RUQ pain Clinical History: Report Status: Verified Date Reported: APR 23, 2024 Date Verified: APR 23, 2024 Business Analysis Analyst E-Sig:/ES/PATRICIA ESPINOZA Report: ECHO EXAM OF ABDOMEN [...] REQUIRED Primary Interpreting Staff: Staff CARLEE GANDHI (Business Analysis Analyst) /PATRICIA BARTLETT [facility] Encounter Notes: All associated encounter notes This section contains the clinical notes associated to the Encounter. Date/Time Encounter Note(s) Provider Source May 23, 2024 12:00 PM NONVA CONSULT: LOCAL TITLE: COMMUNITY CARE CONSULT RESULT NOTE STANDARD TITLE: NONVA CONSULT DATE OF NOTE: MAY 23, 2024@12:00 ENTRY DATE: JUN 09, 2024@10:51:31 AUTHOR: PRAFUL KONG COSIGNER: URGENCY: STATUS: COMPLETED VistA Imaging - Scanned Document Consult / Referral: Apr 16 (s) COMMUNITY CARE-NEUROSURGERY Cons Consult # [id number] Date of Service (Procedure/Event): 05/23/2024 Note Title: COMMUNITY CARE CONSULT RESULT NOTE Origin: FEE Type: PROGRESS NOTE Specialty: SURGERY Procedure: VISIT-PAIN AT SITE OF EPIDURAL FOR 2 YRS AGO [facility] SCANNED DOCUMENT SIGNATURE NOT REQUIRED Electronically Filed: 06/09/2024 by: PRAFUL KONG BUSINESS DEVELOPMENT ANALYST PRAFUL KONG [facility]
--- OUTSIDE RECORDS SUMMARY | 2024-08-03 13:59 | XMS_ITS | Encounter Summary ---
Author Name Department [place] Organization [place] Address [address] [place] [address] Care Team Providers Care Well Drill Operator Rotary Drill Name Role Phone UMESH MCDONOUGH Primary Care Provider Unavailabl e Selected Encounter This section includes the information on record at [place] for the Encounter. Date/Time Encounter Type Encounter Description Reason Pro vider Source May 22, 2024 12:00 PM Outpatient Encounter COMMUNITY CARE [...] Appointment Type Appointme nt Facility Name May 23, 2024 09:00 AM AMBULATORY - NONE [place] [facility] Jun 19, 2024 01:15 PM AMBULATORY - MEDICINE [place] [facility] Jun 25, 2024 10:30 AM AMBULATORY - MEDICINE [place] [facility] Jul 18, 2024 01:30 PM AMBULATORY - MEDICINE CORNELIO ABURTO [facility] Aug 13, 2024 10:30 AM AMBULATORY - NONE [place] [facility] Active, Pending, and Scheduled Orders [...] AM Consult Order COMMUNITY CARE-MAMMOGRAPHY SCREENING Cons Chief Cruiser's Choice [facility] Apr 10, 2024 11:27 AM Consult Order COMMUNITY [facility]-OPTOMETRY ROUTINE EYE EXAM Cons Chief Cruiser's Choice [facility] Jun 20, 2024 12:57 PM Consult Order GENERAL VIZCAINO RGERY OUTPATIENT Cons Chief Cruiser's [facility] Social History: Smoking Status (Most current) and Tobacco Use (All prior to encounter date) This section includes the most current, and the historical, smoking and tobacco- related health factors from the [place] facility where the Encounter took place. Current [...] 01:00 PM VA-TOBACCO NEVER USED [place] [facility] Aug 02, 2023 02:30 PM VA-TOBACCO NEVER USED [place] [facility] Aug 20, 2019 11:05 AM VA-TOBACCO NEVER USED [facility] Radiology Reports: +/- 30 days [...] the Encounter. The data comes from all [place] treatment facilities. Date/Time Radiology Report Provider Source Apr 23, 2024 08:15 AM ULTRASOUND RUQ (GB,LIVER,BILIARY): CORETTA PATEL [id number] -1980 F Exm Date: APR 23, 2024@08:15 Req Phys: UMESH MCDONOUGH Pat Loc: [facility] PACT A 6 M1RB (Req'g Loc) Img Loc: ULTRASOUND (OOS) Service: Unknown Screen: Patient answered no [place] [address] (Case 39 COMPLETE) ULTRASOUND RUQ (GB,LIVER,BILIARY)([place] Detailed) CPT:99863 Proc Modifiers : RIGHT Reason for Study: RUQ pain Clinical History: compare to study Report Status: Verified Date Reported: APR 23, 2024 Date Verified: APR 23, 2024 Process Maintenance Technician E-Sig:/ES/PATRICIA ESPINOZA Report: ECHO EXAM OF ABDOMEN [...] REQUIRED Primary Interpreting Staff: Staff CARLEE GANDHI (Process Maintenance Technician) /PATRICIA BARTLETT [facility] Apr 23, 2024 07:56 AM ELASTOGRAPHY PAREN CHYMA (E.G., ORGAN): CORETTA PATEL [id number] -1980 F Exm Date: APR 23, 2024@07:56 Req Phys: UMESH MCDONOUGH Loc: [facility] PACT A 6 M1RB (Req'g Loc) Img Loc: ULTRASOUND (OOS) Service: Unknown Screen: Patient answered no [place] [facility] [place] [address] (Case 40 COMPLETE) ELASTOGRAPHY PARENCHYMA (E.G., OR(US Detailed) CPT:38137 Reason for Study: RUQ pain Clinical History: Report Status: Verified Date Reported: APR 23, 2024 Date Verified: APR 23, 2024 Process Maintenance Technician E-Sig:/ES/PATRICIA ESPINOZA Report: ECHO EXAM OF ABDOMEN [...] REQUIRED Primary Interpreting Staff: Staff CARLEE GANDHI (Process Maintenance Technician) /PATRICIA BARTLETT [facility] Encounter Notes: All associated encounter notes This section contains the clinical notes associated to the Encounter. Date/Time Encounter Note(s) Provider Source May 22, 2024 12:00 PM NONVA CONSULT: LOCAL TITLE: COMMUNITY CARE CONSULT RESULT NOTE STANDARD TITLE: NONVA CONSULT DATE OF NOTE: MAY 22, 2024@12:00 ENTRY DATE: JUN 12, 2024@05:55:48 AUTHOR: NICOLE CORRIGAN EXP COSIGNER: URGENCY: STATUS: COMPLETED VistA Imaging - Scanned Document COMMUNITY CARE-PHYSICAL THERAPY Date of Service (Procedure/Event): 05/22/2024 Type: PROGRESS NOTE Specialty: REHABILITATIVE Procedure: PHYSICAL THERAPY-OUTPATIENT EVALUATION [facility] SCANNED DOCUMENT SIGNATURE NOT REQUIRED Electronically Filed: 06/12/2024 by: NICOLE Vela Hossein [facility]
--- OUTSIDE RECORDS SUMMARY | 2024-08-03 13:59 | XMS_ITS ---
Author Name [facility] [place] [facility] [place] [facility] [place] Address [address] [place] [address] Care Team Providers Care Remarketing Manager Name Role Phone UMESH MCDONOUGH Primary Care Provider Unavailabl e Selected Encounter This section includes the information on record at [place] for the Encounter. Date/Time Encounter Type Encounter Description Reason Pro vider Source Apr 30, 2024 03:04 PM Outpatient Encounter ADMIN PAT ACTIVTIES (MASNONCT) IHE Encounter Template Text not used by [place] Plan of Treatment: Future Appointments (+ 6 months) and Future Tests (+/- 45 days) The Plan of Treatment section includes future care activities for the patient from all [place] treatmentfacilities. This section includes future appointments and future orders which are active, pending or scheduled. Future Appointments This section includes appointments that were scheduled to occur 6 months from the date of the Encounter, up to a maximum of 20 appointments. The data comes from all [place] treatment facilities. Appointment Date/Time Appointment Type Appointme nt Facility Name May 09, 2024 03:00 PM AMBULATORY - MEDICINE [place] [facility] May 14, 2024 12:30 PM AMBULATORY - SURGERY [place] [facility] May 22, 2024 10:00 AM AMBULATORY - NONE [place] [facility] May 23, 2024 09:00 AM AMBULATORY - NONE [place] [facility] Jun 19, 2024 01:15 PM [facility] - [facility]IC[facility] [place] [facility] Jun 25, 2024 10:30 AM AMBULATORY - MEDICINE [place] [facility] Jul 18, 2024 01:30 PM AMBULATORY - MEDICINE [place] [facility] Aug 13, 2024 10:30 AM AMBULATORY - NONE [facility] [facility] Active, Pending, and Scheduled Orders This section includes a listing of several types of active, pending, and scheduled orders, including clinic medications orders, diagnostic test orders, procedure orders and consult orders; where the start date of the order is 45 days before the date of the Encounter or 45 days after the date of theEncounter. The data comes from all [place] treatment facilities. Test Date/Time Test Type Test Details Facility Name Apr 10, 2024 12:00 AM Laboratory - Chemi stry Order AMYLASE LT GREEN(LI HEP) PLASMA SP [facility] Apr 10, 2024 12:00 AM Laboratory - Chemi stry Order LIPASE LT GREEN(LI HEP) PLASMA SP [facility] Apr 10, 2024 11:26 AM Consult Order COMMUNITY CARE-MAMMOGRAPHY SCREENING Cons [facility] Apr 10, 2024 11:27 AM Consult Order COMMUNITY [facility]-OPTOMETRY ROUTINE EYE EXAM Cons [facility] Lab Results: +/- 30 days [...] Range Comment Apr 10, 2024 11:35 AM [facility] GLYCOHEMOGLOBIN (A1C ONLY) Specimen Type: BLOOD Comment: , Tests performed on Batista Butter Wrapper Mckenna SN:[id number] (405) Values obtained from A1C measurements can vary. For typical A1C assays, a reported value of 7.0 could actually be between 6.72 and 7.28 if measured by a reference method. A reported value of 9.0 could actually be between 8.73 and 9.27. Ref: http://www.ngs p.org/CAPdata. asp Ordering Provider: UMESH MCDONOUGH Report Released Date/Time: Apr 03, 2024 01:10 PM Reporting [facility]: [facility] [address] [facility] [address] Performing Lab: [facility] [address] [facility] [address] HEMOGLOBIN A1C 5.3 4.0-5.6 Apr 10, 2024 11:35 AM [facility] LIPOPROTEIN CHOLESTEROL FRACT. PANEL Specimen Type: PLASMA Comment: Added by [id number] on Apr 10, 2024@11:40, Tests performed on Batista Butter Wrapper Mckenna SN:[id number] (405) Ordering Provider: UMESH MCDONOUGH Report Released Date/Time: Apr 03, 2024 01:10 PM Reporting Lab: [facility] [address] [facility] [address] Performing Lab: [facility] [address] [facility] [address] CHOLESTEROL 250 mg/dL H 0-200 TRIGLYCERIDE 108 mg/dL 0-150 HDL CHOLESTEROL 66 mg/dL >40 LDL CHOLESTEROL (CALC) 162 mg/dL Apr 10, 2024 11:35 AM [facility] P4 GLU,BUN,CREAT,LYTES,CA Specimen Type: PLASMA Comment: Added by [id number] on Apr 10, 2024@11:40, Tests performed on Batista Butter Wrapper Mckenna SN:[id number] (405) Ordering Provider: UMESH MCDONOUGH Report Released Date/Time: Apr 03, 2024 01:10 PM Reporting Lab: [facility] [address] [facility] [address] Performing Lab: [facility] [address] [facility] [address] UREA NITROGEN 12 mg/dL 7-25 SODIUM 136 mmol/L 135-145 POTASSIUM 3.7 mmol/L 3.5-5.0 CHLORIDE 104 mmol/L 100-110 CARBON DIOXIDE 25 mmol/L 20-30 ANION GAP 7 4-16 GLUCOSE 63 mg/dL L 65-100 CREATININE 0.93 mg/dL 0.50-1.50 CALCIUM 9.3 mg/dL 8.5-10.5 eGFR(CKD-EPI 2020) 78 Apr 10, 2024 11:35 AM [facility] CBC PROFILE Specimen Type: BLOOD No comment entered. Ordering Provider: UMESH MCDONOUGH Report Released Date/Time: Apr 03, 2024 01:10 PM Reporting Lab: [facility] [address] [facility] [address] Performing Lab: [facility] [address] [facility] [address] WBC 7.2 10*3/uL 4.5-11.0 RBC 4.30 10*6/uL [...] 10*3/uL 0-0 Apr 10, 2024 11:35 AM [facility] LIVER PROFILE Specimen Type: PLASMA Comment: Added by [id number] on Apr 10, 2024@11:40, Tests performed on Sanako Mckenna SN:[id number] (529) Ordering Provider: UMESH MCDONOUGH Report Released Date/Time: Apr 03, 2024 01:10 PM Reporting Lab: [facility] [address] [facility] [address] Performing Lab: [facility] [address] [place] [phone] PROTEIN, TOTAL 7.3 g/dL 6.0-8.5 ALBUMIN 3.9 g/dL 3.2-5.0 BILIRUBIN, TOTAL 0.4 mg/dL 0.2-1.2 ALKALINE PHOSPHATASE 37 U/L L 40-150 ALT(SGPT) 11 U/L 7-52 AST(SGOT) 14 U/L 5-34 FIB-4 SCORE 0.72 <2.67 Apr 10, 2024 11:35 AM [facility] CRP(INFLAMMATORY) Specimen Type: PLASMA Comment: Added by [id number] on Apr 10, 2024@11:40, Tests performed on Batista VouchAR Mckenna SN:[id number] (405) Ordering Provider: UMESH MCDONOUGH Report Released Date/Time: Apr 03, 2024 01:10 PM Reporting Lab: [facility] [address] [place] [phone] Performing Lab: [facility] [address] [place] [phone] CRP(INFLAMMATORY) 0.5 mg/L 0.0-5.0 Apr 10, 2024 11:35 AM [facility] IRON+TIBC(P) Specimen Type: PLASMA Comment: Added by [id number] on Apr 10, 2024@11:40, Tests performed on Sanako Mckenna SN:[id number] (405) Ordering Provider: UMESH MCDONOUGH Report Released Date/Time: Apr 03, 2024 01:10 PM Reporting Lab: [facility] [address] [phone] Performing Lab: [facility] [address] [place] [phone] IRON 139 ug/dL 40-160 TIBC 320 ug/dL IRON SATURATION(P) 43 >15 UIBC(P) 181 ug/dL 126-382 Apr 10, 2024 11:34 AM [facility] HEP B SURF AB(W) Specimen Type: SERUM [...] Apr 10, 2024 11:09 AM Reporting Lab: [facility] [address] [facility] [address] Performing Lab: [address] [address] HEP B SURF AB(W) REACTIVE Non Reactive Apr 10, 2024 11:34 AM [facility] HEP B CORE,TOTAL(W) Specimen [...] Apr 10, 2024 11:09 AM Reporting Lab: [facility] [address] [facility] [address] Performing Lab: [address] [address] HEP B CORE,TOTAL(W) Non Reactive Non Reactive Apr 10, 2024 11:34 AM [facility] HEPATITIS A IgG(W) Specimen [...] Apr 10, 2024 11:33 AM Reporting Lab: [facility] [address] [facility] [address] Performing Lab: [facility] [address] [facility] [address] HEPATITIS A IgG(W) REACTIVE Non Reactive Apr 10, 2024 11:34 AM [facility] HEPATITIS C AB(WRJ)w/Reflex Specimen Type: SERUM Comment: , Tests performed on Batista Butter Wrapper Mckenna SN:[id number] (405) No HCV antibody detected. If recent infection is suspected or other evidence suggests HCV infection, consider HCV RNA testing Ordering Provider: UMESH MCDONOUGH Report Released Date/Time: Apr 10, 2024 11:09 AM Reporting [facility] [address] [facility] [address] Performing [facility]: [facility] [address] [facility] [address] HEPATITIS C AB(WRJ)w/Reflex Non-Reactive Non-Reactiv e Apr 10, 2024 11:34 AM [facility] HIV Ag/Ab SCREEN Specimen Type: SERUM Comment: Added by [id number] on Apr 10, 2024@11:40, Tests performed on Batista Butter Wrapper Mckenna SN:[id number] (405) TSH within normal limits. Reflex testing not required. Ordering Provider: UMESH MCDONOUGH Report Released Date/Time: Apr 10, 2024 11:09 AM Reporting Lab: [facility] [address] [facility] [address] Performing Lab: [facility] [address] [facility] [address] HIV Ag/Ab SCREEN Non-Reactive Non-Reactiv e Apr 10, 2024 11:34 AM [facility] FERRITIN Specimen Type: SERUM Comment: Added by [id number] on Apr 10, 2024@11:40, Tests performed on Batista Butter Wrapper Mckenna SN:[id number] (405) TSH within normal limits. Reflex testing not required. Ordering Provider: UMESH MCDONOUGH Report Released Date/Time: Apr 10, 2024 11:09 AM Reporting Lab: [facility] [address] [facility] [address] Performing Lab: [place] [facility] [facility] [address] [facility] [address] FERRITIN 31 ng/mL 5-204 Apr 10, 2024 11:34 AM [facility] VITAMIN B-12 Specimen Type: SERUM Comment: Added by [id number] on Apr 10, 2024@11:40, Tests performed on Batista Butter Wrapper Mckenna SN:[id number] (405) TSH within normal limits. Reflex testing not required. Ordering Provider: UMESH MCDONOUGH Report Released Date/Time: Apr 10, 2024 11:09 AM Reporting Lab: [facility] [address] [facility] [address] Performing Lab: [facility] [address] [facility] [address] VITAMIN B-12 745 pg/mL 200-900 Apr 10, 2024 11:34 AM [facility] ESR(NEW) Specimen Type: BLOOD Comment: Tests performed on Alcor ISED(405) Ordering Provider: UMESH MCDONOUGH Report Released Date/Time: Apr 10, 2024 11:31 AM Reporting Lab: [facility] [address] [facility] [address] Performing Lab: [facility] [address] [facility] [address] ESR(NEW) 1 mm/h 0-20 Apr 10, 2024 11:34 AM [facility] THYROID TESTING CASCADE Specimen Type: SERUM Comment: Added by [id number] on Apr 10, 2024@11:40, Tests performed on Batista Butter Wrapper Mckenna SN:[id number] (405) TSH within normal limits. Reflex testing not required. Ordering Provider: UMESH MCDONOUGH Report Released Date/Time: Apr 10, 2024 11:09 AM Reporting Lab: [facility] [address] [facility] [address] Performing Lab: [facility] [address] [facility] [address] TSH 0.61 u[IU]/mL 0.35-5.00 Apr 10, 2024 11:34 AM [facility] VIT D 25-OH(J) Specimen Type: SERUM Comment: Added by [id number] on Apr 10, 2024@11:40, Tests performed on Batista Butter Wrapper Mckenna SN:[id number] (405) TSH within normal limits. Reflex testing not required. Ordering Provider: UMESH MCDONOUGH Report Released Date/Time: Apr 10, 2024 11:09 AM Reporting Lab: [facility] [address] [facility] [address] Performing Lab: [facility] [address] [facility] [address] VIT D 25-OH(J) 42.9 ng/mL 20.0-50.0 Apr 10, 2024 11:34 AM [facility] HBSAG PANEL WITH REFLEX CONFIRMATION(WH) Specimen Typ e: SERUM Comment: A Reactive result (Positive prior to 07/09/13) is diagnostic of acute or chronic hepatitis B infection. The presence of Hepatitis B surface antigen is frequently associated with infectivity. Ordering Provider: UMESH MCDONOUGH Report Released Date/Time: Apr 10, 2024 11:09 AM Reporting Lab: [facility] [address] [facility] [address] Performing Lab: [facility] [address] [facility] [address] HEP B SURFACE AG(wh) Non Reactive Non Reactive Social History: Smoking Status (Most current) and Tobacco Use (All prior to encounter date) This section includes the most current, and the historical, smoking and tobacco- related health factors from the [place] facility where the Encounter took place. Current Smoking Status This section includes the most current smoking, or tobacco-related health factor, from the [place] facility where the Encounter took place. Date/Time Current Smoking Status Comment Wendy oropeza Nov 25, 2023 01:00 PM [place]TO[place] USED [place] [facility] Tobacco Use History This section includes a history of the smoking, or tobacco-related health factors, that were collected on or before the date of the Encounter. The data comes from the [place] facility where the Encounter took place. Date/Time Smoking Status/Tobacco Use Comment Yanick collins Nov 25, 2023 01:00 PM [place]-TO[place]ACCO NEVER USED [place] [facility] Aug 02, 2023 02:30 PM [place]TO[place]CO NEVER USED [place] [facility] Aug 20, 2019 11:05 AM [place]-TO[place]ACCO NEVER USED [place] [facility] Radiology Reports: +/- 30 days of [...] the Encounter. The data comes from all [place] treatment facilities. Date/Time Radiology Report Provider Source Apr 23, 2024 08:15 AM ULTRASOUND RUQ (GB,LIVER,BILIARY): COR[place] PATEL [id number] -[id number] F Exm Date: APR 23, 2024@08:15 Req Phys: UMESH MCDONOUGH Loc: [facility] PACT A 6 M1RB (Req'g Loc) Img Loc: ULTRASOUND (OOS) Service: Unknown Screen: Patient answered no [facility] [place] [address] (Case 39 COMPLETE) ULTRASOUND RUQ (GB,LIVER,BILIARY)(US Detailed) CPT:13806 Proc Modifiers : RIGHT Reason for Study: RUQ pain Clinical History: compare to study Report Status: Verified Date Reported: APR 23, 2024 Date Verified: APR 23, 2024 Radar Engineer E-Sig:/ANTONELLA/PATRICIA ESPINOZA Report: ECHO EXAM OF ABDOMEN [...] REQUIRED Primary Interpreting Staff: Staff CARLEE GANDHI (Radar Engineer) /PATRICIA BARTLETT [facility] Apr 23, 2024 07:56 AM ELASTOGRAPHY PAREN CHYMA (E.G., ORGAN): CORETTA PATEL [id number] -[id number] F Exm Date: APR 23, 2024@07:56 Req Phys: UMESH MCDONOUGH Pat Loc: [facility] PACT A 6 M1RB (Req'g Loc) Img Loc: ULTRASOUND (OOS) Service: Unknown Screen: Patient answered no [facility] [address] (Case 40 COMPLETE) ELASTOGRAPHY PARENCHYMA (E.G., OR(US Detailed) CPT:94302 Reason for Study: RUQ pain Clinical History: Report Status: Verified Date Reported: APR 23, 2024 Date Verified: APR 23, 2024 Radar Engineer E-Sig:/ES/PATRICIA ESPINOZA Report: ECHO EXAM OF [...] REQUIRED Primary Interpreting Staff: Staff CARLEE GANDHI (Radar Engineer) /PATRICIA BARTLETT [facility] Encounter Notes: All associated encounter notes This section contains the clinical notes associated to the Encounter. Date/Time Encounter Note(s) Provider Source Apr 30, 2024 03:04 PM PRIMARY CARE ADMINISTRATIVE NOTE: LOCAL TITLE: Administrative Note/Primary Care STANDARD TITLE: PRIMARY CARE ADMINISTRATIVE NOTE DATE OF NOTE: APR 30, 2024@15:04 ENTRY DATE: APR 30, 2024@15:05:03 AUTHOR: GINI FRAIRE COSIGNER: URGENCY: STATUS: COMPLETED Reached out to Pt and Left V/M and sent letter. RE: Scheduling RTC [place]ET[place] PATEL [address] [place] [id number] Dear [place], The [place] Primary Care department in [place] is trying to reach you to schedule an appointment with Dr. Mary Luna. If you have already been incontact with the clinic and scheduled an appointment, please disregard this letter. Please call one of the numbers provided below: Direct: [phone] Toll Free: [phone] [facility] [address] [facility] [address] [place] [address] Again, thank you for letting us serve you. [employer]. Department of [address] [address] TOLL FREE: [phone] VESANDRA ( ) /antonella/ GINI FRAIRE Signed: 04/30/2024 15:06 GINI FRAIRE [facility]
--- OUTSIDE RECORDS SUMMARY | 2024-08-03 13:59 | XMS_ITS | Encounter Summary ---
Author Name [facility] [place] [facility] [place] Address [address] [place] [address] Care Team Providers Care Manager Employee Benefits Name Role Phone UMESH MCDONOUGH Primary Care Provider Unavailabl e Selected Encounter This section includes the information on record at [place] for the Encounter. Date/Time Encounter Type Encounter Description Reason Pro vider Source Jun 01, 2024 04:07 PM Outpatient Encounter [facility] E Encounter Template Text not used by [place] [...] AM[place]ATORY - [place]ICINE [place] [facility] Jun 25, 2024 10:30 AM AMBULATORY - [facility]IC[facility] [place] [facility] Jul 18, 2024 01:30 PM AMBULATORY - MEDICINE [place] [facility] Aug 13, 2024 10:30 AM AMBULATORY - NONE [facility] Active, Pending, and Scheduled Orders This [...] Consult Order GENERAL VIZCAINO RGERY OUTPATIENT Cons Carbon [employer] Inter[facility] [place] [facility] Social History: Smoking Status (Most current) [...] Facil ity Nov 25, 2023 01:00 PM [facility] TOBACCO SMOKES DOES NOT [place] [facility] Tobacco Use History This section includes a history of the smoking, or tobacco-related health factors, that were collected on or before the date of the Encounter. The data comes from the [place] facility where the Encounter took place. Date/Time Smoking Status/Tobacco Use Comment F acility Nov 25, 2023 01:00 PM [place]-TO[place]ACCO NEVER USED [place] [facility] Aug 02, 2023 02:30 PM [place]-TO[place]ACCO NEVER USED [place] [facility] Aug 20, 2019 11:05 AM [place] US[place] [facility] Encounter Notes: All associated encounter notes This section contains the clinical notes associated to the Encounter. Date/Time Encounter Note(s) Provider Source Jun 01, 2024 04:07 PM MENTAL HEALTH ADMI NISTRATIVE NOTE: LOCAL TITLE: Administrative Note/Mental Health STANDARD TITLE: MENTAL HEALTH ADMINISTRATIVE NOTE DATE OF NOTE: JUN 01, 2024@16:07 ENTRY DATE: JUN 01, 2024@16:07:35 AUTHOR: JEAN BLACKMAN EXP COSIGNER: URGENCY: STATUS: COMPLETED Jackelin reached out and left a requesting to schedule an appt. A psychotherapy consult was placed earlier this year and she had not responded until now. I returned her call and left a VM requesting that she reach out again so that we can find a date and time that fits her schedule. /deann/ ANNE-MARIE WEBSTER E Learning Coordinator Signed: 06/01/2024 16:09 JEAN BLACKMAN [facility]
--- OUTSIDE RECORDS SUMMARY | 2024-08-03 13:59 | XMS_ITS | Encounter Summary ---
Author Name [facility] [place] [facility] [place] Organization [place] Address [address] [place] [address] Care Team Providers Care Saw Runner Name Role Phone UMESH MCDONOUGH Primary Care Provider Unavailabl e Selected Encounter This section includes the information on record at [place] for the Encounter. Date/Time Encounter Type Encounter Description Reason Pro vider Source Apr 26, 2024 10:16 AM Outpatient Encounter ADMIN PAT ACTIVTIES (MASNONCT) IHE Encounter Template Text not used by [place] Plan of Treatment: Future Appointments (+ 6 months) and Future Tests (+/- 45 days) The Plan of Treatment section includes future care activities for the patient from all [place] treatmentfacilities. This section includes future appointments and future orders which are active, pending or scheduled. Future Appointments This section includes appointments that were scheduled to occur 6 months from the date of the Encounter, up to a maximum of 20 appointments. The data comes from all [place] treatment facilities. Appointment Date/Time Appointment Type Appointme nt Facility Name May 09, 2024 03:00 PM AMBULATORY - [place]ICINE [place] [facility] May 14, 2024 12:30 PM AMBUL[facility]ORY - SURGERY [place] [facility] May 22, 2024 10:00 AM AMBULATORY - NONE [place] [facility] May 23, 2024 09:00 AM AMBULATORY - NONE [place] [facility] Jun 19, 2024 01:15 PM [facility]ORY - [facility]IC[facility] [place] [facility] Jun 25, 2024 10:30 AM AMBULATORY - MEDICINE [place] [facility] Jul 18, 2024 01:30 PM AMBULATORY - MEDICINE [place] [facility] Aug 13, 2024 10:30 AM AMBULATORY - NONE [place] [facility] Active, Pending, and Scheduled Orders This section includes a listing of several types of active, pending, and scheduled orders, including clinic medications orders, diagnostic test orders, procedure orders and consult orders; where the start date of the order is 45 days before the date of the Encounter or 45 days after the date of theEncounter. The data comes from all [place] treatment facilities. Test Date/Time Test Type Test Details Facility Name Apr 10, 2024 12:00 AM Laboratory - Chemi stry Order AMYLASE LT GREEN(LI HEP) PLASMA SP H[facility] Apr 10, 2024 12:00 AM Laboratory - Chemi stry Order LIPASE LT GREEN(LI HEP) PLASMA SP [facility] Apr 10, 2024 11:26 AM Consult Order COMMUNITY CARE-MAMMOGRAPHY SCREENING Cons Residue Furnace Operator's [facility] Apr 10, 2024 11:27 AM Consult Order COMMUNITY [facility]-OPTOMETRY ROUTINE EYE EXAM Cons Residue Furnace Operator's [facility] Lab Results: +/- 30 days [...] BLOOD Comment: , Tests performed on Batista Lumber Racker Mckenna SN:[id number] (405) Values obtained from A1C measurements can [...] Reporting [facility]: [facility] [address] [facility] [address] Performing Lab: [facility] [address] [facility] [address] HEMOGLOBIN A1C 5.3 4.0-5.6 Apr 10, 2024 11:35 AM [facility] LIPOPROTEIN CHOLESTEROL FRACT. PANEL Specimen Type: PLASMA Comment: Added by [id number] on Apr 10, 2024@11:40, Tests performed on Batista Perosphere SN:[id number] (405) Ordering Provider: UMESH MCDONOUGH Report Released Date/Time: Apr 03, 2024 01:10 PM Reporting Lab: [facility] [address] [facility] [address] Performing Lab: [facility] [address] [facility] [address] CHOLESTEROL 250 mg/dL H 0-200 TRIGLYCERIDE 108 mg/dL 0-150 HDL CHOLESTEROL 66 mg/dL >40 LDL CHOLESTEROL (CALC) 162 mg/dL Apr 10, 2024 11:35 AM [facility] LIVER PROFILE Specimen Type: PLASMA Comment: Added by [id number] on Apr 10, 2024@11:40, Tests performed on Carticipate SN:[id number] (405) Ordering Provider: UMESH MCDONOUGH Report Released Date/Time: Apr 03, 2024 01:10 PM Reporting Lab: [facility] [address] [facility] [address] Performing Lab: [facility] [address] [facility] [address] PROTEIN, TOTAL 7.3 g/dL 6.0-8.5 ALBUMIN 3.9 g/dL 3.2-5.0 BILIRUBIN, TOTAL 0.4 mg/dL 0.2-1.2 ALKALINE PHOSPHATASE 37 U/L L 40-150 ALT(SGPT) 11 U/L 7-52 AST(SGOT) 14 U/L 5-34 FIB-4 SCORE 0.72 <2.67 Apr 10, 2024 11:35 AM [facility] P4 GLU,BUN,CREAT,LYTES,CA Specimen Type: PLASMA Comment: Added by [id number] on Apr 10, 2024@11:40, Tests performed on Pennant Mckenna SN:[id number] (132) Ordering Provider: UMESH MCDONOUGH Report Released Date/Time: Apr 03, 2024 01:10 PM Reporting Lab: [facility] [address] [address] Performing Lab: [facility] [address] [address] UREA NITROGEN 12 mg/dL 7-25 SODIUM 136 [...] [facility] [address] [id number] Performing Lab: [facility] [address] [address] WBC 7.2 10*3/uL 4.5-11.0 RBC 4.30 10*6/uL [...] 11:35 AM [facility] IRON+TIBC(P) Specimen Type: PLASMA Comment: Added by [id number] on Apr 10, 2024@11:40, Tests performed on Batista Lumber Racker Mckenna SN:[id number] (405) Ordering Provider: UMESH MCDONOUGH Report Released Date/Time: Apr 03, 2024 01:10 PM Reporting Lab: [facility] [employer] [facility] [address] [id number] Performing Lab: [facility] [address] [id number] IRON 139 ug/dL 40-160 TIBC 320 ug/dL IRON SATURATION(P) 43 >15 UIBC(P) 181 ug/dL 126-382 Apr 10, 2024 11:35 AM [facility] CRP(INFLAMMATORY) Specimen Type: PLASMA Comment: Added by [id number] on Apr 10, 2024@11:40, Tests performed on Batista Flare3d Mckenna SN:[id number] (405) Ordering Provider: UMESH MCDONOUGH Report Released Date/Time: Apr 03, 2024 01:10 PM Reporting Lab: [facility] [address] [facility] [address] Performing Lab: [facility] [address] [facility] [address] CRP(INFLAMMATORY) 0.5 mg/L 0.0-5.0 Apr 10, 2024 11:34 AM [facility] HEP B SURF AB(W) Specimen Type: SERUM [...] [facility] [address] [facility] [address] Performing Lab: [address] [address] HEP B SURF AB(W) REACTIVE Non Reactive [...] [facility] [address] [facility] [address] Performing Lab: [address] [address] HEP B CORE,TOTAL(W) Non Reactive Non Reactive [...] Reporting Lab: [facility] [address] [facility] [address] Performing Lab: [facility] [address] [facility] [address] HEPATITIS A IgG(W) REACTIVE Non Reactive Apr 10, 2024 11:34 AM [facility] HEPATITIS C AB(WRJ)w/Reflex Specimen Type: SERUM Comment: , Tests performed on Batista Lumber Racker Mckenna SN:[id number] (405) No HCV antibody detected. If recent infection is suspected or other evidence suggests HCV infection, consider HCV RNA testing Ordering Provider: UMESH MCDONOUGH Report Released Date/Time: Apr 10, 2024 11:09 AM Reporting Lab: [facility] [address] [facility] [address] Performing [facility]: [facility] [address] [facility] [address] HEPATITIS C AB(WRJ)w/Reflex Non-Reactive Non-Reactiv e Apr 10, 2024 11:34 AM [facility] HIV Ag/Ab SCREEN Specimen Type: SERUM Comment: Added by [id number] on Apr 10, 2024@11:40, Tests performed on Batista Lumber Racker Mckenna SN:[id number] (405) TSH within normal limits. Reflex testing not required. Ordering Provider: UMESH MCDONOUGH Report Released Date/Time: Apr 10, 2024 11:09 AM Reporting Lab: [facility] [address] [facility] [address] Performing Lab: [facility] [address] [facility] [address] HIV Ag/Ab SCREEN Non-Reactive Non-Reactiv e Apr 10, 2024 11:34 AM [facility] FERRITIN Specimen Type: SERUM Comment: Added by [id number] on Apr 10, 2024@11:40, Tests performed on Batista Lumber Racker Mckenna SN:[id number] (405) TSH within normal limits. Reflex testing not required. Ordering Provider: UMESH MCDONOUGH Report Released Date/Time: Apr 10, 2024 11:09 AM Reporting Lab: [facility] [address] [facility] [address] Performing Lab: [place] [facility] [address] [facility] [address] FERRITIN 31 ng/mL 5-204 Apr 10, 2024 11:34 AM [facility] VITAMIN B-12 Specimen Type: SERUM Comment: Added by [id number] on Apr 10, 2024@11:40, Tests performed on Batista Lumber Racker Mckenna SN:[id number] (405) TSH within normal limits. Reflex testing not required. Ordering Provider: UMESH MCDONOUGH Report Released Date/Time: Apr 10, 2024 11:09 AM Reporting Lab: [place] [facility] [address] [facility] [address] Performing Lab: [place] [facility] [address] [facility] [address] VITAMIN B-12 745 pg/mL 200-900 Apr 10, 2024 11:34 AM [facility] ESR(NEW) Specimen Type: BLOOD Comment: Tests performed on Alcor ISED(405) Ordering Provider: UMESH MCDONOUGH Report Released Date/Time: Apr 10, 2024 11:31 AM Reporting Lab: [place] [facility] [address] [facility] [address] Performing Lab: [place] [facility] [address] [facility] [address] ESR(NEW) 1 mm/h 0-20 Apr 10, 2024 11:34 AM [facility] VIT D 25-OH(WRJ) Specimen Type: SERUM Comment: Added by [id number] on Apr 10, 2024@11:40, Tests performed on Batista Lumber Racker Mckenna SN:[id number] (405) TSH within normal limits. Reflex testing not required. Ordering Provider: UMESH MCDONOUGH Report Released Date/Time: Apr 10, 2024 11:09 AM Reporting Lab: [place] [facility] [address] [facility] [address] Performing Lab: [place] [facility] [address] [facility] [address] VIT D 25-OH([facility]) 42.9 ng/mL 20.0-50.0 Apr 10, 2024 11:34 AM [facility] THYROID TESTING CASCADE Specimen Type: SERUM Comment: Added by [id number] on Apr 10, 2024@11:40, Tests performed on Batista Lumber Racker Mckenna SN:[id number] (405) TSH within normal limits. Reflex testing not required. Ordering Provider: UMESH MCDONOUGH Report Released Date/Time: Apr 10, 2024 11:09 AM Reporting Lab: [facility] [address] [facility] [address] Performing Lab: [facility] [address] [facility] [address] TSH 0.61 u[IU]/mL 0.35-5.00 Apr 10, 2024 [...] [facility] [address] [facility] [address] Performing [facility]: [facility] [address] [facility] [address] HEP B SURFACE AG(wh) Non Reactive Non Reactive Social History: Smoking Status (Most current) and Tobacco Use (All prior to encounter date) This section includes the most current, and the historical, smoking and tobacco- related health factors from the [place] facility where the Encounter took place. Current Smoking Status This section includes the most current smoking, or tobacco-related health factor, from the [place] facility where the Encounter took place. Date/Time Current Smoking Status Comment Wendy oropeza Nov 25, 2023 01:00 PM [facility] TOBACCO SMOKES DOES NOT [place] [facility] Tobacco Use History This section includes a history of the smoking, or tobacco-related health factors, that were collected on or before the date of the Encounter. The data comes from the [place] facility where the Encounter took place. Date/Time Smoking Status/Tobacco Use Comment F karina Nov 25, 2023 01:00 PM [place]-TO[place]CO NEVER USED [place] [facility] Aug 02, 2023 02:30 PM VA-TOBACCO NEVER USED [place] [facility] Aug 20, 2019 11:05 AM VA-TOBACCO [...] the Encounter. The data comes from all [place] treatment facilities. Date/Time Radiology Report Provider Source Apr 23, 2024 08:15 AM ULTRASOUND RUQ (GB,LIVER,BILIARY): CORETTA PATEL [id number] -1980 F Exm Date: APR 23, 2024@08:15 Req Phys: UMESH MCDONOUGH Loc: [facility] PACT A 6 M1RB (Req'g Loc) Img Loc: ULTRASOUND (OOS) Service: Unknown Screen: Patient answered [place] [address] (Case 39 COMPLETE) ULTRASOUND RUQ (GB,LIVER,BILIARY)(US Detailed) CPT:82505 Proc Modifiers : RIGHT Reason for Study: RUQ pain Clinical History: compare to study Report Status: Verified Date Reported: APR 23, 2024 Date Verified: APR 23, 2024 Swimming Pool Installer E-Sig:/ES/PATRICIA ESPINOZA Report: ECHO EXAM OF ABDOMEN [...] REQUIRED Primary Interpreting Staff: Staff CARLEE GANDHI (Swimming Pool Installer) /PATRICIA BARTLETT [facility] Apr 23, 2024 07:56 AM ELASTOGRAPHY PAREN CHYMA (E.G., ORGAN): CORETTA PATEL NASIR [id number] -1980 F Exm Date: APR 23, 2024@07:56 Req Phys: UMESH MCDONOUGH Pat Loc: [facility] PACT A 6 M1RB (Req'g Loc) Img Loc: ULTRASOUND (OOS) Service: Unknown Screen: Patient answered no [place] [facility] [address] (Case 40 COMPLETE) ELASTOGRAPHY PARENCHYMA (E.G., OR(US Detailed) CPT:36986 Reason for Study: RUQ pain Clinical History: Report Status: Verified Date Reported: APR 23, 2024 Date Verified: APR 23, 2024 Swimming Pool Installer E-Sig:/ES/PATRICIA ESPINOZA Report: ECHO EXAM OF ABDOMEN [...] REQUIRED Primary Interpreting Staff: Staff CARLEE GANDHI (Swimming Pool Installer) /PATRICIA BARTLETT [facility] Encounter Notes: All associated encounter notes This section contains the clinical notes associated to the Encounter. Date/Time Encounter Note(s) Provider Source Apr 26, 2024 10:16 AM ADMINISTRATIVE NOT E: LOCAL TITLE: [facility]: SCHEDULING ADMINISTRATION STANDARD TITLE: ADMINISTRATIVE NOTE DATE OF NOTE: APR 26, 2024@10:16:41 ENTRY DATE: APR 26, 2024@10:16:42 AUTHOR: DESTINEY PALMA EXP COSIGNER: URGENCY: STATUS: COMPLETED Patient Demographics Patient Name: CORETTA PATEL Patient Primary Phone: [phone] Patient Primary Address: [address] [place] [address] Patient : 1980 Patient Age: 43 Call Back Number: Caller/Recipient Relation to Patient: Self Administrative Administrative Note Reason: Returned Call Administrative Note Comments: Vet returning call from PCP /es/ DESTINEY HARRINGTON 1 [facility] AMSA Signed: 04/26/2024 10:16 Receipt Acknowledged By: 04/30/2024 13:06 /es/ JAYLA STONER LPN 04/26/2024 10:24 /es/ CALVIN FISCHER Registered Nurse 05/11/2024 16:22 /es/ DESTINEY KOO APRN [facility]
--- OUTSIDE RECORDS SUMMARY | 2024-08-03 13:59 | XMS_ITS | Encounter Summary ---
Author Name [facility] [place] [place] Organization [place] Address [address] [place] [address] Care Team Providers Care Conservation Or Heritage Architect Name Role Phone UMESH MCDONOUGH Primary Care Provider Unavailabl e Selected Encounter This section includes the information on record at [place] for the Encounter. 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 Date/Time Primary/Secondary Diagnosis Diagnosis Name Provider Source Jun 25, 2024 10:25 AM PRIMARY Alcohol use, unspecified with alcohol-induced mood disorder PREMA MARTINEZ [facility] Plan of Treatment: Future Appointments (+ 6 months) and Future Tests (+/- 45 days) The Plan of Treatment section includes future care activities for the patient from all [place] treatmentfacilities. This section includes future appointments and future orders which are active, pending or scheduled. Future Appointments This section includes appointments that were scheduled to occur 6 months from the date of the Encounter, up to a maximum of 20 appointments. The data comes from all [place] treatment facilities. Appointment Date/Time Appointment Type Appointme nt Facility Name Jul 18, 2024 01:30 PM AMBULATORY - MEDICINE [facility] Aug 13, 2024 10:30 AM AMBULATORY - NONE [place] [facility] Active, Pending, and Scheduled Orders This section includes a listing of several types of active, pending, and scheduled orders, including clinic medications orders, diagnostic test orders, procedure orders and consult orders; where the start date of the order is 45 days before the date of the Encounter or 45 days after the date of theEncounter. The data comes from all [place] treatment facilities. Test Date/Time Test Type Test Details Facility Name Jun 20, 2024 12:57 PM Consult Order GENERAL [facility] OUTPATIENT Cons Sand Conditioner Machine's Choice [place] [facility] Jul 21, 2024 03:34 PM Consult Order COMMUNITY CARE-PHYSICAL THERAPY Cons Sand Conditioner Machine's Choice [facility] Vital Signs: All taken on the encounter date This section contains inpatient and outpatient Vital Signs collected on the date of the Encounter. Date/Time Temperature Pulse Blood Pressure Respiratory Rate SP02 Pain Height Weight Body Mass Index Source Jun 25, 2024 10:03 AM 98.3 63 101/69 16 100 3 124.9 21 [place] [facility] Social History: Smoking Status (Most current) and Tobacco Use (All prior to encounter date) This section includes the most current, and the historical, smoking and tobacco- related health factors from the [place] facility where the Encounter took place. Current Smoking Status This section includes the most current smoking, or tobacco-related health factor, from the [place] facility where the Encounter took place. Date/Time Current Smoking Status Comment Wendy ity Nov 25, 2023 01:00 PM [facility] TOBACCO SMOKES DOES NOT [place] [facility] Tobacco Use History This section includes a history of the smoking, or tobacco-related health factors, that were collected on or before the date of the Encounter. The data comes from the [place] facility where the Encounter took place. Date/Time Smoking Status/Tobacco Use Comment F acility Nov 25, 2023 01:00 PM VA-TOBACCO NEVER USED [place] [facility] Aug 02, 2023 02:30 PM VA-TOBACCO NEVER USED [place] [facility] Aug 20, 2019 11:05 AM VA-TOBACCO NEVER USED [place] [facility] Encounter Notes: All associated encounter notes This section contains the clinical notes associated to the Encounter. Date/Time Encounter Note(s) Provider Source Jun 25, 2024 10:23 AM HEPATOLOGY NOTE: LOCAL TITLE: FIBROSCAN STANDARD TITLE: HEPATOLOGY NOTE DATE OF NOTE: JUN 25, 2024@10:23 ENTRY DATE: JUN 25, 2024@10:23:18 AUTHOR: PREMA MARTINEZ COSIGNER: URGENCY: STATUS: COMPLETED Procedure report Procedure report (insulation extruder operator) Vibration Controlled Transient Elastography (VCTE) FibroScan Procedure Report Date/Time of Procedure: Date: June 25, 2024 Sales Representative Metals (Name): ana paula Probe Size: Medium NPO minimum of 3 hours: Yes Body Mass Index (BMI) BODY MASS INDEX - JUN 25, 2024@10:03:09 20.8 Alcohol Use When did you last consume an alcoholic beverage? 2 months ago If within one month,how many drinks on that day? 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 Patient was briefly assessed, identifying the terminus of the xyphoid process, and locating an ideal transient elastography testing site, mid-line and lateral to this point. Patient was allowed to rest for approximately 5 minutes prior to beginning the test. Patient was instructed to breathe normally and remain stationary during the test process. Pre-measurement data confirmed the transient elastography probe was centered over the liver parenchyma. A series of ten 50Hz mechanical pulses were applied with controlled application pressure to induce mechanical shear wave in the liver tissue. For each measurement, the shear wave propagation speed was detected, displayed, and converted to its equivalent liver stiffness value in kilopascals. Skin to liver capsule distance and shear wave characteristics were monitored during the entire exam to assure data quality. Median liver stiffness measurement and interquartile range were calculated and displayed in real time. Acquired measurement data was submitted to the provider/physician for review and interpretation. Patient tolerated the procedure well and was discharged without incident. Results: Number of Valid Measurements: 11 Liver Stiffness: FibroScan Value (median, kPa): 4.0 FibroScan IQR/Median %: 22 Liver Steatosis: Controlled Attenuation Parameter CAP Score: 170 CAP Level %: 24 Procedure Interpretation (provider): Very low risk for any fibrosis Very low risk for hepatic steatosis Essentially normal exam Reference Range FibroScan Reference Range F0-F1 (kPa) F2 (kPa) F3 (kPa) F4 (kPa) <8.0 8.0-10.9 11.0-14.9 >15.0 FibroScan study requires interpretation by an experienced provider in conjunction with other pertinent data (e.g., physical examination, lab results, imaging, alcohol use etc.) to assess the likelihood of advanced hepatic fibrosis. FibroScan is best used to rule out advanced fibrosis. While kPa <8 indicates a low likelihood of advanced fibrosis, a higher kPa is less predictive of a specific fibrosis stage (i.e., F2 vs. F3 vs. F4). /deann/ PREMA MARTINEZ Nurse Practitioner, Hepatology Signed: 06/25/2024 10:25 Receipt Acknowledged By: 06/27/2024 11:37 /es/ ROSMERY SALDANA Gastroenterology Fellow PREMA MARTINEZ [facility]
--- OUTSIDE RECORDS SUMMARY | 2024-08-03 13:59 | XMS_ITS | Encounter Summary ---
Author Name [facility] [place] Organization [place] Address [address] [place] [address] Care Team Providers Care Employment Attorney Name Role Phone UMESH MCDONOUGH Primary Care Provider Unavailabl e Selected Encounter This section includes the information on record at [place] for the Encounter. Date/Time Encounter Type Encounter Description Reason Pro vider Source Jul 16, 2024 01:48 PM Outpatient Encounter PCMKS INDIV E Encounter Template Text not used by [place] [...] 01:30 PM AMBULATORY - MEDICINE CORNELIO [facility] Aug 13, 2024 10:30 AM AMBULATORY - NONE [facility]AL [facility] Active, Pending, and Scheduled Orders This section includes a listing of several types of active, pending, and scheduled orders, including clinic medications orders, diagnostic test orders, procedure orders and consult orders; where the start date of the order is 45 days before the date of the Encounter or 45 days after the date of theEncounter. The data comes from all [place] treatment facilities. Test Date/Time Test Type Test Details Facility Name Jun 20, 2024 12:57 PM Consult Order GENERAL VIZCAINO RGERY OUTPATIENT Cons Angiography Technologist's Choice [place] [facility] Jul 21, 2024 03:34 PM Consult Order COMMUNITY CARE-PHYSICAL THERAPY Cons Angiography Technologist's Choice [facility] Social History: Smoking Status [...] PM VA-TOBACCO NEVER USED [place] [facility] Tobacco Use History This section includes a history of the smoking, or tobacco-related health factors, that were collected on or before the date of the Encounter. The data comes from the [place] facility where the Encounter took place. Date/Time Smoking Status/Tobacco Use Comment F acility Nov 25, 2023 01:00 PM VA-TOBACCO NEVER USED [place] [facility] Aug 02, 2023 02:30 PM VA-TOBACCO NEVER USED [place] [facility] Aug 20, 2019 11:05 AM VA-TOBACCO NEVER USED [place] [facility] Encounter Notes: All associated encounter notes This section contains the clinical notes associated to the Encounter. Date/Time Encounter Note(s) Provider Source Jul 16, 2024 01:48 PM MENTAL HEALTH ADMI NISTRATIVE NOTE: LOCAL TITLE: Administrative Note/Mental Health STANDARD TITLE: MENTAL HEALTH ADMINISTRATIVE NOTE DATE OF NOTE: JUL 16, 2024@13:48 ENTRY DATE: JUL 16, 2024@13:48:38 AUTHOR: JEAN BLACKMAN EXP COSIGNER: URGENCY: STATUS: COMPLETED Left message requesting return phone call at earliest convenience to reschedule psychotherapy appt. /deann/ ANNE-MARIE WEBSTER Material Liaison Signed: 07/16/2024 13:49 JEAN BLACKMAN [facility]
--- OUTSIDE RECORDS SUMMARY | 2024-08-03 13:59 | XMS_ITS | Encounter Summary ---
Author Name [facility] [place] Organization [place] Address [address] [place] [address] Care Team Providers Care Director Of Parks And Recreation Name Role Phone UMESH MCDONOUGH Primary Care Provider Unavailabl e Selected Encounter This section includes the information on record at [place] for the Encounter. Date/Time Encounter Type Encounter Description Reason Pro vider Source Jul 10, 2024 12:00 PM Outpatient Encounter COMMUNITY CARE [...] 01:30 PM AMBULATORY - MEDICINE CORNELIO ABURTO [facility] Aug 13, 2024 10:30 AM AMBULATORY - NONE [facility] Active, Pending, and Scheduled Orders This section [...] Consult Order GENERAL VIZCAINO RGERY OUTPATIENT Cons Incident Response [place]ant's [place] [facility] Jul 21, 2024 03:34 PM Consult Order COMMUNITY CARE-PHYSICAL THERAPY Cons Incident Response Consultant's Choice [facility] Social History: Smoking [...] 01:00 PM VA-TOBACCO NEVER USED [place] [facility] Tobacco Use History This section includes a [...] [place] [facility] Aug 20, 2019 11:05 AM VA-TOBACCO NEVER USED [place] [facility] Encounter Notes: All associated encounter notes This section contains the clinical notes associated to the Encounter. Date/Time Encounter Note(s) Provider Source Jul 10, 2024 12:00 PM NONVA CONSULT: LOCAL TITLE: COMMUNITY CARE CONSULT RESULT NOTE STANDARD TITLE: NONVA CONSULT DATE OF NOTE: JUL 10, 2024@12:00 ENTRY DATE: JUL 19, 2024@14:31:42 AUTHOR: JL GOODRICH EXP COSIGNER: URGENCY: STATUS: COMPLETED VistA Imaging - Scanned Document Consult / Referral: Sep 12 (c) COMMUNITY CARE-PHYSICAL THERAPY Cons Consult # [id number] Date of Service (Procedure/Event): 07/10/2024 Note Title: COMMUNITY CARE CONSULT RESULT NOTE [facility] Rehab Karrie Forte SCANNED DOCUMENT SIGNATURE NOT REQUIRED Electronically Filed: 07/19/2024 by: JL GOODRICH [facility] JL GOODRICH [facility]
--- OUTSIDE RECORDS SUMMARY | 2024-08-03 13:59 | XMS_ITS | Encounter Summary ---
Author Name [facility] [place] Organization [place] Address [address] [place] [address] Care Team Providers Care Financial Analysis Consultant Name Role Phone UMESH MCDONOUGH Primary Care Provider Unavailabl e Selected Encounter This section includes the information on record at [place] for the Encounter. Date/Time Encounter Type Encounter Description Reason Pro vider Source Jul 30, 2024 10:29 AM Outpatient Encounter PCMMS INDIV IHE Encounter Template Text not used [...] AMBULATORY - NONE [place] [facility] [facility] Active, Pending, and Scheduled Orders This section [...] Consult Order GENERAL VIZCAINO RGERY OUTPATIENT Cons Radiology Asst's Choice [place] [facility] Jul 21, 2024 03:34 PM Consult Order COMMUNITY CARE-PHYSICAL THERAPY Cons Radiology Asst's Choice [facility] Social History: Smoking Status (Most current) [...] PM VA-TOBACCO NEVER USED [place] [facility] Tobacco Use History This section includes a [...] AM VA-TOBACCO NEVER USED [place] [facility] Encounter Notes: All associated encounter notes This section contains the clinical notes associated to the Encounter. Date/Time Encounter Note(s) Provider Source Jul 30, 2024 10:29 AM LETTERS: LOCAL TITLE: Letter to Patient - [facility] STANDARD TITLE: LETTERS DATE OF NOTE: JUL 30, 2024@10:29 ENTRY DATE: JUL 30, 2024@10:29:24 AUTHOR: JEAN BLACKMAN COSIGNER: URGENCY: STATUS: COMPLETED JUL 30, 2024 CORETTALESLIE PATEL [address] [place] [id number] Helmaria a, I have been trying to reach you by phone and have been unsuccessful. Just wondering if you are still interested in psychotherapy and looking to schedule an appointment. Would be happy to find a date and time that works for you if you are interested. Please don't hesitate to call if you have any questions or concerns, . Sincerely, [facility] - Psychotherapist [address] [place] [id number] JEAN BLACKMAN [facility]
--- OUTSIDE RECORDS SUMMARY | 2024-08-03 14:00 | XMS_ITS | Data Portability ---
Author Organization [facility] [place] [address] Assessment No assessment recorded. Plan of Treatment Reminders Order Date Submit Date Provider Last Modified By Organization Details Last Modified Time Details Appointments Acute 10 2023 10:29A M EUNICE HARRINGTON Not available Not available Not available Lab None recorded. Referral orthopedi c spine surgeon referral 2023 024 [facility], [address], [place], [address], 05/23/2024 22:48:18 Procedures None recorded. Surgeries None recorded. Imaging US, duplex, venous, lower extremity , unilatera l 2023 024 [facility] (Radiology), [address] [place], [address], 10/25/2023 14:45:28 Medication Orders None recorded. Patient TargetsNo targets recorded. Patient Instructions Encounter Date Encounter Id Patient Instructions Last Modified By Organization Details Last Modified Time 04/20/2024 [id number] 1. I am going to send a referral to the spine clinic at the [facility] in [place]. I expect they should reach out to you on Tuesday to schedule an appointment. If by chance you have not heard back from them come Tuesday please call my office so we can follow-up with that. [email or web address] Not available 04/20/2024 16:31:18 Reason for Referral Orthopedic Spine Surgeon Ref erral for Low back pain Referring Physician: Eunice Harrington, Family Medicine, Encounter Date: 04/20/2024 Results Created Date Observation Date Name Description Value Unit Range Abnormal Flag Note LastModifiedBy Organization Detail LastModifiedTime 08/03/2008/03/2024 gluco se, alexander rstic k, blood glucose 112 mg/dL 70-100 Not Available [address], [place], [address], 08/03/2024 13:00:49 08/03/2008/03/2024 urina lysis , dipst ick Leukocytes Trace Not Available [address] [address], [place], [address], 08/03/2024 12:58:14 08/03/2008/03/2024 urina lysis , dipst ick Nitrite negati ve Not Available [address] [address], [place], [address], 08/03/2024 12:58:14 08/03/2008/03/2024 urina lysis , dipst ick Urobilinogen .2 Not Available [address], [place], [address], 08/03/2024 12:58:14 08/03/20 24 08/03/2024 urina lysis , dipst ick Protein Negati ve Not Available [address], [place], [address], 08/03/2024 12:58:14 08/03/2008/03/2024 urina lysis , dipst ick pH 8.0 Not Available [address], [place], [address], 08/03/2024 12:58:14 08/03/2008/03/2024 urina lysis , dipst ick Blood Negati ve Not Available [address], [place], [address], 08/03/2024 12:58:14 08/03/2008/03/2024 urina lysis , dipst ick Specific [place] 1.005 Not Available [address], [place], [address], 08/03/2024 12:58:14 08/03/2008/03/2024 urina lysis , dipst ick Ketone Negati ve Not Available [address], [place], [address], 08/03/2024 12:58:14 08/03/2008/03/2024 urina lysis , dipst ick Bilirubin Negati ve Not Available [address], [place], [address], 08/03/2024 12:58:14 08/03/2008/03/2024 urina lysis , dipst ick Glucose Negati ve Not Available [address], [place], [address], 08/03/2024 12:58:14 08/03/2008/03/2024 urina lysis , dipst ick Appearance Clear Not Available [address], [place], [address], 08/03/2024 12:58:14 08/03/2008/03/2024 urina lysis , dipst ick Color Yellow Not Available [address], [place], [address], 08/03/2024 12:58:14 10/25/19 24 10/25/2023 US, duple x, venou s, lower extre mity, unila teral No observ ation record ed. [email or web address] Not Available 2023 14:49:23 10/25/19 24 10/25/2023 ultra sound imagi ng repor t Patien t Name: Lala Wells Unit #: [id number] Loc: DI Orderi ng Provid er: JOSE POSADAS Accoun t #: [id number] Status : PRE CLI Primar y Care Provid er: JOSE POSADAS Date of Exam: 10/25 Sex: F Admiss ion Date: : 1980 Age: 42 Exam(s ) US LOWER EXTREM ITY VENOUS LT EXAM: US LOWER EXTREM ITY VENOUS LT CLINIC AL HISTOR Y: PAIN LEFT LEG M79.60 5 TECHNI QUE: Graysc susan, color, and dopple r imagin g of the deep venous system of the left lower extrem ity was perfor med. COMPAR JESSE: No exams were availa ble for compar jesse FINDIN GS: There is no eviden ce of intral uminal thromb us and there is normal compre ssion and augmen tation demons trated within the common femora l vein, femora l vein, and poplit eal vein. In the ipsila teral calf the interr ogated veins also exhibi t normal compre ssion/ augmen tation proper ties. The ipsila teral saphen ofemor al juncti on is patent . IMPRES ADAN: 1. No eviden ce of DVT in the left lower extrem ity. DATA REPOSI TORY: [place] By: JOSE POSADAS CC: ------ ------ ------ ------ ------ ------ ------ ------ ------ ------ ------ ------ - Dictat ed By: Wes Doan M.D. [id number] Transc ribed By: Olimpia BEJARANO,Duncan marquez 1338 This is privil eged, confid ential inform ation intend ed only for the provid er named. Any use or distri bution by any person other than this provid er is strict ly prohib ited. If you receiv e this report in error, please notify us immedi constance at and return the origin al report to us at the addres s above. Thank- you. [email or web address] [address] , [place], [address] 10/25/2023 17:03:17 Result Notes None recorded. Problems Name Problem SNOMED Code Status Onset Date Resolution Date Notes Provider Name and Address Organization Details Recorded Time Increased frequency of urination 452161225 Active [address], [place], [address] , [facility] 4 12:25:37 Posterior rhinorrhea 53523838 Active 2022 Problem Code: R09.82; Problem Code Type: ICD-10; Not Available [facility] 3 04:20:04 Low back pain 817935426 Active [address], [place], [address] , [facility] 4 16:39:59 Problem Notes None recorded. Procedures Surgical History None recorded. Imaging Results Imaging Date Name Status LastModified by Organiz ation Details LastModified Time 10/25/2023 US, duplex, venous, lower extremity, unilateral completed [email or web address] Information not available 10/25/2023 14:49:23 10/25/2023 ultrasound imaging report completed [email or web address] [address] , [place], [address] 10/25/2023 17:03:17 Procedure Notes None recorded. Medical Equipment None Reported. Allergies No known drug allergies Medications Name Sig Start Date Stop Date Status Note LastModified by Organization Details LastModified Time hydroxyzine HCl 10 mg tablet 01/30 /2024 completed Not Available Not Available Not Available fluticasone propionate 50 mcg/actuati on nasal spray,suspe nsion 1 spray into both nostrils once a day 10/25 completed Not Available Not Available Not Available amoxicillin 875 mg-shankar m clavulanate 125 mg tablet 1 tablet by mouth twice a day 04/11 completed Not Available Not Available Not Available magnesium 200 mg tablet Take 1 tablet every day by oral route. active Not Available Not Available No t Available Vitamin D3 active Not Available Not Av ailable Not Available vitamin D3 1,250 mcg (50,000 unit)-vitam in K2 200 mcg capsule Take 1 capsule every day by oral route. 08/03 completed Not Available Not Available Not Available Vitals Date Recorded Body height Body mass index (BMI) Body weight Respiratory rate Heart rate Body temperature Oxygen saturation Oxygen saturation in Arterial blood by Pulse oximetry Systolic blood pressure Diastolic blood pressure Provider Name and Address Organization Details Last Updated DateTime 4 165.1 cm 22.6 kg/m2 44834.5 6 g 16 /min 68 /min 97.7 [degF] 98 % 98 % 100 mm[Hg] 67 mm[Hg] Eloina Johnson MA [facility] 4 11:42:42 Date Recorded Body height Body mass index (BMI) Body weight Body temperature Oxygen saturation Oxygen saturation in Arterial blood by Pulse oximetry Heart rate Respiratory rate Systolic blood pressure Diastolic blood pressure Provider Name and Address Organization Details Last Updated DateTime 4 165.1 cm 22.5 kg/m2 67912.9 7 g 97.6 [degF] 98 % 98 % 64 /min 17 /min 105 mm[Hg] 73 mm[Hg] Rosa Velazquez MA [facility] 4 15:56:37 Date Recorded Body height Body mass index (BMI) Body weight Body temperature Heart rate Oxygen saturation Oxygen saturation in Arterial blood by Pulse oximetry Respiratory rate Systolic blood pressure Diastolic blood pressure Provider Name and Address Organization Details Last Updated DateTime 4 165.1 cm 20.8 kg/m2 27015.0 5 g 97.8 [degF] 55 /min 97 % 97 % 16 /min 86 mm[Hg] 59 mm[Hg] Maria Antonia Plasencia MA [facility] 12:09:49 Social History Question Answer Notes LastModified by Organizat ion Details LastModified Time Tobacco Smoking Status Never Smoker PATRICIA Hernandez, [facility] 10/25/2023 11:40:59 What Was The Date Of Your Most Recent Tobacco Screening? 08/03/2024 [email or web address] Information not available 08/03/2024 Has Tobacco Cessation Counseling Been Provided? Yes Information not available 10/25/2023 On What Date Was Tobacco Cessation Counseling Provided? 08/03/2024 [email or web address] Information not available 08/03/2024 Do You Or Have You Ever Used Any Other Forms Of Tobacco Or Nicotine? No Information not available 10/25/2023 Sex: Female Functional Status None recorded. Mental Status None recorded. Family History Nothing Reported. Medical History No medical history recorded. Gynecological HistoryNo gynecological history recorded. Obstetrics History GPAL:G 0 P 0 0 0 0 Past Encounters Encounter ID Performer Location Encounter Start Date Encounter Closed Date Diagnosis/Indication Diagnosis SNOMED-CT Code Diagnosis ICD10 Code [id number] VALENTÍN BENITEZ [address] [place] [address] 10/25/2023 11:31:19 10/25/2023 12:09:57 Pain in left lower limb 695130848 M79.[id number] [place] [address] 04/20/2024 14:14:54 04/20/2024 16:32:34 Low back pain 915589062 M54.50 [id number] EUNICE HARRINGTON PA-C [address] [place] [address] 08/03/2024 10:31:13 08/03/2024 13:12:01 Increased frequency of urination 611317401 R35.0 Screening for disorder 631720314 Z13.9 Health Concerns Section Related Observation LastModified by Organization Detai ls LastModified Time None Recorded Concern Status LastModified by Organization Details LastModified Time None Recorded Advance Directives Directive None Recorded Payers Encounter Date Sequence Insurance Name Policy Number Policy Coulter Covered Member ID Coulter Member ID Guarantor Name 10/25/2023 1 [facility] (MEDICAID) Lala Wells [id number] Lala Wells 04/20/2024 1 [facility] (MEDICAID) Lala Wells [id number] Lala Wells Notes Date Note Type Note Provider Name and Address Organization Details Recorded Time 10/25/2023 text/html HPI Notes: Patie nt with night time L calf muscle cramping, first noted 7 nights ago, with some tenderness the following 2 days. Spouse tried to massage area on day 3 of symptoms, with worsening of pain with pressure. Still with deep pain to lower leg muscle, with some pain also noted to medial aspect behind L knee. No redness, swelling, or warmth. Now, with feeling of continued tightness to L lower leg. Denies chest pain, shortness of breath, or cough. Denies hemoptysis. Patient with no tobacco history. No history of DVT or PE. She has had increased fatigue lately, sometimes sleeping up to 15 hours per day, but denies any recent immobilization, major surgery, or bedridden status. [facility] [place] seen FACILITIES DIRECTOR through [place], and was taking some hormonal replacement therapy (estradiol), which she took for 2 days several weeks ago, but then discontinued. She had reported worsening of liver pain to right upper quadrant with taking. Patient has a scheduled PCP f/u 11/11/23, in which she plans to discuss several of her concerns. MARIA ANTONIA POSADAS, VALENTÍN [address], [place], [address], [facility]. 10/25/2023 12:43:04 04/20/2024 text/html HPI Notes: Jackelin is a 43-year-old female who presents with ongoing low back pain. She reports she had an epidural during in 2021 at the [facility] and ever since that she had point tenderness in that area which she describes as sometimes a burning-like sensation or stabbing pain sensation. This was often with leaning up against a hard chair. She was told at her last appointment that this would eventually go away. It has not. She now describes it seems to be more constant in nature and even hurts with things such as sitting up against a soft couch. She has been having some discomfort in her legs was actually seen here in September for left leg pain and had rule out of DVT. She reports that she will have some pain in the legs which tends to move about. Sometimes it feels tight behind her knee and sometimes it feels tight at the Achilles. Sometimes just in the thigh. She has attempted to improve discomfort by using ice, heat, stretching, Advil, Aleve all without much improvement. She does endorse that she had an MRI many years ago and has a known herniated disc at L4-L5 which in the past only resulted in pain in her glutes. She feels like this pain is different. At no point has she developed fever. She does not feel that the pain limits her range of motion in any way. EUNICE HARRINGTON PA-C [address], [place], [address], [facility]. 04/20/2024 16:42:59 OBGyn Episode No OBEpisode recorded.
[2024-08-03 15:14] LABS: Bacteria Rare HPF (Negative); C & S Indicated? C&S Done As Ordered; Casts Negative LPF (Negative); Crystals Negative HPF (Negative); Epithelial Cells Few HPF (Negative); Mucus Negative (Negative); RBC Negative HPF (0-2); WBC 0-2 HPF (0-5)
[2024-08-03 17:13] LABS: Anion Gap 8.4 mmol/L (3-11); BUN 15 mg/dL (7-18); CO2 28.6 mmol/L (21.0-32.0); CREATININE 0.8 mg/dL (0.55-1.02); Calcium 9.2 mg/dL (8.5-10.1); Chloride 103 mmol/L (98-107); Estimated GFR 93.12 (mL/min/1.73m2); Glucose 95 mg/dL (74-106); Potassium 4.2 mmol/L (3.5-5.1); Sodium 140 mmol/L (136-145)
[2024-08-03 17:19] LABS: Vitamin D 25 Total 120.4 ng/mL (30-100)
== END 2024-08-03 13:52 | disposition home or self-care (01) ==
LOC: LBN 13:51
PROVIDERS: Visit Provider Physician Assistant Medical
DX: R35.0 Frequency of micturition; Z00.00 Encounter for general adult medical examination without abnormal findings
CPT/HCPCS: 80048; 82306; 81015; 87086

== ENCOUNTER 2024-08-09 01:56 | Outpatient (CLI) | payer MEDICAID, SELFPAY ==
[2024-08-09 17:13] LABS: Anion Gap 7.9 mmol/L (3-11); BUN 15 mg/dL (7-18); CO2 30.1 mmol/L (21.0-32.0); CREATININE 0.9 mg/dL (0.55-1.02); Calcium 9.8 mg/dL (8.5-10.1); Chloride 102 mmol/L (98-107); Estimated GFR 80.84 (mL/min/1.73m2); Glucose 101 mg/dL (74-106); Potassium 3.8 mmol/L (3.5-5.1); Sodium 140 mmol/L (136-145)
[2024-08-09 17:18] LABS: Vitamin D 25 Total 106.5 ng/mL (30-100)
== END 2024-08-09 01:57 | disposition home or self-care (01) ==
LOC: LBO 01:56
PROVIDERS: Visit Provider Physician Assistant Medical
DX: Z00.00 Encounter for general adult medical examination without abnormal findings (principal)
CPT/HCPCS: 36415; 80048; 82306

== ENCOUNTER 2024-12-07 00:17 | Outpatient (CLI) | payer MEDICAID, SELFPAY ==
--- NOTE | 2024-12-07 | DI.RAD_ITS ---
Exam(s) XR SACROILIAC JOINTS EXAM: XR SACROILIAC JOINTS CLINICAL HISTORY: PAIN RT SACROILIAC JOINT,M53.3,SACROCOCCGEAL DISORDER. TECHNIQUE: 2D digital imaging was performed. Three images were obtained. COMPARISON: No exams were available for comparison FINDINGS: Bones: No fracture is present. No bony destructive lesion is seen. Alignment is satisfactory. SI Joint:No fusion, erosions or sclerosis is seen. Soft Tissue: Normal. IMPRESSION: Normal radiographs of the SI Joints. DATA REPOSITORY: RADIATION DOSE DELIVERED:
== END 2024-12-07 00:37 ==
PROVIDERS: Visit Provider Physician Assistant Medical
DX: M53.3 Sacrococcygeal disorders, not elsewhere classified (principal)
CPT/HCPCS: 72202

== ENCOUNTER 2025-01-02 13:34 | Emergency (ER) | payer MEDICAID, SELFPAY ==
--- NOTE | 2025-01-02 13:45 | RT.EKG_ITS ---
APPROVED REPORT Exam: Resting ECG Reason for Exam: left arm pain that radiates. Patient Location: E HR:67 bpm ECG Measurements Heart Rate 67 AXIS KS 156 P 81 QRSd 73 QRS 69 QT 387 T 55 QTc 409 Conclusion Sinus rhythm...normal P axis, V-rate 60- 99 Low voltage, precordial leads...precordial leads <1.0mV Physician: no stemi
[2025-01-02 13:51] VITALS: BP 107/72; PULSE 65; RESP 16; TEMP 36.7; O2SAT 98
--- NOTE | 2025-01-02 14:28 | W.ED.GENAD ---
Discharge Plan Disposition Patient Disposition: Home Condition: Good Discharge Details Clinical Impression: Neck pain on left side Primary Care Provider: None,None ED Provider: Sen Bey Home Meds and New Rx's Prescriptions: New cyclobenzaprine 10 mg tablet 10 mg PO TID Qty: 14 0RF lidocaine [Lidoderm] 5 % adhesive patch,medicated 1 patch Topical Q24H Qty: 15 0RF Discharge Instructions Instructions: Neck Pain ED Additional Instructions: At this time your workup has returned reassuring. There is no signs of heart attack, dissection of your vessels, major disc pathology, or other significant abnormality. That being said it is still important because of your risk factors to follow-up closely with your primary care provider to set up an outpatient nonemergent stress test. In the meantime I am concerned that some of your symptoms may be secondary to muscle spasms and slight pinching of the nerves coming out of your neck. Please take the muscle relaxant cyclobenzaprine as prescribed. Please do not take it with alcohol. Please do not drive, shoot guns, swim or operate heavy machinery while using the medication. It can make you significantly sleepy. Please continue to take Tylenol and Motrin, use the Lidoderm patches as prescribed, and use a heating pad. If you notice any worsening of your symptoms, or any new symptoms such as vomiting, diarrhea, fever, chills, shortness of breath, chest pain, numbness, weakness, or fainting , please return immediately to the emergency department for reevaluation. Please follow up with your primary care provider as soon as possible for reassessment and reevaluation. As always, it was a pleasure participating in your medical care today. HPI General Date/Time Provider Initiated Documentation: 01/02/25 13:50. HPI Narrative: This is a very pleasant 44-year-old female with with a past medical history of BPPV, who presents today for evaluation of left shoulder arm and neck pain. Patient states that about a week ago she noticed some very mild achiness in her left neck and shoulder. It was not particularly exertional, it did not improve with movement or massage. She was on the treadmill today and walking at a relatively benign rate when she noticed that the neck and shoulder discomfort worsened, and it radiated to her upper arm. The more severe pain was notably atypical, and she stopped walking on the treadmill. After that the pain notably improved quite shortly thereafter. Since then her neck and shoulder has been continually mildly achy, but not as bad as it previously was. She denies any tearing or ripping sensation. She denies any electrical shock sensation. She denies any trauma. Family history is positive for notable cardiac disease with her father having a heart attack at 50. She denies any tobacco use. She is otherwise healthy. She denies any cocaine use. No other complaints at this time. No other modifying factors. Related Data Home Medications ?Medication ?Instructions ?Recorded ?Confirmed cyclobenzaprine 10 mg tablet 10 mg PO TID #14 tabs 01/02/25 lidocaine 5 % topical patch 1 patch topical Q24H #15 ea 01/02/25 (Lidoderm) Previous Rx's ?Medication ?Instructions ?Recorded cyclobenzaprine 10 mg tablet 10 mg PO TID #14 tabs 01/02/25 lidocaine 5 % topical patch 1 patch topical Q24H #15 ea 01/02/25 (Lidoderm) Allergies Allergy/AdvReac Type Severity Reaction Status Date / Time No Known Allergies Allergy Verified 02/29/24 10:02 General Stated Complaint: Nk/Back Pain SOBEIDA: 3 Exam Narrative Exam Narrative: 1.Const: Well-nourished, Well-developed, appearing stated age 2.Eyes: PERRL, no conjunctival injection, and symmetrical lids. 3.ENT: Atraumatic external nose and ears. Moist MM. Neck: Symmetric, trachea midline, No thyromegaly. 4.CVS: +S1/S2, Peripheral pulses 2+ and equal in all extremities. Brisk capillary refill in all extremities. Radial pulses are intact bilaterally. 5.RESP: Unlabored respiratory effort. Clear to auscultation bilaterally. No wheezes rales or rhonchi 6.GI: Soft, Nontender/Nondistended, No hepatosplenomegaly. No guarding or rebound. 7.MSK: Normocephalic/Atraumatic, Extremities w/o deformity or ttp No cyanosis or clubbing, Normal movement of all extremities. No tenderness with movement of the left shoulder, no tenderness redness swelling or warmth on palpation of the left shoulder or neck. 8.Skin: Warm, Dry. No rashes or lesions. 9.Neuro: body welder II-XII grossly intact. Sensation grossly intact, no focal neurologic deficits. 10.Psych: (AAO) x3. Appropriate mood and affect Course Vital Signs Vital signs: Vital Signs Temperature 36.7 C 01/02/25 13:51 Pulse 65 01/02/25 13:51 Respiratory Rate 16 01/02/25 13:51 Blood Pressure 107/72 01/02/25 13:51 Pulse Oximetry 98 01/02/25 13:51 Temperature 36.7 C 01/02/25 13:51 Temperature Source Oral 01/02/25 13:51 Pulse 65 01/02/25 13:51 Respiratory Rate 16 01/02/25 13:51 Blood Pressure 107/72 01/02/25 13:51 Pulse Oximetry 98 01/02/25 13:51 Oxygen Delivery Method Room Air 01/02/25 13:51 Oxygen Flow Rate 0 01/02/25 13:51 Pain Level 6 01/02/25 13:51 Medical Decision Making This is a very pleasant 44-year-old female with with a past medical history of BPPV, who presents today for evaluation of left shoulder arm and neck pain. Patient states that about a week ago she noticed some very mild achiness in her left neck and shoulder. It was not particularly exertional, it did not improve with movement or massage. She was on the treadmill today and walking at a relatively benign rate when she noticed that the neck and shoulder discomfort worsened, and it radiated to her upper arm. The more severe pain was notably atypical, and she stopped walking on the treadmill. After that the pain notably improved quite shortly thereafter. Since then her neck and shoulder has been continually mildly achy, but not as bad as it previously was. She denies any tearing or ripping sensation. She denies any electrical shock sensation. She denies any trauma. Family history is positive for notable cardiac disease with her father having a heart attack at 50. She denies any tobacco use. She is otherwise healthy. She denies any cocaine use. No other complaints at this time. No other modifying factors. Exam demonstrates well-appearing female, intact pulses, no redness warmth or focal tenderness with movement or palpation of the left shoulder or neck. No bruit. Differential is broad, but highest differential includes cervical radiculopathy, muscle spasm or strained shoulder and neck muscle. No evidence of warmth or tachycardia or fever to suggest septic joint. No history of drug use to suspect endocarditis. Differential though certainly does include cardiac etiology including an anginal equivalent secondary to the patient's family history although her other risk factors are notably low. Vertebral artery pathology or aortic pathology is also on the differential however with no tearing or ripping sensation dissection is certainly less likely. We will evaluate for these concerning etiologies. EKG shows no evidence of STEMI. Will monitor closely and reassess. Laboratory workup and imaging has returned. No white count bandemia or left shift. D-dimer was elevated, CT/CTA was ordered of the show no evidence of dissection aneurysm or PE. There is evidence of degenerative changes of the facet joints of the cervical spine. No other significant major abnormality otherwise. Suspect potential mild cervical muscle spasm, brachial plexus irritation, or less likely potential mild cervical radiculopathy. With no evidence of significant neurovascular pathology otherwise, I do feel the patient safe for discharge. Will recommend NSAIDs heat and muscle relaxants for the next week or so. If she does not have improvement with this she may require further diagnostic evaluation or potential MRI. Troponins/serial troponins are normal, EKG normal. Symptoms appear inconsistent with ACS. I have recommended that the [facility], although this is notably unlikely. Patient will be discharged home. Discussed red flags which return. I have extensively reviewed the treatment plan and discharge instructions with the patient. I have addressed all patient concerns at this time. The patient was made aware of what symptoms to monitor for that would warrant a return to the emergency department. Discussed the plan with the patient, they demonstrate verbal understanding and agreement with our assessment and plan at this time. The documentation in this chart was dictated using [employer] dictation software. Please excuse any dictation errors. FINDINGS: CTA Neck W: Common Carotid: Right: No dissection, occlusion or significant stenosis. Left: No dissection, occlusion or significant stenosis. External Carotid: Right: No dissection, occlusion or significant stenosis. Left: No dissection, occlusion or significant stenosis. Internal Carotid: Right: No dissection, occlusion or significant stenosis. Left: No dissection, occlusion or significant stenosis. Vertebral Artery: Right: No dissection, occlusion or significant stenosis. Left: No dissection, occlusion or significant stenosis. The visualized portions of the brain are unremarkable. [id number]-Vlvocr vasculature appears normal as visualized. Lung Apices: No acute findings. Bones: No acute abnormality. Mild degenerative changes of the facet joints. Soft Tissues: Normal. IMPRESSION: CTA neck: Normal CTA examination of the neck. No evidence of dissection. No atherosclerotic changes are visible. There are minimal degenerative changes of the facet joints of the cervical spine. FINDINGS: Pulmonary Arteries: No evidence of filling defect to suggest pulmonary emboli. Mediastinum and Ashly: No dominant adenopathy or fluid collection. Pulmonary parenchyma: No consolidation or dominant measurable mass. Pleura: No effusion or pneumothorax. Heart: The heart is not dilated. No coronary artery calcifications are seen. Aorta: Thoracic aorta non-dilated. No dissection. Upper abdomen: No acute findings. Bones: Unremarkable for age. Tubes, Catheters, and Lines: None Soft tissues: Unremarkable. IMPRESSION: No evidence of pulmonary embolism or other acute abnormality. Quality:SDOH Health Related Social Needs: No Data to Display PFSH All Active Problems (Updated 01/02/25 @ 16:46 by Sen Bey DO) Neck pain on left side (Acute) Tenderness of neck (Acute) SAB (spontaneous ) (Acute) 12/19/23. 9w EGA with 6w0d EGA by CRL. Pt will repeat u/s in one week and have D&C if non-viable on repeat u/s. BPPV (benign paroxysmal positional vertigo) (Acute) Globus sensation (Acute) Medical History Nasal drainage Social History Smoking/Tobacco Use Status: Never Smoking risk assessment performed?: Yes Alcohol Intake: never Drug use: Never Substance use type: does not use Do you feel safe at home: Yes
[2025-01-02 14:37] LABS: Abs Immature Grans 0.02 10^3/uL (0.0-0.06); Absolute Basophil Count 0.04 10^3/uL (0.0-0.2); Absolute Eosinophil Count 0.09 10^3/uL (0.0-0.7); Absolute Lymphocyte Count 2.32 10^3/uL (1.2-3.4); Absolute Monocyte Count 0.47 10^3/uL (0.1-0.8); Absolute Neutrophil Count 4.12 10^3/uL (1.2-6.7); Basophils % 0.6 %; Eosinophils % 1.3 %; HCT 41.8 % (36.0-46.0); HGB 14.1 g/dL (11.2-15.7); Immature Grans % 0.3 %; Lymphocytes % 32.9 %; MCH 31.3 pg (27.0-33.0); MCHC 33.7 % (32.0-36.0); MCV 93 fL (80-95); MPV 10.3 fL (8.0-11.0); Monocytes % 6.7 %; Neutrophils % 58.2 %; Platelet Count 301 10^3/uL (130-400); RBC 4.51 10^6/uL (3.93-5.22); RDW 11.6 % (11.7-14.6); RDW-SD 39.8 fL; WBC 7.06 10^3/uL (4.4-10.8)
[2025-01-02 14:52] LABS: PTT Activated 24.4 sec (20.6-30.2); Prothrombin Time 9.7 sec (9.1-11.1)
[2025-01-02 14:56] LABS: ALT 26 U/L (14-59); AST 18 U/L (15-37); Albumin 4.5 g/dL (3.4-5.0); Alkaline Phosphatase 48 U/L (46-116); Anion Gap 8.2 mmol/L (3-11); BUN 12 mg/dL (7-18); Bilirubin, Total 0.3 mg/dL (0.2-1.0); CO2 30.8 mmol/L (21.0-32.0); CREATININE 0.8 mg/dL (0.55-1.02); Calcium 10.1 mg/dL (8.5-10.1); Chloride 99 mmol/L (98-107); Estimated GFR 92.54 (mL/min/1.73m2); Glucose 98 mg/dL (74-106); Potassium 3.9 mmol/L (3.5-5.1); Sodium 138 mmol/L (136-145); Total Protein 8.4 g/dL (6.4-8.2)
[2025-01-02 14:58] LABS: Troponin I < 4 ng/L (<or=51)
[2025-01-02 15:03] LABS: D-Dimer 505 ng/mlFEU (<500)
--- NOTE | 2025-01-02 15:15 | DI.CT_ITS ---
Exam(s) CT CAROTID NECK CTA EXAM: CT CAROTID NECK CTA CLINICAL HISTORY: L neck pain,radiating to shoulder, eval for dissec. TECHNIQUE: Imaging Protocol: Axial CT angiography was performed with multi-slice acquisition and mu lti-planar and MIP reconstructions. CONTRAST MATERIAL: Intravenous: Omnipaque 350 Contrast volume:70 ml COMPARISON: CR XR CERVICAL SPINE COMP 4-5V from 07/12/2022 FINDINGS: CTA Neck W: Common Carotid: Right: No dissection, occlusion or significant stenosis. Left: No dissection, occlusion or significant stenosis. External Carotid: Right: No dissection, occlusion or significant stenosis. Left: No dissection, occlusion or significant stenosis. Internal Carotid: Right: No dissection, occlusion or significant stenosis. Left: No dissection, occlusion or significant stenosis. Vertebral Artery: Right: No dissection, occlusion or significant stenosis. Left: No dissection, occlusion or significant stenosis. The visualized portions of the brain are unremarkable. Ohafow-cb-Dgbmwk vasculature appears normal a s visualized. Lung Apices: No acute findings. Bones: No acute abnormality. Mild degenerative changes of the facet joints. Soft Tissues: Normal. IMPRESSION: CTA neck: Normal CTA examination of the neck. No evidence of dissection. No atherosclerotic changes are visible. There are minimal degenerative changes of the facet joints of the cervical spine. RADIATION DOSE DELIVERED: Total DLP DATA REPOSITORY: All CT scans at this facility are submitted to the National Radiology Data Registry (NRDR) Dose Index Registry (DIR) with the [employer] ([employer]). RADIATION OPTIMIZATION: All CT scans at this facility use at least one of these dose optimization te chniques: automated exposure control; mA and/or kV adjustment per patient size (includes targeted exa ms where dose is matched to clinical indication); or iterative reconstruction.
--- NOTE | 2025-01-02 15:15 | DI.CT_ITS ---
Exam(s) CT CHEST PE CTA EXAM: CT CHEST PE CTA CLINICAL HISTORY: left chest pain, elevated dimer, eval for PE. TECHNIQUE: Imaging Protocol: Axial CT angiography was performed with multi-slice acquisition and mu lti-planar reconstructions as well as axial, coronal and sagittal MIP reconstructions. Computer aided detection (CAD) was utilized. CONTRAST MATERIAL: Intravenous: Omnipaque 350 Contrast volume:70ml COMPARISON: CT CT CAROTID NECK CTA from 01/02/2025 FINDINGS: Pulmonary Arteries: No evidence of filling defect to suggest pulmonary emboli. Mediastinum and Ashly: No dominant adenopathy or fluid collection. Pulmonary parenchyma: No consolidation or dominant measurable mass. Pleura: No effusion or pneumothorax. Heart: The heart is not dilated. No coronary artery calcifications are seen. Aorta: Thoracic aorta non-dilated. No dissection. Upper abdomen: No acute findings. Bones: Unremarkable for age. Tubes, Catheters, and Lines: None Soft tissues: Unremarkable. IMPRESSION: No evidence of pulmonary embolism or other acute abnormality. RADIATION DOSE DELIVERED: Total DLP DATA REPOSITORY: All CT scans at this facility are submitted to the National Radiology Data Registry (NRDR) Dose Index Registry (DIR) with the [employer] (ACR). RADIATION OPTIMIZATION: All CT scans at this facility use at least one of these dose optimization te chniques: automated exposure control; mA and/or kV adjustment per patient size (includes targeted exa ms where dose is matched to clinical indication); or iterative reconstruction.
[2025-01-02 15:53] LABS: Troponin I 5 ng/L (<or=51)
[2025-01-02] MEDS: Omnipaque 350 MG/ML 100 ML BTL 70 ML IJ ×2 (16:11→16:21)
[2025-01-02] MEDS: Normal Saline - Diluent 50 ML VIAL IJ ×2 (16:11→16:21)
[2025-01-02] MEDS: Cyclobenzaprine 10 MG TAB, 3 TABS/BTL PO (16:54)
[2025-01-02] MEDS: Lidocaine 5% Patch 1 PATCH TP (16:55)
[2025-01-02 16:59] VITALS: BP 111/62; PULSE 60; O2SAT 100
== END 2025-01-02 17:08 | disposition home or self-care (01) ==
PROVIDERS: Emergency Provider Student in an Organized Health Care Education/Training Program
DX: M79.602 Pain in left arm (principal); M54.2 Cervicalgia
CPT/HCPCS: 36415; 70498; 71275; 80053; 93005; 99285; 84484; 85025; 85379; 85610; 85730; 93010; 99284; J3490